=== PATIENT | male | born 1960 | race Two or more races ===

== ENCOUNTER → 2020-07-18 13:09 | Outpatient (BNVA) | payer MEDICARE, MEDICAID, SELFPAY | PROVIDERS: PCP Family Medicine; Visit Provider Urology | DX: N40.1 Benign prostatic hyperplasia with lower urinary tract symptoms (principal); R35.1 Nocturia | CPT/HCPCS: 99213 ==

== ENCOUNTER 2020-08-23 13:37 | Outpatient (REF) | payer MEDICARE, MEDICAID, SELFPAY ==
--- NOTE | 2020-08-23 13:38 | XR_ITS ---
EXAMINATION: XR WRIST, LEFT CLINICAL INFORMATION: Left wrist pain COMPARISON: None TECHNIQUE: PA, lateral, and oblique views of the left wrist. FINDINGS: An ovoid corticated density is seen distal to the ulnar styloid. The distal radius is intact. The carpal bones are normally aligned. Punctate radiopaque densities are seen along the volar aspect of the soft tissues superficial to the fifth metacarpal. XR/XR wrist LT min 3V IMPRESSION: 1. 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 No acute abnormality. 2. Probable tiny radiopaque foreign bodies in the volar soft tissues superficial to the fifth metacarpal.
== END 2020-08-23 13:38 | disposition home or self-care (01) ==
LOC: HO.HOSX 13:37
PROVIDERS: Visit Provider Orthopaedic Surgery
DX: M77.8 Other enthesopathies, not elsewhere classified (principal)
CPT/HCPCS: 20550; 73110; 99202; J1100

== ENCOUNTER 2020-08-28 09:41 | Outpatient (REF) | payer MEDICARE, MEDICAID, SELFPAY ==
--- NOTE | 2020-08-28 | PFT_ITS ---
FLOWS: FEV1 of 72% of predicted at 2.58 L. FVC 72% of predicted at 3.43 L. FEV1 to FVC ratio of 0.75. No bronchodilator response. LUNG VOLUMES: Total lung capacity 79% of predicted at 5.59 L. Residual volume 91% of predicted at 2.08 L. Slow vital capacity 74% of predicted at 3.51 L. Expiratory reserve volume 91% of predicted at 1.27 L. Diffusion capacity is mildly decreased, diffusion capacity adjust to normal after correction for alveolar ventilation. In comparison to pulmonary function test from November of 2015, FEV1 has been without significant changes; FVC has decreased by 0.35 L; total lung capacity has been without significant changes; residual volume has decreased by 0.5 L; slow vital capacity has decreased by 0.21 L; expiratory reserve volume has decreased by 0.23 L; diffusion capacity has increased by 0.76 mL per minute per mmHg. IMPRESSION: Mild restrictive ventilatory defect combined as reversible mild obstructive ventilatory defect with no bronchodilator response. MD EDGARDO Batista/MODL / [id number]
== END 2020-08-28 09:42 | disposition home or self-care (01) ==
LOC: HO.RESP 09:41
PROVIDERS: PCP Family Medicine; Visit Provider Family Medicine
DX: J44.9 Chronic obstructive pulmonary disease, unspecified (principal)
CPT/HCPCS: 94060; 94727; 94729

== ENCOUNTER 2020-11-20 13:41 | Emergency (ER) | payer MEDICARE, MEDICAID, SELFPAY ==
--- NOTE | 2020-11-20 | ECG_ITS ---
Test Reason : CHEST PAIN Blood Pressure : / mmHG Vent. Rate : 079 BPM Atrial Rate : 079 BPM P-R Int : 134 ms QRS Dur : 084 ms QT Int : 354 ms P-R-T Axes : 050 052 064 degrees QTc Int : 405 ms Normal sinus rhythm Normal ECG When compared with ECG of 20-APR-2020 12:15, No significant change was found Referred By: Lady Florentino Electronically Signed By:Levi Jett
--- NOTE | ~2020-11-20 | XR_ITS ---
EXAMINATION: XR CHEST CLINICAL INFORMATION: Chest pain COMPARISON: Previous chest x-ray April 2020 TECHNIQUE: Frontal view of the chest was obtained. FINDINGS: The cardiac and mediastinal contours are stable. There is elevation of the left hemidiaphragm that is stable. The lungs are clear. There is no pleural effusion or pneumothorax. Bony structures are unremarkable. XR/XR chest 1V IMPRESSION: No evidence for acute disease in the chest. Elevated left hemidiaphragm similar to previous exams.
[2020-11-20 14:31] VITALS: BP 129/71; PULSE 88; RESP 18; TEMP 36.6; O2SAT 98; BMI 25.1
--- NOTE | 2020-11-20 14:43 | ED_ITS ---
HPI - Chest Pain General Chief Complaint: Chest Pain Stated Complaint: CHEST PAIN LEG NUMBNESS Time Seen by Provider: 11/20/20 14:43 Source: patient Mode of arrival: ambulatory Limitations: no limitations History of Present Illness MD complaint: chest pain Pertinent past history: asthma Onset (ago): day(s) (1) Timing of current episode: constant Prior episodes: Yes Onset: during rest Pain location: substernal Pain radiation: none Severity: similar to previous episodes Quality: tightness Relieving factors: nothing Exacerbating factors: nothing Associated symptoms: dyspnea Treatment prior to arrival: none Related Data Home Medications Medication Instructions Recorded Confirmed albuterol sulfate 90 mcg/actuation 1 inh INHALATION QID 08/17/20 aerosol inhaler aspirin 81 mg tablet,delayed 81 mg PO DAILY 08/17/20 release atorvastatin 10 mg tablet 10 mg PO DAILY 08/17/20 meclizine 25 mg tablet 25 mg PO DAILY 08/17/20 oxybutynin chloride 5 mg tablet 5 mg PO DAILY 08/17/20 tamsulosin 0.4 mg capsule 0.4 mg PO DAILY 08/17/20 varicella-zoster glycoE [id number] IM 08/17/20 adj(PF) 50 mcg/0.5 mL IM susp, kit Previous Rx's Medication Instructions Recorded benzonatate [Tessalon Perles] 100 mg PO BID PRN #20 cap 11/20/20 doxycycline hyclate 100 mg PO BID 7 Days #14 cap 11/20/20 prednisone 40 mg PO DAILY 5 Days #10 tab 11/20/20 Allergies Allergy/AdvReac Type Severity Reaction Status Date / Time No Known Allergies Allergy Verified 08/23/20 13:59 Review of Systems Review of Systems: Constitutional : No Weight loss, No Fever, No Chills ENT/Mouth : No sore throat, No Rhinorrhea Eyes: No Eye Pain, No Swelling Cardiovascular : pos Chest Pain, pos SOB, no Dyspnea on Exertion, No Orthopnea, No Edema, No Palpitations Respiratory : No Cough, No Sputum Gastrointestinal : no Nausea, No Vomiting, No Diarrhea, No abdominal Pain, No Hematochezia, No Melena Genitourinary : No Dysuria, No Urinary Frequency Musculoskeletal : No joint pain, No Myalgias, No Joint Swelling Skin : pos Skin Lesions, No rash Neuro : No Weakness, No Numbness, No Dizziness, No Headache Psych : No Anxiety/Panic, No Depression Heme/Lymph: No Bruising, No Lymphadenopathy Endocrine : No Polyuria, No Polydipsia All other systems reviewed and are negative [facility], [facility] Past Medical History Attestation statement: The following information was validated with the patient. Medical History (Updated 11/20/20 @ 16:04 by Lady Florentino DO) Asthma Cervicalgia COPD (chronic obstructive pulmonary disease) Eczema HIV (human immunodeficiency virus infection) Social History Social History (Updated 08/23/20 @ 14:00 by Joann Gómez PA-C) Alcohol intake: never Smoking Status: Former smoker Advance Directives: No Advance Directives Information Provided: No Current occupational status: disabled Physical Exam Vital Signs: Vital Signs: Last Vital Signs Temp 98.3 F 11/20/20 14:56 Pulse 76 11/20/20 15:12 Resp 16 11/20/20 14:56 BP 133/75 11/20/20 14:56 Pulse Ox 97 11/20/20 14:56 Body Mass Index 25.1 Appearance: Alert. Oriented X3. No acute distress. Eyes: Pupils equal, round and reactive to light. ENT: Pharynx normal. Neck: Normal inspection. Neck supple. CVS: Normal heart rate and rhythm. Pulses normal. Respiratory: No respiratory distress. Breath sounds diminished throughout Abdomen: Soft and nontender. Back: in between scapula boil noted no sig overlyin erythema ?sebaceous cyst Skin: Skin warm and dry. Normal skin color. Normal skin turgor. Extremities: No lower extremity edema. No calf ttp boundin distal pulses Neuro: Oriented X 3. No motor deficit. No sensory deficit. Course Course Course Narrative: troponin and ddimer flat - EKG nonischemic, feels much better after neb and steroids - likely DC home + COVID no hypoxia, clear CXR for asthma/boil and COVID start on dexamethasone and doxy strict instructions to return Procedures Abscess I/D Site: back Sedation/analgesia: none Local Anesthetic: other anesthetic (LET) Technique: needle aspiration Amount of fluid expressed (mL): 5 Sent for culture/gram staining?: No Irrigation: No Packing used?: none MDM - Chest Pain MDM Narrative Medical decision making narrative: 60 yo male with hx of chest pain, asthma, PVD comes in with c/o chest tightness and body aches since yesterday with bouts of tingling in LE (has had episodes of same in past), also c/o boil on mid back at this time at this time will give neb, IV steroids has diminished lung sounds, CXR, ddimer, will aspirate boil on back has no overlying cellulitis at this time - doubt ACS/dissection, ddimer for low prob PE Lab Data Result diagrams: 11/20/20 15:01 11/20/20 15:01 Labs: Lab Results 11/20/20 11/20/20 11/20/20 Range/Units 15:01 15: 15:01 WBC 5.2 (4.8-10.8) X10*3/uL RBC 4.35 L (4.60-5.80) X10*6/uL Hgb 12.9 L (14.0-18.0) g/dl Hct 39.0 L (42-52) % MCV 89.7 (80-98) fL MCH 29.7 (27.0-33.0) pg MCHC 33.1 (31.0-36.0) g/dl RDW 13.2 (11.0-16.0) % Plt Count 219 (160-400) X10*3/uL MPV 9.3 L (9.4-12.4) fL Immature Gran % (Auto) 0.2 (0.0-0.4) % Neut % (Auto) 67.7 (45-73) % Lymph % (Auto) 14.7 L (20-40) % [place] % (Auto) 14.5 H (2-11) % Eos % (Auto) 2.3 (0-4) % Baso % (Auto) 0.6 (0-2) % Lymph # (Auto) 0.8 L (1.2-4.9) X10*3/uL [place] # (Auto) 0.8 (0.1-1.2) X10*3/uL Eos # (Auto) 0.1 (0.0-0.4) X10*3/uL Baso # (Auto) 0.0 (0.0-0.2) X10*3/uL Abs Immat Gran (auto) 0.01 (0.00-0.03) X10*3/uL Absolute Neuts (auto) 3.5 (2.0-8.3) X10*3/uL Absolute Nucleated RBC 0.000 (0.0-0.012) X10*3/uL Nucleated RBC % (auto) 0.0 (0.0-0.2) /100WBC D-Dimer < 200 NG/ML Sodium 139 (135-145) mmol/L Potassium 4.0 (3.3-5.1) mmol/L Chloride 104 (96-108) mmol/L Carbon Dioxide 29 (22-29) mmol/L Anion Gap 10 L (12-20) BUN 9 (9-16) mg/dL Creatinine 0.96 (0.5-1.4) mg/dL Estim Creat Clear Calc 79.7 Estimated GFR > 60 Random Glucose 112 (60-115) mg/dL Calcium 8.4 (8.4-10.2) mg/dL Magnesium 2.0 (1.6-2.6) mg/dL Total Bilirubin 0.5 (0.0-1.0) mg/dL Direct Bilirubin < 0.2 (0.0-0.5) mg/dL AST 14 (5-37) U/L ALT 10 (0-40) U/L Alkaline Phosphatase 59 (39-117) U/L Troponin I High Sens (<3.5-35.0) ng/L B-Natriuretic Peptide (<100) pg/mL Total Protein 6.6 (6.5-8.0) g/dL Albumin 4.2 (3.5-5.0) g/dL Lipase 32 (8-78) U/L / Range/Units 15:01 WBC (4.8-10.8) X10*3/uL RBC (4.60-5.80) X10*6/uL Hgb (14.0-18.0) g/dl Hct (42-52) % MCV (80-98) fL MCH (27.0-33.0) pg MCHC (31.0-36.0) g/dl RDW (11.0-16.0) % Plt Count (160-400) X10*3/uL MPV (9.4-12.4) fL Immature Gran % (Auto) (0.0-0.4) % Neut % (Auto) (45-73) % Lymph % (Auto) (20-40) % [place] % (Auto) (2-11) % Eos % (Auto) (0-4) % Baso % (Auto) (0-2) % Lymph # (Auto) (1.2-4.9) X10*3/uL [place] # (Auto) (0.1-1.2) X10*3/uL Eos # (Auto) (0.0-0.4) X10*3/uL Baso # (Auto) (0.0-0.2) X10*3/uL Abs Immat Gran (auto) (0.00-0.03) X10*3/uL Absolute Neuts (auto) (2.0-8.3) X10*3/uL Absolute Nucleated RBC (0.0-0.012) X10*3/uL Nucleated RBC % (auto) (0.0-0.2) /100WBC D-Dimer NG/ML Sodium (135-145) mmol/L Potassium (3.3-5.1) mmol/L Chloride (96-108) mmol/L Carbon Dioxide (22-29) mmol/L Anion Gap (12-20) BUN (9-16) mg/dL Creatinine (0.5-1.4) mg/dL Estim Creat Clear Calc Estimated GFR Random Glucose (60-115) mg/dL Calcium (8.4-10.2) mg/dL Magnesium (1.6-2.6) mg/dL Total Bilirubin (0.0-1.0) mg/dL Direct Bilirubin (0.0-0.5) mg/dL AST (5-37) U/L ALT (0-40) U/L Alkaline Phosphatase (39-117) U/L Troponin I High Sens < 3.5 (<3.5-35.0) ng/L B-Natriuretic Peptide 29 (<100) pg/mL Total Protein (6.5-8.0) g/dL Albumin (3.5-5.0) g/dL Lipase (8-78) U/L ECG Data ECG #1: Attestation: I personally reviewed and interpreted this ECG as follows: ECG interpretation date: 11/20/20 ECG interpretation time: 14:45 Interpretation: Rate: 79 Rhythm: NSR [place]: normal Normal P waves. Normal ZOILA. Normal QRS complex. ST T wave : normal no ARNOLD qTC: normal prior studies: no acute ischemia The study has been interpreted contemporaneously by me. . Discharge Plan Discharge Clinical Impression: Atypical chest pain, COVID-19, Infected sebaceous cyst Patient Disposition: Home, Self-Care Instructions: Chest Pain (ED), Cyst (ED), COVID-19 (Coronavirus Disease 2019) (ED) Additional Instructions: return to ED for any worsening symptoms or concerns if you are so short of breath you cannot walk to your bathroom please come back as soon as possible Prescriptions: New doxycycline hyclate 100 mg capsule 100 mg PO BID 7 Days Qty: 14 RF: 0 prednisone 20 mg tablet 40 mg PO DAILY 5 Days Qty: 10 RF: 0 benzonatate [Tessalon Perles] 100 mg capsule 100 mg PO BID PRN (Reason: cough) Qty: 20 RF: 0
[2020-11-20 14:56] VITALS: BP 133/75; PULSE 91; RESP 16; TEMP 36.8; O2SAT 97
[2020-11-20 15:12] VITALS: PULSE 76; O2SAT 98
[2020-11-20] MEDS: Albuterol Sulfate (0.083%) 2.5 MG/3 ML VIAL.NEB INHALE (15:12)
[2020-11-20 15:13] LABS: MANUAL DIFF FLAG NO
[2020-11-20] MEDS: methylPREDNISolone Sod Succ/PF 125 MG/2 ML VIAL 60 MG IVPUSH (15:14)
[2020-11-20] MEDS: Lidocaine/Epineph/Tetracaine 3 ML GEL.PF.APP TOPICAL (15:16)
[2020-11-20 15:19] LABS: Basophils Percent Auto 0.6 % (0-2); Eosinophils Absolute Auto 0.1 X10*3/uL (0.0-0.4); Eosinophils Percent Auto 2.3 % (0-4); Hemoglobin 12.9 g/dl (14.0-18.0); Imm Gran Abs Auto 0.01 X10*3/uL (0.00-0.03); Imm Gran Pct Auto 0.2 % (0.0-0.4); Lymphocytes Absolute Auto 0.8 X10*3/uL (1.2-4.9); Lymphocytes Percent Auto 14.7 % (20-40); Mean Corpuscular HGB Conc 33.1 g/dl (31.0-36.0); Mean Corpuscular Hemoglobin 29.7 pg (27.0-33.0); Mean Corpuscular Volume 89.7 fL (80-98); Mean Platelet Volume 9.3 fL (9.4-12.4); Monocytes Absolute Auto 0.8 X10*3/uL (0.1-1.2); Monocytes Percent Auto 14.5 % (2-11); Neutrophils Absolute Auto 3.5 X10*3/uL (2.0-8.3); Neutrophils Percent Auto 67.7 % (45-73); Platelet Count 219 X10*3/uL (160-400); Red Blood Count 4.35 X10*6/uL (4.60-5.80); Red Cell Distribution Width 13.2 % (11.0-16.0); White Blood Count 5.2 X10*3/uL (4.8-10.8)
[2020-11-20 15:45] LABS: Alanine Aminotransferase 10 U/L (0-40); Albumin Level 4.2 g/dL (3.5-5.0); Alkaline Phosphatase 59 U/L (39-117); Anion Gap 10 (12-20); Aspartate Amino Transferase 14 U/L (5-37); Bilirubin Direct < 0.2 mg/dL (0.0-0.5); Bilirubin Total 0.5 mg/dL (0.0-1.0); Blood Urea Nitrogen 9 mg/dL (9-16); Calcium 8.4 mg/dL (8.4-10.2); Carbon Dioxide 29 mmol/L (22-29); Chloride 104 mmol/L (96-108); Creatinine Clr Calc Pharmacy 79.7; D Dimer < 200 NG/ML; Estimated Glomerular Filt Rate > 60; Glucose Random 112 mg/dL (60-115); Lipase 32 U/L (8-78); Sodium 139 mmol/L (135-145); Total Protein 6.6 g/dL (6.5-8.0)
[2020-11-20 15:49] LABS: B Type Natriuretic Peptide 29 pg/mL (<100); Troponin-I High Sensitivity < 3.5 ng/L (<3.5-35.0)
[2020-11-20 15:55] LABS: Influenza A PCR NEGATIVE (Negative); Influenza B PCR NEGATIVE (Negative); Resp Syncy Virus RNA Qual PCR NEGATIVE (Negative); SARS COV2 PCR INHOUSE POSITIVE (Negative)
== END 2020-11-20 16:28 | disposition home or self-care (01) ==
PROVIDERS: Emergency Provider Emergency Medicine; PCP Family Medicine
DX: U07.1 COVID-19 (principal); R07.89 Other chest pain; L72.3 Sebaceous cyst; B20 Human immunodeficiency virus [HIV] disease; J45.909 Unspecified asthma, uncomplicated
CPT/HCPCS: 0241U; 36415; 71045; 80048; 80076; 83690; 83735; 83880; 84484; 85025; 85379; 93005; 94640; 96374; 99283; 99284; J2930

== ENCOUNTER 2020-12-04 12:43 | Emergency (ER) | payer MEDICARE, MEDICAID, SELFPAY ==
--- NOTE | ~2020-12-04 | XR_ITS ---
EXAMINATION: XR CHEST CLINICAL INFORMATION: Chest pain COMPARISON: Previous chest x-ray November [address] scan October 2018 TECHNIQUE: 2 views of the chest were obtained. FINDINGS: The cardiac and mediastinal contours are stable. There is elevation of the left hemidiaphragm unchanged from previous exams. The lungs are clear. There is no pleural effusion or pneumothorax. There are small radiopaque soft tissue foreign bodies projecting over the left lung base. When compared with previous chest CT these are in the left chest wall. Bony structures are unremarkable. XR/XR chest 2V IMPRESSION: No evidence for acute disease in the chest. Stable elevation of the left hemidiaphragm.
[2020-12-04 13:55] VITALS: BP 111/70; PULSE 73; RESP 18; TEMP 37; O2SAT 99; BMI 25.1
--- NOTE | 2020-12-04 13:59 | ECG_ITS ---
Test Reason : CHEST PAIN Blood Pressure : / mmHG Vent. Rate : 070 BPM Atrial Rate : 070 BPM P-R Int : 126 ms QRS Dur : 086 ms QT Int : 358 ms P-R-T Axes : 045 058 068 degrees QTc Int : 386 ms Normal sinus rhythm Normal ECG When compared with ECG of 20-NOV-2020 14:42, No significant change was found Referred By: Generic ED Physician Electronically Signed By:JONI ELIZALDE
[2020-12-04 15:36] LABS: MANUAL DIFF FLAG NO
[2020-12-04 15:38] LABS: Basophils Percent Auto 0.2 % (0-2); Eosinophils Absolute Auto 0.2 X10*3/uL (0.0-0.4); Eosinophils Percent Auto 2.1 % (0-4); Hematocrit 37.6 % (42-52); Hemoglobin 12.5 g/dl (14.0-18.0); Imm Gran Abs Auto 0.03 X10*3/uL (0.00-0.03); Imm Gran Pct Auto 0.3 % (0.0-0.4); Lymphocytes Absolute Auto 1.9 X10*3/uL (1.2-4.9); Lymphocytes Percent Auto 20.9 % (20-40); Mean Corpuscular HGB Conc 33.2 g/dl (31.0-36.0); Mean Corpuscular Hemoglobin 29.6 pg (27.0-33.0); Mean Corpuscular Volume 88.9 fL (80-98); Mean Platelet Volume 8.8 fL (9.4-12.4); Monocytes Absolute Auto 0.8 X10*3/uL (0.1-1.2); Monocytes Percent Auto 8.4 % (2-11); Neutrophils Absolute Auto 6.2 X10*3/uL (2.0-8.3); Neutrophils Percent Auto 68.1 % (45-73); Platelet Count 323 X10*3/uL (160-400); Red Blood Count 4.23 X10*6/uL (4.60-5.80); Red Cell Distribution Width 12.9 % (11.0-16.0); White Blood Count 9.1 X10*3/uL (4.8-10.8)
[2020-12-04 16:03] LABS: Anion Gap 12 (12-20); Blood Urea Nitrogen 13 mg/dL (9-16); Calcium 8.4 mg/dL (8.4-10.2); Carbon Dioxide 30 mmol/L (22-29); Chloride 102 mmol/L (96-108); Creatinine Clr Calc Pharmacy 73.6; Estimated Glomerular Filt Rate > 60; Glucose Random 101 mg/dL (60-115); Potassium 4.1 mmol/L (3.3-5.1); Sodium 140 mmol/L (135-145)
[2020-12-04 16:09] LABS: Troponin-I High Sensitivity < 3.5 ng/L (<3.5-35.0)
--- NOTE | 2020-12-04 17:13 | ED_ITS ---
HPI - Chest Pain General Chief Complaint: Chest Pain Stated Complaint: chest pain Time Seen by Provider: 12/04/20 17:11 Source: patient Mode of arrival: ambulatory Limitations: no limitations History of Present Illness HPI narrative: 60-year-old male with past medical history of asthma, cervicalgia, eczema, COPD and HIV that tested positive for COVID-19 on 11/20/2020 presents with 2 weeks of nonproductive cough and intermittent chest pain. He does not report any fevers, chills, shortness of breath, shortness of breath on exertion, palpitations, pain on inspiration, edema, dizziness, weakness, loss of balance, abdominal pain, abdominal distention, dysuria, hematuria, melena, hematochezia, weight loss or abnormal bruising or bleeding. Related Data Home Medications Medication Instructions Recorded Confirmed albuterol sulfate 90 mcg/actuation 1 inh INHALATION QID 08/17/20 aerosol inhaler aspirin 81 mg tablet,delayed 81 mg PO DAILY 08/17/20 release atorvastatin 10 mg tablet 10 mg PO DAILY 08/17/20 meclizine 25 mg tablet 25 mg PO DAILY 08/17/20 oxybutynin chloride 5 mg tablet 5 mg PO DAILY 08/17/20 tamsulosin 0.4 mg capsule 0.4 mg PO DAILY 08/17/20 varicella-zoster glycoE [id number] IM 08/17/20 adj(PF) 50 mcg/0.5 mL IM susp, kit Previous Rx's Medication Instructions Recorded benzonatate [Tessalon Perles] 100 mg PO BID PRN #20 cap 11/20/20 doxycycline hyclate 100 mg PO BID 7 Days #14 cap 11/20/20 prednisone 40 mg PO DAILY 5 Days #10 tab 11/20/20 benzonatate [Tessalon Perles] 100 mg PO TID PRN #30 cap 12/04/20 Allergies Allergy/AdvReac Type Severity Reaction Status Date / Time No Known Allergies Allergy Verified 12/04/20 13:55 Review of Systems Review of Systems: Constitutional: No Fever, no Chills, no fatigue, no Malaise ENT/Mouth: No sore throat, no runny nose Eyes: No Discharge Cardiovascular: Positive intermittent Chest Pain, No SOB Respiratory: Positive Cough, No Sputum, No Wheezing, No Smoke Exposure, No Dyspnea Gastrointestinal: No Nausea, No Vomiting, No Diarrhea Genitourinary: no irregular bleeding, No Dysuria, No Urinary Frequency, No Hematuria, No Urinary Incontinence, No Urgency, No Flank Pain, Musculoskeletal: positive Myalgia Skin: No rash Neuro: No Headache Yes all other systems are reviewed and are negative [facility] Past Medical History Attestation statement: The following information was validated with the patient. Source: old records reviewed Medical History Asthma Cervicalgia COPD (chronic obstructive pulmonary disease) Eczema HIV (human immunodeficiency virus infection) Social History Social History Alcohol intake: never Smoking Status: Former smoker Advance Directives: No Advance Directives Information Provided: Yes Current occupational status: disabled Physical Exam Vital Signs: Vital Signs: Last Vital Signs Temp 97.5 F 12/04/20 18:07 Pulse 72 12/04/20 18:07 Resp 16 12/04/20 18:07 BP 125/68 12/04/20 18:07 Pulse Ox 96 12/04/20 18:07 Body Mass Index 25.1 Appearance: Alert. Oriented X3. No acute distress. Eyes: Pupils equal, round and reactive to light. EOMI, sclera nonicteric ENT: Pharynx normal. Moist mucous membranes, uvula midline Neck: Normal inspection. Neck supple. No JVD CVS: Normal heart rate and rhythm. Pulses normal. Respiratory: No respiratory distress. Lung sounds clear to auscultation all lobes, even unlabored respirations Abdomen: Soft and nontender. Skin: Skin warm and dry. Normal skin color. Normal skin turgor. Extremities: No lower extremity edema. Neuro: No motor deficit. No sensory deficit. Cranial nerves 2-12 intact, gait well balanced well coordinated Course Course Course Narrative: 60-year-old male with past medical history of asthma, eczema, COPD, cervicalgia, HIV, tested positive for COVID-19 11/20/2020 presents with in termittent chest pain and dry cough. At the time of my exam, patient does not report any chest pain and states that the pain occurs when he is coughing. He does not report any pain on inspiration, has no reproducible chest pain on palpation, lung sounds clear to auscultation all lobes, no hypoxia O2 sat 99% on room air, respiration rate is 17, heart rate is 73 no tachycardia on EKG. EKG is normal sinus, troponin is 0. H&H 12.5/37.6 which is consistent with his prior values on 11/20/2020, and has had values of 12.9/39 dating back to 2019. He does not describe any melena or hematochezia, no abnormal bruising or bleeding. Wells PE score 0. Well DVT score -2. Highly unlikely that this is ACS or PE. Most likely COVID-19 related symptoms. Plan of care is to discharge home with Florencio Hall, will refill albuterol inhaler. Patient verbalized understanding of and agrees to plan of care discharge home. MDM - Chest Pain Differential Diagnosis Differential diagnosis: Likely fracture of rib, pneumothorax, atypical chest pain, st elevation myocardial infarction, costochondritis and chest pain Medical Records Data Attestation: I reviewed the patient's medical records. Lab Data Attestation: I reviewed the patient's lab results. Result diagrams: 12/04/20 15:30 12/04/20 15:30 Labs: Lab Results 12/04/20 12/04/20 12/04/20 Range/Units 15:30 15:30 15:30 WBC 9.1 (4.8-10.8) X10*3/uL RBC 4.23 L (4.60-5.80) X10*6/uL Hgb 12.5 L (14.0-18.0) g/dl Hct 37.6 L (42-52) % MCV 88.9 (80-98) fL MCH 29.6 (27.0-33.0) pg MCHC 33.2 (31.0-36.0) g/dl RDW 12.9 (11.0-16.0) % Plt Count 323 D (160-400) X10*3/uL MPV 8.8 L (9.4-12.4) fL Immature Gran % (Auto) 0.3 (0.0-0.4) % Neut % (Auto) 68.1 (45-73) % Lymph % (Auto) 20.9 (20-40) % [place] % (Auto) 8.4 (2-11) % Eos % (Auto) 2.1 (0-4) % Baso % (Auto) 0.2 (0-2) % Lymph # (Auto) 1.9 (1.2-4.9) X10*3/uL [place] # (Auto) 0.8 (0.1-1.2) X10*3/uL Eos # (Auto) 0.2 (0.0-0.4) X10*3/uL Baso # (Auto) 0.0 (0.0-0.2) X10*3/uL Abs Immat Gran (auto) 0.03 (0.00-0.03) X10*3/uL Absolute Neuts (auto) 6.2 (2.0-8.3) X10*3/uL Absolute Nucleated RBC 0.000 (0.0-0.012) X10*3/uL Nucleated RBC % (auto) 0.0 (0.0-0.2) /100WBC Hold Blue Top SEE NOTE Sodium 140 (135-145) mmol/L Potassium 4.1 (3.3-5.1) mmol/L Chloride 102 (96-108) mmol/L Carbon Dioxide 30 H (22-29) mmol/L Anion Gap 12 (12-20) BUN 13 (9-16) mg/dL Creatinine 1.04 (0.5-1.4) mg/dL Estim Creat Clear Calc 73.6 Estimated GFR > 60 Random Glucose 101 (60-115) mg/dL Calcium 8.4 (8.4-10.2) mg/dL Troponin I High Sens (<3.5-35.0) ng/L 12/04/20 Range/Units 15:30 WBC (4.8-10.8) X10*3/uL RBC (4.60-5.80) X10*6/uL Hgb (14.0-18.0) g/dl Hct (42-52) % MCV (80-98) fL MCH (27.0-33.0) pg MCHC (31.0-36.0) g/dl RDW (11.0-16.0) % Plt Count (160-400) X10*3/uL MPV (9.4-12.4) fL Immature Gran % (Auto) (0.0-0.4) % Neut % (Auto) (45-73) % Lymph % (Auto) (20-40) % [place] % (Auto) (2-11) % Eos % (Auto) (0-4) % Baso % (Auto) (0-2) % Lymph # (Auto) (1.2-4.9) X10*3/uL [place] # (Auto) (0.1-1.2) X10*3/uL Eos # (Auto) (0.0-0.4) X10*3/uL Baso # (Auto) (0.0-0.2) X10*3/uL Abs Immat Gran (auto) (0.00-0.03) X10*3/uL Absolute Neuts (auto) (2.0-8.3) X10*3/uL Absolute Nucleated RBC (0.0-0.012) X10*3/uL Nucleated RBC % (auto) (0.0-0.2) /100WBC Hold Blue Top Sodium (135-145) mmol/L Potassium (3.3-5.1) mmol/L Chloride (96-108) mmol/L Carbon Dioxide (22-29) mmol/L Anion Gap (12-20) BUN (9-16) mg/dL Creatinine (0.5-1.4) mg/dL Estim Creat Clear Calc Estimated GFR Random Glucose (60-115) mg/dL Calcium (8.4-10.2) mg/dL Troponin I High Sens < 3.5 (<3.5-35.0) ng/L Imaging Data Chest x-ray: Attestation: I personally reviewed and interpreted this imaging study as follows: Radiologist's impression: EXAMINATION: XR CHEST CLINICAL INFORMATION: Chest pain COMPARISON: Previous chest x-ray November [address] scan October 2018 TECHNIQUE: 2 views of the chest were obtained. FINDINGS: The cardiac and mediastinal contours are stable. There is elevation of the left hemidiaphragm unchanged from previous exams. The lungs are clear. There is no pleural effusion or pneumothorax. There are small radiopaque soft tissue foreign bodies projecting over the left lung base. When compared with previous chest CT these are in the left chest wall. Bony structures are unremarkable. XR/XR chest 2V IMPRESSION: No evidence for acute disease in the chest. Stable elevation of the left hemidiaphragm. ECG Data ECG #1: Attestation: I personally reviewed and interpreted this ECG as follows: ECG interpretation date: 12/04/20 ECG interpretation time: 14:02 Prior ECG tracings: available for review Interpretation: Vent. rate 70 BPM [place] interval 126 ms QRS duration 86 ms QT/QTc 358/386 ms P-R-T axes 45 58 68 Normal sinus rhythm Normal ECG When compared with ECG of 20-NOV-2020 14:42, No significant change was found Scores Heart Score History: -1- moderately suspicious ECG: -0- normal Age: -1- >45 - <65 Risk factory: -1- 1 or 2 risk factors Troponin: -0- < or = normal limit Score: 3 Risk: 1.7% Wells DVT Alternative Dx as likely as or more likely than DVT: -2 Score: -2 2-tier Risk: unlikely risk (5%) 3-tier Risk: low risk (3%) Discharge Plan Discharge Clinical Impression: COVID-19, Atypical chest pain, Costalchondritis Patient Disposition: Home, Self-Care Instructions: Costochondritis (ED), Noncardiac Chest Pain (ED), COVID-19 (Coronavirus Disease 2019) (ED) Additional Instructions: Te evaluaron para detectar dolor tor?cico asociado con jose a tos seca. El electrocardiograma es el ritmo sinusal normal, las troponinas son negativas, la frecuencia card?ye 73, ninguna indicaci?n de taquicardia o dificultad para respirar. Las radiograf?as de t?rax son negativas para los hallazgos agudos que requieren jose a intervenci?n emergente. [place] es m?s probable que est? relacionado con liu prueba positiva COVID-19 en 11/20/2020. Por favor, tome Tesal?n Perles para ayudar a aliviar la tos. Siga las instrucciones al nahum josie medicamento. Por favor, tommy un seguimiento del m?dico de atenci?n primaria en la pr?xima semana o 2 o seg?n sea necesario. Taya por elegir josie departamento de emergencias para liu evaluaci?n. Por favor, tommy un seguimiento con el m?dico de atenci?n primaria seg?n sea necesario. Regrese al servicio de emergencias para cualquier s?ntoma nuevo, preocupante o que empeore. You were evaluated for chest pain associated with a dry cough. EKG is normal sinus rhythm, troponins are negative, heart rate 73, no indication of tachycardia or shortness of breath. Chest x-rays are negative for acute findings requiring emergent intervention. This is most likely to be related to your positive COVID-19 test on 11/20/2020. Please take Tessalon Perles to help alleviate cough. Follow the directions when taking this medication. Please follow-up the primary care physician in the next week or 2 or as needed. Thank you for choosing this emergency department for evaluation. Please follow-up with primary care physician as needed. Return to the emergency department for any new, concerning, or worsening symptoms. Prescriptions: New benzonatate [Tessalon Perles] 100 mg capsule 100 mg PO TID PRN (Reason: cough) Qty: 30 RF: 0 No Action doxycycline hyclate 100 mg capsule 100 mg PO BID 7 Days Qty: 14 RF: 0 prednisone 20 mg tablet 40 mg PO DAILY 5 Days Qty: 10 RF: 0 benzonatate [Tessalon Perles] 100 mg capsule 100 mg PO BID PRN (Reason: cough) Qty: 20 RF: 0 Interventions: ED Discharge Assessment Last Done: 12/04/20 18:08
[2020-12-04 18:07] VITALS: BP 125/68; PULSE 72; RESP 16; TEMP 36.4; O2SAT 96
== END 2020-12-04 18:16 | disposition home or self-care (01) ==
PROVIDERS: Emergency Provider Emergency Medicine; PCP Family Medicine
DX: R07.89 Other chest pain (principal); M94.0 Chondrocostal junction syndrome [Tietze]; Z86.16 Personal history of COVID-19; J45.909 Unspecified asthma, uncomplicated; J44.9 Chronic obstructive pulmonary disease, unspecified; B20 Human immunodeficiency virus [HIV] disease
CPT/HCPCS: 36415; 71046; 80048; 84484; 85025; 93005; 99283

== ENCOUNTER → 2020-12-27 09:04 | Outpatient (REF) | payer MEDICARE, MEDICAID, SELFPAY ==
--- NOTE | 2020-12-27 09:30 | CA_ITS ---
Transthoracic Echocardiogram Patient (Last, First, Middle): Mervin Ramirez, Gender: Male Date of : 1960 Age: 60 Procedure Date: 12/27/2020 Procedure Type: Transthoracic Echocardiogram Location: OP Height: 177.8 cm Weight: 77.11 kg BSA: 1.95 m2 Heart Rate: bpm BP: 132 / 90 mmHg Social Work Job Titles: AI Murdock MD: Luis SHERWOOD Symptoms: I65.29 CAROTID STENOSIS Study Quality: Fair/Contrast ECG Rhythm: Sinus Conclusions: - The left ventricular systolic function is low normal. The visually estimated ejection fraction is between 50-55%. The calculated ejection fraction is 54% by biplane method. Findings Left Ventricle Normal left ventricular cavity size. The left ventricular systolic function is low normal. The visually estimated ejection fraction is between 50-55%. The calculated ejection fraction is 54% by biplane method. There is no evidence of regional wall motion abnormalities. Prior Study Comparison No prior study available for comparison. Measurements 2D Systolic Function EF 4C: 58.90 >55% EF 2C: 51.90 >55% EF BiP: 54.30 >55% Updated in Other Vendor System with Status of Final Kris Osborn MD electronically signed on 12/29/2020 12:33:01 PM with status of Final
== END ==
LOC: HO.CARD 09:04
PROVIDERS: PCP Family Medicine; Visit Provider Physician Assistant Medical
DX: I65.29 Occlusion and stenosis of unspecified carotid artery (principal)
CPT/HCPCS: 93308; Q9957

== ENCOUNTER 2021-03-07 07:55 | Emergency (ER) | payer MEDICARE, MEDICAID, SELFPAY ==
--- NOTE | ~2021-03-07 | XR_ITS ---
EXAMINATION: XR CHEST CLINICAL INFORMATION: Chest pain COMPARISON: Chest radiographs 12/04/2020, 11/20/2020, 04/20/2020, CT abdomen 11/04/2019 TECHNIQUE: Portable upright AP x2 views of the chest was obtained. FINDINGS: There is chronic elevation left diaphragm similar to prior studies. Some gritty shrapnel is again seen overlying the upper left flank, in the extrathoracic soft tissues on CT 2019. There is no pneumothorax, airspace consolidation, or groundglass opacity. The visualized cardiac and hilar and mediastinal contours and bony structures are stable. XR/XR chest 1V IMPRESSION: No acute intrathoracic disease.
[2021-03-07 08:11] VITALS: BP 124/62; PULSE 77; RESP 13; TEMP 36.8; O2SAT 98; BMI 24.4
--- NOTE | 2021-03-07 08:34 | ECG_ITS ---
Test Reason : CP Blood Pressure : / mmHG Vent. Rate : 075 BPM Atrial Rate : 075 BPM P-R Int : 130 ms QRS Dur : 088 ms QT Int : 358 ms P-R-T Axes : 055 049 058 degrees QTc Int : 399 ms Normal sinus rhythm Normal ECG When compared with ECG of 04-DEC-2020 14:02, No significant change was found Referred By: Teresa Cali Electronically Signed By:Levi Jett
[2021-03-07 08:41] LABS: MANUAL DIFF FLAG NO
[2021-03-07 08:45] LABS: Basophils Percent Auto 0.5 % (0-2); Eosinophils Absolute Auto 0.1 X10*3/uL (0.0-0.4); Eosinophils Percent Auto 1.4 % (0-4); Imm Gran Abs Auto 0.01 X10*3/uL (0.00-0.03); Imm Gran Pct Auto 0.2 % (0.0-0.4); Lymphocytes Absolute Auto 1.5 X10*3/uL (1.2-4.9); Lymphocytes Percent Auto 23.2 % (20-40); Mean Corpuscular HGB Conc 33.3 g/dl (31.0-36.0); Mean Corpuscular Hemoglobin 29.9 pg (27.0-33.0); Mean Corpuscular Volume 89.7 fL (80-98); Mean Platelet Volume 9.4 fL (9.4-12.4); Monocytes Absolute Auto 0.5 X10*3/uL (0.1-1.2); Monocytes Percent Auto 8.6 % (2-11); Neutrophils Absolute Auto 4.2 X10*3/uL (2.0-8.3); Neutrophils Percent Auto 66.1 % (45-73); Platelet Count 250 X10*3/uL (160-400); Red Blood Count 4.35 X10*6/uL (4.60-5.80); Red Cell Distribution Width 13.1 % (11.0-16.0); White Blood Count 6.3 X10*3/uL (4.8-10.8)
[2021-03-07 09:17] LABS: Alanine Aminotransferase 10 U/L (0-40); Albumin Level 4.2 g/dL (3.5-5.0); Alkaline Phosphatase 55 U/L (39-117); Anion Gap 11 (12-20); Aspartate Amino Transferase 16 U/L (5-37); Bilirubin Direct 0.2 mg/dL (0.0-0.5); Bilirubin Total 0.5 mg/dL (0.0-1.0); Blood Urea Nitrogen 14 mg/dL (9-16); Calcium 9.4 mg/dL (8.4-10.2); Carbon Dioxide 26 mmol/L (22-29); Chloride 107 mmol/L (96-108); Creatinine Clr Calc Pharmacy 85.9; Estimated Glomerular Filt Rate > 60; Glucose Random 104 mg/dL (60-115); Potassium 3.9 mmol/L (3.3-5.1); Sodium 140 mmol/L (135-145); Total Protein 6.5 g/dL (6.5-8.0)
[2021-03-07 09:19] LABS: B Type Natriuretic Peptide 33 pg/mL (<100); Troponin-I High Sensitivity < 3.5 ng/L (<3.5-35.0)
--- NOTE | 2021-03-07 09:23 | ED_ITS ---
HPI - Chest Pain General Chief Complaint: Chest Pain Stated Complaint: chest pain Time Seen by Provider: 03/07/21 08:06 Source: patient Mode of arrival: ambulatory History of Present Illness HPI narrative: 60-year-old male with a past medical history of asthma, COPD, eczema, HIV, COVID-19 in November presenting to the ED complaining of int ermittent chest tightness x 3-4 days with associated SOB. Admits to similar symptoms in the past in which he was evaluated in our emergency department for. Also reports dry cough. Denies fever, chills, LE edema, recent travel, sick contacts, history of blood clots, calf pain MD complaint: chest pain Related Data Home Medications Medication Instructions Recorded Confirmed albuterol sulfate 90 mcg/actuation 1 inh INHALATION QID 08/17/20 03/07/21 aerosol inhaler aspirin 81 mg tablet,delayed 81 mg PO DAILY 08/17/20 03/07/21 release atorvastatin 10 mg tablet 10 mg PO DAILY 08/17/20 03/07/21 meclizine 25 mg tablet 25 mg PO DAILY 08/17/20 03/07/21 oxybutynin chloride 5 mg tablet 5 mg PO DAILY 08/17/20 03/07/21 tamsulosin 0.4 mg capsule 0.4 mg PO DAILY 08/17/20 varicella-zoster glycoE [id number] IM 08/17/20 adj(PF) 50 mcg/0.5 mL IM susp, kit Previous Rx's Medication Instructions Recorded prednisone 40 mg PO DAILY 5 Days #10 tab 11/20/20 tamsulosin 0.4 mg capsule 0.4 mg PO DAILY 90 Days #90 cap 12/25/20 Allergies Allergy/AdvReac Type Severity Reaction Status Date / Time No Known Allergies Allergy Verified 12/04/20 13:55 Review of Systems Review of Systems: Constitutional: No Fever, No Chills, No Fatigue, No Malaise Cardiovascular: + Chest Pain, + SOB, No Dyspnea on Exertion, No Orthopnea, No Edema, No Palpitations Respiratory: + Cough, No Sputum, No Wheezing Gastrointestinal: No Nausea, No Vomiting, No Diarrhea, No Constipation, No Abdominal pain Genitourinary: No Dysuria, No Urinary Frequency, No Hematuria, No Flank Pain Musculoskeletal: No joint pain, No Myalgias Skin: No Skin Lesions, No rash Neuro: No Weakness, No Numbness, No Dizziness, No Headache Yes all other systems are reviewed and are negative [facility] Past Medical History Attestation statement: The following information was validated with the patient. Medical History Asthma Cervicalgia COPD (chronic obstructive pulmonary disease) Eczema HIV (human immunodeficiency virus infection) Social History Social History Alcohol intake: never Patient Tobacco Use Status: Former Tobacco user Smoked in Last 30 Days: No Use of substances other than those prescribed or required for medical reasons: No Advance Directives: Yes Advance Directives Information Provided: Yes Advance Directives on File: No Current occupational status: disabled Physical Exam Vital Signs: Vital Signs: Last Vital Signs Temp 98.2 F 03/07/21 08:11 Pulse 77 03/07/21 08:11 Resp 13 03/07/21 08:11 BP 124/62 03/07/21 08:11 Pulse Ox 98 03/07/21 08:11 Body Mass Index 24.4 Const: General: cooperative, healthy appearing and no acute distress Martin entation/consciousness: patient oriented x3 Limitations: no limitations HENMT: Head: Yes normal to inspection Ears: hearing grossly normal bilaterally General nose exam: Normal external nose present Face and sinus: Yes normal facial exam Eyes: General: appearance normal, both eyes and all related structures EOM: EOMs intact bilaterally Neck: Neck: Yes normal visual inspection and Yes no meningeal signs Chest: Chest palpation & inspection: tenderness sternum Resp: Effort & Inspection: normal respiratory effort Auscultation: no rales, no rhonchi and no wheezes Cardio: Rate: regular rate Heart sounds: S1 normal heart sound present and S2 normal heart sound present GI: Inspection: Yes normal to inspection Palpation (GI): Soft to palpation, nontender, no guarding and not rigid Skin: Rashes: no rashes Wounds: no wounds Neuro: General: patient oriented x3 and no meningeal signs Gait exam (Neuro): Normal gait present Extrem: General: Yes normal to inspection, Yes no pedal edema and Yes no calf tenderness Course Course Course Narrative: -no leukocytosis, H&H stable, troponin negative, labs otherwise unremarkable XR chest 1V IMPRESSION: No acute intrathoracic disease. > results discussed with patient including worrisome signs and symptoms and strict return precautions. He verbalized understanding feel safe for discharge home MDM - Chest Pain MDM Narrative Medical decision making narrative: 60-year-old male with a past medical history of asthma, COPD, eczema, HIV, COVID-19 in November presenting to the ED complaining of intermittent chest tightness x 3-4 days with associated SOB. On exam vital signs stable, NAD, nontoxic appearing, lungs CTA, no pedal edema no calf tenderness. Symptoms atypical for ACS or PE. Unlikely pneumonia/CHF. Plan: EKG, labs, CXR, reassess Medical Records Data Attestation: I reviewed the patient's medical records. Lab Data Attestation: I reviewed the patient's lab results. Result diagrams: 03/07/21 08:37 03/07/21 08:37 Labs: Lab Results 03/07/21 03/07/21 03/07/21 Range/Units 08:37 08:37 08:37 WBC 6.3 (4.8-10.8) X10*3/uL RBC 4.35 L (4.60-5.80) X10*6/uL Hgb 13.0 L (14.0-18.0) g/dl Hct 39.0 L (42-52) % MCV 89.7 (80-98) fL MCH 29.9 (27.0-33.0) pg MCHC 33.3 (31.0-36.0) g/dl RDW 13.1 (11.0-16.0) % Plt Count 250 (160-400) X10*3/uL MPV 9.4 (9.4-12.4) fL Immature Gran % (Auto) 0.2 (0.0-0.4) % Neut % (Auto) 66.1 (45-73) % Lymph % (Auto) 23.2 (20-40) % [place] % (Auto) 8.6 (2-11) % Eos % (Auto) 1.4 (0-4) % Baso % (Auto) 0.5 (0-2) % Lymph # (Auto) 1.5 (1.2-4.9) X10*3/uL [place] # (Auto) 0.5 (0.1-1.2) X10*3/uL Eos # (Auto) 0.1 (0.0-0.4) X10*3/uL Baso # (Auto) 0.0 (0.0-0.2) X10*3/uL Abs Immat Gran (auto) 0.01 (0.00-0.03) X10*3/uL Absolute Neuts (auto) 4.2 (2.0-8.3) X10*3/uL Absolute Nucleated RBC 0.000 (0.0-0.012) X10*3/uL Nucleated RBC % (auto) 0.0 (0.0-0.2) /100WBC Sodium 140 (135-145) mmol/L Potassium 3.9 (3.3-5.1) mmol/L Chloride 107 (96-108) mmol/L Carbon Dioxide 26 (22-29) mmol/L Anion Gap 11 L (12-20) BUN 14 (9-16) mg/dL Creatinine 0.92 (0.5-1.4) mg/dL Estim Creat Clear Calc 85.9 Estimated GFR > 60 Random Glucose 104 (60-115) mg/dL Calcium 9.4 D (8.4-10.2) mg/dL Magnesium 2.0 (1.6-2.6) mg/dL Total Bilirubin 0.5 (0.0-1.0) mg/dL Direct Bilirubin 0.2 (0.0-0.5) mg/dL AST 16 (5-37) U/L ALT 10 (0-40) U/L Alkaline Phosphatase 55 (39-117) U/L Troponin I High Sens < 3.5 (<3.5-35.0) ng/L B-Natriuretic Peptide 33 (<100) pg/mL Total Protein 6.5 (6.5-8.0) g/dL Albumin 4.2 (3.5-5.0) g/dL ECG Data ECG #1: Attestation: I personally reviewed and interpreted this ECG as follows: ECG interpretation date: 03/07/21 ECG interpretation time: 08:02 Interpretation: EKG normal sinus rhythm with a rate of 75. Nonischemic/no STEMI. Discharge Plan Discharge Clinical Impression: Atypical chest pain Patient Disposition: Home, Self-Care Instructions: Chest Pain (ED) Additional Instructions: Your blood work and chest x-ray were reassuring today in the ED It is important for you to follow-up with a human resource professional If her symptoms persist or worsen, become more constant, have shortness of breath, weakness, fever or chills return to the ED Follow-up with her doctor Prescriptions: No Action tamsulosin 0.4 mg capsule 0.4 mg PO DAILY 90 Days Qty: 90 RF: 2 prednisone 20 mg tablet 40 mg PO DAILY 5 Days Qty: 10 RF: 0 Referrals: Sofia Monroe MD [Primary Care Provider] - 2 days Levi Jett MD [Physician] - 1 week
[2021-03-07 09:30] VITALS: BP 116/79; PULSE 59; RESP 18; O2SAT 95
--- NOTE | 2021-03-07 10:31 | PC.NURSE ---
Patient is alert and in no distress. Discharge instructions given to pt who verbalized understanding and denies any questions. Peripheral iv removed and pressure bandage applied. pt is amb to exit.
== END 2021-03-07 10:18 | disposition home or self-care (01) ==
PROVIDERS: Physician Assistant; Emergency Provider Emergency Medicine; PCP Family Medicine
DX: R07.89 Other chest pain (principal); J44.9 Chronic obstructive pulmonary disease, unspecified; B20 Human immunodeficiency virus [HIV] disease; Z86.16 Personal history of COVID-19; Z87.891 Personal history of nicotine dependence
CPT/HCPCS: 36415; 71045; 80048; 80076; 83735; 83880; 84484; 85025; 93005; 99285

== ENCOUNTER 2021-04-20 08:57 | Outpatient (REF) | payer MEDICARE, MEDICAID, SELFPAY ==
--- NOTE | ~2021-04-20 | CT_ITS ---
EXAMINATION: CT CHEST WITHOUT CONTRAST CLINICAL INFORMATION: COPD COMPARISON: Previous chest x-rays most recent March [address] October 2018 TECHNIQUE: Multidetector volumetric CT imaging of the chest was done. Axial MIP volume rendering provided. Sagittal and coronal reformatted images were obtained. This CT examination was performed using dose optimization techniques as appropriate, variously including the following: *Automated exposure control *Adjustment of mA and/or kV according to patient size (this includes techniques or standardized protocols for targeted exams where dose is matched to indication/reason for exam; i.e. extremities or head) *Use of iterative reconstruction technique DLP: 292 mGy-cm FINDINGS: LUNGS: There is mild paraseptal emphysema. There is mild biapical pleural parenchymal scarring and there is elevation of the left hemidiaphragm. There is minimal subsegmental atelectasis at the left lung base adjacent to the left hemidiaphragm. The lungs are otherwise clear. MEDIASTINUM: There is mild coronary artery calcification. The heart does not appear enlarged. There is no pericardial effusion. There are no enlarged hilar or mediastinal nodes PLEURA: There is no pleural effusion. No pleural mass or thickening. There is elevation of the left hemidiaphragm. There also appears to be a small left posterior diaphragmatic hernia containing fat. AXILLA: No chest wall mass or enlarged axillary lymph nodes are seen. No radiopaque soft tissue foreign bodies in the left posterior lateral chest adjacent to left ninth and 10th rib suggestive of old trauma. No rib fracture or bone lesion is seen UPPER ABDOMEN: Markedly elevated left hemidiaphragm with stomach and splenic flexure the pancreas in the left chest. OSSEOUS STRUCTURES: Unremarkable. CT/CT chest wo con IMPRESSION: Marked elevation of the left hemidiaphragm. There is also a posterior diaphragmatic hernia containing fat. There is evidence of old trauma to the left posterior lateral chest wall with soft tissue radiopaque bodies. Mild emphysema. Biapical pleural parenchymal scarring.
== END 2021-04-20 08:58 | disposition home or self-care (01) ==
LOC: HO.CT 08:57
PROVIDERS: PCP Family Medicine; Visit Provider Family Medicine
DX: R07.9 Chest pain, unspecified (principal); J44.9 Chronic obstructive pulmonary disease, unspecified; R06.00 Dyspnea, unspecified; Z87.891 Personal history of nicotine dependence; B20 Human immunodeficiency virus [HIV] disease
CPT/HCPCS: 71250

== ENCOUNTER → 2021-05-31 12:37 | Outpatient (BNVA) | payer MEDICARE, MEDICAID, SELFPAY | PROVIDERS: PCP Family Medicine; Visit Provider Urology | DX: N40.1 Benign prostatic hyperplasia with lower urinary tract symptoms (principal); R35.1 Nocturia | CPT/HCPCS: 51798; 99212 ==

== ENCOUNTER 2021-07-02 12:21 | Outpatient (REF) | payer MEDICARE, MEDICAID, SELFPAY ==
--- NOTE | ~2021-07-02 | US_ITS ---
EXAMINATION: US PELVIS LIMITED (BLADDER) CLINICAL INFORMATION: Poor urinary stream. COMPARISON: CT abdomen and pelvis 11/04/2019 TECHNIQUE: Real-time imaging of the bladder. FINDINGS: BLADDER: Well distended and normal. Bilateral ureteral jets are demonstrated. Prevoid bladder volume is 226 mL. Postvoid bladder volume is 28.0 mL. Prostate volume 20.7 mL. US/US bladder IMPRESSION: Small postvoid residual bladder volume. Normal bilateral ureteral jets seen.
== END 2021-07-02 12:22 | disposition home or self-care (01) ==
LOC: HO.US 12:21
PROVIDERS: Visit Provider Urology
DX: R39.12 Poor urinary stream (principal); R35.1 Nocturia
CPT/HCPCS: 76857

== ENCOUNTER 2021-07-05 12:48 | Emergency (ER) | payer MEDICARE, MEDICAID, SELFPAY ==
--- NOTE | 2021-07-05 | ECG_ITS ---
Test Reason : CHEST PAIN Blood Pressure : / mmHG Vent. Rate : 066 BPM Atrial Rate : 066 BPM P-R Int : 132 ms QRS Dur : 086 ms QT Int : 378 ms P-R-T Axes : 048 057 067 degrees QTc Int : 396 ms Normal sinus rhythm Normal ECG When compared with ECG of 07-MAR-2021 08:02, No significant change was found Referred By: Generic ED Physician Electronically Signed By:SETH WILEY
--- NOTE | ~2021-07-05 | XR_ITS ---
EXAMINATION: XR CHEST CLINICAL INFORMATION: Intermittent chest pain COMPARISON: Previous chest x-ray most recent March [address] April 2021 TECHNIQUE: Frontal view of the chest was obtained. FINDINGS: The cardiac and mediastinal contours are stable. There is elevation of the left hemidiaphragm that appears unchanged. There is left apical pleural thickening that is unchanged. The lungs are otherwise clear. There is no pleural effusion or pneumonia thorax. Bony structures are unremarkable. XR/XR chest 1V IMPRESSION: Elevated left hemidiaphragm similar to previous exams. No evidence for acute disease in the chest.
[2021-07-05 12:51] VITALS: BP 106/71; PULSE 74; RESP 18; TEMP 36.8; O2SAT 98; BMI 24.3
--- NOTE | 2021-07-05 16:00 | ED_ITS ---
HPI - Chest Pain General Chief Complaint: Chest Pain Stated Complaint: CP Time Seen by Provider: 07/05/21 15:51 Source: patient Mode of arrival: ambulatory Limitations: no limitations History of Present Illness HPI narrative: Patient presents to ED for intermittent Right sided chest pain radiating to left chest pain for the past 3 days. Patient states chest pain now is a 2. Patient denies any shortness of breath, swelling of lower extremities, calf pain, coughing up blood, fever, or chills. Patient states history of COVID. Patient has not had COVID vaccine. Related Data Home Medications Medication Instructions Recorded Confirmed albuterol sulfate 90 mcg/actuation 1 inh INHALATION QID 08/17/20 03/07/21 aerosol inhaler aspirin 81 mg tablet,delayed 81 mg PO DAILY 08/17/20 03/07/21 release (Ecotrin Low Strength) atorvastatin 10 mg tablet 10 mg PO DAILY 08/17/20 03/07/21 meclizine 25 mg tablet 25 mg PO DAILY 08/17/20 03/07/21 oxybutynin chloride 5 mg tablet 5 mg PO DAILY 08/17/20 03/07/21 tamsulosin 0.4 mg capsule 0.4 mg PO DAILY 08/17/20 varicella-zoster glycoE [id number] IM 08/17/20 adj(PF) 50 mcg/0.5 mL IM susp, kit (Shingrix (PF)) Previous Rx's Medication Instructions Recorded prednisone 20 mg tablet 40 mg PO DAILY 5 Days #10 tab 11/20/20 tamsulosin 0.4 mg capsule 0.4 mg PO DAILY 90 Days #90 cap 12/25/20 alfuzosin 10 mg tablet,extended 10 mg PO .nightly 30 Days #30 tab 05/31/21 release 24 hr Allergies Allergy/AdvReac Type Severity Reaction Status Date / Time No Known Allergies Allergy Verified 07/05/21 12:51 Review of Systems Review of Systems: Yes all other systems are reviewed and are negative Constitutional: Constitutional: Reports as per HPI and Reports no additional constitutional complaints Eyes: Eyes: Reports as per HPI and Reports no additional eye complaints ENT: Reports system reviewed and no additional complaints, except as documented and Reports as per HPI Cardiovascular: Cardiovascular: Reports as per HPI, Reports no additional cardiovascular complaints and Reports chest pain (Only a 2.) Respiratory: Respiratory: Reports as per HPI and Reports no additional respiratory complaints Gastrointestinal: Gastrointestinal: Reports as per HPI and Reports no additional gastrointestinal complaints Genitourinary: Genitourinary: Reports no additional male genitourinary complaints and Reports as per HPI Musculoskeletal: Musculoskeletal: Reports no additional musculoskeletal complaints and Reports as per HPI Neurologic: Reports system reviewed and no additional complaints, except as documented and Reports as per HPI Psychiatric: Psychiatric: Reports no additional psychiatric complaints and Reports as per HPI [facility] Past Medical History Medical History Asthma Cervicalgia COPD (chronic obstructive pulmonary disease) Eczema HIV (human immunodeficiency virus infection) Social History Social History Alcohol intake: never Patient Tobacco Use Status: Former Tobacco user Use of substances other than those prescribed or required for medical reasons: No Advance Directives: No Advance Directives Information Provided: Yes Current occupational status: disabled Physical Exam Vital Signs: Vital Signs: Last Vital Signs Temp 97.7 F 07/05/21 19:20 Pulse 101 H 07/05/21 19:48 Resp 25 H 07/05/21 19:48 BP 138/62 07/05/21 19:48 Pulse Ox 94 07/05/21 19:48 Body Mass Index 24.3 Const: General: cooperative, healthy appearing, comfortable, no acute distress, well developed, alert, awake and Physically active Orientation/consciousness: patient oriented x3 HENMT: Head: Yes normal to inspection, Yes No palpable skull fracture present, Yes normocephalic and No atraumatic Eyes: General: appearance normal, both eyes and all related structures Neck: Neck: Yes normal visual inspection, Yes full ROM, Yes no lymphadenopathy, Yes no meningeal signs, Yes trachea midline, Yes supple and No tender Chest: Chest palpation & inspection: normal inspection of the chest and normal palpation of entire chest wall Resp: Effort & Inspection: normal respiratory effort and able to speak in complete sentences Auscultation: clear to auscultation bilaterally Cardio: Jugular venous distension: no JVD Heart sounds: S1 normal heart sound present and S2 normal heart sound present GI: Inspection: Yes normal to inspection and No abdominal wall ecchymosis Palpation (GI): Soft to palpation, not firm, nontender, no guarding and not rigid : General: No CVA tenderness and Yes no CVA tenderness Back/Spine/Pelvis: Back: no CVA tenderness, No CVA tenderness and No back tenderness Skin: General skin exam: no rashes or lesions noted and elasticity normal Neuro: General: patient oriented x3, gait normal, no meningeal signs and CN's II-XI intact bilaterally Cranial nerves: Yes CN's II-XII intact bilaterally Extrem: Other: Lower extremities negative for swelling, pitting edema, calf tenderness. General: Yes normal to inspection and Yes full ROM Psych: Appearance: grossly normal, well kempt and not disheveled Course Course Course Narrative: Patient not in any distress. Patient was consolidation. Will will do cardiac evaluation Reevaluation(s) Reevaluation #1: Two troponins negative. EKG negative STEMI. D-dimer negative. Wells score criteria is 0. Patient had recent normal transecho. Patient will follow-up with PCP. Time: 19:53 MDM - Chest Pain MDM Narrative Medical decision making narrative: Atypical chest Lab Data Result diagrams: 07/05/21 16:15 07/05/21 16:15 Labs: Lab Results 07/05/21 07/05/21 07/05/21 Range/Units 16:08 16:15 16:15 WBC 6.0 (4.8-10.8) X10*3/uL RBC 4.29 L (4.60-5.80) X10*6/uL Hgb 12.9 L (14.0-18.0) g/dl Hct 38.6 L (42-52) % MCV 90.0 (80-98) fL MCH 30.1 (27.0-33.0) pg MCHC 33.4 (31.0-36.0) g/dl RDW 13.2 (11.0-16.0) % Plt Count 235 (160-400) X10*3/uL MPV 9.2 L (9.4-12.4) fL Immature Gran % (Auto) 0.2 (0.0-0.4) % Neut % (Auto) 58.9 (45-73) % Lymph % (Auto) 30.6 (20-40) % [place] % (Auto) 8.1 (2-11) % Eos % (Auto) 1.7 (0-4) % Baso % (Auto) 0.5 (0-2) % Lymph # (Auto) 1.9 (1.2-4.9) X10*3/uL [place] # (Auto) 0.5 (0.1-1.2) X10*3/uL Eos # (Auto) 0.1 (0.0-0.4) X10*3/uL Baso # (Auto) 0.0 (0.0-0.2) X10*3/uL Abs Immat Gran (auto) 0.01 (0.00-0.03) X10*3/uL Absolute Neuts (auto) 3.6 (2.0-8.3) X10*3/uL Absolute Nucleated RBC 0.000 (0.0-0.012) X10*3/uL Nucleated RBC % (auto) 0.0 (0.0-0.2) /100WBC PT (9.9-13.0) SEC INR (0.9-1.1) APTT (24.1-38.0) SEC D-Dimer NG/ML Sodium 139 (135-145) mmol/L Potassium 4.4 (3.3-5.1) mmol/L Chloride 107 (96-108) mmol/L Carbon Dioxide 24 (22-29) mmol/L Anion Gap 12 (12-20) BUN 12 (9-16) mg/dL Creatinine 0.97 (0.5-1.4) mg/dL Estim Creat Clear Calc 81.5 Estimated GFR > 60 Random Glucose 101 (60-115) mg/dL Calcium 9.0 (8.4-10.2) mg/dL Total Bilirubin 0.4 (0.0-1.0) mg/dL AST 18 (5-37) U/L ALT 13 (0-40) U/L Alkaline Phosphatase 54 (39-117) U/L Troponin I High Sens (<3.5-35.0) ng/L B-Natriuretic Peptide (<100) pg/mL Total Protein 6.8 (6.5-8.0) g/dL Albumin 4.3 (3.5-5.0) g/dL COVID-19 ([facility]OBBY) Negative (Negative) COVID-19 Clin Com See Note 07/05/21 07/05/21 07/05/21 Range/Units 16:15 16:15 16:16 WBC (4.8-10.8) X10*3/uL RBC (4.60-5.80) X10*6/uL Hgb (14.0-18.0) g/dl Hct (42-52) % MCV (80-98) fL MCH (27.0-33.0) pg MCHC (31.0-36.0) g/dl RDW (11.0-16.0) % Plt Count (160-400) X10*3/uL MPV (9.4-12.4) fL Immature Gran % (Auto) (0.0-0.4) % Neut % (Auto) (45-73) % Lymph % (Auto) (20-40) % [place] % (Auto) (2-11) % Eos % (Auto) (0-4) % Baso % (Auto) (0-2) % Lymph # (Auto) (1.2-4.9) X10*3/uL [place] # (Auto) (0.1-1.2) X10*3/uL Eos # (Auto) (0.0-0.4) X10*3/uL Baso # (Auto) (0.0-0.2) X10*3/uL Abs Immat Gran (auto) (0.00-0.03) X10*3/uL Absolute Neuts (auto) (2.0-8.3) X10*3/uL Absolute Nucleated RBC (0.0-0.012) X10*3/uL Nucleated RBC % (auto) (0.0-0.2) /100WBC PT 11.1 (9.9-13.0) SEC INR 1.0 (0.9-1.1) APTT 37.5 (24.1-38.0) SEC D-Dimer < 200 NG/ML Sodium (135-145) mmol/L Potassium (3.3-5.1) mmol/L Chloride (96-108) mmol/L Carbon Dioxide (22-29) mmol/L Anion Gap (12-20) BUN (9-16) mg/dL Creatinine (0.5-1.4) mg/dL Estim Creat Clear Calc Estimated GFR Random Glucose (60-115) mg/dL Calcium (8.4-10.2) mg/dL Total Bilirubin (0.0-1.0) mg/dL AST (5-37) U/L ALT (0-40) U/L Alkaline Phosphatase (39-117) U/L Troponin I High Sens < 3.5 < 3.5 (<3.5-35.0) ng/L B-Natriuretic Peptide 41 (<100) pg/mL Total Protein (6.5-8.0) g/dL Albumin (3.5-5.0) g/dL COVID-19 (BOBBY) (Negative) COVID-19 Clin Com ECG Data ECG #1: Interpretation: Normal sinus rhythm. Normal EKG particular rate 66. Peer interval 132. QRS 86. QTC 396. Negative STEMI Discharge Plan Discharge Clinical Impression: Atypical chest pain Patient Disposition: Home, Self-Care Instructions: Chest Pain (ED) Additional Instructions: Return to the ED immediately for worsening chest pain, shortness of breath, swelling of lower extremities, calf pain, coughing up blood, weakness, fever, chills, dizziness, or any other concerning symptoms. Please follow-up with the automotive sales associate and PCP Prescriptions: No Action tamsulosin 0.4 mg capsule 0.4 mg PO DAILY 90 Days Qty: 90 RF: 2 prednisone 20 mg tablet 40 mg PO DAILY 5 Days Qty: 10 RF: 0 alfuzosin 10 mg tablet extended release 24 hr 10 mg PO .nightly 30 Days Qty: 30 RF: 1 Stand Alone Forms: Work/School Release Print Language: Indian
[2021-07-05 16:04] VITALS: BP 133/76; PULSE 61; RESP 16; O2SAT 99
[2021-07-05 16:23] LABS: MANUAL DIFF FLAG NO
[2021-07-05 16:26] LABS: Basophils Percent Auto 0.5 % (0-2); Eosinophils Absolute Auto 0.1 X10*3/uL (0.0-0.4); Eosinophils Percent Auto 1.7 % (0-4); Hematocrit 38.6 % (42-52); Hemoglobin 12.9 g/dl (14.0-18.0); Imm Gran Abs Auto 0.01 X10*3/uL (0.00-0.03); Imm Gran Pct Auto 0.2 % (0.0-0.4); Lymphocytes Absolute Auto 1.9 X10*3/uL (1.2-4.9); Lymphocytes Percent Auto 30.6 % (20-40); Mean Corpuscular HGB Conc 33.4 g/dl (31.0-36.0); Mean Corpuscular Hemoglobin 30.1 pg (27.0-33.0); Mean Platelet Volume 9.2 fL (9.4-12.4); Monocytes Absolute Auto 0.5 X10*3/uL (0.1-1.2); Monocytes Percent Auto 8.1 % (2-11); Neutrophils Absolute Auto 3.6 X10*3/uL (2.0-8.3); Neutrophils Percent Auto 58.9 % (45-73); Platelet Count 235 X10*3/uL (160-400); Red Blood Count 4.29 X10*6/uL (4.60-5.80); Red Cell Distribution Width 13.2 % (11.0-16.0)
[2021-07-05 16:38] LABS: Prothrombin Time 11.1 SEC (9.9-13.0)
[2021-07-05 16:41] LABS: Partial Thromboplastin Time 37.5 SEC (24.1-38.0)
[2021-07-05 16:41] LABS: COVID-19 Test Negative (Negative)
[2021-07-05 16:42] LABS: Alanine Aminotransferase 13 U/L (0-40); Albumin Level 4.3 g/dL (3.5-5.0); Alkaline Phosphatase 54 U/L (39-117); Anion Gap 12 (12-20); Aspartate Amino Transferase 18 U/L (5-37); Bilirubin Total 0.4 mg/dL (0.0-1.0); Blood Urea Nitrogen 12 mg/dL (9-16); Carbon Dioxide 24 mmol/L (22-29); Chloride 107 mmol/L (96-108); Creatinine Clr Calc Pharmacy 81.5; Estimated Glomerular Filt Rate > 60; Glucose Random 101 mg/dL (60-115); Potassium 4.4 mmol/L (3.3-5.1); Sodium 139 mmol/L (135-145); Total Protein 6.8 g/dL (6.5-8.0)
[2021-07-05 16:44] LABS: D Dimer < 200 NG/ML
[2021-07-05 16:46] LABS: Troponin-I High Sensitivity < 3.5 ng/L (<3.5-35.0)
[2021-07-05 18:40] LABS: B Type Natriuretic Peptide 41 pg/mL (<100); Troponin-I High Sensitivity < 3.5 ng/L (<3.5-35.0)
[2021-07-05 19:20] VITALS: BP 141/81; PULSE 60; RESP 15; TEMP 36.5; O2SAT 96
--- NOTE | 2021-07-05 19:47 | PC.NURSE ---
PT STORMED OUT OF YANDY, HEADED TO BATHROOM. MD AWARE PATIENT WANTS TO BE DISCHARGED.
[2021-07-05 19:48] VITALS: BP 138/62; PULSE 101; RESP 25; O2SAT 94
--- NOTE | 2021-07-05 19:50 | PC.NURSE ---
PT REMOVED HIS IV, AWAITING PT TO WAKE, WILL TRY AND CONTACT [facility].
== END 2021-07-05 20:10 | disposition home or self-care (01) ==
PROVIDERS: Physician Assistant; Emergency Provider Internal Medicine; PCP Family Medicine
DX: R07.89 Other chest pain (principal); R06.02 Shortness of breath; Z20.822 Contact with and (suspected) exposure to COVID-19; Z79.899 Other long term (current) drug therapy; Z87.891 Personal history of nicotine dependence
CPT/HCPCS: 36415; 71045; 80053; 83880; 84484; 85025; 85379; 85610; 85730; 87635; 93005; 99283; 99284

== ENCOUNTER 2021-07-11 12:58 | Outpatient (REF) | payer MEDICARE, MEDICAID, SELFPAY ==
--- NOTE | ~2021-07-11 | XR_ITS ---
EXAMINATION: XR HIP, RIGHT CLINICAL INFORMATION: Pain in right hip. COMPARISON: None TECHNIQUE: AP and frog-lateral projections of the right hip. FINDINGS: There is no fracture or dislocation. Borderline narrowing superior medial hip joint is present without subchondral sclerosis or erosive change or chondrocalcinosis. Soft tissue planes appear normal. There is no bony destructive process. No spurring trochanters. No diastases, SI joints or pubis. XR/XR hip RT min 2V IMPRESSION: Borderline narrowing superior medial hip joint. Otherwise normal.
== END 2021-07-11 12:59 | disposition home or self-care (01) ==
LOC: HO.XRAY 12:58
PROVIDERS: PCP Family Medicine; Visit Provider Family Medicine
DX: M25.551 Pain in right hip (principal)
CPT/HCPCS: 73502

== ENCOUNTER → 2021-07-12 08:43 | Outpatient (BNVA) | payer MEDICARE, MEDICAID, SELFPAY | PROVIDERS: Visit Provider Urology | DX: Z13.89 Encounter for screening for other disorder (principal) | CPT/HCPCS: Q3014 ==

== ENCOUNTER 2021-08-31 12:13 | Outpatient (REF) | payer MEDICARE, MEDICAID, SELFPAY | END 2021-08-31 12:14 | disposition home or self-care (01) | LOC: HO.LAB 12:13 | PROVIDERS: PCP Family Medicine; Visit Provider Internal Medicine | DX: Z20.822 Contact with and (suspected) exposure to COVID-19 (principal) | CPT/HCPCS: C9803; U0003; U0005 ==

== ENCOUNTER 2022-01-08 10:38 | Outpatient (REF) | payer MEDICARE, MEDICAID, SELFPAY ==
[2022-01-08 12:44] LABS: Prostate Specific Antigen 0.71 ng/mL (<0.05-4.0)
== END 2022-01-08 10:39 | disposition home or self-care (01) ==
LOC: HO.LAB 10:38
PROVIDERS: PCP Family Medicine; Visit Provider Urology
DX: Z12.5 Encounter for screening for malignant neoplasm of prostate (principal); N40.0 Benign prostatic hyperplasia without lower urinary tract symptoms
CPT/HCPCS: 36415; 84153

== ENCOUNTER → 2022-01-10 08:31 | Outpatient (BNVA) | payer MEDICARE, MEDICAID, SELFPAY | PROVIDERS: PCP Family Medicine; Visit Provider Urology | DX: R35.1 Nocturia (principal); N40.1 Benign prostatic hyperplasia with lower urinary tract symptoms; N13.8 Other obstructive and reflux uropathy; B20 Human immunodeficiency virus [HIV] disease; Z87.891 Personal history of nicotine dependence | CPT/HCPCS: 99212 ==

== ENCOUNTER 2022-01-25 07:50 | Emergency (ER) | payer MEDICARE, MEDICAID, SELFPAY ==
--- NOTE | ~2022-01-25 | XR_ITS ---
EXAMINATION: XR CHEST CLINICAL INFORMATION: Shoulder pain. COMPARISON: Chest done on 07/05/2021. TECHNIQUE: Frontal view of the chest was obtained. FINDINGS: Persistent stable asymmetric elevated left hemidiaphragm and prominent gas containing bowel loops underneath the left hemidiaphragm. Multiple radiopaque foreign bodies are identified at left upper quadrant of the abdomen, similar to prior study. Aerated lung marroquin bilaterally appear clear. The cardiomediastinal silhouette is within normal limit. Visualized part of both shoulders appear symmetric and are unremarkable. Overall, no significant change. XR/XR chest 1V IMPRESSION: Persistent stable asymmetric elevated left hemidiaphragm, indeterminate etiology. Bilateral clear lungs.
[2022-01-25 07:56] VITALS: BP 139/73; PULSE 74; RESP 17; TEMP 36.6; O2SAT 98; BMI 24.3
--- NOTE | 2022-01-25 08:02 | ECG_ITS ---
Test Reason : lt arm pain Blood Pressure : / mmHG Vent. Rate : 069 BPM Atrial Rate : 069 BPM P-R Int : 094 ms QRS Dur : 086 ms QT Int : 376 ms P-R-T Axes : -27 053 064 degrees QTc Int : 402 ms Sinus rhythm with short MA Otherwise normal ECG When compared with ECG of 05-JUL-2021 13:03, No significant change was found Referred By: Generic ED Physician Electronically Signed By:ASIF CARVALHO MD
[2022-01-25 08:14] LABS: MANUAL DIFF FLAG NO
[2022-01-25 08:25] LABS: Basophils Percent Auto 0.3 % (0-2); Eosinophils Absolute Auto 0.1 X10*3/uL (0.0-0.4); Eosinophils Percent Auto 1.4 % (0-4); Hematocrit 37.5 % (42.0-52.0); Hemoglobin 12.4 g/dl (14.0-18.0); Imm Gran Abs Auto 0.03 X10*3/uL (0.00-0.03); Imm Gran Pct Auto 0.5 % (0.0-0.4); Lymphocytes Absolute Auto 1.4 X10*3/uL (1.2-4.9); Lymphocytes Percent Auto 21.9 % (20-40); Mean Corpuscular HGB Conc 33.1 g/dl (31.0-36.0); Mean Corpuscular Hemoglobin 29.6 pg (27.0-33.0); Mean Corpuscular Volume 89.5 fL (80.0-98.0); Mean Platelet Volume 9.2 fL (9.4-12.4); Monocytes Absolute Auto 0.5 X10*3/uL (0.1-1.2); Monocytes Percent Auto 8.5 % (2-11); Neutrophils Absolute Auto 4.3 x10*3/uL (2.0-8.3); Neutrophils Percent Auto 67.4 % (45-73); Platelet Count 237 X10*3/uL (160-400); Red Blood Count 4.19 X10*6/uL (4.60-5.80); White Blood Count 6.4 X10*3/uL (4.8-10.8)
[2022-01-25 08:37] LABS: Troponin-I High Sensitivity < 3.5 ng/L (<3.5-35.0)
[2022-01-25 08:43] VITALS: BP 123/63; PULSE 66; RESP 15; TEMP 36.8; O2SAT 96
[2022-01-25 09:17] LABS: Anion Gap 8 (12-20); Blood Urea Nitrogen 14 mg/dL (9-16); Carbon Dioxide 29 mmol/L (22-29); Chloride 106 mmol/L (96-108); Creatinine Clr Calc Pharmacy 74.3; Estimated Glomerular Filt Rate > 60; Glucose Random 118 mg/dL (60-115); Potassium 3.9 mmol/L (3.3-5.1); Sodium 139 mmol/L (135-145)
--- NOTE | 2022-01-25 09:25 | ED_ITS ---
HPI - General Adult General Chief complaint: General Medical Stated complaint: Shoulder/neck pain Time Seen by Provider: 01/25/22 09:04 Source: patient Mode of arrival: ambulatory Limitations: no limitations History of Present Illness HPI narrative: 61-year-old male who presents emergency department for evaluation of left-sided neck and shoulder pain and right thigh pain. Patient states that he has had pains in these areas intermittently for the past 2 months. He states that over the past 1-2 days he has had increased pain in his right neck and shoulder blade area . He points to his right trapezius, right deltoid and right scapula when asked to localize the pain. He states the pain is intermittent. He states that it is a pressure-like sensation. The pain is worse with movement of the shoulder and neck. He states that this morning at 03:00 hours she woke up with this pain and it was 9/10. The pain is been waxing and waning in intensity he states that the pain is currently 2/10. He is also complaining of pain in his right thigh. He states that he had varicose veins in this area. He states that the pain is a mild pressure-like pain which is worse with walking. He denies any swelling of his right lower extremity. He states that he was seen by his PCP in October 2021 for this pain and was given a muscle relaxant which he never took. He denied fever, chills, rhinorrhea, sore throat, cough, chest pain, shortness of breath, dyspnea on exertion, nausea, vomiting, diarrhea. MD complaint: Left neck pain Onset (ago): hour(s) (6) Location: neck (Left) and upper extremity (Left deltoid and scapular region) Radiation: non-radiation Severity: severe Severity scale (1-10): 9 Quality: dull Related Data Home Medications Medication Instructions Recorded Confirmed albuterol sulfate 90 mcg/actuation 1 inh INHALATION QID 08/17/20 03/07/21 aerosol inhaler aspirin 81 mg tablet,delayed 81 mg PO DAILY 08/17/20 03/07/21 release (Ecotrin Low Strength) atorvastatin 10 mg tablet 10 mg PO DAILY 08/17/20 03/07/21 meclizine 25 mg tablet 25 mg PO DAILY 08/17/20 03/07/21 oxybutynin chloride 5 mg tablet 5 mg PO DAILY 08/17/20 03/07/21 tamsulosin 0.4 mg capsule 0.4 mg PO DAILY 08/17/20 varicella-zoster glycoE [id number] IM 08/17/20 adj(PF) 50 mcg/0.5 mL IM susp, kit (Shingrix (PF)) bictegravir 50 mg-emtricitabine 1 tab PO DAILY 07/12/21 200 mg-tenofovir alafenam 25 mg tablet (Biktarvy) ergocalciferol (vitamin D2) 1,250 1,250 mcg PO QWEEK 07/12/21 mcg (50,000 unit) capsule fluticasone propionate 110 1 puff PO BID 07/12/21 mcg/actuation HFA aerosol inhaler (Flovent HFA) cyclobenzaprine 10 mg tablet 10 mg PO BEDTIME PRN 01/10/22 ipratropium 20 mcg-albuterol 100 1 puff INHALATION QID 01/10/22 mcg/actuation mist for inhalation (Combivent Respimat) omeprazole 40 mg capsule,delayed 40 mg PO BEDTIME 01/10/22 release Previous Rx's Medication Instructions Recorded prednisone 20 mg tablet 40 mg PO DAILY 5 Days #10 tab 11/20/20 alfuzosin 10 mg tablet,extended 10 mg PO .nightly 90 Days #90 tab 01/10/22 release 24 hr Allergies Allergy/AdvReac Type Severity Reaction Status Date / Time No Known Allergies Allergy Verified 01/10/22 08:40 Review of Systems Review of Systems: Yes all other systems are reviewed and are negative [facility] Past Medical History [facility] Narrative: Social history: He states that he is a former smoker and quit 20 years prior. He states that he smoked for 20 years. He denies alcohol use. He denies drug use. Medical History Asthma Cervicalgia COPD (chronic obstructive pulmonary disease) Eczema HIV (human immunodeficiency virus infection) Social History Social History Alcohol intake: never Patient Tobacco Use Status: Former Tobacco user Advance Directives: No Current occupational status: disabled Physical Exam ED Vital Signs: Vital Signs - 24 hr 01/25/22 07:56 01/25/22 08:43 Temperature 97.8 F 98.2 F Pulse Rate 74 66 Respiratory Rate 17 15 Blood Pressure 139/73 123/63 Pulse Oximetry 98 96 BMI result Body Mass Index 24.3 Const General: cooperative and no acute distress Orientation/consciousness: oriented to person and oriented to place Limitations: no limitations HENMT Head: Yes normal to inspection, Yes normocephalic and Yes atraumatic Ears: external ears normal General nose exam: Normal external nose present Face and sinus: Yes normal facial exam Mouth: Normal oral and palatal mucosa present Throat: Yes posterior oropharynx normal Eyes General: appearance normal, both eyes and all related structures Pupils: Equal, round and reactive pupils present Neck Other: The moderate tenderness and spasm of the left trapezius Neck: Yes normal visual inspection, Yes no lymphadenopathy, Yes trachea midline and Yes supple Chest Chest palpation & inspection: normal inspection of the chest and normal palp ation of entire chest wall Resp Effort & Inspection: normal respiratory effort and able to speak in complete sentences Auscultation: clear to auscultation bilaterally Cardio Rate: regular rate Rhythm: regular rhythm Heart sounds: S1 normal heart sound present, S2 normal heart sound present and no murmurs GI Inspection: Yes normal to inspection Palpation (GI): Soft to palpation, nontender and no guarding Auscultation: normal bowel sounds General: Yes no CVA tenderness Back/Spine/Pelvis Back: no CVA tenderness Skin General skin exam: no rashes or lesions noted Neuro General: oriented to person and oriented to place Cranial nerves: Yes CN's II-XII intact bilaterally and Yes Equal, round and reactive pupils present Cognition (Neuro): normal cognition Motor exam (neuro): 5/5 motor strength present throughout Extrem Other: No tenderness palpation of the deltoid muscle but does have tenderness palpation of left scapular area. The patient's lower extremities appear to be symmetric in size, patient does have some small varicose veins which are not tender in the thighs bilaterally, extremities are neurovascular intact General: Yes normal to inspection Psych Appearance: grossly normal Speech and movement: Normal speech and movement present Affect: normal affect Attitude: cooperative Thought process: Normal thought process present Thought content: Normal thought content present Course Course Course Narrative: 61-year-old male who presents emergency department for evaluation of left shoulder and neck pain which she has had for several months which got worse this morning and came on at rest. He also complains of right thigh pain which again he has had for several months will work this morning. The patient's vital signs were normal. Patient does have tenderness palpation of his left trapezius muscle and left scapular area. The patient's lower extremities appear to be normal and symmetric. The patient had a normal CBC and CMP. Patient's high sensitivity troponin was below detectable limits. Chest x-ray and 12 EKG were unremarkable. Patient's presentation findings are consistent with musculoskeletal pain I did discuss this with him. He was advised to take Tylenol and ibuprofen for his pain. He does have a muscle walks at home the told that he can take as prescribed. Patient was given printed and verbal instructions and discharged home. Medical Decision Making Lab Data Lab results reviewed: Yes I reviewed the patient's lab results. Result diagrams: 01/25/22 08:08 01/25/22 08:08 Labs: Lab Results 01/25/22 01/25/22 01/25/22 Range/Units 08:08 08:08 08:08 WBC 6.4 (4.8-10.8) X10*3/uL RBC 4.19 L (4.60-5.80) X10*6/uL Hgb 12.4 L (14.0-18.0) g/dl Hct 37.5 L (42.0-52.0) % MCV 89.5 (80.0-98.0) fL MCH 29.6 (27.0-33.0) pg MCHC 33.1 (31.0-36.0) g/dl RDW 13.0 (11.0-16.0) % Plt Count 237 (160-400) X10*3/uL MPV 9.2 L (9.4-12.4) fL Immature Gran % (Auto) 0.5 H (0.0-0.4) % Neut % (Auto) 67.4 (45-73) % Lymph % (Auto) 21.9 (20-40) % [place] % (Auto) 8.5 (2-11) % Eos % (Auto) 1.4 (0-4) % Baso % (Auto) 0.3 (0-2) % Lymph # (Auto) 1.4 (1.2-4.9) X10*3/uL [place] # (Auto) 0.5 (0.1-1.2) X10*3/uL Eos # (Auto) 0.1 (0.0-0.4) X10*3/uL Baso # (Auto) 0.0 (0.0-0.2) X10*3/uL Abs Immat Gran (auto) 0.03 (0.00-0.03) X10*3/uL Absolute Neuts (auto) 4.3 (2.0-8.3) x10*3/uL Absolute Nucleated RBC 0.000 (0.0-0.012) X10*3/uL Nucleated RBC % (auto) 0.0 (0.0-0.2) /100WBC Sodium 139 (135-145) mmol/L Potassium 3.9 (3.3-5.1) mmol/L Chloride 106 (96-108) mmol/L Carbon Dioxide 29 (22-29) mmol/L Anion Gap 8 L (12-20) BUN 14 (9-16) mg/dL Creatinine 1.05 (0.5-1.4) mg/dL Estim Creat Clear Calc 74.3 Estimated GFR > 60 Random Glucose 118 H (60-115) mg/dL Calcium 9.0 (8.4-10.2) mg/dL Troponin I High Sens < 3.5 (<3.5-35.0) ng/L ECG Data Attestation: I personally reviewed and interpreted this ECG as follows: Interpretation: 0759: Normal sinus rhythm rate of 69, normal MI interval, QRS duration QTC interval, no ST segment elevation, no ST segment depression, no T-wave abnormalities, no PACs, no PVCs, this is a normal EKG. Discharge Plan Discharge Clinical Impression: Strain of left trapezius muscle Qualifiers: Encounter type: initial encounter Qualified Code(s): S46.812A - Strain of other muscles, fascia and tendons at shoulder and upper arm level, left arm, initial encounter Muscle strain of right thigh Qualifiers: Encounter type: initial encounter Qualified Code(s): S76.911A - Strain of unspecified muscles, fascia and tendons at thigh level, right thigh, initial encounter Patient Disposition: Home, Self-Care Instructions: Muscle Strain (ED), Cervical Strain (DC) Additional Instructions: Neck/thigh Pain Discharge Instructions: Take Motrin (ibuprofen) 200 mg pills, 3 pills every 6 hours as needed for pain. Take Tylenol (acetaminophen) 500 mg pills, 2 pills every 6 hours as needed for pain. Apply ice for 15 minutes to the area that hurts on your back, then apply a heating a pad on low for 15 minutes. Do this 4-6 times a day to help reduce the pain in your back. Continue with normal activities as tolerated since staying in bed and not moving around will make your pain worse. You can also try over the counter lidocaine patches as directed on the box to help with the pain. Please return to the Emergency Department or see your doctor immediately if yo ur symptoms get worse or if you develop any new symptoms that are concerning you. Follow up with your doctor in 2 day. Please read the other printed discharge instructions on cervical strain and mus el strain Prescriptions: No Action prednisone 20 mg tablet 40 mg PO DAILY 5 Days Qty: 10 0RF oxybutynin chloride 5 mg tablet 5 mg PO DAILY 0RF tamsulosin 0.4 mg capsule 0.4 mg PO DAILY 0RF Shingrix (PF) 50 mcg/0.5 mL suspension for reconstitution IM 0RF aspirin [Ecotrin Low Strength] 81 mg tablet,delayed release (DR/EC) 81 mg PO DAILY 0RF atorvastatin 10 mg tablet 10 mg PO DAILY 0RF meclizine 25 mg tablet 25 mg PO DAILY 0RF albuterol sulfate 90 mcg/actuation HFA aerosol inhaler 1 inh inhalation QID 0RF Biktarvy 50-200-25 mg tablet 1 tab PO DAILY 0RF Flovent HFA 110 mcg/actuation HFA aerosol inhaler 1 puff PO BID 0RF ergocalciferol (vitamin D2) 1,250 mcg (50,000 unit) capsule 1,250 mcg PO QWEEK 0RF Combivent Respimat 20-100 mcg/actuation mist 1 puff inhalation QID 0RF omeprazole 40 mg capsule,delayed release(DR/EC) 40 mg PO BEDTIME 0RF cyclobenzaprine 10 mg tablet 10 mg PO BEDTIME PRN0RF alfuzosin 10 mg tablet extended release 24 hr 10 mg PO .nightly 90 Days Qty: 90 3RF Rx Instructions: Take before bedtime
== END 2022-01-25 09:53 | disposition home or self-care (01) ==
PROVIDERS: Emergency Provider Emergency Medicine Emergency Medical Services; PCP Family Medicine
DX: S46.812A Strain of other muscles, fascia and tendons at shoulder and upper arm level, left arm, initial encounter (principal); S76.911A Strain of unspecified muscles, fascia and tendons at thigh level, right thigh, initial encounter; M25.512 Pain in left shoulder; M54.2 Cervicalgia; M79.604 Pain in right leg; X58.XXXA Exposure to other specified factors, initial encounter; Y93.9 Activity, unspecified; Y92.9 Unspecified place or not applicable; Y99.9 Unspecified external cause status; Z79.82 Long term (current) use of aspirin; Z79.899 Other long term (current) drug therapy; Z87.891 Personal history of nicotine dependence
CPT/HCPCS: 36415; 71045; 80048; 84484; 85025; 93005; 99283; 99284

== ENCOUNTER 2022-03-07 10:43 | Emergency (ER) | payer MEDICARE, MEDICAID, SELFPAY ==
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
[2022-03-07 11:03] VITALS: BP 137/60; PULSE 67; RESP 18; TEMP 36.6; O2SAT 97; BMI 24.7
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
== END 2022-03-07 12:42 | disposition home or self-care (01) ==
PROVIDERS: Emergency Provider Emergency Medicine; PCP Family Medicine
DX: S29.011A Strain of muscle and tendon of front wall of thorax, initial encounter (principal); J44.9 Chronic obstructive pulmonary disease, unspecified; Z21 Asymptomatic human immunodeficiency virus [HIV] infection status; X58.XXXA Exposure to other specified factors, initial encounter; Y93.9 Activity, unspecified; Y92.488 Other paved roadways as the place of occurrence of the external cause; Y99.9 Unspecified external cause status
CPT/HCPCS: 71101; 99283

== ENCOUNTER 2022-10-05 07:49 | Emergency (ER) | payer MEDICARE, MEDICAID, SELFPAY ==
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
[2022-10-05 07:51] VITALS: BP 134/75; PULSE 74; RESP 18; TEMP 36.2; O2SAT 99; BMI 24.7
[2022-10-05 08:11] LABS: IDNOW Serial# 6674DD1D; Strep A Nucleic Acid Negative (Negative)
--- NOTE | 2022-10-05 08:40 | ED_ITS ---
HPI - URI/Sore Throat General Chief Complaint: Upper Respiratory Symptoms Stated Complaint: sore throat Time Seen by Provider: 10/05/22 08:29 Source: patient Mode of arrival: ambulatory History of Present Illness HPI Narrative: 61-year-old male with a past medical history of asthma, COPD, eczema, HIV, presenting to the ED complaining of sore throat x couple days, dry cough and mild SOB last night. Denies difficulty/inability to swallow, SOB at present, CP, ear pain, abdominal pain, recent travel, sick contacts MD elicited complaint: cough and sore throat Pertinent past history: COPD and asthma Onset (ago): day(s) Related Data Home Medications Medication Instructions Recorded Confirmed albuterol sulfate 90 mcg/actuation 1 inh inhalation QID 08/17/20 03/07/21 aerosol inhaler aspirin 81 mg tablet,delayed 81 mg PO DAILY 08/17/20 03/07/21 release (Ecotrin Low Strength) atorvastatin 10 mg tablet 10 mg PO DAILY 08/17/20 03/07/21 meclizine 25 mg tablet 25 mg PO DAILY 08/17/20 03/07/21 oxybutynin chloride 5 mg tablet 5 mg PO DAILY 08/17/20 03/07/21 tamsulosin 0.4 mg capsule 0.4 mg PO DAILY 08/17/20 varicella-zoster glycoE [id number] IM 08/17/20 adj(PF) 50 mcg/0.5 mL IM susp, kit (Shingrix (PF)) bictegravir 50 mg-emtricitabine 1 tab PO DAILY 07/12/21 200 mg-tenofovir alafenam 25 mg tablet (Biktarvy) ergocalciferol (vitamin D2) 1,250 1,250 mcg PO QWEEK 07/12/21 mcg (50,000 unit) capsule fluticasone propionate 110 1 puff PO BID 07/12/21 mcg/actuation HFA aerosol inhaler (Flovent HFA) cyclobenzaprine 10 mg tablet 10 mg PO BEDTIME PRN 01/10/22 ipratropium 20 mcg-albuterol 100 1 puff inhalation QID 01/10/22 mcg/actuation mist for inhalation (Combivent Respimat) omeprazole 40 mg capsule,delayed 40 mg PO BEDTIME 01/10/22 release Previous Rx's Medication Instructions Recorded prednisone 20 mg tablet 40 mg PO DAILY 5 days #10 tabs 11/20/20 alfuzosin 10 mg tablet,extended 10 mg PO .nightly 90 days #90 tabs 01/10/22 release 24 hr cyclobenzaprine 10 mg tablet 10 mg PO Q8H PRN Muscle spasm #14 03/07/22 tabs naproxen 500 mg tablet 500 mg PO BID PRN pain #14 tabs 03/07/22 Allergies Allergy/AdvReac Type Severity Reaction Status Date / Time No Known Allergies Allergy Verified 10/17/22 19:23 Review of Systems Review of Systems: Constitutional: No Fever, No Chills ENT/Mouth: No Ear Pain, No Nasal Congestion, No Sinus Pain, No Hoarseness, + sore throat, No Rhinorrhea, No Swallowing Difficulty Cardiovascular: No Chest Pain, + SOB Respiratory: + Cough, No Sputum, No Wheezing Gastrointestinal: No Nausea, No Vomiting, No Diarrhea, No Constipation, No Abdominal pain Genitourinary: No Dysuria, No Urinary Frequency, No Hematuria, No Flank Pain Musculoskeletal: No joint pain, No Myalgias, No Joint Swelling Skin: No Skin Lesions, No rash Neuro: No Weakness, No Numbness, No Paresthesias Yes all other systems are reviewed and are negative Constitutional: Constitutional: Reports as per [facility] Past Medical History Attestation statement: The following information was validated with the patient. Medical History Asthma Cervicalgia COPD (chronic obstructive pulmonary disease) Eczema HIV (human immunodeficiency virus infection) Social History Social History Alcohol intake: never Patient Tobacco Use Status: Former Tobacco user Advance Directives: No Advance Directives Information Provided: No Current occupational status: disabled Physical Exam Vital Signs: Vital Signs: Last Vital Signs Temp 97.1 F 10/05/22 07:51 Pulse 74 10/05/22 07:51 Resp 18 10/05/22 07:51 BP 134/75 10/05/22 07:51 Pulse Ox 99 10/05/22 07:51 O2 Del Method 10/05/22 07:51 BMI result Body Mass Index 24.7 Const: General: cooperative, healthy appearing and no acute distress Orientation/consciousness: patient oriented x3 Limitations: no limitations HEENT: Head: Yes normal to inspection and Yes atraumatic Ears: hearing grossly normal bilaterally, TM's normal bilaterally and mastoids normal General nose exam: Normal external nose present Face and sinus: Yes normal facial exam Throat: Yes tonsils normal, Yes uvula midline, No peritonsillar mass, Yes posterior oropharynx abnormal (Erythematous), No tonsils absent and No uvula laterally displaced Eyes: General: appearance normal, both eyes and all related structures EOM: EOMs intact bilaterally Neck: Neck: Yes normal visual inspection, Yes full ROM, Yes no lymphadenopathy, Yes no meningeal signs, Yes supple and No anterior neck swelling Resp: Effort & Inspection: normal respiratory effort, no respiratory distress and no stridor Auscultation: clear to auscultation bilaterally, no crackles, no rales and no wheezes Cardio: Rate: regular rate Heart sounds: S1 normal heart sound present and S2 normal heart sound present Skin: Rashes: no rashes Wounds: no wounds Neuro: General: patient oriented x3, tone normal and no meningeal signs Gait exam (Neuro): Normal gait present Extrem: General: Yes normal to inspection Course Course Course Narrative: -COVID 19/influenza negative. Rapid strep negative. XR chest 1V IMPRESSION: No acute disease. Chronic elevation of the left hemidiaphragm. ? Results discussed with patient including worrisome signs and symptoms and strict return precautions, and when to return to the emergency department. They verbalized understanding and feel safe for discharge at this time. Medications Administered Discontinued Medications Generic Name Dose Route Start Last Admin Trade Name Freq PRN Reason Stop Dose Admin Lidocaine HCl 5 ml 10/05/22 08:48 10/05/22 09:02 Lidocaine Hcl Viscous 2 % 15 Ml Solution MUCOUS MEM 10/05/22 08:49 5 ml ONCE ONE Administration Medical Decision Making Medical Decision Making [facility] Narrative: 61-year-old male with a past medical history of asthma, COPD, eczema, HIV, presenting to the ED complaining of sore throat x couple days, dry cough and mild SOB last night. On exam vital signs stable, NAD, nontoxic appearing, posterior oropharyngeal erythema noted, no tonsillar swelling/exudates, lungs CTA, talking in complete sentences. Concern for viral illness vs pharyngitis. No evidence of [employer]. Low suspicion for mastoiditis or otitis Plan: COVID-19/influenza testing, rapid strep, CXR, viscous lidocaine Please refer to course for remaining clinical decision making, interpretation of labs/imaging results, and discussions with consultants and/or family members. Differential Diagnosis Differential Diagnoses: The differential diagnosis associated with the presentation includes As above Lab Data Labs: Lab Results 10/05/22 10/05/22 10/05/22 Range/Units 07:55 08:57 08:57 COVID-19 (BOBBY) Negative (Negative) COVID-19 Clin Com See Note Influenza Type A (BRIELLE) Negative (Negative) Influenza Type B (BRIELLE) Negative (Negative) Influenza A & B Note See Note S. pyogenes GrpA BRIELLE Negative (Negative) Discharge Plan Discharge Clinical Impression: Pharyngitis Patient Disposition: Home, Self-Care Instructions: Pharyngitis (ED) Additional Instructions: You tested negative for COVID-19, the flu, and strep throat. Her chest x-ray was unremarkable. You likely have a virus. Take Tylenol /Motrin as needed. Gargle with warm salt water. Follow up with her doctor. If symptoms persist or worsen return to the emergency department Prescriptions: No Action prednisone 20 mg tablet 40 mg PO DAILY 5 Days Qty: 10 0RF naproxen 500 mg tablet 500 mg PO BID PRN (Reason: pain) Qty: 14 0RF cyclobenzaprine 10 mg tablet 10 mg PO Q8H PRN (Reason: Muscle spasm) Qty: 14 0RF oxybutynin chloride 5 mg tablet 5 mg PO DAILY tamsulosin 0.4 mg capsule 0.4 mg PO DAILY Shingrix (PF) 50 mcg/0.5 mL suspension for reconstitution IM aspirin [Ecotrin Low Strength] 81 mg tablet,delayed release (DR/EC) 81 mg PO DAILY atorvastatin 10 mg tablet 10 mg PO DAILY meclizine 25 mg tablet 25 mg PO DAILY albuterol sulfate 90 mcg/actuation HFA aerosol inhaler 1 inh inhalation QID Biktarvy 50-200-25 mg tablet 1 tab PO DAILY Flovent HFA 110 mcg/actuation HFA aerosol inhaler 1 puff PO BID ergocalciferol (vitamin D2) 1,250 mcg (50,000 unit) capsule 1,250 mcg PO QWEEK Combivent Respimat 20-100 mcg/actuation mist 1 puff inhalation QID omeprazole 40 mg capsule,delayed release(DR/EC) 40 mg PO BEDTIME cyclobenzaprine 10 mg tablet 10 mg PO BEDTIME PRN alfuzosin 10 mg tablet extended release 24 hr 10 mg PO .nightly 90 Days Qty: 90 3RF Rx Instructions: Take before bedtime Referrals: Sofia Monroe MD [Primary Care Provider] - 1 week Interventions: ED Discharge Assessment Last Done: 10/05/22 10:19 Discharge Date/Time: 10/05/22 10:20
[2022-10-05] MEDS: Lidocaine HCl Viscous 2 % 15 ML SOLUTION 5 ML MUCOUS MEM (09:02)
[2022-10-05 09:15] LABS: COVID-19 Test Negative (Negative); IDNOW Serial# 16C4AD1C; IDNOW Serial# BCCEAD1C; Influenza A Negative (Negative); Influenza B2 Negative (Negative)
== END 2022-10-05 10:20 | disposition home or self-care (01) ==
PROVIDERS: Physician Assistant; Emergency Provider Emergency Medicine; PCP Family Medicine
DX: J02.9 Acute pharyngitis, unspecified (principal); Z20.822 Contact with and (suspected) exposure to COVID-19; B20 Human immunodeficiency virus [HIV] disease; Z79.82 Long term (current) use of aspirin; Z79.02 Long term (current) use of antithrombotics/antiplatelets; Z79.899 Other long term (current) drug therapy; Z87.891 Personal history of nicotine dependence
CPT/HCPCS: 36415; 71045; 87502; 87635; 87651; 99283

== ENCOUNTER 2022-10-17 19:15 | Emergency (ER) | payer MEDICARE, MEDICAID, SELFPAY ==
--- NOTE | ~2022-10-17 | XR_ITS ---
EXAMINATION: XR CHEST CLINICAL INFORMATION: Chest pain COMPARISON: Chest x-ray 10/05/2022 TECHNIQUE: 2 views of the chest were obtained. FINDINGS: Asymmetric elevation of left diaphragm above the right. This is unchanged since prior study. No acute abnormality. Lungs are normally aerated. No pleural effusion or pneumothorax. Cardiac mediastinal contours are unchanged. No pulmonary vascular congestion. Cluster of tiny dense opacities redemonstrated at the posterior left mid back. XR/XR chest 2V IMPRESSION: No acute abnormality of chest.
[2022-10-17 19:19] VITALS: BP 131/75; PULSE 69; RESP 18; TEMP 36.2; O2SAT 98; BMI 24.3
--- NOTE | 2022-10-17 19:20 | ED_ITS ---
HPI - Chest Pain General Chief Complaint: Chest Pain Stated Complaint: chest pain dizziness Time Seen by Provider: 10/17/22 21:12 Related Data Home Medications Medication Instructions Recorded Confirmed albuterol sulfate 90 mcg/actuation 1 inh inhalation QID 08/17/20 03/07/21 aerosol inhaler aspirin 81 mg tablet,delayed 81 mg PO DAILY 08/17/20 03/07/21 release (Ecotrin Low Strength) atorvastatin 10 mg tablet 10 mg PO DAILY 08/17/20 03/07/21 meclizine 25 mg tablet 25 mg PO DAILY 08/17/20 03/07/21 oxybutynin chloride 5 mg tablet 5 mg PO DAILY 08/17/20 03/07/21 tamsulosin 0.4 mg capsule 0.4 mg PO DAILY 08/17/20 varicella-zoster glycoE [id number] IM 08/17/20 adj(PF) 50 mcg/0.5 mL IM susp, kit (Shingrix (PF)) bictegravir 50 mg-emtricitabine 1 tab PO DAILY 07/12/21 200 mg-tenofovir alafenam 25 mg tablet (Biktarvy) ergocalciferol (vitamin D2) 1,250 1,250 mcg PO QWEEK 07/12/21 mcg (50,000 unit) capsule fluticasone propionate 110 1 puff PO BID 07/12/21 mcg/actuation HFA aerosol inhaler (Flovent HFA) cyclobenzaprine 10 mg tablet 10 mg PO BEDTIME PRN 01/10/22 ipratropium 20 mcg-albuterol 100 1 puff inhalation QID 01/10/22 mcg/actuation mist for inhalation (Combivent Respimat) omeprazole 40 mg capsule,delayed 40 mg PO BEDTIME 01/10/22 release Previous Rx's Medication Instructions Recorded prednisone 20 mg tablet 40 mg PO DAILY 5 days #10 tabs 11/20/20 alfuzosin 10 mg tablet,extended 10 mg PO .nightly 90 days #90 tabs 01/10/22 release 24 hr cyclobenzaprine 10 mg tablet 10 mg PO Q8H PRN Muscle spasm #14 03/07/22 tabs naproxen 500 mg tablet 500 mg PO BID PRN pain #14 tabs 03/07/22 Allergies Allergy/AdvReac Type Severity Reaction Status Date / Time No Known Allergies Allergy Verified 10/17/22 19:23 [facility] Past Medical History Medical History Asthma Cervicalgia COPD (chronic obstructive pulmonary disease) Eczema HIV (human immunodeficiency virus infection) Social History Social History Alcohol intake: never Patient Tobacco Use Status: Former Tobacco user Advance Directives: No Advance Directives Information Provided: No Current occupational status: disabled Physical Exam Vital Signs: Vital Signs: Last Vital Signs Temp 97.2 F 10/17/22 19:19 Pulse 62 10/17/22 23:14 Resp 18 10/17/22 23:14 BP 119/81 10/17/22 23:14 Pulse Ox 98 10/17/22 23:14 O2 Del Method 10/17/22 23:14 BMI result Body Mass Index 24.3 Course Course Course Narrative: This is a rapid medical exam. Deferred additional HPI, ROS, PE department provider. 61-year-old male w/ history of DVT on ASA only here with complaints of left sided CP which radiates to right neck and right head x 2 hrs, +CARRERO, +dizziness. VSS. Will check EKG, labs, chest x-ray, COVID screen Medical Decision Making Lab Data 10/17/22 19:34 10/17/22 19:34 Labs: Lab Results 10/17/22 10/17/22 10/17/22 Range/Units 19:34 19:34 19:34 WBC 7.2 (4.8-10.8) X10*3/uL RBC 4.03 L (4.60-5.80) X10*6/uL Hgb 12.1 L (14.0-18.0) g/dl Hct 36.4 L (42.0-52.0) % MCV 90.3 (80.0-98.0) fL MCH 30.0 (27.0-33.0) pg MCHC 33.2 (31.0-36.0) g/dl RDW 12.9 (11.0-16.0) % Plt Count 256 (160-400) X10*3/uL MPV 9.3 L (9.4-12.4) fL Immature Gran % (Auto) 0.3 (0.0-0.4) % Neut % (Auto) 56.1 (45-73) % Lymph % (Auto) 33.4 (20-40) % [place] % (Auto) 7.8 (2-11) % Eos % (Auto) 1.8 (0-4) % Baso % (Auto) 0.6 (0-2) % Lymph # (Auto) 2.4 (1.2-4.9) X10*3/uL [place] # (Auto) 0.6 (0.1-1.2) X10*3/uL Eos # (Auto) 0.1 (0.0-0.4) X10*3/uL Baso # (Auto) 0.0 (0.0-0.2) X10*3/uL Abs Immat Gran (auto) 0.02 (0.00-0.03) X10*3/uL Absolute Neuts (auto) 4.0 (2.0-8.3) x10*3/uL Absolute Nucleated RBC 0.000 (0.0-0.012) X10*3/uL Nucleated RBC % (auto) 0.0 (0.0-0.2) /100WBC PT (10.0-13.1) SEC INR (0.9-1.1) D-Dimer High Sensitivty NG/ML Sodium 138 (135-145) mmol/L Potassium 4.1 (3.3-5.1) mmol/L Chloride 105 (96-108) mmol/L Carbon Dioxide 26 (22-29) mmol/L Anion Gap 11 L (12-20) BUN 17 H (9-16) mg/dL Creatinine 1.07 (0.5-1.4) mg/dL Estim Creat Clear Calc 72.9 Estimated GFR > 60 Random Glucose 97 (60-115) mg/dL Calcium 9.0 (8.4-10.2) mg/dL Magnesium 2.0 (1.6-2.6) mg/dL Total Bilirubin 0.2 (0.0-1.0) mg/dL Direct Bilirubin < 0.2 (0.0-0.5) mg/dL AST 12 (5-37) U/L ALT 6 (0-40) U/L Alkaline Phosphatase 55 (39-117) U/L Troponin I High Sens (<3.5-35.0) ng/L Total Protein 6.4 L (6.5-8.0) g/dL Albumin 4.1 (3.5-5.0) g/dL COVID-19 (BOBBY) Negative (Negative) COVID-19 Clin Com See Note 10/17/22 10/17/22 10/17/22 Range/Units 19:34 19:34 21:51 WBC (4.8-10.8) X10*3/uL RBC (4.60-5.80) X10*6/uL Hgb (14.0-18.0) g/dl Hct (42.0-52.0) % MCV (80.0-98.0) fL MCH (27.0-33.0) pg MCHC (31.0-36.0) g/dl RDW (11.0-16.0) % Plt Count (160-400) X10*3/uL MPV (9.4-12.4) fL Immature Gran % (Auto) (0.0-0.4) % Neut % (Auto) (45-73) % Lymph % (Auto) (20-40) % [place] % (Auto) (2-11) % Eos % (Auto) (0-4) % Baso % (Auto) (0-2) % Lymph # (Auto) (1.2-4.9) X10*3/uL [place] # (Auto) (0.1-1.2) X10*3/uL Eos # (Auto) (0.0-0.4) X10*3/uL Baso # (Auto) (0.0-0.2) X10*3/uL Abs Immat Gran (auto) (0.00-0.03) X10*3/uL Absolute Neuts (auto) (2.0-8.3) x10*3/uL Absolute Nucleated RBC (0.0-0.012) X10*3/uL Nucleated RBC % (auto) (0.0-0.2) /100WBC PT 11.4 (10.0-13.1) SEC INR 1.0 (0.9-1.1) D-Dimer High Sensitivty < 150 NG/ML Sodium (135-145) mmol/L Potassium (3.3-5.1) mmol/L Chloride (96-108) mmol/L Carbon Dioxide (22-29) mmol/L Anion Gap (12-20) BUN (9-16) mg/dL Creatinine (0.5-1.4) mg/dL Estim Creat Clear Calc Estimated GFR Random Glucose (60-115) mg/dL Calcium (8.4-10.2) mg/dL Magnesium (1.6-2.6) mg/dL Total Bilirubin (0.0-1.0) mg/dL Direct Bilirubin (0.0-0.5) mg/dL AST (5-37) U/L ALT (0-40) U/L Alkaline Phosphatase (39-117) U/L Troponin I High Sens 3.5 (<3.5-35.0) ng/L Total Protein (6.5-8.0) g/dL Albumin (3.5-5.0) g/dL COVID-19 (BOBBY) (Negative) COVID-19 Clin Com 10/17/22 Range/Units 21:51 WBC (4.8-10.8) X10*3/uL RBC (4.60-5.80) X10*6/uL Hgb (14.0-18.0) g/dl Hct (42.0-52.0) % MCV (80.0-98.0) fL MCH (27.0-33.0) pg MCHC (31.0-36.0) g/dl RDW (11.0-16.0) % Plt Count (160-400) X10*3/uL MPV (9.4-12.4) fL Immature Gran % (Auto) (0.0-0.4) % Neut % (Auto) (45-73) % Lymph % (Auto) (20-40) % [place] % (Auto) (2-11) % Eos % (Auto) (0-4) % Baso % (Auto) (0-2) % Lymph # (Auto) (1.2-4.9) X10*3/uL [place] # (Auto) (0.1-1.2) X10*3/uL Eos # (Auto) (0.0-0.4) X10*3/uL Baso # (Auto) (0.0-0.2) X10*3/uL Abs Immat Gran (auto) (0.00-0.03) X10*3/uL Absolute Neuts (auto) (2.0-8.3) x10*3/uL Absolute Nucleated RBC (0.0-0.012) X10*3/uL Nucleated RBC % (auto) (0.0-0.2) /100WBC PT (10.0-13.1) SEC INR (0.9-1.1) D-Dimer High Sensitivty NG/ML Sodium (135-145) mmol/L Potassium (3.3-5.1) mmol/L Chloride (96-108) mmol/L Carbon Dioxide (22-29) mmol/L Anion Gap (12-20) BUN (9-16) mg/dL Creatinine (0.5-1.4) mg/dL Estim Creat Clear Calc Estimated GFR Random Glucose (60-115) mg/dL Calcium (8.4-10.2) mg/dL Magnesium (1.6-2.6) mg/dL Total Bilirubin (0.0-1.0) mg/dL Direct Bilirubin (0.0-0.5) mg/dL AST (5-37) U/L ALT (0-40) U/L Alkaline Phosphatase (39-117) U/L Troponin I High Sens < 3.5 (<3.5-35.0) ng/L Total Protein (6.5-8.0) g/dL Albumin (3.5-5.0) g/dL COVID-19 (BOBBY) (Negative) COVID-19 Clin Com Discharge Plan Discharge Clinical Impression: Chest pain Patient Disposition: Home, Self-Care Instructions: Chest Pain (ED) Prescriptions: No Action prednisone 20 mg tablet 40 mg PO DAILY 5 Days Qty: 10 0RF naproxen 500 mg tablet 500 mg PO BID PRN (Reason: pain) Qty: 14 0RF cyclobenzaprine 10 mg tablet 10 mg PO Q8H PRN (Reason: Muscle spasm) Qty: 14 0RF oxybutynin chloride 5 mg tablet 5 mg PO DAILY tamsulosin 0.4 mg capsule 0.4 mg PO DAILY Shingrix (PF) 50 mcg/0.5 mL suspension for reconstitution IM aspirin [Ecotrin Low Strength] 81 mg tablet,delayed release (DR/EC) 81 mg PO DAILY atorvastatin 10 mg tablet 10 mg PO DAILY meclizine 25 mg tablet 25 mg PO DAILY albuterol sulfate 90 mcg/actuation HFA aerosol inhaler 1 inh inhalation QID Biktarvy 50-200-25 mg tablet 1 tab PO DAILY Flovent HFA 110 mcg/actuation HFA aerosol inhaler 1 puff PO BID ergocalciferol (vitamin D2) 1,250 mcg (50,000 unit) capsule 1,250 mcg PO QWEEK Combivent Respimat 20-100 mcg/actuation mist 1 puff inhalation QID omeprazole 40 mg capsule,delayed release(DR/EC) 40 mg PO BEDTIME cyclobenzaprine 10 mg tablet 10 mg PO BEDTIME PRN alfuzosin 10 mg tablet extended release 24 hr 10 mg PO .nightly 90 Days Qty: 90 3RF Rx Instructions: Take before bedtime Referrals: Levi Jett MD [Physician] - Interventions: ED Discharge Assessment Last Done: 10/17/22 23:14 Discharge Date/Time: 10/17/22 23:15
--- NOTE | 2022-10-17 19:21 | ECG_ITS ---
Test Reason : CHEST PAIN Blood Pressure : / mmHG Vent. Rate : 067 BPM Atrial Rate : 067 BPM P-R Int : 122 ms QRS Dur : 084 ms QT Int : 374 ms P-R-T Axes : -20 051 057 degrees QTc Int : 395 ms Normal sinus rhythm Normal ECG When compared with ECG of 25-JAN-2022 07:59, No significant change was found Referred By: Jessica Venegas Electronically Signed By:Levi Jett
[2022-10-17 19:46] LABS: MANUAL DIFF FLAG NO
[2022-10-17 19:48] LABS: Basophils Percent Auto 0.6 % (0-2); Eosinophils Absolute Auto 0.1 X10*3/uL (0.0-0.4); Eosinophils Percent Auto 1.8 % (0-4); Hematocrit 36.4 % (42.0-52.0); Hemoglobin 12.1 g/dl (14.0-18.0); Imm Gran Abs Auto 0.02 X10*3/uL (0.00-0.03); Imm Gran Pct Auto 0.3 % (0.0-0.4); Lymphocytes Absolute Auto 2.4 X10*3/uL (1.2-4.9); Lymphocytes Percent Auto 33.4 % (20-40); Mean Corpuscular HGB Conc 33.2 g/dl (31.0-36.0); Mean Corpuscular Volume 90.3 fL (80.0-98.0); Mean Platelet Volume 9.3 fL (9.4-12.4); Monocytes Absolute Auto 0.6 X10*3/uL (0.1-1.2); Monocytes Percent Auto 7.8 % (2-11); Neutrophils Percent Auto 56.1 % (45-73); Platelet Count 256 X10*3/uL (160-400); Red Blood Count 4.03 X10*6/uL (4.60-5.80); Red Cell Distribution Width 12.9 % (11.0-16.0); White Blood Count 7.2 X10*3/uL (4.8-10.8)
[2022-10-17 19:55] LABS: Prothrombin Time 11.4 SEC (10.0-13.1)
[2022-10-17 20:03] LABS: Alanine Aminotransferase 6 U/L (0-40); Albumin Level 4.1 g/dL (3.5-5.0); Alkaline Phosphatase 55 U/L (39-117); Anion Gap 11 (12-20); Aspartate Amino Transferase 12 U/L (5-37); Bilirubin Direct < 0.2 mg/dL (0.0-0.5); Bilirubin Total 0.2 mg/dL (0.0-1.0); Blood Urea Nitrogen 17 mg/dL (9-16); Carbon Dioxide 26 mmol/L (22-29); Chloride 105 mmol/L (96-108); Creatinine Clr Calc Pharmacy 72.9; Estimated Glomerular Filt Rate > 60; Glucose Random 97 mg/dL (60-115); Potassium 4.1 mmol/L (3.3-5.1); Sodium 138 mmol/L (135-145); Total Protein 6.4 g/dL (6.5-8.0)
[2022-10-17 20:05] LABS: COVID-19 Test Negative (Negative); IDNOW Serial# 6674DD1D
[2022-10-17 20:10] LABS: Troponin-I High Sensitivity 3.5 ng/L (<3.5-35.0)
--- NOTE | 2022-10-17 21:29 | ED_ITS ---
HPI - Chest Pain General Chief Complaint: Chest Pain Stated Complaint: chest pain dizziness Time Seen by Provider: 10/17/22 21:12 History of Present Illness HPI narrative: Yes patient is a 61-year-old male presents today with having chest pain. The chest pain is on the right side. It is sharp. It goes to the neck. Patient was lifting a mattress at the time. It is worse with movement of the right arm. Patient claims the symptoms lasted for approximately 25 minutes. It is not as sociated with any shortness of breath not associated with any diaphoresis. His spontaneously resolved. Patient has his symptom happened approximately 19:30. Patient claims he had a stress test approximately 1 year ago was okay. No history of diabetes. Positive history of high cholesterol. No history of hypertension. No history of SD no family history of SD. No history of recreational drug use no history of smoking. Related Data Home Medications Medication Instructions Recorded Confirmed albuterol sulfate 90 mcg/actuation 1 inh inhalation QID 08/17/20 03/07/21 aerosol inhaler aspirin 81 mg tablet,delayed 81 mg PO DAILY 08/17/20 03/07/21 release (Ecotrin Low Strength) atorvastatin 10 mg tablet 10 mg PO DAILY 08/17/20 03/07/21 meclizine 25 mg tablet 25 mg PO DAILY 08/17/20 03/07/21 oxybutynin chloride 5 mg tablet 5 mg PO DAILY 08/17/20 03/07/21 tamsulosin 0.4 mg capsule 0.4 mg PO DAILY 08/17/20 varicella-zoster glycoE [id number] IM 08/17/20 adj(PF) 50 mcg/0.5 mL IM susp, kit (Shingrix (PF)) bictegravir 50 mg-emtricitabine 1 tab PO DAILY 07/12/21 200 mg-tenofovir alafenam 25 mg tablet (Biktarvy) ergocalciferol (vitamin D2) 1,250 1,250 mcg PO QWEEK 07/12/21 mcg (50,000 unit) capsule fluticasone propionate 110 1 puff PO BID 07/12/21 mcg/actuation HFA aerosol inhaler (Flovent HFA) cyclobenzaprine 10 mg tablet 10 mg PO BEDTIME PRN 01/10/22 ipratropium 20 mcg-albuterol 100 1 puff inhalation QID 01/10/22 mcg/actuation mist for inhalation (Combivent Respimat) omeprazole 40 mg capsule,delayed 40 mg PO BEDTIME 01/10/22 release Previous Rx's Medication Instructions Recorded prednisone 20 mg tablet 40 mg PO DAILY 5 days #10 tabs 11/20/20 alfuzosin 10 mg tablet,extended 10 mg PO .nightly 90 days #90 tabs 01/10/22 release 24 hr cyclobenzaprine 10 mg tablet 10 mg PO Q8H PRN Muscle spasm #14 03/07/22 tabs naproxen 500 mg tablet 500 mg PO BID PRN pain #14 tabs 03/07/22 Allergies Allergy/AdvReac Type Severity Reaction Status Date / Time No Known Allergies Allergy Verified 10/17/22 19:23 Review of Systems Review of Systems: Positive chest pain Yes all other systems are reviewed and are negative [facility] Past Medical History Attestation statement: The following information was validated with the patient. Medical History Asthma Cervicalgia COPD (chronic obstructive pulmonary disease) Eczema HIV (human immunodeficiency virus infection) Social History Social History Alcohol intake: never Patient Tobacco Use Status: Former Tobacco user Advance Directives: No Advance Directives Information Provided: No Current occupational status: disabled Physical Exam Vital Signs: Vital Signs: Last Vital Signs Temp 97.2 F 10/17/22 19:19 Pulse 69 10/17/22 19:19 Resp 18 10/17/22 19:19 BP 131/75 10/17/22 19:19 Pulse Ox 98 10/17/22 19:19 O2 Del Method 10/17/22 19:19 BMI result Body Mass Index 24.3 Appearance: Alert. Oriented X3. No acute distress. Eyes: Pupils equal, round and reactive to light. ENT: Pharynx normal. Neck: Normal inspection. Neck supple. No lymph nodes noted. No crepitus CVS: Normal heart rate and rhythm. Pulses normal. Normal S1 and S2 Respiratory: No respiratory distress. Breath sounds normal. No Wheezing. No rales Abdomen: Soft and nontender. No rigidity. No distention. good BS x4 Skin: Skin warm and dry. Normal skin color. Normal skin turgor. Extremities: No lower extremity edema. Neurovascular intact to all extremities. No Lacerations. No Rash Neuro: Oriented X 3. No motor deficit. No sensory deficit. Moving all extermities. No slurred speech Medical Decision Making Differential Diagnosis Differential Diagnoses: The differential diagnosis associated with the presentation includes Musculoskeletal chest pain, pulmonary emboli, pneumonia, rib fracture, ACS. Lance watkins's troponin 1st set was negative. Has a history of high cholesterol. Has a previous history of smoking. Patient's history not consistent with ACS. He is 61 years old. His heart score is 2. Less likely is secondary to ACS. Will have patient closely follow-up. Patient's chest x-ray was personally reviewed. No pneumonia. No pneumothorax noted. Pain consistent with musculoskeletal ches t pain. In a 2nd set of cardiac enzymes pending. Two sets of cardiac enzymes are negative. Patient D-dimer was negative. Making PE unlikely in the setting of low risk. Will discharge patient home after discussion with patient Admission/Observation Consideration of admission/observation: Escalation of care including admission/observation considered Discussed with patient about staying for chest pain observation versus close follow-up for chest pain Lab Data MDM Lab Attestation statement: I reviewed the patient's lab results. 10/17/22 19:34 10/17/22 19:34 Labs: Lab Results 10/17/22 10/17/22 10/17/22 Range/Units 19:34 19:34 19:34 WBC 7.2 (4.8-10.8) X10*3/uL RBC 4.03 L (4.60-5.80) X10*6/uL Hgb 12.1 L (14.0-18.0) g/dl Hct 36.4 L (42.0-52.0) % MCV 90.3 (80.0-98.0) fL MCH 30.0 (27.0-33.0) pg MCHC 33.2 (31.0-36.0) g/dl RDW 12.9 (11.0-16.0) % Plt Count 256 (160-400) X10*3/uL MPV 9.3 L (9.4-12.4) fL Immature Gran % (Auto) 0.3 (0.0-0.4) % Neut % (Auto) 56.1 (45-73) % Lymph % (Auto) 33.4 (20-40) % [place] % (Auto) 7.8 (2-11) % Eos % (Auto) 1.8 (0-4) % Baso % (Auto) 0.6 (0-2) % Lymph # (Auto) 2.4 (1.2-4.9) X10*3/uL [place] # (Auto) 0.6 (0.1-1.2) X10*3/uL Eos # (Auto) 0.1 (0.0-0.4) X10*3/uL Baso # (Auto) 0.0 (0.0-0.2) X10*3/uL Abs Immat Gran (auto) 0.02 (0.00-0.03) X10*3/uL Absolute Neuts (auto) 4.0 (2.0-8.3) x10*3/uL Absolute Nucleated RBC 0.000 (0.0-0.012) X10*3/uL Nucleated RBC % (auto) 0.0 (0.0-0.2) /100WBC PT (10.0-13.1) SEC INR (0.9-1.1) D-Dimer High Sensitivty NG/ML Sodium 138 (135-145) mmol/L Potassium 4.1 (3.3-5.1) mmol/L Chloride 105 (96-108) mmol/L Carbon Dioxide 26 (22-29) mmol/L Anion Gap 11 L (12-20) BUN 17 H (9-16) mg/dL Creatinine 1.07 (0.5-1.4) mg/dL Estim Creat Clear Calc 72.9 Estimated GFR > 60 Random Glucose 97 (60-115) mg/dL Calcium 9.0 (8.4-10.2) mg/dL Magnesium 2.0 (1.6-2.6) mg/dL Total Bilirubin 0.2 (0.0-1.0) mg/dL Direct Bilirubin < 0.2 (0.0-0.5) mg/dL AST 12 (5-37) U/L ALT 6 (0-40) U/L Alkaline Phosphatase 55 (39-117) U/L Troponin I High Sens (<3.5-35.0) ng/L Total Protein 6.4 L (6.5-8.0) g/dL Albumin 4.1 (3.5-5.0) g/dL COVID-19 ([facility]BY) Negative (Negative) COVID-19 Clin Com See Note 10/17/22 10/17/22 10/17/22 Range/Units 19:34 19:34 21:51 WBC (4.8-10.8) X10*3/uL RBC (4.60-5.80) X10*6/uL Hgb (14.0-18.0) g/dl Hct (42.0-52.0) % MCV (80.0-98.0) fL MCH (27.0-33.0) pg MCHC (31.0-36.0) g/dl RDW (11.0-16.0) % Plt Count (160-400) X10*3/uL MPV (9.4-12.4) fL Immature Gran % (Auto) (0.0-0.4) % Neut % (Auto) (45-73) % Lymph % (Auto) (20-40) % [place] % (Auto) (2-11) % Eos % (Auto) (0-4) % Baso % (Auto) (0-2) % Lymph # (Auto) (1.2-4.9) X10*3/uL [place] # (Auto) (0.1-1.2) X10*3/uL Eos # (Auto) (0.0-0.4) X10*3/uL Baso # (Auto) (0.0-0.2) X10*3/uL Abs Immat Gran (auto) (0.00-0.03) X10*3/uL Absolute Neuts (auto) (2.0-8.3) x10*3/uL Absolute Nucleated RBC (0.0-0.012) X10*3/uL Nucleated RBC % (auto) (0.0-0.2) /100WBC PT 11.4 (10.0-13.1) SEC INR 1.0 (0.9-1.1) D-Dimer High Sensitivty < 150 NG/ML Sodium (135-145) mmol/L Potassium (3.3-5.1) mmol/L Chloride (96-108) mmol/L Carbon Dioxide (22-29) mmol/L Anion Gap (12-20) BUN (9-16) mg/dL Creatinine (0.5-1.4) mg/dL Estim Creat Clear Calc Estimated GFR Random Glucose (60-115) mg/dL Calcium (8.4-10.2) mg/dL Magnesium (1.6-2.6) mg/dL Total Bilirubin (0.0-1.0) mg/dL Direct Bilirubin (0.0-0.5) mg/dL AST (5-37) U/L ALT (0-40) U/L Alkaline Phosphatase (39-117) U/L Troponin I High Sens 3.5 (<3.5-35.0) ng/L Total Protein (6.5-8.0) g/dL Albumin (3.5-5.0) g/dL COVID-19 ([facility]BY) (Negative) COVID-19 Clin Com 10/17/22 Range/Units 21:51 WBC (4.8-10.8) X10*3/uL RBC (4.60-5.80) X10*6/uL Hgb (14.0-18.0) g/dl Hct (42.0-52.0) % MCV (80.0-98.0) fL MCH (27.0-33.0) pg MCHC (31.0-36.0) g/dl RDW (11.0-16.0) % Plt Count (160-400) X10*3/uL MPV (9.4-12.4) fL Immature Gran % (Auto) (0.0-0.4) % Neut % (Auto) (45-73) % Lymph % (Auto) (20-40) % [place] % (Auto) (2-11) % Eos % (Auto) (0-4) % Baso % (Auto) (0-2) % Lymph # (Auto) (1.2-4.9) X10*3/uL [place] # (Auto) (0.1-1.2) X10*3/uL Eos # (Auto) (0.0-0.4) X10*3/uL Baso # (Auto) (0.0-0.2) X10*3/uL Abs Immat Gran (auto) (0.00-0.03) X10*3/uL Absolute Neuts (auto) (2.0-8.3) x10*3/uL Absolute Nucleated RBC (0.0-0.012) X10*3/uL Nucleated RBC % (auto) (0.0-0.2) /100WBC PT (10.0-13.1) SEC INR (0.9-1.1) D-Dimer High Sensitivty NG/ML Sodium (135-145) mmol/L Potassium (3.3-5.1) mmol/L Chloride (96-108) mmol/L Carbon Dioxide (22-29) mmol/L Anion Gap (12-20) BUN (9-16) mg/dL Creatinine (0.5-1.4) mg/dL Estim Creat Clear Calc Estimated GFR Random Glucose (60-115) mg/dL Calcium (8.4-10.2) mg/dL Magnesium (1.6-2.6) mg/dL Total Bilirubin (0.0-1.0) mg/dL Direct Bilirubin (0.0-0.5) mg/dL AST (5-37) U/L ALT (0-40) U/L Alkaline Phosphatase (39-117) U/L Troponin I High Sens < 3.5 (<3.5-35.0) ng/L Total Protein (6.5-8.0) g/dL Albumin (3.5-5.0) g/dL COVID-19 ([facility]) (Negative) COVID-19 Clin Com Independent Interpretation I performed an independent interpretation of an: EKG Interpretation: Sinus heart rate 60 SC QRS QTC within normal limits is no acute ST segment elevation Radiology Impression Discussion of test interpretation with radiology: I have reviewed the radiologist's reading. External Record Review External record reviewed: Inpatient record Chronic Conditions Patient?s care impacted by: Other (High cholesterol, previous smoking) Scores Heart Score History: -0- slightly suspicious ECG: -0- normal Age: -1- >45 - <65 Risk factory: -1- 1 or 2 risk factors Troponin: -0- < or = normal limit Score: 2 Risk: 1.7% Discharge Plan Discharge Clinical Impression: Chest pain Patient Disposition: Home, Self-Care Instructions: Chest Pain (ED) Prescriptions: No Action prednisone 20 mg tablet 40 mg PO DAILY 5 Days Qty: 10 0RF naproxen 500 mg tablet 500 mg PO BID PRN (Reason: pain) Qty: 14 0RF cyclobenzaprine 10 mg tablet 10 mg PO Q8H PRN (Reason: Muscle spasm) Qty: 14 0RF oxybutynin chloride 5 mg tablet 5 mg PO DAILY tamsulosin 0.4 mg capsule 0.4 mg PO DAILY Shingrix (PF) 50 mcg/0.5 mL suspension for reconstitution IM aspirin [Ecotrin Low Strength] 81 mg tablet,delayed release (DR/EC) 81 mg PO DAILY atorvastatin 10 mg tablet 10 mg PO DAILY meclizine 25 mg tablet 25 mg PO DAILY albuterol sulfate 90 mcg/actuation HFA aerosol inhaler 1 inh inhalation QID Biktarvy 50-200-25 mg tablet 1 tab PO DAILY Flovent HFA 110 mcg/actuation HFA aerosol inhaler 1 puff PO BID ergocalciferol (vitamin D2) 1,250 mcg (50,000 unit) capsule 1,250 mcg PO QWEEK Combivent Respimat 20-100 mcg/actuation mist 1 puff inhalation QID omeprazole 40 mg capsule,delayed release(DR/EC) 40 mg PO BEDTIME cyclobenzaprine 10 mg tablet 10 mg PO BEDTIME PRN alfuzosin 10 mg tablet extended release 24 hr 10 mg PO .nightly 90 Days Qty: 90 3RF Rx Instructions: Take before bedtime Referrals: Levi Jett MD [Physician] -
[2022-10-17 22:17] LABS: D Dimer High Sensitivity < 150 NG/ML
[2022-10-17 22:19] LABS: Troponin-I High Sensitivity < 3.5 ng/L (<3.5-35.0)
[2022-10-17 23:14] VITALS: BP 119/81; PULSE 62; RESP 18; O2SAT 98
== END 2022-10-17 23:15 | disposition home or self-care (01) ==
PROVIDERS: Nurse Practitioner Family; Emergency Provider Emergency Medicine Emergency Medical Services; PCP Family Medicine
DX: R07.9 Chest pain, unspecified (principal); E78.00 Pure hypercholesterolemia, unspecified; B20 Human immunodeficiency virus [HIV] disease; Z87.891 Personal history of nicotine dependence; Z20.822 Contact with and (suspected) exposure to COVID-19; Z79.82 Long term (current) use of aspirin; Z79.02 Long term (current) use of antithrombotics/antiplatelets; Z79.899 Other long term (current) drug therapy
CPT/HCPCS: 36415; 71046; 80048; 80076; 83735; 84484; 85025; 85379; 85610; 87635; 93005; 99283

== ENCOUNTER 2022-12-20 09:14 | Outpatient (REF) | payer MEDICARE, MEDICAID, SELFPAY ==
[2022-12-20 10:40] LABS: Prostate Specific Antigen 0.63 ng/mL (<0.05-4.0)
== END 2022-12-20 09:15 | disposition home or self-care (01) ==
LOC: HO.LAB 09:14
PROVIDERS: PCP Family Medicine; Visit Provider Urology
DX: Z12.5 Encounter for screening for malignant neoplasm of prostate (principal); N40.0 Benign prostatic hyperplasia without lower urinary tract symptoms
CPT/HCPCS: 36415; 84153

== ENCOUNTER → 2023-01-10 08:39 | Outpatient (BNVA) | payer MEDICARE, MEDICAID, SELFPAY | PROVIDERS: PCP Family Medicine; Visit Provider Urology | DX: R35.1 Nocturia (principal) | CPT/HCPCS: 51798; 99212 ==

== ENCOUNTER → 2023-03-14 09:27 | Outpatient (BNVA) | payer MEDICARE, MEDICAID, SELFPAY | PROVIDERS: PCP Family Medicine; Visit Provider Urology | DX: N40.1 Benign prostatic hyperplasia with lower urinary tract symptoms (principal); R35.1 Nocturia | CPT/HCPCS: Q3014 ==

== ENCOUNTER 2023-05-07 09:15 | Outpatient (REF) | payer MEDICARE, MEDICAID, SELFPAY ==
[2023-05-09 03:28] LABS: Lyme Abs Screen <0.90 index
== END 2023-05-07 09:16 | disposition home or self-care (01) ==
LOC: HO.HHCL 09:15
PROVIDERS: Visit Provider Family Medicine
DX: M54.2 Cervicalgia (principal)
CPT/HCPCS: 36415; 86617; 86618

== ENCOUNTER 2023-05-28 09:22 | Outpatient (REF) | payer MEDICARE, MEDICAID, SELFPAY ==
[2023-05-28 11:27] LABS: MANUAL DIFF FLAG NO
[2023-05-28 11:28] LABS: Appearance Urine Clear; Color Urine Yellow; Glucose Urine UA Negative (Negative); Leukocyte Esterase Urine Negative (Negative); Nitrite Urine Negative (Negative); PH 5.5 (5.0-9.0); Specific Gravity - Urine 1.015 (1.005-1.025); Urine Blood Negative (Negative); Urine Ketones Negative (Negative); Urine Protein Negative (Neg-Trace)
[2023-05-28 11:36] LABS: Bacteria Urine None Seen (None Seen); Hyaline Casts Urine 0-2 /LPF (0-2); RBC Urine 0-2 /HPF (0-2); Squamous Epithelial Cell Urine 0-2 /HPF (0-2); WBC Urine 0-5 /HPF (0-5)
[2023-05-28 11:41] LABS: Basophils Percent Auto 0.6 % (0-2); Eosinophils Absolute Auto 0.1 X10*3/uL (0.0-0.4); Eosinophils Percent Auto 1.4 % (0-4); Hematocrit 40.2 % (42.0-52.0); Hemoglobin 13.3 g/dl (14.0-18.0); Imm Gran Abs Auto 0.02 X10*3/uL (0.00-0.03); Imm Gran Pct Auto 0.3 % (0.0-0.4); Lymphocytes Absolute Auto 1.3 X10*3/uL (1.2-4.9); Mean Corpuscular HGB Conc 33.1 g/dl (31.0-36.0); Mean Corpuscular Hemoglobin 29.9 pg (27.0-33.0); Mean Corpuscular Volume 90.3 fL (80.0-98.0); Mean Platelet Volume 9.7 fL (9.4-12.4); Monocytes Absolute Auto 0.6 X10*3/uL (0.1-1.2); Monocytes Percent Auto 9.5 % (2-11); Neutrophils Absolute Auto 4.5 x10*3/uL (2.0-8.3); Neutrophils Percent Auto 68.2 % (45-73); Platelet Count 239 X10*3/uL (160-400); Red Blood Count 4.45 X10*6/uL (4.60-5.80); Red Cell Distribution Width 13.1 % (11.0-16.0); White Blood Count 6.7 X10*3/uL (4.8-10.8)
[2023-05-28 12:04] LABS: Alanine Aminotransferase 12 U/L (0-40); Albumin Level 4.2 g/dL (3.5-5.0); Alkaline Phosphatase 59 U/L (39-117); Anion Gap 11 (12-20); Aspartate Amino Transferase 16 U/L (5-37); Bilirubin Total 0.4 mg/dL (0.0-1.0); Blood Urea Nitrogen 15 mg/dL (9-16); Calcium 9.3 mg/dL (8.4-10.2); Carbon Dioxide 26 mmol/L (22-29); Chloride 105 mmol/L (96-108); Estimated Glomerular Filt Rate > 60; Glucose Random 111 mg/dL (60-115); Potassium 3.9 mmol/L (3.3-5.1); Sodium 138 mmol/L (135-145)
[2023-05-28 12:45] LABS: Syphilis Screen Nonreactive (Nonreactive)
[2023-05-29 15:07] LABS: HIV RNA PCR Qn Copies NOT DETECTED copies/mL (NOT DETECTED); HIV RNA PCR Qn Log Copies NOT DETECTED (NOT DETECTED)
[2023-05-30 10:28] LABS: Absolute CD3 Count 862 cells/uL (840-3060); Absolute CD4 Count 471 cells/uL (490-1740); Absolute CD8 Count 403 cells/uL (180-1170); Absolute Lymphocytes 1295 cells/uL (850-3900); CD4 CD8 Ratio 1.17 (0.86-5.00); Percent CD3 Cells 67 % (57-85); Percent CD4 Cells 36 % (30-61); Percent CD8 Cells 31 % (12-42)
[2023-05-31 00:13] LABS: TS Negative Control Passed; TS Panel A 0; TS Panel B 0; TS Positive Control Passed; TSpotTB Negative (Negative)
== END 2023-05-28 09:23 | disposition home or self-care (01) ==
LOC: HO.HHCL 09:22
PROVIDERS: Visit Provider Family Medicine
DX: B20 Human immunodeficiency virus [HIV] disease (principal); Z11.3 Encounter for screening for infections with a predominantly sexual mode of transmission
CPT/HCPCS: 36415; 80053; 81001; 85025; 86359; 86360; 86481; 86780; 87536

== ENCOUNTER 2023-07-03 14:39 | Emergency (ER) | payer MEDICARE, MEDICAID, SELFPAY ==
--- NOTE | 2023-07-03 | ECG_ITS ---
Test Reason : CHEST PAIN Blood Pressure : / mmHG Vent. Rate : 075 BPM Atrial Rate : 075 BPM P-R Int : 136 ms QRS Dur : 084 ms QT Int : 364 ms P-R-T Axes : 050 050 061 degrees QTc Int : 406 ms Normal sinus rhythm Normal ECG When compared with ECG of 17-OCT-2022 19:22, No significant change was found Referred By: Generic ED Physician Electronically Signed By:SETH WILEY
--- NOTE | ~2023-07-03 | XR_ITS ---
EXAMINATION: XR CHEST CLINICAL INFORMATION: Chest pain. COMPARISON: Chest radiograph 10/17/2022. TECHNIQUE: PA view of the chest was obtained. FINDINGS: Stable asymmetric elevation of the left hemidiaphragm. No new focal airspace density, pleural effusion or pneumothorax. Unchanged mild biapical subpleural thickening/scarring. Normal heart size. Stable group of calcifications projecting over the left upper quadrant. No acute osseous findings. XR/XR chest 1V IMPRESSION: No significant change compared to 10/17/2022.
[2023-07-03 15:52] VITALS: BP 127/65; PULSE 74; RESP 18; TEMP 36.4; O2SAT 97; BMI 24.6
--- NOTE | 2023-07-03 15:56 | ED_ITS ---
HPI - General Adult General Chief complaint: Chest Pain Stated complaint: chest pain Time Seen by Provider: 07/03/23 19:56 History of Present Illness HPI narrative: Seen by Dr. Guerin in the ED. Related Data Home Medications Medication Instructions Recorded Confirmed albuterol sulfate 90 mcg/actuation 1 inh inhalation QID 08/17/20 01/10/23 aerosol inhaler aspirin 81 mg tablet,delayed 81 mg PO DAILY 08/17/20 01/10/23 release (Ecotrin Low Strength) atorvastatin 10 mg tablet 10 mg PO DAILY 08/17/20 01/10/23 meclizine 25 mg tablet 25 mg PO DAILY 08/17/20 01/10/23 bictegravir 50 mg-emtricitabine 1 tab PO DAILY 07/12/21 01/10/23 200 mg-tenofovir alafenam 25 mg tablet (Biktarvy) ergocalciferol (vitamin D2) 1,250 1,250 mcg PO QWEEK 07/12/21 01/10/23 mcg (50,000 unit) capsule fluticasone propionate 110 1 puff PO BID 07/12/21 01/10/23 mcg/actuation HFA aerosol inhaler (Flovent HFA) cyclobenzaprine 10 mg tablet 10 mg PO BEDTIME PRN 01/10/22 01/10/23 ipratropium 20 mcg-albuterol 100 1 puff inhalation QID 01/10/22 01/10/23 mcg/actuation mist for inhalation (Combivent Respimat) omeprazole 40 mg capsule,delayed 40 mg PO BEDTIME 01/10/22 01/10/23 release Previous Rx's Medication Instructions Recorded cyclobenzaprine 10 mg tablet 10 mg PO Q8H PRN Muscle spasm #14 03/07/22 tabs naproxen 500 mg tablet 500 mg PO BID PRN pain #14 tabs 03/07/22 doxazosin 2 mg tablet 2 mg PO BEDTIME 30 days #30 tabs 03/17/23 Allergies Allergy/AdvReac Type Severity Reaction Status Date / Time No Known Allergies Allergy Verified 07/03/23 15:52 [facility] Past Medical History Medical History Asthma HIV (human immunodeficiency virus infection) COPD (chronic obstructive pulmonary disease) Eczema Cervicalgia Social History Social History Alcohol intake: never Patient Tobacco Use Status: Former Tobacco user Smoked in Last 30 Days: No Use of substances other than those prescribed or required for medical reasons: No Advance Directives: No Advance Directives Information Provided: No Current occupational status: disabled Physical Exam ED Vital Signs: Vital Signs - 24 hr 07/03/23 15:52 Temperature 97.6 F Pulse Rate 74 Respiratory Rate 18 Blood Pressure 127/65 Pulse Oximetry 97 Oxygen Delivery Method Room Air BMI result Body Mass Index 24.6 Course Course Course Narrative: RME: 62 yold female presents to the ED for chest pain and lower abdominal pain. Patietn states no shortness of breath. labs and EKG and chest xray ordered Medical Decision Making Lab Data 07/03/23 17:00 07/03/23 17:00 Labs: Lab Results 07/03/23 07/03/23 07/03/23 Range/Units 16:59 17:00 21:27 WBC 7.0 (4.8-10.8) X10*3/uL RBC 4.29 L (4.60-5.80) X10*6/uL Hgb 12.7 L (14.0-18.0) g/dl Hct 38.7 L (42.0-52.0) % MCV 90.2 (80.0-98.0) fL MCH 29.6 (27.0-33.0) pg MCHC 32.8 (31.0-36.0) g/dl RDW 13.1 (11.0-16.0) % Plt Count 234 (160-400) X10*3/uL MPV 9.2 L (9.4-12.4) fL Immature Gran % (Auto) 0.3 (0.0-0.4) % Neut % (Auto) 63.0 (45-73) % Lymph % (Auto) 26.0 (20-40) % [place] % (Auto) 8.3 (2-11) % Eos % (Auto) 2.0 (0-4) % Baso % (Auto) 0.4 (0-2) % Lymph # (Auto) 1.8 (1.2-4.9) X10*3/uL [place] # (Auto) 0.6 (0.1-1.2) X10*3/uL Eos # (Auto) 0.1 (0.0-0.4) X10*3/uL Baso # (Auto) 0.0 (0.0-0.2) X10*3/uL Abs Immat Gran (auto) 0.02 (0.00-0.03) X10*3/uL Absolute Neuts (auto) 4.4 (2.0-8.3) x10*3/uL Absolute Nucleated RBC 0.000 (0.0-0.012) X10*3/uL Nucleated RBC % (auto) 0.0 (0.0-0.2) /100WBC Hold Purple Top Cancelled D-Dimer High Sensitivty NG/ML Sodium 142 (135-145) mmol/L Potassium 3.8 (3.3-5.1) mmol/L Chloride 110 H (96-108) mmol/L Carbon Dioxide 24 (22-29) mmol/L Anion Gap 12 (12-20) BUN 19 H (9-16) mg/dL Creatinine 1.22 (0.5-1.4) mg/dL Estim Creat Clear Calc 63.1 Estimated GFR 60 Random Glucose 111 (60-115) mg/dL Calcium 9.0 (8.4-10.2) mg/dL Total Bilirubin 0.3 (0.0-1.0) mg/dL AST 15 (5-37) U/L ALT 9 (0-40) U/L Alkaline Phosphatase 56 (39-117) U/L Troponin I High Sens < 2.7 < 2.7 (<3.5-35.0) ng/L B-Natriuretic Peptide 46 (<100) pg/mL Total Protein 6.8 (6.5-8.0) g/dL Albumin 4.2 (3.5-5.0) g/dL Lipase 32 (8-78) U/L Influenza Type A (PCR) NEGATIVE (Negative) Influenza Type B (PCR) NEGATIVE (Negative) RSV RNA Qual (PCR) NEGATIVE (Negative) SARS-CoV-2 RNA (RT-PCR) NEGATIVE (Negative) 07/03/23 Range/Units 21:46 WBC (4.8-10.8) X10*3/uL RBC (4.60-5.80) X10*6/uL Hgb (14.0-18.0) g/dl Hct (42.0-52.0) % MCV (80.0-98.0) fL MCH (27.0-33.0) pg MCHC (31.0-36.0) g/dl RDW (11.0-16.0) % Plt Count (160-400) X10*3/uL MPV (9.4-12.4) fL Immature Gran % (Auto) (0.0-0.4) % Neut % (Auto) (45-73) % Lymph % (Auto) (20-40) % [place] % (Auto) (2-11) % Eos % (Auto) (0-4) % Baso % (Auto) (0-2) % Lymph # (Auto) (1.2-4.9) X10*3/uL [place] # (Auto) (0.1-1.2) X10*3/uL Eos # (Auto) (0.0-0.4) X10*3/uL Baso # (Auto) (0.0-0.2) X10*3/uL Abs Immat Gran (auto) (0.00-0.03) X10*3/uL Absolute Neuts (auto) (2.0-8.3) x10*3/uL Absolute Nucleated RBC (0.0-0.012) X10*3/uL Nucleated RBC % (auto) (0.0-0.2) /100WBC Hold Purple Top D-Dimer High Sensitivty < 150 NG/ML Sodium (135-145) mmol/L Potassium (3.3-5.1) mmol/L Chloride (96-108) mmol/L Carbon Dioxide (22-29) mmol/L Anion Gap (12-20) BUN (9-16) mg/dL Creatinine (0.5-1.4) mg/dL Estim Creat Clear Calc Estimated GFR Random Glucose (60-115) mg/dL Calcium (8.4-10.2) mg/dL Total Bilirubin (0.0-1.0) mg/dL AST (5-37) U/L ALT (0-40) U/L Alkaline Phosphatase (39-117) U/L Troponin I High Sens (<3.5-35.0) ng/L B-Natriuretic Peptide (<100) pg/mL Total Protein (6.5-8.0) g/dL Albumin (3.5-5.0) g/dL Lipase (8-78) U/L Influenza Type A (PCR) (Negative) Influenza Type B (PCR) (Negative) RSV RNA Qual (PCR) (Negative) SARS-CoV-2 RNA (RT-PCR) (Negative) Discharge Plan Discharge Clinical Impression: Chest pain Patient Disposition: Home, Self-Care Instructions: Chest Pain (ED) Prescriptions: No Action doxazosin 2 mg tablet 2 mg PO BEDTIME 30 Days Qty: 30 1RF naproxen 500 mg tablet 500 mg PO BID PRN (Reason: pain) Qty: 14 0RF cyclobenzaprine 10 mg tablet 10 mg PO Q8H PRN (Reason: Muscle spasm) Qty: 14 0RF aspirin [Ecotrin Low Strength] 81 mg tablet,delayed release (DR/EC) 81 mg PO DAILY atorvastatin 10 mg tablet 10 mg PO DAILY meclizine 25 mg tablet 25 mg PO DAILY albuterol sulfate 90 mcg/actuation HFA aerosol inhaler 1 inh inhalation QID Biktarvy 50-200-25 mg tablet 1 tab PO DAILY Flovent HFA 110 mcg/actuation HFA aerosol inhaler 1 puff PO BID ergocalciferol (vitamin D2) 1,250 mcg (50,000 unit) capsule 1,250 mcg PO QWEEK Combivent Respimat 20-100 mcg/actuation mist 1 puff inhalation QID omeprazole 40 mg capsule,delayed release(DR/EC) 40 mg PO BEDTIME cyclobenzaprine 10 mg tablet 10 mg PO BEDTIME PRN Referrals: Adam Granda MD [Physician] - 07/07/23 Interventions: ED Discharge Assessment Last Done: 07/03/23 22:22 Discharge Date/Time: 07/03/23 22:23
[2023-07-03 17:07] LABS: MANUAL DIFF FLAG NO
[2023-07-03 17:08] LABS: Basophils Percent Auto 0.4 % (0-2); Eosinophils Absolute Auto 0.1 X10*3/uL (0.0-0.4); Hematocrit 38.7 % (42.0-52.0); Hemoglobin 12.7 g/dl (14.0-18.0); Imm Gran Abs Auto 0.02 X10*3/uL (0.00-0.03); Imm Gran Pct Auto 0.3 % (0.0-0.4); Lymphocytes Absolute Auto 1.8 X10*3/uL (1.2-4.9); Mean Corpuscular HGB Conc 32.8 g/dl (31.0-36.0); Mean Corpuscular Hemoglobin 29.6 pg (27.0-33.0); Mean Corpuscular Volume 90.2 fL (80.0-98.0); Mean Platelet Volume 9.2 fL (9.4-12.4); Monocytes Absolute Auto 0.6 X10*3/uL (0.1-1.2); Monocytes Percent Auto 8.3 % (2-11); Neutrophils Absolute Auto 4.4 x10*3/uL (2.0-8.3); Platelet Count 234 X10*3/uL (160-400); Red Blood Count 4.29 X10*6/uL (4.60-5.80); Red Cell Distribution Width 13.1 % (11.0-16.0)
[2023-07-03 17:20] LABS: Lipase 32 U/L (8-78)
[2023-07-03 17:23] LABS: Alanine Aminotransferase 9 U/L (0-40); Albumin Level 4.2 g/dL (3.5-5.0); Alkaline Phosphatase 56 U/L (39-117); Anion Gap 12 (12-20); Aspartate Amino Transferase 15 U/L (5-37); Bilirubin Total 0.3 mg/dL (0.0-1.0); Blood Urea Nitrogen 19 mg/dL (9-16); Carbon Dioxide 24 mmol/L (22-29); Chloride 110 mmol/L (96-108); Creatinine Clr Calc Pharmacy 63.1; Estimated Glomerular Filt Rate 60; Glucose Random 111 mg/dL (60-115); Potassium 3.8 mmol/L (3.3-5.1); Sodium 142 mmol/L (135-145); Total Protein 6.8 g/dL (6.5-8.0)
[2023-07-03 17:29] LABS: B Type Natriuretic Peptide 46 pg/mL (<100)
[2023-07-03 17:35] LABS: Troponin-I High Sensitivity < 2.7 ng/L (<3.5-35.0)
[2023-07-03 17:53] LABS: Influenza A PCR NEGATIVE (Negative); Influenza B PCR NEGATIVE (Negative); Resp Syncy Virus RNA Qual PCR NEGATIVE (Negative); SARS COV2 PCR INHOUSE NEGATIVE (Negative)
[2023-07-03 19:29] VITALS: BP 126/76; PULSE 64; RESP 12; TEMP 36.8; O2SAT 97
--- NOTE | 2023-07-03 21:13 | ED_ITS ---
HPI - Chest Pain General Chief Complaint: Chest Pain Stated Complaint: chest pain Time Seen by Provider: 07/03/23 19:56 History of Present Illness HPI narrative: Patient is a 62-year-old male with a history of high cholesterol. History of smoking quit approximately 20 years ago. Presented today with having chest pain. The chest pain is on the left side. It is nonradiating. No diaphoresis. Patient is from home. The pain has been fairly constant all day. It is not associated with exertion. Patient denies any coughing congestion upper respiratory symptoms. Denies any change in bowel movement. Denies any abdominal pain. Denies any diaphoresis. Last echo was done approximately 2-3 years ago. At that time was grossly negative. Related Data Home Medications Medication Instructions Recorded Confirmed albuterol sulfate 90 mcg/actuation 1 inh inhalation QID 08/17/20 01/10/23 aerosol inhaler aspirin 81 mg tablet,delayed 81 mg PO DAILY 08/17/20 01/10/23 release (Ecotrin Low Strength) atorvastatin 10 mg tablet 10 mg PO DAILY 08/17/20 01/10/23 meclizine 25 mg tablet 25 mg PO DAILY 08/17/20 01/10/23 bictegravir 50 mg-emtricitabine 1 tab PO DAILY 07/12/21 01/10/23 200 mg-tenofovir alafenam 25 mg tablet (Biktarvy) ergocalciferol (vitamin D2) 1,250 1,250 mcg PO QWEEK 07/12/21 01/10/23 mcg (50,000 unit) capsule fluticasone propionate 110 1 puff PO BID 07/12/21 01/10/23 mcg/actuation HFA aerosol inhaler (Flovent HFA) cyclobenzaprine 10 mg tablet 10 mg PO BEDTIME PRN 01/10/22 01/10/23 ipratropium 20 mcg-albuterol 100 1 puff inhalation QID 01/10/22 01/10/23 mcg/actuation mist for inhalation (Combivent Respimat) omeprazole 40 mg capsule,delayed 40 mg PO BEDTIME 01/10/22 01/10/23 release Previous Rx's Medication Instructions Recorded cyclobenzaprine 10 mg tablet 10 mg PO Q8H PRN Muscle spasm #14 03/07/22 tabs naproxen 500 mg tablet 500 mg PO BID PRN pain #14 tabs 03/07/22 doxazosin 2 mg tablet 2 mg PO BEDTIME 30 days #30 tabs 03/17/23 Allergies Allergy/AdvReac Type Severity Reaction Status Date / Time No Known Allergies Allergy Verified 07/03/23 15:52 Review of Systems 2 Review of Systems: Positive chest pain Yes all other systems are reviewed and are negative [facility] Past Medical History Attestation statement: The following information was validated with the patient. Medical History Asthma HIV (human immunodeficiency virus infection) COPD (chronic obstructive pulmonary disease) Eczema Cervicalgia Social History Social History Alcohol intake: never Patient Tobacco Use Status: Former Tobacco user Smoked in Last 30 Days: No Use of substances other than those prescribed or required for medical reasons: No Advance Directives: No Advance Directives Information Provided: No Current occupational status: disabled Physical Exam 2 Vital Signs: Vital Signs: Last Vital Signs Temp 98.2 F 07/03/23 19:29 Pulse 64 07/03/23 19:29 Resp 12 07/03/23 19:29 BP 126/76 07/03/23 19:29 Pulse Ox 97 07/03/23 19:29 O2 Del Method Room Air 07/03/23 19:29 BMI result Body Mass Index 24.6 Appearance: Alert. Oriented X3. No acute distress. Eyes: Pupils equal, round and reactive to light. ENT: Pharynx normal. Neck: Normal inspection. Neck supple. No lymph nodes noted. No crepitus CVS: Normal heart rate and rhythm. Pulses normal. Normal S1 and S2 Respiratory: No respiratory distress. Breath sounds normal. No Wheezing. No rales Abdomen: Soft and nontender. No rigidity. No distention. good BS x4 Skin: Skin warm and dry. Normal skin color. Normal skin turgor. Extremities: No lower extremity edema. Neurovascular intact to all extremities. No Lacerations. No Rash Neuro: Oriented X 3. No motor deficit. No sensory deficit. Moving all extermities. No slurred speech Medical Decision Making Medical Decision Making MDM Narrative: 62-year-old male presents today with having chest pain. The chest pain is on the left side. It is sharp. There is no leg swelling there is no history of blood clots. Patient from home. Patient's chest pain has been fairly constant it is not associated with shortness of breath or diaphoresis. Two sets of cardiac enzymes were done. They were both negative. In the setting of atypical history. Patient's chest pain unlikely secondary to ACS. His heart score is less than 3 will require follow-up on an outpatient basis. My interpretation of his EKG showed a sinus rhythm heart rate is 75 MN QRS QTC within normal limits is no acute ST segment elevation. Patient well-appearing. My interpretation of his chest x-ray is grossly negative no pneumonia no pneumothorax. I reviewed radiology's reading of the x-ray. Patient's BMP is normal there is no evidence for congestive heart failure. Patient's history not consistent with PE. D-dimer is negative making PE/DVT unlikely. Differential Diagnosis Differential Diagnoses: The differential diagnosis associated with the presentation includes ACS, pneumonia, pneumothorax, musculoskeletal chest pain, GI related, rib fracture, dissection Lab Data MDM Lab Attestation statement: I reviewed the patient's lab results. 07/03/23 17:00 07/03/23 17:00 Labs: Lab Results 07/03/23 07/03/23 07/03/23 Range/Units 16:59 17:00 21:27 WBC 7.0 (4.8-10.8) X10*3/uL RBC 4.29 L (4.60-5.80) X10*6/uL Hgb 12.7 L (14.0-18.0) g/dl Hct 38.7 L (42.0-52.0) % MCV 90.2 (80.0-98.0) fL MCH 29.6 (27.0-33.0) pg MCHC 32.8 (31.0-36.0) g/dl RDW 13.1 (11.0-16.0) % Plt Count 234 (160-400) X10*3/uL MPV 9.2 L (9.4-12.4) fL Immature Gran % (Auto) 0.3 (0.0-0.4) % Neut % (Auto) 63.0 (45-73) % Lymph % (Auto) 26.0 (20-40) % [place] % (Auto) 8.3 (2-11) % Eos % (Auto) 2.0 (0-4) % Baso % (Auto) 0.4 (0-2) % Lymph # (Auto) 1.8 (1.2-4.9) X10*3/uL [place] # (Auto) 0.6 (0.1-1.2) X10*3/uL Eos # (Auto) 0.1 (0.0-0.4) X10*3/uL Baso # (Auto) 0.0 (0.0-0.2) X10*3/uL Abs Immat Gran (auto) 0.02 (0.00-0.03) X10*3/uL Absolute Neuts (auto) 4.4 (2.0-8.3) x10*3/uL Absolute Nucleated RBC 0.000 (0.0-0.012) X10*3/uL Nucleated RBC % (auto) 0.0 (0.0-0.2) /100WBC Hold Purple Top Cancelled D-Dimer High Sensitivty NG/ML Sodium 142 (135-145) mmol/L Potassium 3.8 (3.3-5.1) mmol/L Chloride 110 H (96-108) mmol/L Carbon Dioxide 24 (22-29) mmol/L Anion Gap 12 (12-20) BUN 19 H (9-16) mg/dL Creatinine 1.22 (0.5-1.4) mg/dL Estim Creat Clear Calc 63.1 Estimated GFR 60 Random Glucose 111 (60-115) mg/dL Calcium 9.0 (8.4-10.2) mg/dL Total Bilirubin 0.3 (0.0-1.0) mg/dL AST 15 (5-37) U/L ALT 9 (0-40) U/L Alkaline Phosphatase 56 (39-117) U/L Troponin I High Sens < 2.7 < 2.7 (<3.5-35.0) ng/L B-Natriuretic Peptide 46 (<100) pg/mL Total Protein 6.8 (6.5-8.0) g/dL Albumin 4.2 (3.5-5.0) g/dL Lipase 32 (8-78) U/L Influenza Type A (PCR) NEGATIVE (Negative) Influenza Type B (PCR) NEGATIVE (Negative) RSV RNA Qual (PCR) NEGATIVE (Negative) SARS-CoV-2 RNA (RT-PCR) NEGATIVE (Negative) 07/03/23 Range/Units 21:46 WBC (4.8-10.8) X10*3/uL RBC (4.60-5.80) X10*6/uL Hgb (14.0-18.0) g/dl Hct (42.0-52.0) % MCV (80.0-98.0) fL MCH (27.0-33.0) pg MCHC (31.0-36.0) g/dl RDW (11.0-16.0) % Plt Count (160-400) X10*3/uL MPV (9.4-12.4) fL Immature Gran % (Auto) (0.0-0.4) % Neut % (Auto) (45-73) % Lymph % (Auto) (20-40) % [place] % (Auto) (2-11) % Eos % (Auto) (0-4) % Baso % (Auto) (0-2) % Lymph # (Auto) (1.2-4.9) X10*3/uL [place] # (Auto) (0.1-1.2) X10*3/uL Eos # (Auto) (0.0-0.4) X10*3/uL Baso # (Auto) (0.0-0.2) X10*3/uL Abs Immat Gran (auto) (0.00-0.03) X10*3/uL Absolute Neuts (auto) (2.0-8.3) x10*3/uL Absolute Nucleated RBC (0.0-0.012) X10*3/uL Nucleated RBC % (auto) (0.0-0.2) /100WBC Hold Purple Top D-Dimer High Sensitivty < 150 NG/ML Sodium (135-145) mmol/L Potassium (3.3-5.1) mmol/L Chloride (96-108) mmol/L Carbon Dioxide (22-29) mmol/L Anion Gap (12-20) BUN (9-16) mg/dL Creatinine (0.5-1.4) mg/dL Estim Creat Clear Calc Estimated GFR Random Glucose (60-115) mg/dL Calcium (8.4-10.2) mg/dL Total Bilirubin (0.0-1.0) mg/dL AST (5-37) U/L ALT (0-40) U/L Alkaline Phosphatase (39-117) U/L Troponin I High Sens (<3.5-35.0) ng/L B-Natriuretic Peptide (<100) pg/mL Total Protein (6.5-8.0) g/dL Albumin (3.5-5.0) g/dL Lipase (8-78) U/L Influenza Type A (PCR) (Negative) Influenza Type B (PCR) (Negative) RSV RNA Qual (PCR) (Negative) SARS-CoV-2 RNA (RT-PCR) (Negative) Independent Interpretation I performed an independent interpretation of an: EKG (Stat rate is 75 MN QRS QTC within normal limits is no acute ST segment elevation noted.) and Plain X-Ray (Chest x-ray negative for pneumonia pneumothorax) Radiology Impression Discussion of test interpretation with radiology: I have reviewed the radiologist's reading. External Record Review External record reviewed: Office record Previous orthopedic hand record was reviewed Chronic Conditions Patient?s care impacted by: Hypertension Discharge Plan Discharge Clinical Impression: Chest pain Patient Disposition: Home, Self-Care Instructions: Chest Pain (ED) Prescriptions: No Action doxazosin 2 mg tablet 2 mg PO BEDTIME 30 Days Qty: 30 1RF naproxen 500 mg tablet 500 mg PO BID PRN (Reason: pain) Qty: 14 0RF cyclobenzaprine 10 mg tablet 10 mg PO Q8H PRN (Reason: Muscle spasm) Qty: 14 0RF aspirin [Ecotrin Low Strength] 81 mg tablet,delayed release (DR/EC) 81 mg PO DAILY atorvastatin 10 mg tablet 10 mg PO DAILY meclizine 25 mg tablet 25 mg PO DAILY albuterol sulfate 90 mcg/actuation HFA aerosol inhaler 1 inh inhalation QID Biktarvy 50-200-25 mg tablet 1 tab PO DAILY Flovent HFA 110 mcg/actuation HFA aerosol inhaler 1 puff PO BID ergocalciferol (vitamin D2) 1,250 mcg (50,000 unit) capsule 1,250 mcg PO QWEEK Combivent Respimat 20-100 mcg/actuation mist 1 puff inhalation QID omeprazole 40 mg capsule,delayed release(DR/EC) 40 mg PO BEDTIME cyclobenzaprine 10 mg tablet 10 mg PO BEDTIME PRN Referrals: Adam Granda MD [Physician] - 07/07/23
[2023-07-03 21:53] LABS: Troponin-I High Sensitivity < 2.7 ng/L (<3.5-35.0)
[2023-07-03 21:59] LABS: D Dimer High Sensitivity < 150 NG/ML
== END 2023-07-03 22:23 | disposition home or self-care (01) ==
PROVIDERS: Physician Assistant; Emergency Provider Emergency Medicine Emergency Medical Services; PCP Family Medicine
DX: R07.9 Chest pain, unspecified (principal); Z20.822 Contact with and (suspected) exposure to COVID-19; Z20.828 Contact with and (suspected) exposure to other viral communicable diseases; B20 Human immunodeficiency virus [HIV] disease; J44.9 Chronic obstructive pulmonary disease, unspecified; Z87.891 Personal history of nicotine dependence; Z79.899 Other long term (current) drug therapy; Z79.82 Long term (current) use of aspirin
CPT/HCPCS: 0241U; 36415; 71045; 80053; 83690; 83880; 84484; 85025; 85379; 93005; 99283; 99285

== ENCOUNTER 2023-07-22 12:09 | Outpatient (REF) | payer MEDICARE, MEDICAID, SELFPAY ==
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
== END 2023-07-22 12:10 | disposition home or self-care (01) ==
LOC: HO.XRAY 12:09
PROVIDERS: Visit Provider Internal Medicine
DX: R06.00 Dyspnea, unspecified (principal); R07.89 Other chest pain; J98.6 Disorders of diaphragm
CPT/HCPCS: 76000

== ENCOUNTER → 2023-07-22 12:14 | Outpatient (BNV) | payer MEDICARE, MEDICAID, SELFPAY | PROVIDERS: Visit Provider Radiology Diagnostic Radiology | DX: J98.6 Disorders of diaphragm (principal) | CPT/HCPCS: 76000 ==

== ENCOUNTER 2023-08-19 13:47 | Outpatient (AMB) | payer MEDICARE, MEDICAID, SELFPAY ==
--- NOTE | 2023-08-19 14:11 | A.OFFVIS_ITS ---
Intake Intake Visit Reasons: cysto Intake Note: Patient presents today for a CYSTOSCOPY Procedure: Meds: None Allergies to Antibiotic: No Known Allergies Blood Thinner: None Urinalysis test cleared for Cysto Disposable Uro-G Cystoscope Cannula: Lot: [id number] Exp: 02/12/2025 Cotton Inspector Required: No Accompanied by: Self / Same As Patient Allergies No Known Allergies Allergy (Verified 07/03/23 15:52) HPI HPI Comments History of Present Illness Details Mervin is a pleasant male. He is a patient of Dr. Mays. He is here for the following urologic conditions - lower urinary tract symptoms Here for check cystoscopy Normal Doxazosin 2 mg follow-up Still with persistent nocturia times 2-3 Recommend office cystoscopy for evaluation of OAB medications Lower urinary tract symptoms Current visit is for further evaluation of lower urinary tract symptoms Current therapy low-dose doxazosin Prior therapy tamsulosin with retrograde ejaculation, failed alfuzosin PSA 01/23 0.8, 01/25 0.7, 01/26 0.7 Therapeutic plan trial doxazosin PFSH Medical History Asthma HIV (human immunodeficiency virus infection) COPD (chronic obstructive pulmonary disease) Eczema Cervicalgia Social History Alcohol intake: never Patient Tobacco Use Status: Former Tobacco user Current occupational status: disabled Review of Systems Const Denies chills and Denies fever(s) Card Reports no additional complaints and Denies syncope Resp Denies cough GI Denies abdominal pain and Denies heartburn Reports as per HPI and Denies change in libido Neuro Denies syncope Psych Denies change in libido Endo Denies change in libido Physical Exam Const General: cooperative, healthy appearing, comfortable and no acute distress Orientation/consciousness: patient oriented x3 HEENT Face and sinus: Yes normal facial exam Mouth: moist mucous membranes Neck Neck: Yes normal visual inspection, Yes full ROM and Yes trachea midline Chest Chest palpation & inspection: normal inspection of the chest Resp Effort & Inspection: normal respiratory effort, able to speak in complete sentences and no respiratory distress GI Inspection: Yes normal to inspection Back/Spine/Pelvis Cervical Spine: normal cervical lordosis Thoracic/Lumbar Spine: thoracic and lumbar spine normal to inspection Skin General skin exam: no rashes or lesions noted Neuro General: patient oriented x3, gait normal, tone normal and moves all extremities Extrem General: Yes normal to inspection and Yes capillary refill normal Office Procedures Cystoscopy Consent Discussed risk and benefit or proposed procedure with the patient. Information consent for procedure given to the patient. Discussed technical aspects, risks, benefits and alternatives in full. Addressed all of the patient's questions and concerns regarding the procedure. The patient demonstrated knowledge and understanding. They wish to proceed with this procedure. Preparation The patient was prepped in the usual manner. A collar padder blindstitch was present and in the room. Genitalia was prepped with betadine solution in a sterile manner. Lidocaine Jelly 2% was placed into the urethra and 16Fr flexible Olympus cystoscope was inserted into the meatus after adequate lubrication. Procedure Meatus circumcised Urethra anterior posterior urethra normal Prostatic Urethra mild enlargement Bladder examination with retroflexion of cystoscope Bladder Orifices normal shape and position Bladder Capacity medium Trabeculations grade 1 Cellule Formation - Diverticulum Formation - Mucosal Erythema - Bladder Tumor - [id number] DISPOSABLE SCOPE URO-G FLEXIBLE SCOPE Procedure code (CPT) selection complete Office Meds lidocaine HCl 2 % mucosal jelly in applicator Performing Provider: Jag Abraham MD Performing Location: [facility] [place] [place] [facility] Administered by: Charisma Horan RN on 08/19/23 14:25 Dose Route Admin Location Dispensed Lot Number Expiration Date [facility] [place] Marketing Teacher 10 mL intra-urethral 10 mL nitrofurantoin monohydrate/macrocrystals 100 mg capsule Performing Provider: Jag Abraham MD Performing Location: [facility] [place] [place] [facility] Administered by: Charisma Horan RN on 08/19/23 14:25 Dose Route Admin Location Dispensed Lot Number Expiration Date [facility] [place] Marketing Teacher 100 mg PO 1 cap naproxen 500 mg tablet Performing Provider: Jag Abraham MD Performing Location: [facility] [place] [place] [facility] Administered by: Charisma Horan RN on 08/19/23 14:25 Dose Route Admin Location Dispensed Lot Number Expiration Date [employer] Teacher 500 mg PO 1 tab Results AMB Urinalysis, Automated UA Leukoctes 0 Mandeep/uL Last Edit by ANNIE Begum on 08/19/23 14:14 UA Nitrite Negative Last Edit by [facility] on 08/19/23 14:14 UA Urobilinogen 0.2 mg/dL Last Edit by Michele Avina Paul on 08/19/23 14:1 4 UA Protein 0 mg/dL Last Edit by [facility] on 08/19/23 14:14 UA pH 6.0 Last Edit by [facility] on 08/19/23 14:14 UA Blood 10 Sebastián/uL Last Edit by Michele Avina Paul on 08/19/23 14:14 UA Specific [place] 1.015 Last Edit by Michele Avina Paul on 08/19/23 14: 14 UA Ketone Negative Last Edit by [facility] on 08/19/23 14:14 UA Bilirubin 0 mg/dL Last Edit by [facility] on 08/19/23 14:14 UA Glucose 0 mg/dL Last Edit by [facility] on 08/19/23 14:14 Results Reviewed Results Reviewed: Laboratory Last Values Urine pH (Auto) 6.0 08/19/23 14:13 Specific [place] (Auto) 1.015 08/19/23 14:13 Urine Protein (Auto) 0 mg/dL 08/19/23 14:13 Glucose (UA)(Auto) 0 mg/dL 08/19/23 14:13 Urine Ketones (Auto) Negative 08/19/23 14:13 Urine Blood (Auto) 10 Sebastián/uL 08/19/23 14:13 Urine Nitrite (Auto) Negative 08/19/23 14:13 Urine Bilirubin (Auto) 0 mg/dL 08/19/23 14:13 Urine Urobilinogen (Auto) 0.2 mg/dL 08/19/23 14:13 Leukocyte Esterase (Auto) 0 Mandeep/uL 08/19/23 14:13 Assessment & Plan Assessment & Plan (1) BPH (benign prostatic hyperplasia): Code(s): N40.0 - Benign prostatic hyperplasia without lower urinary tract symptoms (2) Overactive bladder: Code(s): N32.81 - Overactive bladder Plan Trial doxazosin with oxybutynin Orders: Orders AMB Urinalysis Automated 08/19/23 Z13.9 - Encounter for screening, unspecified AMB Cystoscopy 08/19/23 N40.0 - Benign prostatic hyperplasia without lower urinary tract symptoms Medications: New oxybutynin chloride ER 5 mg PO DAILY 30 tabs 1RF 30 days N32.81 - Overactive bladder, R39.15 - Urgency of urination Changed From doxazosin 2 mg PO BEDTIME 30 days 30 tabs 1RF R35.1 - Nocturia To doxazosin 2 mg PO BEDTIME 90 tabs 1RF 90 days R35.1 - Nocturia Patient Instructions: Imaging studies, laboratory and physical exam results were discussed and reviewed in detail. No major barriers to patient understanding were identified. An opportunity to ask questions regarding the treatment plan was provided. All questions were answered. The patient expressed understanding and agreement with the above treatment plan. The patient is aware they should contact our office by phone for worsening of their current condition or the appearance of new urologic symptoms. Compliance is encouraged with any medications and followup testing that is ordered. It is a privilege to participate in the urologic care of your patient. If you have any questions or concerns regarding treatment for the above conditions, or other urologic issues, please do not hesitate to contact me. The office telephon e contact is [phone]. This note is constructed using voice recognition software. While every effort has been made to ensure accuracy manager business banking errors may have been included. Yours sincerely, Dr Jag Abraham MD, MARK [facility] - Urology Providers of Expert, Compassionate Care for the Genitourinary System Coding Level of Care Code Est Pt Level 4 (27119) Diagnoses BPH (benign prostatic hyperplasia) N40.0 Overactive bladder N32.81 CPT Codes Cystoscopy - CPT: 10506-[id number] ([id number])
== END 2023-08-19 14:40 | disposition home or self-care (01) ==
PROVIDERS: PCP Family Medicine; Visit Provider Urology
DX: N40.0 Benign prostatic hyperplasia without lower urinary tract symptoms (principal); N32.81 Overactive bladder
CPT/HCPCS: 52000; 99213

== ENCOUNTER → 2023-08-19 13:47 | Outpatient (BNVA) | payer MEDICARE, MEDICAID, SELFPAY | PROVIDERS: PCP Family Medicine; Visit Provider Urology | DX: N40.1 Benign prostatic hyperplasia with lower urinary tract symptoms (principal); N13.8 Other obstructive and reflux uropathy; R35.1 Nocturia; N32.81 Overactive bladder | CPT/HCPCS: 52000; 81003; 99212 ==

== ENCOUNTER 2023-09-04 08:00 | Outpatient (REF) | payer MEDICARE, MEDICAID, SELFPAY ==
--- NOTE | 2023-09-04 09:00 | PFT_ITS ---
Indication: dyspnea Spirometry [FEV1 to FVC 67%; FEV1 2.36 L which is 99% predicted; FVC 3.52 L which is 92% predicted. No significant response to bronchodilators noted. Maximum voluntary ventilation 60% predicted] Lung Volumes [Total lung capacity 75% predicted; expiratory reserve volume 82% predicted] Diffusion Capacity [DLCO 65% predicted] Comparisons none Interpretation [There is an obstructive ventilatory defect consistent mild COPD. No significant response to bronchodilators noted. The patient also has a restrictive ventilatory defect consistent mild restrictive lung disease. In addition to that, there is a mild diffusion impairment. Clinical correlation warranted.] MTDD
== END 2023-09-04 08:01 | disposition home or self-care (01) ==
LOC: HO.RESP 08:00
PROVIDERS: PCP Family Medicine; Visit Provider Internal Medicine
DX: R07.89 Other chest pain (principal); R06.00 Dyspnea, unspecified
CPT/HCPCS: 94010; 94727; 94729

== ENCOUNTER 2023-10-08 08:18 | Outpatient (REF) | payer MEDICARE, MEDICAID, SELFPAY ==
[2023-10-08 11:49] LABS: MANUAL DIFF FLAG NO
[2023-10-08 11:56] LABS: Basophils Percent Auto 0.6 % (0-2); Eosinophils Absolute Auto 0.1 X10*3/uL (0.0-0.4); Eosinophils Percent Auto 1.6 % (0-4); Hematocrit 41.6 % (42.0-52.0); Hemoglobin 13.5 g/dl (14.0-18.0); Imm Gran Abs Auto 0.01 X10*3/uL (0.00-0.03); Imm Gran Pct Auto 0.2 % (0.0-0.4); Lymphocytes Absolute Auto 1.5 X10*3/uL (1.2-4.9); Lymphocytes Percent Auto 28.8 % (20-40); Mean Corpuscular HGB Conc 32.5 g/dl (31.0-36.0); Mean Corpuscular Hemoglobin 29.4 pg (27.0-33.0); Mean Corpuscular Volume 90.6 fL (80.0-98.0); Monocytes Absolute Auto 0.5 X10*3/uL (0.1-1.2); Monocytes Percent Auto 9.9 % (2-11); Neutrophils Percent Auto 58.9 % (45-73); Platelet Count 262 X10*3/uL (160-400); Red Blood Count 4.59 X10*6/uL (4.60-5.80); Red Cell Distribution Width 12.9 % (11.0-16.0); White Blood Count 5.1 X10*3/uL (4.8-10.8)
[2023-10-08 12:19] LABS: Cholesterol 123 mg/dL (<200); HDL Cholesterol 39 mg/dL (>40); LDL Cholesterol Calculated 69 mg/dL (<100); Triglycerides 76 mg/dL (<150)
[2023-10-08 12:29] LABS: Estimated Average Glucose 126 mg/dL; Hemoglobin A1C 151.2416 umol/L
[2023-10-08 13:02] LABS: Alanine Aminotransferase 9 U/L (0-40); Albumin Level 4.3 g/dL (3.5-5.0); Alkaline Phosphatase 52 U/L (39-117); Anion Gap 9 (12-20); Aspartate Amino Transferase 14 U/L (5-37); Bilirubin Total 0.6 mg/dL (0.0-1.0); Blood Urea Nitrogen 13 mg/dL (9-16); Calcium 9.3 mg/dL (8.4-10.2); Carbon Dioxide 28 mmol/L (22-29); Chloride 108 mmol/L (96-108); Estimated Glomerular Filt Rate > 60; Glucose Random 98 mg/dL (60-115); Potassium 4.2 mmol/L (3.3-5.1); Sodium 141 mmol/L (135-145)
[2023-10-08 14:09] LABS: Reflex LDLD? No
[2023-10-10 10:59] LABS: Absolute CD3 Count 1130 cells/uL (840-3060); Absolute CD4 Count 589 cells/uL (490-1740); Absolute CD8 Count 546 cells/uL (180-1170); Absolute Lymphocytes 1603 cells/uL (850-3900); CD4 CD8 Ratio 1.08 (0.86-5.00); Percent CD3 Cells 70 % (57-85); Percent CD4 Cells 37 % (30-61); Percent CD8 Cells 34 % (12-42)
[2023-10-11 06:13] LABS: HIV RNA PCR Qn Copies 217 copies/mL (NOT DETECTED); HIV RNA PCR Qn Log Copies 2.34 (NOT DETECTED)
== END 2023-10-08 08:19 | disposition home or self-care (01) ==
LOC: HO.HHCL 08:18
PROVIDERS: Family Medicine; Visit Provider Student in an Organized Health Care Education/Training Program
DX: B20 Human immunodeficiency virus [HIV] disease (principal); R73.01 Impaired fasting glucose; E78.5 Hyperlipidemia, unspecified
CPT/HCPCS: 36415; 80053; 80061; 83036; 85025; 86359; 86360; 87536

== ENCOUNTER 2023-11-26 15:44 | Outpatient (REF) | payer MEDICARE, MEDICAID, SELFPAY ==
--- NOTE | ~2023-11-26 | XR_ITS ---
EXAMINATION: XR CHEST CLINICAL INFORMATION: Cough and difficulty breathing. COMPARISON: 06/25/2023. 10/17/2022. TECHNIQUE: 2 views of the chest were obtained. FINDINGS: Chronic elevation of the left hemidiaphragm. There is scarring in the apices. Lungs grossly clear. No pleural effusions. Heart and pulmonary vessels are normal. Cluster of tiny dense opacities are again redemonstrated at the posterior left mid back. XR/XR chest 2V IMPRESSION: No active disease.
== END 2023-11-26 15:45 | disposition home or self-care (01) ==
LOC: HO.HHCX 15:44
PROVIDERS: Visit Provider Internal Medicine
DX: J10.1 Influenza due to other identified influenza virus with other respiratory manifestations (principal); J40 Bronchitis, not specified as acute or chronic
CPT/HCPCS: 71046

== ENCOUNTER 2023-12-03 08:26 | Outpatient (REF) | payer MEDICARE, MEDICAID, SELFPAY ==
--- NOTE | ~2023-12-03 | US_ITS ---
EXAMINATION: US RETROPERITONEAL LIMITED (AORTA) CLINICAL INFORMATION: History of smoking. COMPARISON: CT chest 04/20/2021. TECHNIQUE: Main-scale, color Doppler and spectral Doppler evaluation of the abdominal aorta. FINDINGS: The aorta is normal. The measurements of the aorta in maximum AP and transverse dimensions respectively are as follows: Proximal: 2.8 x 2.9 cm. Mid: 2.4 x 2.7 cm. Distal: 1.7 x 2.1 cm. PSV: 102 cm/s. The measurements of the common iliac arteries in maximum AP and TRV dimensions are as follows: Right Common Iliac Artery: 1.2 x 1.4 cm. Left Common Iliac Artery: 1.3 x 1.6 cm. US/US aorta IMPRESSION: 1. There is ectasia of the proximal abdominal aorta and the right common iliac artery, without marito aneurysm formation. 2. The left common iliac artery is mildly aneurysmal.
== END 2023-12-03 08:27 | disposition home or self-care (01) ==
LOC: HO.US 08:26
PROVIDERS: PCP Family Medicine; Visit Provider Family Medicine
DX: Z12.6 Encounter for screening for malignant neoplasm of bladder (principal); Z13.6 Encounter for screening for cardiovascular disorders
CPT/HCPCS: 76775

== ENCOUNTER 2023-12-08 08:19 | Outpatient (REF) | payer MEDICARE, MEDICAID, SELFPAY ==
[2023-12-08 12:47] LABS: HBS Num1 11.21 mIU/mL (0-7.99); HBc Num1 0.07 S/CO (0.00-0.79); HBsAGNum1 0.39 S/CO (0.00-0.99); Hepatitis B Core Antibody Nonreactive (Nonreactive); Hepatitis B Surface Antigen Negative (Negative); ~Hepatitis C Antibody Nonreactive (Nonreactive)
[2023-12-08 14:17] LABS: HBS Num2 11.11 mIU/mL (0-7.99); HBS Num3 11.32 mIU/mL (0-7.99); ~Hepatitis B Surface Antibody GRAYZONE (Nonreactive)
[2023-12-09 16:23] LABS: HIV RNA PCR Qn Copies 45 copies/mL (NOT DETECTED); HIV RNA PCR Qn Log Copies 1.65 (NOT DETECTED)
[2023-12-09 19:48] LABS: Varicella IgG Antibody >4000.00 index
[2023-12-21 23:39] LABS: HIV 1 Integrase Proviral DNA DETECTED; HIV 1 PR RT Proviral DNA DETECTED
== END 2023-12-08 08:20 | disposition home or self-care (01) ==
LOC: HO.HHCL 08:19
PROVIDERS: Visit Provider Student in an Organized Health Care Education/Training Program
DX: B20 Human immunodeficiency virus [HIV] disease (principal); Z11.59 Encounter for screening for other viral diseases; Z72.89 Other problems related to lifestyle
CPT/HCPCS: 36415; 86704; 86706; 86735; 86762; 86765; 86787; 86803; 87340; 87536; 87900; 87901; 87906

== ENCOUNTER 2023-12-15 10:20 | Outpatient (REF) | payer MEDICARE, MEDICAID, SELFPAY | END 2023-12-15 10:21 | disposition home or self-care (01) | LOC: HO.HHCL 10:20 | PROVIDERS: Visit Provider Family Medicine | DX: Z13.89 Encounter for screening for other disorder (principal) ==

== ENCOUNTER 2023-12-26 09:58 | Outpatient (REF) | payer MEDICARE, MEDICAID, SELFPAY ==
--- NOTE | ~2023-12-26 | MM_ITS ---
EXAMINATION: BONE DENSITOMETRY CLINICAL INDICATION: Osteoporosis. COMPARISON: This is the patient's baseline examination. TECHNIQUE: Using a [employer] DXA System (software version: 13.1) manufactured by [employer], dual-energy x-ray absorptiometry was performed of the lumbar spine and left hip. The images are of good technical quality. Summary results are attached. FINDINGS: AP SPINE L1-L4: BMD 1.008 g/cm2, Z-score -1.3, T-score -1.8, osteopenia. LEFT FEMUR, NECK: BMD 0.819 g/cm2, Z-score -0.8, T-score -1.9, osteopenia. LEFT FEMUR, TOTAL: BMD 0.827 g/cm2, Z-score -1.3, T-score -1.9, osteopenia. IDENTIFIED RISK FACTORS: History of adult fracture. Rheumatoid arthritis. Osteoporosis. Recurrent falls. HISTORY OF FRACTURE: Other. MEDICATIONS: Vitamin D. MM/XR DEXA axial skeleton IMPRESSION: 1. DIAGNOSIS: Osteopenia based on the lowest T-score value of -1.9 in the femoral neck and total femur applying World Health Organization criteria. 2. 10-YEAR FRACTURE RISK PREDICTION, FRAX: Major osteoporotic fracture (clinical spine, forearm, hip or shoulder) 5.2%. Hip fracture 1.1%. 3. Treatment Recommendations: NOF guidelines recommend consideration for treatment in postmenopausal women and men age 50 and older presenting with the following: -A hip or vertebral (clinical or morphometric) fracture. -T-score less than or equal to -2.5 at the femoral neck or spine after appropriate evaluation to exclude secondary causes. -Low bone mass at the hip or spine and a 10-year fracture probability by FRAX of greater than or equal to 3% for hip fracture or greater than or equal to 20% for major osteoporotic fracture based on the [place] adapted WHO algorithm. 4. Other Recommendations: All treatment decisions require clinical judgment and consideration of individual patient factors, including patient preferences, comorbidities, previous drug use, risk factors not captured in the FRAX model (e.g. frailty, falls, vitamin D deficiency, increased bone turnover, interval significant decline in bone density) and possible under or overestimation of fracture risk by FRAX. Additional medical evaluation for secondary cause of low bone mineral density may be appropriate. FUTURE SCAN RECOMMENDATION: People with diagnosed cases of osteoporosis or at high risk for fracture should have regular bone mineral density tests. For patients eligible for Medicare, routine testing is allowed once every 2 years. The testing frequency can be increased to one year for patients who have rapidly progressing disease, those who are receiving or discontinuing medical therapy to restore bone mass, or have additional risk factors.
== END 2023-12-26 09:59 | disposition home or self-care (01) ==
LOC: HO.MAMMO 09:58
PROVIDERS: PCP Family Medicine; Visit Provider Student in an Organized Health Care Education/Training Program
DX: Z13.820 Encounter for screening for osteoporosis (principal); B20 Human immunodeficiency virus [HIV] disease; Z79.818 Long term (current) use of other agents affecting estrogen receptors and estrogen levels; M85.852 Other specified disorders of bone density and structure, left thigh
CPT/HCPCS: 77080

== ENCOUNTER 2023-12-31 14:06 | Emergency (ER) | payer MEDICARE, MEDICAID, SELFPAY ==
--- NOTE | ~2023-12-31 | XR_ITS ---
EXAMINATION: XR CHEST 2 VIEW CLINICAL INFORMATION: Chest pain COMPARISON: 11/26/2023 TECHNIQUE: PA and lateral views of the chest obtained. FINDINGS: There are stable elevation of the left hemidiaphragm. The lungs are clear. There are no pleural effusions. The cardiomediastinal silhouette is normal. XR/XR chest 2V IMPRESSION: No acute disease or interval change.
--- NOTE | 2023-12-31 14:13 | ECG_ITS ---
Test Reason : cp Blood Pressure : / mmHG Vent. Rate : 082 BPM Atrial Rate : 082 BPM P-R Int : 142 ms QRS Dur : 086 ms QT Int : 356 ms P-R-T Axes : 055 051 060 degrees QTc Int : 415 ms Sinus rhythm with Premature atrial complexes Otherwise normal ECG When compared with ECG of 03-JUL-2023 14:47, Premature atrial complexes are now Present Referred By: Danielle Brandon Electronically Signed By:Levi Jett
[2023-12-31 14:18] VITALS: BP 122/80; PULSE 80; RESP 18; TEMP 36.4; O2SAT 97; BMI 24.0
--- NOTE | 2023-12-31 14:18 | ED_ITS ---
HPI - Chest Pain General Chief Complaint: Chest Pain Stated Complaint: Chest Pain Radiating To Back Time Seen by Provider: 12/31/23 19:12 Source: patient Mode of arrival: ambulatory Limitations: no limitations History of Present Illness HPI narrative: 63 year old male PMH: high cholesterol, HIV, COPD, who presents emergency department with acute on chronic chest pain states he has had the chest pain for several months he is seen his doctor he denies any falls or injuries lifting he states he also has associated pain to his upper back along his scapula and into his neck and goes into his chest patient denies any shortness of breath. Patient denies any change in medications he has not taken anything for the pain. He has no cough fever or shortness breath Related Data Home Medications Medication Instructions Recorded Confirmed albuterol sulfate 90 mcg/actuation 1 inh inhalation QID 08/17/20 01/10/23 aerosol inhaler aspirin 81 mg tablet,delayed 81 mg PO DAILY 08/17/20 01/10/23 release (Ecotrin Low Strength) atorvastatin 10 mg tablet 10 mg PO DAILY 08/17/20 01/10/23 meclizine 25 mg tablet 25 mg PO DAILY 08/17/20 01/10/23 bictegravir 50 mg-emtricitabine 1 tab PO DAILY 07/12/21 01/10/23 200 mg-tenofovir alafenam 25 mg tablet (Biktarvy) ergocalciferol (vitamin D2) 1,250 1,250 mcg PO QWEEK 07/12/21 01/10/23 mcg (50,000 unit) capsule fluticasone propionate 110 1 puff PO BID 07/12/21 01/10/23 mcg/actuation HFA aerosol inhaler (Flovent HFA) cyclobenzaprine 10 mg tablet 10 mg PO BEDTIME PRN 01/10/22 01/10/23 ipratropium 20 mcg-albuterol 100 1 puff inhalation QID 01/10/22 01/10/23 mcg/actuation mist for inhalation (Combivent Respimat) omeprazole 40 mg capsule,delayed 40 mg PO BEDTIME 01/10/22 01/10/23 release Previous Rx's Medication Instructions Recorded cyclobenzaprine 10 mg tablet 10 mg PO Q8H PRN Muscle spasm #14 03/07/22 tabs naproxen 500 mg tablet 500 mg PO BID PRN pain #14 tabs 03/07/22 doxazosin 2 mg tablet 2 mg PO BEDTIME 90 days #90 tabs 08/19/23 oxybutynin chloride 5 mg 5 mg PO DAILY 30 days #30 tabs 08/19/23 tablet,extended release 24 hr Allergies Allergy/AdvReac Type Severity Reaction Status Date / Time No Known Allergies Allergy Verified 07/03/23 15:52 Review of Systems 2 Review of Systems: Review of systems: General: Patient denies any fever chills recent illness or falls Musculoskeletal: Denies back pain or body aches or other injuries HEENT: denies headache, runny nose, ear pain Respiratory: denies shortness of breath, cough Cardiovascular: no chest pain or palpitations : denies dysuria, frequency Abdomen: no nausea vomiting denies abdominal pain Extremities: no swelling, no pain Skin: no diaphoresis Yes all other systems are reviewed and are negative PMFSH Past Medical History Medical History Asthma HIV (human immunodeficiency virus infection) COPD (chronic obstructive pulmonary disease) Eczema Cervicalgia Social History Social History Alcohol intake: never Patient Tobacco Use Status: Former Tobacco user Current occupational status: disabled Physical Exam 2 Vital Signs: Vital Signs: Last Vital Signs Temp 97.6 F 12/31/23 14:18 Pulse 80 12/31/23 14:18 Resp 18 12/31/23 14:18 BP 122/80 12/31/23 14:18 Pulse Ox 97 12/31/23 14:18 O2 Del Method Room Air 12/31/23 14:18 BMI result Body Mass Index 24.0 General: Well-appearing well-nourished in no signs of distress HEENT: Normocephalic atraumatic Neck: No signs of JVD, no masses no tenderness or lymphadenopathy Cardiovascular: Regular rate and rhythm Respiratory: Clear to auscultation bilaterally Abdomen: Soft nontender no masses Extremities: Normal pedal pulses no signs of edema focused exam of bilateral shoulders patient is able to push and pull with normal strength patient is able to make the okay sign extend his wrist and separate his fingers patient is able to empty can open can test no tenderness to palpation there is no redness or injuries to the shoulder Skin: Dry warm no rashes Back: No tenderness full ROM Course Course Course Narrative: This is an RME: Additional HPI, ROS, PE not included below will be deferred to primary provider. This is a 63-year old male, with a history of high cholesterol, HIV, COPD, who presents to the ER with complaints of chest pain radiating into his back since yesterday. He was waiting for a bus and suddenly develop this pain. Patient blood pressure on both sides equal. He appears to be under no acute distress. Plan: CXR, labs, EKG Procedures Procedure Narrative Procedure Narrative: Osteopathic medicine lessen performed shoulder strain counter strain was performed with good release of tension to shoulder and scapular muscles. Patient tolerated the procedure well. Medical Decision Making Medical Decision Making MDM Narrative: 63-year-old history of HIV COPD presents with left shoulder pain pain is to his upper posterior back and is radiating towards his chest it reproducible examined appears to be musculoskeletal in origin Differential Diagnosis Differential Diagnoses: The differential diagnosis associated with the presentation includes Chest pain ACS shoulder pain shoulder strain musculoskeletal injury aortic aneurysm pneumonia and PE or on the differential patient is not hypoxic not ill looking this is 1st visit for this kind of pain his x-ray does not show a widened mediastinum I do not think he is having dissection or PE or needs further testing for either at this time. Admission/Observation Consideration of admission/observation: Escalation of care including admission/observation considered Lab Data [facility] Lab Attestation statement: I reviewed the patient's lab results. 12/31/23 14:28 12/31/23 14:28 Labs: Lab Results 12/31/23 Range/Units 14:28 WBC 7.1 (4.8-10.8) X10*3/uL RBC 4.14 L (4.60-5.80) X10*6/uL Hgb 12.3 L (14.0-18.0) g/dl Hct 36.9 L (42.0-52.0) % MCV 89.1 (80.0-98.0) fL MCH 29.7 (27.0-33.0) pg MCHC 33.3 (31.0-36.0) g/dl RDW 13.3 (11.0-16.0) % Plt Count 242 (160-400) X10*3/uL MPV 9.4 (9.4-12.4) fL Immature Gran % (Auto) 0.1 (0.0-0.4) % Neut % (Auto) 64.5 (45-73) % Lymph % (Auto) 25.8 (20-40) % [place] % (Auto) 7.9 (2-11) % Eos % (Auto) 1.4 (0-4) % Baso % (Auto) 0.3 (0-2) % Lymph # (Auto) 1.8 (1.2-4.9) X10*3/uL [place] # (Auto) 0.6 (0.1-1.2) X10*3/uL Eos # (Auto) 0.1 (0.0-0.4) X10*3/uL Baso # (Auto) 0.0 (0.0-0.2) X10*3/uL Abs Immat Gran (auto) 0.01 (0.00-0.03) X10*3/uL Absolute Neuts (auto) 4.5 (2.0-8.3) x10*3/uL Absolute Nucleated RBC 0.000 (0.0-0.012) X10*3/uL Nucleated RBC % (auto) 0.0 (0.0-0.2) /100WBC Sodium 142 (135-145) mmol/L Potassium 3.8 (3.3-5.1) mmol/L Chloride 108 (96-108) mmol/L Carbon Dioxide 27 (22-29) mmol/L Anion Gap 11 L (12-20) BUN 15 (9-16) mg/dL Creatinine 1.18 (0.5-1.4) mg/dL Estim Creat Clear Calc 64.4 Estimated GFR > 60 Random Glucose 116 H (60-115) mg/dL Calcium 9.2 (8.4-10.2) mg/dL Magnesium 2.1 (1.6-2.6) mg/dL Total Bilirubin 0.4 (0.0-1.0) mg/dL Direct Bilirubin 0.2 (0.0-0.5) mg/dL AST 15 (5-37) U/L ALT 8 (0-40) U/L Alkaline Phosphatase 61 (39-117) U/L Troponin I High Sens < 2.7 (<3.5-35.0) ng/L Total Protein 6.9 (6.5-8.0) g/dL Albumin 4.2 (3.5-5.0) g/dL Lipase 34 (8-78) U/L Independent Interpretation I performed an independent interpretation of an: EKG and Plain X-Ray Interpretation: EKG rate 82 normal sinus rhythm normal intervals no signs ischemia or change from previous interpreted by me Chest x-ray shows no acute intrathoracic process shoulder looks normal Discharge Plan Discharge Clinical Impression: Atypical chest pain, Acute upper back pain Patient Disposition: Home, Self-Care Instructions: Chest Pain (DC), Back Pain (ED), Heat Pack Application (ED) Additional Instructions: You were seen today for left upper back and chest pain. Had complete cardiac workup including troponins and x-ray and labs which were unremarkable. Please call follow up with her doctor if you have any further concerns please do not hesitate to come back to emergency department. Prescriptions: No Action naproxen 500 mg tablet 500 mg PO BID PRN (Reason: pain) Qty: 14 0RF cyclobenzaprine 10 mg tablet 10 mg PO Q8H PRN (Reason: Muscle spasm) Qty: 14 0RF aspirin [Ecotrin Low Strength] 81 mg tablet,delayed release (DR/EC) 81 mg PO DAILY atorvastatin 10 mg tablet 10 mg PO DAILY meclizine 25 mg tablet 25 mg PO DAILY albuterol sulfate 90 mcg/actuation HFA aerosol inhaler 1 inh inhalation QID Biktarvy 50-200-25 mg tablet 1 tab PO DAILY Flovent HFA 110 mcg/actuation HFA aerosol inhaler 1 puff PO BID ergocalciferol (vitamin D2) 1,250 mcg (50,000 unit) capsule 1,250 mcg PO QWEEK Combivent Respimat 20-100 mcg/actuation mist 1 puff inhalation QID omeprazole 40 mg capsule,delayed release(DR/EC) 40 mg PO BEDTIME cyclobenzaprine 10 mg tablet 10 mg PO BEDTIME PRN doxazosin 2 mg tablet 2 mg PO BEDTIME 90 Days Qty: 90 1RF oxybutynin chloride 5 mg tablet extended release 24hr 5 mg PO DAILY 30 Days Qty: 30 1RF
[2023-12-31 14:33] LABS: MANUAL DIFF FLAG NO
[2023-12-31 14:39] LABS: Basophils Percent Auto 0.3 % (0-2); Eosinophils Absolute Auto 0.1 X10*3/uL (0.0-0.4); Eosinophils Percent Auto 1.4 % (0-4); Hematocrit 36.9 % (42.0-52.0); Hemoglobin 12.3 g/dl (14.0-18.0); Imm Gran Abs Auto 0.01 X10*3/uL (0.00-0.03); Imm Gran Pct Auto 0.1 % (0.0-0.4); Lymphocytes Absolute Auto 1.8 X10*3/uL (1.2-4.9); Lymphocytes Percent Auto 25.8 % (20-40); Mean Corpuscular HGB Conc 33.3 g/dl (31.0-36.0); Mean Corpuscular Hemoglobin 29.7 pg (27.0-33.0); Mean Corpuscular Volume 89.1 fL (80.0-98.0); Mean Platelet Volume 9.4 fL (9.4-12.4); Monocytes Absolute Auto 0.6 X10*3/uL (0.1-1.2); Monocytes Percent Auto 7.9 % (2-11); Neutrophils Absolute Auto 4.5 x10*3/uL (2.0-8.3); Neutrophils Percent Auto 64.5 % (45-73); Platelet Count 242 X10*3/uL (160-400); Red Blood Count 4.14 X10*6/uL (4.60-5.80); Red Cell Distribution Width 13.3 % (11.0-16.0); White Blood Count 7.1 X10*3/uL (4.8-10.8)
[2023-12-31 14:54] LABS: Alanine Aminotransferase 8 U/L (0-40); Albumin Level 4.2 g/dL (3.5-5.0); Alkaline Phosphatase 61 U/L (39-117); Anion Gap 11 (12-20); Aspartate Amino Transferase 15 U/L (5-37); Bilirubin Direct 0.2 mg/dL (0.0-0.5); Bilirubin Total 0.4 mg/dL (0.0-1.0); Blood Urea Nitrogen 15 mg/dL (9-16); Calcium 9.2 mg/dL (8.4-10.2); Carbon Dioxide 27 mmol/L (22-29); Chloride 108 mmol/L (96-108); Creatinine Clr Calc Pharmacy 64.4; Estimated Glomerular Filt Rate > 60; Glucose Random 116 mg/dL (60-115); Lipase 34 U/L (8-78); Magnesium 2.1 mg/dL (1.6-2.6); Potassium 3.8 mmol/L (3.3-5.1); Sodium 142 mmol/L (135-145); Total Protein 6.9 g/dL (6.5-8.0)
[2023-12-31 15:02] LABS: Troponin-I High Sensitivity < 2.7 ng/L (<3.5-35.0)
[2023-12-31] MEDS: Acetaminophen 325 MG TABLET 650 MG PO (19:29)
[2023-12-31] MEDS: Ketorolac Tromethamine 30 MG/ML VIAL 15 MG IM (19:30)
== END 2023-12-31 19:36 | disposition home or self-care (01) ==
LOC: HO.ED 19:27
PROVIDERS: Physician Assistant Medical; Emergency Provider Student in an Organized Health Care Education/Training Program; PCP Family Medicine
DX: R07.89 Other chest pain (principal); M54.6 Pain in thoracic spine; J44.9 Chronic obstructive pulmonary disease, unspecified; B20 Human immunodeficiency virus [HIV] disease
CPT/HCPCS: 36415; 71046; 80048; 80076; 83690; 83735; 84484; 85025; 93005; 96372; 99283; 99284; J1885

== ENCOUNTER → 2023-12-31 14:13 | Outpatient (BNV) | payer MEDICARE, MEDICAID, SELFPAY | PROVIDERS: Emergency Provider Student in an Organized Health Care Education/Training Program; PCP Family Medicine; Visit Provider Internal Medicine Cardiovascular Disease | DX: I49.1 Atrial premature depolarization (principal) | CPT/HCPCS: 93010 ==

== ENCOUNTER 2024-01-16 06:58 | Day surgery (SDC) | payer MEDICARE, MEDICAID, SELFPAY ==
[2024-01-13 12:45] VITALS: BMI 24.3
--- NOTE | 2024-01-15 10:54 | P.CONAN_ITS ---
Documented by User: Violetta Saldivar NP 01/15/24 10:59 HPI - Anesthesia Eval Consult details Narrative: 63yo M for Upper Endoscopy and Colonoscopy [facility] [place] [facility] 12/2023 with back/chest pain You were seen today for left upper back and chest pain. Had complete cardiac workup including troponins and x-ray and labs which were unremarkable. PMFSH Active Problems Active Problems: All Active Problems Overactive bladder (Acute) Nocturia more than twice per night (Acute) COVID-19 (Acute) Left wrist tendinitis (Acute) Left wrist pain (Acute) BPH (benign prostatic hyperplasia) (Acute) Past Medical History Medical History (Updated 01/13/24 @ 12:44 by Lainey Emerson RN) PAD (peripheral artery disease) Elevated cholesterol Asthma with COPD Vertigo GERD (gastroesophageal reflux disease) Depression Polysubstance abuse BPH (benign prostatic hyperplasia) Asthma HIV (human immunodeficiency virus infection) COPD (chronic obstructive pulmonary disease) Eczema Cervicalgia Surgical History Surgical History (Updated 01/13/24 @ 12:42 by Lainey Emerson RN) History of esophagogastroduodenoscopy (EGD) H/O colonoscopy Social History Social History (Updated 01/13/24 @ 12:45 by Lainey Emerson RN) Alcohol intake: never Patient Tobacco Use Status: Former Tobacco user Quit Date: >10 years ago Tobacco use type: Cigarette Substance Use Type Other:: sober for 20years cocaine/heroin/alcohol Are you DNR?: No Advance Directives: No Advance Directives Information Provided: Yes Nutrition Risks: No Nutritional Risk Current occupational status: disabled Meds Allergies Allergy/AdvReac Type Severity Reaction Status Date / Time No Known Allergies Allergy Verified 07/03/23 15:52 Home Medications ?Medication ?Instructions ?Recorded ?Confirmed ?Last Taken ?Type albuterol sulfate 90 mcg/actuation 1 inh inhalation QID 08/17/20 01/13/24 11/10/23 History aerosol inhaler aspirin 81 mg tablet,delayed 81 mg PO DAILY 08/17/20 01/13/24 01/11/24 History release (Ecotrin Low Strength) atorvastatin 10 mg tablet 20 mg PO DAILY 08/17/20 01/13/24 01/15/24 History meclizine 25 mg tablet 25 mg PO DAILY 08/17/20 01/13/24 01/15/24 History bictegravir 50 mg-emtricitabine 1 tab PO DAILY 07/12/21 01/13/24 01/15/24 History 200 mg-tenofovir alafenam 25 mg tablet (Biktarvy) ergocalciferol (vitamin D2) 1,250 1,250 mcg PO QWEEK 07/12/21 01/13/24 01/11/24 History mcg (50,000 unit) capsule ipratropium 20 mcg-albuterol 100 1 puff inhalation QID 01/10/22 01/13/24 11/10/23 History mcg/actuation mist for inhalation (Combivent Respimat) omeprazole 40 mg capsule,delayed 40 mg PO BEDTIME 01/10/22 01/13/24 01/15/24 History release pentoxifylline 400 mg 400 mg PO BID 01/13/24 01/13/24 01/15/24 History tablet,extended release zolpidem 10 mg tablet 10 mg PO BEDTIME 01/13/24 01/13/24 01/13/24 History Exam Height,Weight and Vital Signs: Height 5 ft 9.5 in Weight 75.863 kg Pertinent Lab Results Pertinent Lab Results: Laboratory Tests 12/31/23 14:28 WBC 7.1 Hgb 12.3 L Hct 36.9 L Plt Count 242 Sodium 142 Potassium 3.8 Chloride 108 Carbon Dioxide 27 BUN 15 Creatinine 1.18 Narrative Narrative: EKG 12/2023 Vent. Rate : 082 BPM Atrial Rate : 082 BPM P-R Int : 142 ms QRS Dur : 086 ms QT Int : 356 ms P-R-T Axes : 055 051 060 degrees QTc Int : 415 ms Sinus rhythm with Premature atrial complexes Otherwise normal ECG When compared with ECG of 03-JUL-2023 14:47, Premature atrial complexes are now Present Assessment and Plan Assessment Anesthesia Assessment: Chart Reviewed Documented by User: Christ Cohen MD 01/16/24 08:14 [facility] Past Medical History Medical History (Updated 01/13/24 @ 12:44 by Lainey Emerson RN) PAD (peripheral artery disease) Elevated cholesterol Asthma with COPD Vertigo GERD (gastroesophageal reflux disease) Depression Polysubstance abuse BPH (benign prostatic hyperplasia) Asthma HIV (human immunodeficiency virus infection) COPD (chronic obstructive pulmonary disease) Eczema Cervicalgia Family History Family history of problems with anesthesia: No Surgical History Surgical History (Updated 01/13/24 @ 12:42 by Lainey Emerson RN) History of esophagogastroduodenoscopy (EGD) H/O colonoscopy History of Problems with Anesthesia: No Social History Social History (Updated 01/13/24 @ 12:45 by Lainey Emerson RN) Alcohol intake: never Patient Tobacco Use Status: Former Tobacco user Quit Date: >10 years ago Tobacco use type: Cigarette Substance Use Type Other:: sober for 20years cocaine/heroin/alcohol Are you DNR?: No Advance Directives: No Advance Directives Information Provided: Yes Nutrition Risks: No Nutritional Risk Current occupational status: disabled Meds Allergies Allergy/AdvReac Type Severity Reaction Status Date / Time No Known Allergies Allergy Verified 07/03/23 15:52 Home Medications ?Medication ?Instructions ?Recorded ?Confirmed ?Last Taken ?Type albuterol sulfate 90 mcg/actuation 1 inh inhalation QID 08/17/20 01/13/24 11/10/23 History aerosol inhaler aspirin 81 mg tablet,delayed 81 mg PO DAILY 08/17/20 01/13/24 01/11/24 History release (Ecotrin Low Strength) atorvastatin 10 mg tablet 20 mg PO DAILY 08/17/20 01/13/24 01/15/24 History meclizine 25 mg tablet 25 mg PO DAILY 08/17/20 01/13/24 01/15/24 History bictegravir 50 mg-emtricitabine 1 tab PO DAILY 07/12/21 01/13/24 01/15/24 History 200 mg-tenofovir alafenam 25 mg tablet (Biktarvy) ergocalciferol (vitamin D2) 1,250 1,250 mcg PO QWEEK 07/12/21 01/13/24 01/11/24 History mcg (50,000 unit) capsule ipratropium 20 mcg-albuterol 100 1 puff inhalation QID 01/10/22 01/13/24 11/10/23 History mcg/actuation mist for inhalation (Combivent Respimat) omeprazole 40 mg capsule,delayed 40 mg PO BEDTIME 01/10/22 01/13/24 01/15/24 History release pentoxifylline 400 mg 400 mg PO BID 01/13/24 01/13/24 01/15/24 History tablet,extended release zolpidem 10 mg tablet 10 mg PO BEDTIME 01/13/24 01/13/24 01/13/24 History Exam Airway Mallampati Class: II TM Dist: >3cm Neck ROM: Full Denture: Upper and Lower Loose/Missing/Broken Teeth: Yes (edentulous) and No Heart: rrr Lungs: cta Assessment and Plan Assessment Anesthesia Assessment: Anesthesia Plan Discussed Final Anesthetic Review Family History of Problems with Anesthesia: No History of Problems with Anesthesia: No NPO: Yes ASA Class: II Final Preanesthetic Review: No Changes in Pt Med Stat, Meds/Allgs Chart Reviewed, Consent Obtained/Reviewed and Anes Risks/Benef Reviewed Patient Risk: Intermediate Procedure Risk: Intermediate Anesthetic Plan Anesthetic Plan: MAC: Disposition: Standard PACU
--- OUTSIDE RECORDS SUMMARY | 2024-01-16 07:00 | XMS_ITS | Continuity of Care Document ---
Author Organization [facility] ter Address [address] [place] [id number]- Care Team Providers Care Roaster Helper Name Role Phone Fer MARTIN, Sofia Primary Care Physician [place] [facility] [place]): [place] 02/18/[address] [address]- Discharge Disposition: A-D/C Home Attending Physician: Emily Cleaning MD Admitting Physician: Emily lCeaning MD Referring Physician: Emily Cleaning MD Allergies, Adverse Reactions, Alerts No Known Allergies Medications aspirin 81 mg oral tablet 1 tablet = 81 mg, By Mouth, Daily, # 30 tablet, 0 Refills, Maintenance, 04/23/18 6:32:25 EDT, Tablet Start Date: 04/23/18 Status: Ordered atorvastatin 20 mg oral tablet 1 tablet = 20 mg, By Mouth, Daily, # 30 tablet, 0 Refills, Maintenance, 02/18/23 12:29:00 EDT, Tablet, Partial fill upon patient request if the prescription is for a schedule II opioid drug. Start Date: 02/18/23 Status: Ordered Biktarvy By Mouth, Daily, 0 Refills, Maintenance, 02/18/23 12:30:00 EDT, Partial fill upon patient request if the prescription is for a schedule II opioid drug. Start Date: 02/18/23 Status: Ordered doxazosin 2 mg oral tablet 2 mg, 1, tablet, By Mouth, Daily, # 30 tablet, Refills 0, Maintenance, 02/18/23 12:30:00 EDT, Partial fill upon patient request if the prescription is for a schedule II opioid drug. Start Date: 02/18/23 Status: Ordered omeprazole 20 mg oral delayed release tablet 1 tablet = 20 mg, By Mouth, Daily, # 30 tablet, 0 Refills, Maintenance, 02/18/23 12:30:00 EDT, CR Tablet, Partial fill upon patient request if the prescription is for a schedule II opioid drug. Start Date: 02/18/23 Status: Ordered Vital Signs Most recent to oldest [Reference Range]: 1 2 3 4 Height 178 cm (02/18/23 12:20 PM) 178 cm (02/13/23 2:07 PM) Weight 77.2 kg (02/18/23 12:20 PM) 77.2 kg (02/13/23 2:07 PM) Oxygen Saturation [94-100 %] 99 % (02/18/23 2:15 PM) 94 % (02/18/23 2:00 PM) 94 % (02/18/23 1:58 PM) Pulse Rate [55-90 bpm] 59 bpm (02/18/23 12:20 PM) Body Mass Index [18.5-24.99 kg/m2] 24.37 kg/m2 (02/18/23 12:20 PM) 24.37 kg/m2 (02/13/23 2:07 PM) Blood Pressure [90-138/55-84 mm Hg] 138/79mm Hg (02/18/23 2:15 PM) 121/66mm Hg (02/18/23 2:00 PM) 121/66mm Hg (02/18/23 1:58 PM) Respiratory Rate [16-30 br/min] 10 br/min *L* (02/18/23 2:15 PM) 25 br/min (02/18/23 2:00 PM) 20 br/min (02/18/23 1:58 PM) Temperature [96.8-100.4 DegF] 97.8 DegF (02/18/23 1:58 PM) 97.8 DegF (02/18/23 1:58 PM) 98.3 DegF (02/18/23 12:20 PM) Liters per Minute 2 L/min (02/18/23 12:55 PM) 2 L/min (02/18/23 12:50 PM) Mode of Delivery (Oxygen) Room air (02/18/23 2:15 PM) Room air (02/18/23 2:00 PM) Room air (02/18/23 1:58 PM) Room air (02/18/23 1:58 PM) Blood pressure sites Arm, right (02/18/23 2:15 PM) Arm, left (02/18/23 1:58 PM) Arm, right (02/18/23 1:58 PM) Temperature Route Temporal (02/18/23 1:58 PM) Temporal (02/18/23 1:58 PM) Temporal (02/18/23 12:20 PM) Dry Weight 74.5 kg (02/18/23 12:20 PM) 77.2 kg (02/13/23 2:07 PM) Weight Obtained Via Patient/family stated (02/13/23 2:07 PM) Dry Weight Obtained Via Standing scale (02/18/23 12:20 PM) Patient/family stated (02/13/23 2:07 PM) Note * Zach Eli RN: PERFORM Event Display: Discharge/Transfer Note Hospital Authored Date: [id number] Nursing Discharge Note Entered On: 02/18/2023 15:29 EDT Performed On: 02/18/2023 15:26 EDT by Zach Eli RN Nursing Discharge Note 2 Discharge Time : 02/18/2023 15:26 EDT Discharge Level of Care at Discharge : Home/Nursing Home/Foster Care Patient Left Unit Via : Wheelchair Patient Accompanied Off Unit with : Responsible adult DC Instructions Provided & Signed by Pt : Yes Patient Understands D/C Instructions : Yes Patient Instructions Discharge Signed : Yes Did Pt have Specialty Bed or Wound Vac : No Zach Eli RN - 02/18/2023 15:29 EDT * Zach Eli RN: PERFORM Event Display: Patient Education/Instruction Authored Date: [id number] Surgery Adult Discharge Instructions [place] [id number] Name: DIANA CABA : 1960?? Visit: 02/18/2023 09:41?? Current Date: 02/18/2023 15:14 ?? Account: [id number]?? Surgery Discharge Instructions We would like to thank you for allowing us to assist you with your healthcare needs. The following includes patient education materials and information regarding your injury/illness. Our entire staffstrives to provide an excellent experience for our patients and their families. PLEASE ENSURE YOU FOLLOW-UP PER THE INSTRUCTIONS BELOW! ?? YOUR OPINION IS IMPORTANT TO US! Please complete the survey you may receive by mail or email. Your feedback will be used to make improvements to the healthcare experiences of our patients and their families. Surveys are administered by [employer] ?? If further treatment with your primary care physician or another doctor is recommended, it is important for you to keep the appointment. Call your primary care physician or return to the Emergency Department immediately if your condition worsens, fails to improve, or new symptoms develop. If you need to find a doctor, you can call [facility] [employer] for a referral at [phone] or toll free at [phone]) or log in to [email or web address] ?? You can view and manage your care through the patient portal or by using a health care tyler of your choosing. [employer] is a website that allows you to securely view your medical information including your hospital discharge summary, office visit summaries, medications and follow-up visits. You can also request appointments, renew medications, and request access to your medical information using a health care tyler of your choosing, or just ask a question. You are entitled to know the individuals who participated in your treatment. This information is available within your medical record and will be provided upon your request. You can enroll at [email or web address] or register d uring your next office visit. You have been discharged from [facility], Patient Care Unit: [facility]??. If you have any questions regarding these instructions after you leave, please call us and we will be happy to assist you. [facility] Your Care Team Attending Physician Emily Cleaning MD?? Discharging Providers Emily Cleaning MD Reason for Admission [facility] Primary Care Provider Fer MARTIN , Sofia? Advance Directive Health Care Proxy on File No What to do next Instructions From Your Doctor ?? Orders?? Daystay Protocol, ??02/18/23 13:54:00 EDT?? Instructions from your Care Team ?? Eye shield and patch remain intact over. Food as tolerated. Bring the eye drops to office visit tomorrow. Follow up in office tomorrow. You Need to Schedule the Following Appointments Follow Up with??Emily Cleaning Where: [address], [address] [place] [address]- Business (1) Follow Up with??Sofia Monroe MD When:??In 0 days Where: [address] [place] [address]- Business (1) Discharge Medications DIANA CABA :1960 Visit Date:02/18/2023 Medications: Please continue your medications until treatment is completed or stopped by your provider. You may resume your daily prescription medications. Discuss any questions related to medications with your provider. What How Much When Instructions Next Dose Unchanged Aspirin (aspirin 81 mg oral tablet) 1 tab(s) Oral Daily Unchanged Atorvastatin (atorvastatin 20 mg oral tablet) 1 tab(s) Oral Daily Unchanged bictegravir/ emtricitabine/ tenofovir (Biktarvy) Oral Daily Unchanged Doxazosin (doxazosin 2 mg oral tablet) 1 tab(s) Oral Daily Unchanged Omeprazole (omeprazole 20 mg oral delayed release tablet) 1 tab(s) Oral Daily Allergies (NKA means No Known Allergies) NKA Education Materials Below is the list of Educational Leaflet Providered with your Discharge Instructions. Surgery Medical Daystay Surgical Overnight Discharge Instructions?? Valuables and Belongings I fully understand and agree that [facility] accepts no responsibility for all my personal property including clothing, toilet articles, radios, jewelry, dentures, hearing aids, rings, money, or any other property that is in my possession or is brought to me after admission. I understand certain valuables may be placed in a hospital safe for a short period of time. I understand that the hospital is not liable for loss or damage due to accident, fire, or other natural occurrence while said property is in the safe. I accept full responsibility for any personal property that I keep with me, and will not hold the hospital responsible in case of loss or disappearance. I acknowledge that i have been encouraged to send valuables and belongings home. ?? Date for Pt to Sign Valuables/Belongings: 02/18/23 12:20:00 ?? Valuables & Belongings ?? Clothes Electronic devices Jewelry Monetary Items Personal devices Miscellaneous Medications (Valuables) Valuables at Bedside Pants, Shirt, Shoes, Undergarments Cell phone ?? Money, Wallet Glasses ? Valuables Sent Home ? Valuables Sent to Security ? Other Discharge Information ? Pulmonary Rehab Status?? Pulmonary Rehab Discharge Status?? Respiratory Rate:??10 br/min??Low ? Common Emergency Awareness Tips IS IT A STROKE? Act FAST and Check for these signs: FACE Does the face look uneven? ARM Does one arm drift down? SPEECH Does their speech sound strange? TIME Call at any sign of stroke ?? Heart Attack Signs Chest discomfort: Most heart attacks involve discomfort in the center of the chest and lasts more than a few minutes, or goes away and comes back. It can feel like uncomfortable pressure, squeezing, fullness or pain. Discomfort in upper body: Symptoms can include pain or discomfort in one or both arms, back, neck, jaw or stomach. Shortness of breath: With or without discomfort. Other signs: Breaking out in a cold sweat, nausea, or lightheaded. Remember, MINUTES DO MATTER. If you experience any of these heart attack warning signs, call to get immediate medical attention! ?? Smoking can increase your chances of developing chronic health problems and can cause harmful effects to other family members in your house. If you smoke, you are strongly encouraged to quit. Please call [facility] [employer] at [phone] or [phone] ([phone]) or log in to [email or web address] for referrals to smoking cessation programs. ?? The National Suicide Prevention Hotline is available 28/04 if you or someone you know needs to find a reason to keep living. By calling 9-096-860-Luv [employer] (8211) you'll be connected to a skilled, trained counselor at a crisis center in your area. SURGERY DISCHARGE INSTRUCTIONS SIGNATURE DIANA FORDE Location:[facility] Registration Date and Time:02/18/2023 09:41 EDT Primary Care Physician: Sofia Monroe MD, Attending Physician: Emily Cleaning MD, DIANA FERNÁNDEZ, have received the above patient education materials/instructions and have verbalized understanding. If ambulance or transport services are being used I further acknowledge being given a choice of service. ?? If you need to contact me, please call me at this number: . Patient/Duct Layer Helper Name: Patient/Duct Layer Helper Signature: Relationship to Patient: Witness Name/Signature: Date: * Zach Eli RN: PERFORM Event Display: Patient Education/Instruction Authored Date: [id number] Surgery Adult Discharge Instructions [address] [address] Name: DIANA CABA : 1960?? Visit: 02/18/2023 09:41?? Current Date: 02/18/2023 14:57 ?? Account: [id number]?? Surgery Discharge Instructions We would like to thank you for allowing us to assist you with your healthcare needs. The following includes patient education materials and information regarding your injury/illness. Our entire staffstrives to provide an excellent experience for our patients and their families. PLEASE ENSURE YOU FOLLOW-UP PER THE INSTRUCTIONS BELOW! ?? YOUR OPINION IS IMPORTANT TO US! Please complete the survey you may receive by mail or email. Your feedback will be used to make improvements to the healthcare experiences of our patients and their families. Surveys are administered by [employer] ?? If further treatment with your primary care physician or another doctor is recommended, it is important for you to keep the appointment. Call your primary care physician or return to the Emergency Department immediately if your condition worsens, fails to improve, or new symptoms develop. If you need to find a doctor, you can call [facility] [employer] for a referral at [phone] or toll free at [phone]) or log in to [email or web address] ?? You can view and manage your care through the patient portal or by using a health care tyler of your choosing. [employer] is a website that allows you to securely view your medical information including your hospital discharge summary, office visit summaries, medications and follow-up visits. You can also request appointments, renew medications, and request access to your medical information using a health care tyler of your choosing, or just ask a question. You are entitled to know the individuals who participated in your treatment. This information is available within your medical record and will be provided upon your request. You can enroll at [email or web address] or register d uring your next office visit. You have been discharged from [facility], Patient Care Unit: [facility]??. If you have any questions regarding these instructions after you leave, please call us and we will be happy to assist you. [facility] Your Care Team Attending Physician Emily Cleaning MD?? Discharging Providers Emliy Cleaning MD Reason for Admission [facility] Primary Care Provider Sofia Monroe MD? Advance Directive Health Care Proxy on File No What to do next Instructions From Your Doctor ?? Orders?? Daystay Protocol, ??02/18/23 13:54:00 EDT?? You Need to Schedule the Following Appointments Follow Up with??Emily Cleanign Where: [address], [address] [place] [address]- Business (1) Follow Up with??Sofia Monroe MD When:??In 0 days Where: [address] [place] [address]- Business (1) Discharge Medications DIANA CABA :1960 Visit Date:02/18/2023 Medications: Please continue your medications until treatment is completed or stopped by your provider. You may resume your daily prescription medications. Discuss any questions related to medications with your provider. What How Much When Instructions Next Dose Unchanged Aspirin (aspirin 81 mg oral tablet) 1 tab(s) Oral Daily Unchanged Atorvastatin (atorvastatin 20 mg oral tablet) 1 tab(s) Oral Daily Unchanged bictegravir/ emtricitabine/ tenofovir (Biktarvy) Oral Daily Unchanged Doxazosin (doxazosin 2 mg oral tablet) 1 tab(s) Oral Daily Unchanged Omeprazole (omeprazole 20 mg oral delayed release tablet) 1 tab(s) Oral Daily Allergies (NKA means No Known Allergies) NKA Education Materials Below is the list of Educational Leaflet Providered with your Discharge Instructions. Surgery Medical Daystay Surgical Overnight Discharge Instructions?? Valuables and Belongings I fully understand and agree that [facility] accepts no responsibility for all my personal property including clothing, toilet articles, radios, jewelry, dentures, hearing aids, rings, money, or any other property that is in my possession or is brought to me after admission. I understand certain valuables may be placed in a hospital safe for a short period of time. I understand that the hospital is not liable for loss or damage due to accident, fire, or other natural occurrence while said property is in the safe. I accept full responsibility for any personal property that I keep with me, and will not hold the hospital responsible in case of loss or disappearance. I acknowledge that i have been encouraged to send valuables and belongings home. ?? Date for Pt to Sign Valuables/Belongings: 02/18/23 12:20:00 ?? Valuables & Belongings ?? Clothes Electronic devices Jewelry Monetary Items Personal devices Miscellaneous Medications (Valuables) Valuables at Bedside Pants, Shirt, Shoes, Undergarments Cell phone ?? Money, Wallet Glasses ? Valuables Sent Home ? Valuables Sent to Security ? Other Discharge Information ? Pulmonary Rehab Status?? Pulmonary Rehab Discharge Status?? Respiratory Rate:??10 br/min??Low ? Common Emergency Awareness Tips IS IT A STROKE? Act FAST and Check for these signs: FACE Does the face look uneven? ARM Does one arm drift down? SPEECH Does their speech sound strange? TIME Call at any sign of stroke ?? Heart Attack Signs Chest discomfort: Most heart attacks involve discomfort in the center of the chest and lasts more than a few minutes, or goes away and comes back. It can feel like uncomfortable pressure, squeezing, fullness or pain. Discomfort in upper body: Symptoms can include pain or discomfort in one or both arms, back, neck, jaw or stomach. Shortness of breath: With or without discomfort. Other signs: Breaking out in a cold sweat, nausea, or lightheaded. Remember, MINUTES DO MATTER. If you experience any of these heart attack warning signs, call to get immediate medical attention! ?? Smoking can increase your chances of developing chronic health problems and can cause harmful effects to other family members in your house. If you smoke, you are strongly encouraged to quit. Please call [employer] [facility] at [phone] or [phone] ([phone]) or log in to [email or web address] for referrals to smoking cessation programs. ?? The National Suicide Prevention Hotline is available 28/04 if you or someone you know needs to find a reason to keep living. By calling 1-536-003-talk (1613) you'll be connected to a skilled, trained counselor at a crisis center in your area. SURGERY DISCHARGE INSTRUCTIONS SIGNATURE DIANA FORDE Location:[facility] Registration Date and Time:02/18/2023 09:41 EDT Primary Care Physician: Sofia Monroe MD, Attending Physician: Emily Cleaning MD, DIANA FERNÁNDEZ, have received the above patient education materials/instructions and have verbalized understanding. If ambulance or transport services are being used I further acknowledge being given a choice of service. ?? If you need to contact me, please call me at this number: . Patient/Duct Layer Helper Name: Patient/Duct Layer Helper Signature: Relationship to Patient: Witness Name/Signature: Date: * Zach Eli RN: PERFORM, SIGN, VERIFY Event Display: Patient Education Handout Authored Date: [id number] * Zach Eli RN: PERFORM Event Display: Patient Education Leaflets Authored Date: [id number] Surgery Medical Daystay Surgical Overnight Discharge Instructions ?? 295 Medical Daystay/Surgical Overnight Discharge Instructions ? Since your coordination and judgment may be altered by medication and/or anesthesia, a responsible adult must drive you home from the hospital. ? If you have received medication for pain or sedation while under our care, you should not drive, operate machinery, drink alcohol, or sign any legal documents for 24 hours.?? You should have someone with you at home tonight. ? Remain at home the day of discharge.?? You may be up and about unless otherwise instructed by your physician. ? You may resume your daily prescription medication schedule.?? Any depressant medication should be avoided for 24 hours unless otherwise instructed by your surgeon or anesthesiologist. ? Call your physician for a follow-up appointment.? If you experience unusual or severe pain not relied by your pain medication, excessive bleedingor drainage, persistent nausea and vomiting, excessive swelling or redness, foul odor from incisionsite or fever over 100.6F, you need to call your physician. ? A follow-up phone call by a nurse will be made the day after your procedure.?? If you have stayed with us over night, you will not be receiving a follow-up phone call. ? Nausea and vomiting are a common side effect of prescription pain medication.?? We recommend that pills are not taken on an empty stomach.?? While taking any prescription pain medication you should not drive or drink alcohol. ? Patient Care team information Care Team Personnel Name: Fer MARTIN , Sofia Position: [facility] Outreach Member Role: PCP Address: Address: [address] [place] [address]- Care Team Related Persons Name: ABEL COATES Address: home [address] [place] [address]
[2024-01-16 07:37] VITALS: BP 116/62; PULSE 74; RESP 18; TEMP 36.1; O2SAT 98; BMI 24.5
[2024-01-16] MEDS: Lactated Ringers 1,000 ML 100 ML IVCONT (07:59)
--- NOTE | 2024-01-16 09:20 | MHC.SHP ---
Pre-Procedural Eval Section A - 24 Hr Update-Section A only Date of Service: 01/16/24 Section B - Complete if H&P > 30 days Chief Complaint: Generalized abdominal pain,gerd Details of Present Illness: see H&P no changes Relevant Family History (Specify if Yes): No Relevant Social History: None Present Medications: see Short Stay Collaborative assessment Medical History: No relevant PMH Allergies: Allergies Allergy/AdvReac Type Severity Reaction Status Date / Time No Known Allergies Allergy Verified 07/03/23 15:52 Review of Systems Sugical H&P ROS: Negative: Constitution, Cardiovascular, Respiratory, Neurological, Psychiatric, Hem-Onc, Allergic/Immunologic, Gastrointestinal, Genitourinary, Musculoskeletal, Integumentary, Endocrine and Eyes/Ears/Nose/Throat Exam Surgical H&P Exam: Normal: HEENT, Normal: Heart, Normal: Lungs, Normal: Extremities, Normal: Abdomen, Normal: Skin and Normal: Neurological Plan Diagnosis/Plan: Unchanged I have reviewed the history and physical and performed a pertinent physical examination on my patient. No changes have occurred unless specified. Time Spent With Patient Time: Total time managing care of this patient today ____ minutes.
[2024-01-16 10:10] VITALS: BP 108/66; PULSE 78; RESP 17; TEMP 36.8; O2SAT 98
[2024-01-16 10:25] VITALS: BP 125/79; PULSE 68; RESP 17; TEMP 36.8; O2SAT 99
--- NOTE | 2024-01-16 12:10 | OP_ITS ---
DATE OF SERVICE: 01/16/2024 SURGEON: Kurt Correia MD INDICATIONS: 1. Generalized abdominal pain. 2. Gastroesophageal reflux disease. 3. Intermittent constipation. PREOPERATIVE DIAGNOSIS: POSTOPERATIVE DIAGNOSIS: PROCEDURE PERFORMED: Upper endoscopy with biopsy, colonoscopy to the terminal ileum with biopsy. ESTIMATED BLOOD LOSS: COMPLICATIONS: ANESTHESIA: Monitored anesthesia care. ASSISTANTS: SPECIMENS: DESCRIPTION OF PROCEDURE: A history and physical was performed. The risks and benefits of the procedure were explained to the patient. Informed consent was obtained. The patient was placed in a left lateral decubitus position. The Olympus video gastroscope was introduced into the esophagus, stomach, and duodenum. Examination was performed. The scope was removed. He was repositioned for colonoscopy. A digital rectal exam was performed and was found to be normal. The Olympus pediatric video colonoscope was introduced into the rectum and advanced to the cecum. The cecum was identified by transillumination, palpation, and identification of ileocecal valve. Examination was performed. The scope was removed. He tolerated both procedures well and was returned to the recovery area in stable condition. FINDINGS: Upper Endoscopy: 1. Esophagus: The esophagus showed a slightly irregular EG junction. There was no esophagitis. Biopsies were obtained from the EG junction. 2. Stomach: The stomach showed no evidence of masses, ulcers, or polyps. Antral biopsies were obtained to evaluate for H pylori. The stomach was J-shaped and mostly intrathoracic, but no definite hiatal hernia was identified. Entering the duodenum was challenging. 3. Duodenum: The bulb and second portion were otherwise normal. Biopsies were obtained from the second portion. Colonoscopy: The terminal ileum was examined and appeared normal. The visualized colonic mucosa was normal. The quality of the prep was good. No polyps were identified. There was no evidence of colitis. Retroflexed examination showed some moderate-sized internal hemorrhoids. Random biopsies were obtained from the sigmoid for further evaluation. IMPRESSION: 1. Gastroesophageal reflux disease. 2. Normal colonoscopy. RECOMMENDATIONS: 1. Follow up the biopsy results. 2. Repeat colonoscopy is recommended in 10 years for average risk individuals. MD CORRINE Thomas/JORJE / [id number]
== END 2024-01-16 10:55 | disposition home or self-care (01) ==
PROVIDERS: PCP Family Medicine; Visit Provider Internal Medicine Gastroenterology
PROC: (CPT 45380; principal; 2024-01-16 09:00)
DX: R10.84 Generalized abdominal pain (principal); K64.8 Other hemorrhoids; K59.09 Other constipation; K29.50 Unspecified chronic gastritis without bleeding; K21.9 Gastro-esophageal reflux disease without esophagitis; Z86.19 Personal history of other infectious and parasitic diseases; B20 Human immunodeficiency virus [HIV] disease; E78.5 Hyperlipidemia, unspecified; J44.9 Chronic obstructive pulmonary disease, unspecified; Z87.828 Personal history of other (healed) physical injury and trauma; R42 Dizziness and giddiness; F32.A Depression, unspecified; I73.9 Peripheral vascular disease, unspecified; Z79.899 Other long term (current) drug therapy; F10.11 Alcohol abuse, in remission; F19.11 Other psychoactive substance abuse, in remission; Z87.891 Personal history of nicotine dependence
CPT/HCPCS: 45380; 43239; 88305; 88313; 88342

== ENCOUNTER 2024-01-23 14:39 | Outpatient (AMB) | payer MEDICARE, MEDICAID, SELFPAY ==
--- NOTE | 2024-01-23 14:46 | MHC.OFFVIS ---
Intake Visit Reasons: 2 mth,f/u,PVR Intake Note: Patient is Present for Follow Up Urology Medication: Doxazosin, Oxybutynin Antibiotic Allergies: None Blood Thinners:Aspirin PVR: 0 Allergies No Known Allergies Allergy (Verified 01/23/24 14:48) Medication List - Last Reconciled 01/23/24 by Jag Abraham MD albuterol sulfate 90 mcg/actuation 1 inh inhalation QID aspirin (Ecotrin Low Strength) 81 mg PO DAILY atorvastatin 20 mg PO DAILY ebhkyzqmg-yzyhnznv-axspxlc ala 50-200-25 mg (Biktarvy) 1 tab PO DAILY doxazosin 2 mg PO BEDTIME 90 days ergocalciferol (vitamin D2) 1,250 mcg PO QWEEK ipratropium-albuterol 20-100 mcg/actuation (Combivent Respimat) 1 puff inhalation QID meclizine 25 mg PO DAILY naproxen 500 mg PO BID PRN omeprazole 40 mg PO BEDTIME oxybutynin chloride ER 5 mg PO DAILY 90 days pentoxifylline ER 400 mg PO BID zolpidem 10 mg PO BEDTIME HPI Comments Details: Mervin is a pleasant male. He is a patient of Dr. Mays. He is here for the following urologic conditions - lower urinary tract symptoms Follow-up trial oxybutynin with doxazosin PVR 0 cc Continue current medications Lower urinary tract symptoms Current visit is for further evaluation of lower urinary tract symptoms Current therapy low-dose doxazosin Prior therapy tamsulosin with retrograde ejaculation, failed alfuzosin PSA 01/23 0.8, 01/25 0.7, 01/26 0.7 Cystoscopy 08/28 normal Therapeutic plan trial doxazosin [facility] Medical History PAD (peripheral artery disease) Elevated cholesterol Asthma with COPD Vertigo GERD (gastroesophageal reflux disease) Depression Polysubstance abuse BPH (benign prostatic hyperplasia) Asthma HIV (human immunodeficiency virus infection) COPD (chronic obstructive pulmonary disease) Eczema Cervicalgia Surgical History History of esophagogastroduodenoscopy (EGD) H/O colonoscopy Social History Alcohol intake: never Patient Tobacco Use Status: Former Tobacco user Tobacco use type: Cigarette Current occupational status: disabled Review of Systems Const Denies chills and Denies fever(s) Card Reports no additional complaints and Denies syncope Resp Denies cough GI Denies abdominal pain and Denies heartburn Reports as per HPI and Denies change in libido Neuro Denies syncope Psych Denies change in libido Endo Denies change in libido Physical Exam Const General: cooperative, healthy appearing, comfortable and no acute distress Orientation/consciousness: patient oriented x3 HEENT Face and sinus: Yes normal facial exam Mouth: moist mucous membranes Neck Neck: Yes normal visual inspection, Yes full ROM and Yes trachea midline Chest Chest palpation & inspection: normal inspection of the chest Resp Effort & Inspection: normal respiratory effort, able to speak in complete sentences and no respiratory distress GI Inspection: Yes normal to inspection Back/Spine/Pelvis Cervical Spine: normal cervical lordosis Thoracic/Lumbar Spine: thoracic and lumbar spine normal to inspection Skin General skin exam: no rashes or lesions noted Neuro General: patient oriented x3, gait normal, tone normal and moves all extremities Extrem General: Yes normal to inspection and Yes capillary refill normal Office Procedures Post Void Residual Post Residual Void Post Void Residual (PVR): 0 [id number] Void Residual by ultrasound Assessment & Plan Assessment & Plan (1) Overactive bladder: Code(s): N32.81 - Overactive bladder Category: Medical (2) Nocturia more than twice per night: Code(s): R35.1 - Nocturia Category: Medical (3) BPH (benign prostatic hyperplasia): Code(s): N40.0 - Benign prostatic hyperplasia without lower urinary tract symptoms Category: Medical Plan Six-month follow-up Orders: Orders AMB Post Void Residual by ultrasound 01/23/24 N32.81 - Overactive bladder Patient Instructions: Imaging studies, laboratory and physical exam results were discussed and reviewed in detail. No major barriers to patient understanding were identified. An opportunity to ask questions regarding the treatment plan was provided. All questions were answered. The patient expressed understanding and agreement with the above treatment plan. The patient is aware they should contact our office by phone for worsening of their current condition or the appearance of new urologic symptoms. Compliance is encouraged with any medications and followup testing that is ordered. It is a privilege to participate in the urologic care of your patient. If you have any questions or concerns regarding treatment for the above conditions, or other urologic issues, please do not hesitate to contact me. The office telephone contact is [phone]. This note is constructed using voice recognition software. While every effort has been made to ensure accuracy vulnerability assessment analyst errors may have been included. Yours sincerely, Dr Jag Abraham MD, [facility] - Urology Providers of Expert, Compassionate Care for the Genitourinary System Coding Level of Care Code Est Pt Level 3 (14443) Diagnoses Overactive bladder N32.81 Nocturia more than twice per night R35.1 BPH (benign prostatic hyperplasia) N40.0 CPT Codes Post Residual Void - PVR CPT Code: 11485-Sfbi Void Residual by ultrasound ([id number])
== END 2024-01-23 15:06 | disposition home or self-care (01) ==
LOC: HO.HUSH 14:39
PROVIDERS: PCP Family Medicine; Visit Provider Urology
DX: N32.81 Overactive bladder (principal); R35.1 Nocturia; N40.0 Benign prostatic hyperplasia without lower urinary tract symptoms
CPT/HCPCS: 99213

== ENCOUNTER → 2024-01-23 14:39 | Outpatient (BNVA) | payer MEDICARE, MEDICAID, SELFPAY | PROVIDERS: PCP Family Medicine; Visit Provider Urology | DX: N40.1 Benign prostatic hyperplasia with lower urinary tract symptoms (principal); R35.1 Nocturia; N32.81 Overactive bladder | CPT/HCPCS: 51798; 99212 ==

== ENCOUNTER 2024-03-03 08:02 | Outpatient (REF) | payer MEDICARE, MEDICAID, SELFPAY ==
[2024-03-03 12:01] LABS: Estimated Average Glucose 120 mg/dL; Hemoglobin A1c % 5.8 % (<6.0)
[2024-03-03 12:08] LABS: Cholesterol 158 mg/dL (<200); HDL Cholesterol 39 mg/dL (>40); LDL Cholesterol Calculated 103 mg/dL (<100); Triglycerides 81 mg/dL (<150)
[2024-03-03 12:47] LABS: Reflex LDLD? No
== END 2024-03-03 08:03 | disposition home or self-care (01) ==
LOC: HO.HHCL 08:02
PROVIDERS: Visit Provider Family Medicine
DX: R73.01 Impaired fasting glucose (principal); E78.5 Hyperlipidemia, unspecified; B20 Human immunodeficiency virus [HIV] disease; Z11.3 Encounter for screening for infections with a predominantly sexual mode of transmission
CPT/HCPCS: 36415; 80061; 83036

== ENCOUNTER 2024-05-25 13:32 | Outpatient (REF) | payer MEDICARE, MEDICAID, SELFPAY ==
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
== END 2024-05-25 13:33 | disposition home or self-care (01) ==
LOC: HO.HHCX 13:32
PROVIDERS: Visit Provider Family Medicine
DX: M25.562 Pain in left knee (principal)
CPT/HCPCS: 73564

== ENCOUNTER → 2024-05-25 13:35 | Outpatient (BNV) | payer MEDICARE, MEDICAID, SELFPAY | PROVIDERS: Visit Provider Radiology Diagnostic Radiology | DX: M25.562 Pain in left knee (principal) | CPT/HCPCS: 73564 ==

== ENCOUNTER 2024-06-01 08:37 | Outpatient (REF) | payer MEDICARE, MEDICAID, SELFPAY ==
[2024-06-01 11:47] LABS: Estimated Average Glucose 123 mg/dL; Hemoglobin A1C 149.3952 umol/L; Hemoglobin A1c % 5.9 % (<6.0)
[2024-06-01 11:50] LABS: Glucose Random 112 mg/dL (60-115)
== END 2024-06-01 08:38 | disposition home or self-care (01) ==
LOC: HO.HHCL 08:37
PROVIDERS: Visit Provider Family Medicine
DX: R73.9 Hyperglycemia, unspecified (principal)
CPT/HCPCS: 36415; 82947; 83036

== ENCOUNTER 2024-06-07 14:23 | Emergency (ER) | payer MEDICARE, MEDICAID, SELFPAY ==
--- NOTE | ~2024-06-07 | XR_ITS ---
EXAMINATION: XR CHEST CLINICAL INFORMATION: Chest pain and difficulty breathing COMPARISON: Chest x-ray on 12/31/2023 TECHNIQUE: 2 views of the chest were obtained. FINDINGS: No significant abnormality is noted involving the heart, lungs, mediastinum, bony thorax or soft tissues. Chronic elevation of the left hemidiaphragm. XR/XR chest 2V IMPRESSION: No acute disease. Electronically signed by: Lorrie Sabillon MD 06/07/2024 03:44 PM EDT
--- NOTE | 2024-06-07 14:24 | ECG_ITS ---
Test Reason : CHEST PAIN Blood Pressure : / mmHG Vent. Rate : 078 BPM Atrial Rate : 078 BPM P-R Int : 136 ms QRS Dur : 080 ms QT Int : 360 ms P-R-T Axes : 058 055 059 degrees QTc Int : 410 ms Normal sinus rhythm Normal ECG When compared with ECG of 31-DEC-2023 14:14, Premature atrial complexes are no longer Present Referred By: Kari Su Electronically Signed By:SETH WILEY
[2024-06-07 14:34] VITALS: BP 133/64; PULSE 79; RESP 18; TEMP 36.8; O2SAT 98; BMI 24.7
--- NOTE | 2024-06-07 14:37 | ED.GENADULT ---
HPI - General Adult General Chief complaint: Upper Respiratory Symptoms Stated complaint: Chest pain/Diff breathing Time Seen by Provider: 06/07/24 18:49 History of Present Illness ED Provider: Virgie MENDIETA narrative: The patient is a 63-year-old male with a history of HIV. He has a smoking history but has not smoked in about 20 years. He has a nebulizer machine at home. He says that over the last 4 or 5 days he has had increased cough and a sense of pressure on his chest. He uses nebulizer machine today and it helped him but he thought that he ought to come to the hospital to get checked. No definite fever. No pain or swelling in his calves. No nausea or vomiting. Related Data Home Medications ?Medication ?Instructions ?Recorded ?Confirmed albuterol sulfate 90 mcg/actuation 1 inh inhalation QID 08/17/20 01/23/24 aerosol inhaler aspirin 81 mg tablet,delayed 81 mg PO DAILY 08/17/20 01/23/24 release (Ecotrin Low Strength) atorvastatin 10 mg tablet 20 mg PO DAILY 08/17/20 01/23/24 meclizine 25 mg tablet 25 mg PO DAILY 08/17/20 01/23/24 bictegravir 50 mg-emtricitabine 1 tab PO DAILY 07/12/21 01/23/24 200 mg-tenofovir alafenam 25 mg tablet (Biktarvy) ergocalciferol (vitamin D2) 1,250 1,250 mcg PO QWEEK 07/12/21 01/23/24 mcg (50,000 unit) capsule ipratropium 20 mcg-albuterol 100 1 puff inhalation QID 01/10/22 01/23/24 mcg/actuation mist for inhalation (Combivent Respimat) omeprazole 40 mg capsule,delayed 40 mg PO BEDTIME 01/10/22 01/23/24 release pentoxifylline 400 mg 400 mg PO BID 01/13/24 01/23/24 tablet,extended release zolpidem 10 mg tablet 10 mg PO BEDTIME 01/13/24 01/23/24 Previous Rx's ?Medication ?Instructions ?Recorded naproxen 500 mg tablet 500 mg PO BID PRN pain #14 tabs 03/07/22 doxazosin 2 mg tablet 2 mg PO BEDTIME 90 days #90 tabs 04/19/24 oxybutynin chloride 5 mg 5 mg PO DAILY 90 days #90 tabs 01/23/24 tablet,extended release 24 hr prednisone 20 mg tablet 40 mg (2 x 20 mg) PO DAILY 3 days 06/07/24 #6 tabs Allergies Allergy/AdvReac Type Severity Reaction Status Date / Time No Known Allergies Allergy Verified 06/07/24 14:35 Review of Systems Review of Systems: Yes all other systems are reviewed and are negative [facility] Past Medical History Medical History PAD (peripheral artery disease) Elevated cholesterol Asthma with COPD Vertigo GERD (gastroesophageal reflux disease) Depression Polysubstance abuse BPH (benign prostatic hyperplasia) Asthma HIV (human immunodeficiency virus infection) COPD (chronic obstructive pulmonary disease) Eczema Cervicalgia Surgical History History of esophagogastroduodenoscopy (EGD) H/O colonoscopy Social History Social History Alcohol intake: never Patient Tobacco Use Status: Former Tobacco user Tobacco use type: Cigarette Advance Directives: No Advance Directives Information Provided: Yes Do you have a plan to hurt others: No Plan Current occupational status: disabled Physical Exam ED Vital Signs: Vital Signs - 24 hr 06/07/24 14:34 Temperature 98.2 F Pulse Rate 79 Respiratory Rate 18 Blood Pressure 133/64 Pulse Oximetry 98 Oxygen Delivery Method Room Air BMI result Body Mass Index 24.7 Const Other: The patient is awake, alert, pleasant, cooperative. He does not appear in any distress. Well-groomed HENMT Other: Face is symmetrical. Mucous membranes moist. The posterior pharynx is unremarkable. Eyes General: appearance normal, both eyes and all related structures Neck Other: No cervical adenopathy Resp Other: Possibly some minimal wheezes but for the most part air entry was quite good. No increased work of breathing. No crackles. Cardio Rate: regular rate Rhythm: regular rhythm Heart sounds: S1 normal heart sound present and S2 normal heart sound present Skin Other: Skin is dry and unremarkable Neuro Other: The patient is awake and alert with a normal mental status. Cranial nerves grossly intact. Normal gait. Grossly neurologically intact. Extrem Other: No calf swelling or tenderness, no edema, no asymmetry Course Course Course Narrative: This is a Rapid Medical Examination (RME) performed by Herminia Su PA-C in triage. Full HPI, ROS, assessment and treatment plan per primary provider in the Main ED. 63 yo male here for eval of chest pain/ tightness and difficulty breathing, cough, and nasal congestion x3 days. saw PCP with negative work up. here w/ continued symptoms. hx of asthma, using nebulizer however I feel the same . last used neb WARDROBE STYLIST in ED. +lungs clear. No increased effort of breathing Plan: ekg, labs, viral swabs, cxr Medical Decision Making Medical Decision Making MDM Narrative: The patient is a 63-year-old male. He has a history of HIV for which he is on treatment. He has a remote smoking history but I suspect he has some history of asthma or COPD as he has a nebulizer machine at home. He has had some chest tightness and a cough and runny nose for about 4 or 5 days. His workup in the emergency room today is quite unremarkable. Clinically he does not look obviously unwell in any way. There was no pneumonia on his chest x-ray. EKG is normal. Troponin is normal. I suspect he has some degree of a bronchitis. He will be put on 4 days of prednisone. Lab Data 06/07/24 15:23 06/07/24 15:23 Labs: Lab Results 06/07/24 06/07/24 Range/Units 15:22 15:23 WBC 6.6 (4.8-10.8) X10*3/uL RBC 4.21 L (4.60-5.80) X10*6/uL Hgb 12.6 L (14.0-18.0) g/dl Hct 37.6 L (42.0-52.0) % MCV 89.3 (80.0-98.0) fL MCH 29.9 (27.0-33.0) pg MCHC 33.5 (31.0-36.0) g/dl RDW 13.2 (11.0-16.0) % Plt Count 237 (160-400) X10*3/uL MPV 9.0 L (9.4-12.4) fL Immature Gran % (Auto) 0.2 (0.0-0.4) % Neut % (Auto) 69.1 (45-73) % Lymph % (Auto) 20.6 (20-40) % Cherry % (Auto) 9.0 (2-11) % Eos % (Auto) 0.8 (0-4) % Baso % (Auto) 0.3 (0-2) % Lymph # (Auto) 1.4 (1.2-4.9) X10*3/uL Cherry # (Auto) 0.6 (0.1-1.2) X10*3/uL Eos # (Auto) 0.1 (0.0-0.4) X10*3/uL Baso # (Auto) 0.0 (0.0-0.2) X10*3/uL Abs Immat Gran (auto) 0.01 (0.00-0.03) X10*3/uL Absolute Neuts (auto) 4.6 (2.0-8.3) x10*3/uL Absolute Nucleated RBC 0.000 (0.0-0.012) X10*3/uL Nucleated RBC % (auto) 0.0 (0.0-0.2) /100WBC Sodium 140 (135-145) mmol/L Potassium 4.0 (3.3-5.1) mmol/L Chloride 107 (96-108) mmol/L Carbon Dioxide 25 (22-29) mmol/L Anion Gap 12 (12-20) BUN 15 (9-16) mg/dL Creatinine 1.16 (0.5-1.4) mg/dL Estim Creat Clear Calc 65.5 Estimated GFR > 60 Random Glucose 120 H (60-115) mg/dL Calcium 9.5 (8.4-10.2) mg/dL Magnesium 2.3 (1.6-2.6) mg/dL Total Bilirubin 0.3 (0.0-1.0) mg/dL AST 13 (5-37) U/L ALT 11 (0-40) U/L Alkaline Phosphatase 52 (39-117) U/L Troponin I High Sens < 2.7 (<3.5-35.0) ng/L Total Protein 6.9 (6.5-8.0) g/dL Albumin 4.3 (3.5-5.0) g/dL Influenza Type A (PCR) NEGATIVE (Negative) Influenza Type B (PCR) NEGATIVE (Negative) RSV RNA Qual (PCR) NEGATIVE (Negative) SARS-CoV-2 RNA (RT-PCR) NEGATIVE (Negative) Independent Interpretation I performed an independent interpretation of an: EKG Interpretation: Sinus rhythm at 78 beats per minute. It is a normal EKG. Discharge Plan Discharge Clinical Impression: Acute bronchitis Patient Disposition: Home, Self-Care Additional Instructions: Your testing in the emergency room today is reassuring. There is no sign of a heart attack. There is no sign of pneumonia. Your COVID is negative. I think you may be having a mild case of bronchitis exacerbating some degree of asthma. You have been started on a short course of prednisone. Please take this once a day for the next 3 days. Please continue your your other medications and use your nebulizer machine at home. Please follow up with your regular doctor if not improving. Return to the emergency room if worse. Prescriptions: New prednisone 20 mg tablet 40 mg PO DAILY 3 Days Qty: 6 0RF No Action naproxen 500 mg tablet 500 mg PO BID PRN (Reason: pain) Qty: 14 0RF pentoxifylline [Trental] 400 mg Tablet Extended Release 400 mg PO BID Rx Instructions: must administer with a meal/food zolpidem 10 mg Tablet 10 mg PO BEDTIME aspirin [Ecotrin Low Strength] 81 mg tablet,delayed release (DR/EC) 81 mg PO DAILY atorvastatin 10 mg tablet 20 mg PO DAILY meclizine 25 mg tablet 25 mg PO DAILY albuterol sulfate 90 mcg/actuation HFA aerosol inhaler 1 inh inhalation QID Biktarvy 50-200-25 mg tablet 1 tab PO DAILY ergocalciferol (vitamin D2) 1,250 mcg (50,000 unit) capsule 1,250 mcg PO QWEEK Combivent Respimat 20-100 mcg/actuation mist 1 puff inhalation QID omeprazole 40 mg capsule,delayed release(DR/EC) 40 mg PO BEDTIME doxazosin 2 mg tablet 2 mg PO BEDTIME 90 Days Qty: 90 1RF oxybutynin chloride 5 mg tablet extended release 24hr 5 mg PO DAILY 90 Days Qty: 90 1RF Referrals: Sofia Monroe MD [Primary Care Provider] - Print Language: Norwegian
[2024-06-07 15:31] LABS: Basophils Percent Auto 0.3 % (0-2); Eosinophils Absolute Auto 0.1 X10*3/uL (0.0-0.4); Eosinophils Percent Auto 0.8 % (0-4); Hematocrit 37.6 % (42.0-52.0); Hemoglobin 12.6 g/dl (14.0-18.0); Imm Gran Abs Auto 0.01 X10*3/uL (0.00-0.03); Imm Gran Pct Auto 0.2 % (0.0-0.4); Lymphocytes Absolute Auto 1.4 X10*3/uL (1.2-4.9); Lymphocytes Percent Auto 20.6 % (20-40); MANUAL DIFF FLAG NO; Mean Corpuscular HGB Conc 33.5 g/dl (31.0-36.0); Mean Corpuscular Hemoglobin 29.9 pg (27.0-33.0); Mean Corpuscular Volume 89.3 fL (80.0-98.0); Monocytes Absolute Auto 0.6 X10*3/uL (0.1-1.2); Neutrophils Absolute Auto 4.6 x10*3/uL (2.0-8.3); Neutrophils Percent Auto 69.1 % (45-73); Platelet Count 237 X10*3/uL (160-400); Red Blood Count 4.21 X10*6/uL (4.60-5.80); Red Cell Distribution Width 13.2 % (11.0-16.0); White Blood Count 6.6 X10*3/uL (4.8-10.8)
[2024-06-07 16:00] LABS: Alanine Aminotransferase 11 U/L (0-40); Albumin Level 4.3 g/dL (3.5-5.0); Alkaline Phosphatase 52 U/L (39-117); Anion Gap 12 (12-20); Aspartate Amino Transferase 13 U/L (5-37); Bilirubin Total 0.3 mg/dL (0.0-1.0); Blood Urea Nitrogen 15 mg/dL (9-16); Calcium 9.5 mg/dL (8.4-10.2); Carbon Dioxide 25 mmol/L (22-29); Chloride 107 mmol/L (96-108); Creatinine Clr Calc Pharmacy 65.5; Estimated Glomerular Filt Rate > 60; Glucose Random 120 mg/dL (60-115); Magnesium 2.3 mg/dL (1.6-2.6); Sodium 140 mmol/L (135-145); Total Protein 6.9 g/dL (6.5-8.0)
[2024-06-07 16:11] LABS: Influenza A PCR NEGATIVE (Negative); Influenza B PCR NEGATIVE (Negative); Resp Syncy Virus RNA Qual PCR NEGATIVE (Negative); SARS COV2 PCR INHOUSE NEGATIVE (Negative)
[2024-06-07 16:19] LABS: Troponin-I High Sensitivity < 2.7 ng/L (<3.5-35.0)
--- OUTSIDE RECORDS SUMMARY | 2024-06-07 18:35 | XMS_ITS ---
Author Organization [facility] Address [address] [place] [address] Care Team Providers Care Licensed Staff Mft Name Role Phone Fer MARTIN, Sofia Primary Care Provider Kurt Yeh Jr REASON FOR VISIT pathology/10 yr colon recall please Encounters Encounter Location Date Provider Diagnosis [facility] [address] [place] [address] 01/29/2024 Kurt Correia Jr PLAN OF TREATMENT No Information
--- OUTSIDE RECORDS SUMMARY | 2024-06-07 18:35 | XMS_ITS ---
Author Organization [facility] Address [address] [place] [address] Care Team Providers Care Life Insurance Salesperson Name Role Phone Fer MARTIN, Sofia Primary Care Provider Nadia Correia Jr, Kurt Unavailable [phone] PROBLEMS Problem Type ICD Code Onset Dates Problem Status W/U Status Risk SNOMED Code Notes Problem Chronic GERD (K21.9) Active confirmed Gastroesophagea l reflux disease (916421182) Encounters Encounter Location Date Provider Diagnosis [facility] Outpatient [address] [place] [phone] 01/16/2024 Kurt Correia Jr Other constipation K59.09 ; Abdominal pain, generalized R10.84 and Chronic GERD K21.9 ASSESSMENTS Encounter Date Diagnosis Assessment Notes Treatment Notes Treatment Clinical Notes 01/16/2024 Other constipation (ICD-10 - K59.09) 01/16/2024 Abdominal pain, generalized (ICD-10 - R10.84) 01/16/2024 Chronic GERD (ICD-10 - K21.9) PLAN OF TREATMENT No Information
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
--- OUTSIDE RECORDS SUMMARY | 2024-06-07 18:35 | XMS_ITS | Continuity of Care Document ---
Author Organization [facility] ter Address [address] [place] [id number]- Care Team Providers Care Technical Service Specialist Name Role Phone Sofia Monroe MD Primary Care Physician Encounter [facility] Date(s): 04/29/24 - 04/29/[address] [address]- Discharge Disposition: A-D/C Home Attending Physician: Alecia Gupta MD Admitting Physician: Alecia Gupta MD Referring Physician: Not on Staff, Referring MD Allergies, Adverse Reactions, Alerts No Known [...] opioid drug. Start Date: 02/18/23 Status: Ordered Results Radiology Reports * Exam Date Time Procedure Performing Provider Status 04/29/24 3:41 PM Chest 2 Views Frontal and Lat Cornelio Herzog; Nani (Verified) Notes: (Chest 2 Views Frontal and Lat) Reason For Exam: chest pain;Other: RESULT: Chest 2 Views Frontal and Lat Chest 2 Views Frontal and Lat Hx of Present Illness: From c o CP, started around 0900 today, given aspirin. Provider sts pthas EKG changes, nonspecific what changes are seen. Pt not c o of pain at this time. Reason: Chest pain. Clinical Question(s): Pneumonia. COMPARISON: None. FINDINGS: LINES AND TUBES: None. LUNGS AND PLEURA: Moderate elevation of the left hemidiaphragm with adjacent atelectasis at the left lung base. Otherwise, the lungs are clear. Normal pulmonary vascularity. No focal consolidation. No pleural effusion. No pneumothorax. HEART, MEDIASTINUM AND OMAYRA: Heart is normal in size. Normal mediastinal and hilar contour. BONES AND SOFT TISSUES: No acute abnormality. IMPRESSION: No evidence of acute abnormality. I have personally reviewed the images and I agree with this report. WSN: [id number] Ordering Physician: Alecia Gupta Dictated By: Chris Greenberg MD Dictated Date/Time: 04/29/24 3:45 pm Reviewed By: Dallas Masterson MD, V Signed By: Dallas Masterson MD, V Signed Date/Time: 04/29/24 3:50 pm Transcribed By: JASON Transcribed Date/Time: 04/29/24 3:43 pm Vital Signs Most recent to oldest [Reference Range]: 1 2 Height 178 cm (04/29/24 4:12 PM) 178 cm (04/29/24 1:12 PM) Weight 79 kg (04/29/24 4:12 PM) 79 kg (04/29/24 1:12 PM) Oxygen Saturation [94-100 %] 98 % (04/29/24 4:12 PM) 98 % (04/29/24 1:00 PM) Pulse Rate [55-90 bpm] 84 bpm (04/29/24 4:12 PM) 78 bpm (04/29/24 1:00 PM) Body Mass Index [18.5-24.99 kg/m2] 24.93 kg/m2 (04/29/24 4:12 PM) Blood Pressure [90-138/55-84 mm Hg] 139/ 83mm Hg *H* (04/29/24 4:12 PM) 132/92mm Hg (04/29/24 1:00 PM) Respiratory Rate [16-30 br/min] 19 br/mi n (04/29/24 4:12 PM) 19 br/min (04/29/24 1:00 PM) Temperature [96.8-100.4 DegF] 97.7 DegF (04/29/24 4:12 PM) 97.8 DegF (04/29/24 1:00 PM) Mode of Delivery (Oxygen) Room air (04/29/24 4:12 PM) Room air (04/29/24 1:00 PM) Temperature Route Oral (04/29/24 4:12 PM) Oral (04/29/24 1:00 PM) Dry Weight 79 kg (04/29/24 4:12 PM) 79 kg (04/29/24 1:12 PM) Weight Obtained Via Patient/family state d (04/29/24 1:12 PM) Dry Weight Obtained Via Patient/family s tated (04/29/24 1:12 PM) EKG study * Event Display: ECG 12-Lead Authored Date: Please click on pdf link to open report * Event Display: ECG 12-Lead Authored Date: Ventricular Rate: 55 BPM Atrial Rate: 55 BPM P-R Interval: 154 ms QRS Duration: 82 ms Q-T Interval: 416 ms QTC Calculation(Bazett): 397 ms P [place]: 58 degrees R [place]: 49 degrees T [place]: 63 degrees Sinus bradycardia Otherwise normal ECG When compared with ECG of 23-APR-2018 08:03, Minimal criteria for Septal infarct are no longer Present Confirmed by Ibrahima Saez ([id number]) on 04/29/2024 2:39:55 PM [place]: Ibrahima Saez Note * Alecia Gupta MD: PERFORM, SIGN, VERIFY Event Display: Patient Education Handout Authored Date: [id number] Patient Care team information Care Team Personnel Name: Sofia Monroe MD Position: S Outreach Member Role: PCP Address: Address: [address] [place] [address]- Care Team Related Persons Name: ABEL COATES Address: [address] [place] [address]
--- OUTSIDE RECORDS SUMMARY | 2024-06-07 18:35 | XMS_ITS ---
Author Organization [facility] Address [address] [place] [address] Care Team Providers Care Drafter Civil (Cad) Name Role Phone Fer MARTIN, Sofia Primary Care Provider Kurt Yeh Jr Unavailable ALLERGIES No Known Allergies REASON FOR VISIT Patient presents today for abdominal pain MEDICATIONS Medication SIG (Take, Route, Frequency, Duration) [...] 30 day(s) 01/13/2019 Active Vitamin D (Ergocalciferol) 19196 UNIT 1 capsule Orally once a week Active Atorvastatin Calcium 40 MG 1 tablet Oral ly Once a day for 30 day(s) Active IMMUNIZATIONS Vaccine Route Administration Date Status Comme nts Influenza Unknown 12/01/2023 Refused PROBLEMS Problem Type ICD Code Onset Dates Problem Status W/U Status Risk SNOMED Code Notes Problem Generalized abdominal pain (R10.84) Active confirmed 715079380 Problem Encounter for current fdc use of antiplatelet drug (Z79.02) Active confirmed 534415593286500 Problem Intermittent constipation (K59.09) Active confirmed 38648052 VITAL SIGNS BMI 24.34 kg/m2 12/01/2023 Blood pressure systolic 000 mm Hg 12/01/19 24 Blood pressure diastolic 00 mm Hg 024 Height 69.5 in 12/01/2023 Temperature 98.7 degrees Fahrenheit 02/26/20 24 Weight 167 lb 4 oz lbs 12/01/2023 Encounters Encounter Location Date Provider Diagnosis [facility] [address] [place] [address] 12/01/2023 Kurt Correia Jr Generalized abdominal pain R10.84 ; Gastroesophageal reflux disease without esophagitis K21.9 ; Encounter for current fdc use of antiplatelet drug Z79.02 and Intermittent constipation K59.09 ASSESSMENTS Encounter Date Diagnosis Assessment Notes Treatment Notes Treatment Clinical Notes 12/01/2023 Generalized abdomina l pain (ICD-10 - R10.84) Endoscopy material was printed 12/01/2023 Gastroesophageal ref lux disease without esophagitis (ICD-10 - K21.9) 12/01/2023 Encounter for curren t fdc use of antiplatelet drug (ICD-10 - Z79.02) 12/01/2023 Intermittent constipation (ICD-10 - K59.09) PLAN OF TREATMENT Treatment Notes Assessment Notes Generalized abdominal pain Endoscopy mat erial was printed Future Test Test Name Order Date UPPER GI ENDOSCOPY 12/01/2023 COLONOSCOPY 12/01/2023 Next Appt Details Follow Up: 1 Year, Reason: Progress Notes * Examination Category Sub-Category Detail Notes General Examination GENERAL APPEARANCE: in no ac denise distress HEAD: normocephalic EYES: sclera non-icteric NECK/THYROID: no lymphadenopathy HEART: S1, S2 normal, no mu rmurs CHEST: normal shape and exp ansion LUNGS: clear to auscultatio n bilaterally ABDOMEN: soft, nontender, non distended, bowel sounds present, no organomegaly SKIN: anicteric EXTREMITIES: no clubbing, cyanosi s, or edema PSYCH: cognitive function i ntact ORAL CAVITY: mucosa moist
[2024-06-07] MEDS: predniSONE 20 MG TABLET 60 MG PO (19:20)
[2024-06-07 19:26] VITALS: BP 148/79; PULSE 62; RESP 14; TEMP 36.8; O2SAT 99
[2024-06-07 19:27] VITALS: BP 148/79; PULSE 62; RESP 14; TEMP 36.8; O2SAT 99
== END 2024-06-07 19:27 | disposition home or self-care (01) ==
PROVIDERS: Physician Assistant Medical; Emergency Provider Emergency Medicine; PCP Family Medicine
DX: J40 Bronchitis, not specified as acute or chronic (principal); R05.9 Cough, unspecified; B20 Human immunodeficiency virus [HIV] disease; Z79.899 Other long term (current) drug therapy; Z03.818 Encounter for observation for suspected exposure to other biological agents ruled out
CPT/HCPCS: 0241U; 36415; 71046; 80053; 83735; 84484; 85025; 93005; 99283; 99284

== ENCOUNTER 2024-06-29 08:51 | Outpatient (REF) | payer MEDICARE, MEDICAID, SELFPAY ==
[2024-06-29 11:29] LABS: MANUAL DIFF FLAG NO
[2024-06-29 11:32] LABS: Basophils Percent Auto 0.5 % (0-2); Eosinophils Absolute Auto 0.1 X10*3/uL (0.0-0.4); Eosinophils Percent Auto 0.9 % (0-4); Hemoglobin 13.3 g/dl (14.0-18.0); Imm Gran Abs Auto 0.02 X10*3/uL (0.00-0.03); Imm Gran Pct Auto 0.4 % (0.0-0.4); Lymphocytes Absolute Auto 0.9 X10*3/uL (1.2-4.9); Mean Corpuscular HGB Conc 33.3 g/dl (31.0-36.0); Mean Corpuscular Hemoglobin 29.8 pg (27.0-33.0); Mean Corpuscular Volume 89.7 fL (80.0-98.0); Mean Platelet Volume 9.7 fL (9.4-12.4); Monocytes Absolute Auto 0.4 X10*3/uL (0.1-1.2); Monocytes Percent Auto 7.3 % (2-11); Neutrophils Percent Auto 73.9 % (45-73); Platelet Count 267 X10*3/uL (160-400); Red Blood Count 4.46 X10*6/uL (4.60-5.80); Red Cell Distribution Width 13.2 % (11.0-16.0); White Blood Count 5.5 X10*3/uL (4.8-10.8)
[2024-06-29 11:58] LABS: Alanine Aminotransferase 8 U/L (0-40); Albumin Level 4.3 g/dL (3.5-5.0); Alkaline Phosphatase 55 U/L (39-117); Anion Gap 10 (12-20); Aspartate Amino Transferase 16 U/L (5-37); Bilirubin Total 0.5 mg/dL (0.0-1.0); Blood Urea Nitrogen 16 mg/dL (9-16); Calcium 9.3 mg/dL (8.4-10.2); Carbon Dioxide 28 mmol/L (22-29); Chloride 105 mmol/L (96-108); Estimated Glomerular Filt Rate > 60; Glucose Random 120 mg/dL (60-115); Potassium 4.2 mmol/L (3.3-5.1); Sodium 139 mmol/L (135-145); Total Protein 6.9 g/dL (6.5-8.0)
[2024-07-01 16:53] LABS: HIV RNA PCR Qn Copies 54 copies/mL (NOT DETECTED); HIV RNA PCR Qn Log Copies 1.73 (NOT DETECTED)
[2024-07-03 16:43] LABS: Absolute CD3 Count 600 cells/uL (840-3060); Absolute CD4 Count 349 cells/uL (490-1740); Absolute CD8 Count 257 cells/uL (180-1170); Absolute Lymphocytes 851 cells/uL (850-3900); CD4 CD8 Ratio 1.36 (0.86-5.00); Percent CD3 Cells 70 % (57-85); Percent CD4 Cells 41 % (30-61); Percent CD8 Cells 30 % (12-42)
== END 2024-06-29 08:52 | disposition home or self-care (01) ==
LOC: HO.HHCL 08:51
PROVIDERS: Visit Provider Student in an Organized Health Care Education/Training Program
DX: B20 Human immunodeficiency virus [HIV] disease (principal)
CPT/HCPCS: 36415; 80053; 85025; 86359; 86360; 87536

== ENCOUNTER 2024-07-26 06:29 | Day surgery (SDC) | payer MEDICARE, MEDICAID, SELFPAY ==
[2024-07-22 10:42] VITALS: BMI 24.4
--- NOTE | 2024-07-22 13:52 | HO.ANESPROP2 ---
Documented by User: Violetta Saldivar NP 07/22/24 13:53 HPI - Anesthesia Eval Consult details Narrative: 63yo M for Left Cataract Extraction IOL Insertion No previous cataract on record. Medically managed CAD PMFSH Active Problems Active Problems: All Active Problems Overactive bladder (Acute) Nocturia more than twice per night (Acute) COVID-19 (Acute) Left wrist tendinitis (Acute) Left wrist pain (Acute) BPH (benign prostatic hyperplasia) (Acute) Past Medical History Medical History Cataract Bronchitis (06/07/24) Hx of pneumothorax (~1976) PAD (peripheral artery disease) Elevated cholesterol Asthma with COPD Vertigo GERD (gastroesophageal reflux disease) Depression Polysubstance abuse BPH (benign prostatic hyperplasia) Asthma HIV (human immunodeficiency virus infection) COPD (chronic obstructive pulmonary disease) Eczema Cervicalgia Family History Family history of problems with anesthesia: No Surgical History Surgical History Hx of surgical procedure (04/23/18) Hx of eye surgery (02/18/23) Hx of chest tube placement (~1976) History of esophagogastroduodenoscopy (EGD) (01/16/24) H/O colonoscopy (01/16/24) History of Problems with Anesthesia: No Social History Social History Household Members: None Housing: Apartment Are you a primary foster care social worker to a significant other at home: No Do you presently have visiting nurse or other home services: No Alcohol intake: never Patient Tobacco Use Status: Former Tobacco user Tobacco use type: Cigarette Smoked in Last 30 Days: No Have you been hit, kicked, punched, or otherwise hurt by someone within the past year? If so, by whom?: No Are you DNR?: No Advance Directives: No Advance Directives Information Provided: Yes Advance Directives on File: No Recently lost weight without trying: No Nutrition Risks: No Nutritional Risk Current occupational status: disabled Meds Allergies Allergy/AdvReac Type Severity Reaction Status Date / Time No Known Allergies Allergy Verified 06/07/24 14:35 Home Medications ?Medication ?Instructions ?Recorded ?Confirmed ?Last Taken ?Type albuterol sulfate 90 mcg/actuation 1 inh inhalation QID PRN Shortness 08/17/20 07/22/24 11/10/23 History aerosol inhaler Of Breath Or Wheezing aspirin 81 mg tablet,delayed 81 mg PO DAILY 08/17/20 07/22/24 01/11/24 History release (Ecotrin Low Strength) bictegravir 50 mg-emtricitabine 1 tab PO DAILY 07/12/21 07/22/24 01/15/24 History 200 mg-tenofovir alafenam 25 mg tablet (Biktarvy) ergocalciferol (vitamin D2) 1,250 1,250 mcg PO QWEEK 07/12/21 07/22/24 01/11/24 History mcg (50,000 unit) capsule ipratropium 20 mcg-albuterol 100 1 puff inhalation QID 01/10/22 07/22/24 11/10/23 History mcg/actuation mist for inhalation (Combivent Respimat) omeprazole 40 mg capsule,delayed 40 mg PO BEDTIME 01/10/22 07/22/24 01/15/24 History release amlodipine 5 mg tablet 5 mg PO DAILY 07/22/24 07/22/24 Unknown History atorvastatin 20 mg tablet 20 mg PO DAILY 07/22/24 07/22/24 Unknown History calcium carbonate 600 mg-vitamin 1 tab PO QAM 07/22/24 07/22/24 Unknown History D3 20 mcg (800 unit) tablet fluticasone propionate 50 1 spray intranasal QAM 07/22/24 07/22/24 Unknown History mcg/actuation nasal spray,suspension Exam Height,Weight and Vital Signs: Height 5 ft 10 in Weight 77.111 kg Assessment and Plan Assessment Anesthesia Assessment: Chart Reviewed Final Anesthetic Review Family History of Problems with Anesthesia: No History of Problems with Anesthesia: No Documented by User: Joann Garay MD 07/26/24 08:12 [facility] Past Medical History Medical History Cataract Bronchitis (06/07/24) Hx of pneumothorax (~1976) PAD (peripheral artery disease) Elevated cholesterol Asthma with COPD Vertigo GERD (gastroesophageal reflux disease) Depression Polysubstance abuse BPH (benign prostatic hyperplasia) Asthma HIV (human immunodeficiency virus infection) COPD (chronic obstructive pulmonary disease) Eczema Cervicalgia Surgical History Surgical History Hx of surgical procedure (04/23/18) Hx of eye surgery (02/18/23) Hx of chest tube placement (~1976) History of esophagogastroduodenoscopy (EGD) (01/16/24) H/O colonoscopy (01/16/24) Social History Social History Household Members: None Housing: Apartment Are you a primary foster care social worker to a significant other at home: No Do you presently have visiting nurse or other home services: No Alcohol intake: never Patient Tobacco Use Status: Former Tobacco user Tobacco use type: Cigarette Smoked in Last 30 Days: No Have you been hit, kicked, punched, or otherwise hurt by someone within the past year? If so, by whom?: No Are you DNR?: No Advance Directives: No Advance Directives Information Provided: Yes Advance Directives on File: No Recently lost weight without trying: No Nutrition Risks: No Nutritional Risk Current occupational status: disabled Meds Allergies Allergy/AdvReac Type Severity Reaction Status Date / Time No Known Allergies Allergy Verified 06/07/24 14:35 Home Medications ?Medication ?Instructions ?Recorded ?Confirmed ?Last Taken ?Type albuterol sulfate 90 mcg/actuation 1 inh inhalation QID PRN Shortness 08/17/20 07/22/24 11/10/23 History aerosol inhaler Of Breath Or Wheezing aspirin 81 mg tablet,delayed 81 mg PO DAILY 08/17/20 07/22/24 01/11/24 History release (Ecotrin Low Strength) bictegravir 50 mg-emtricitabine 1 tab PO DAILY 07/12/21 07/22/24 01/15/24 History 200 mg-tenofovir alafenam 25 mg tablet (Biktarvy) ergocalciferol (vitamin D2) 1,250 1,250 mcg PO QWEEK 07/12/21 07/22/24 01/11/24 History mcg (50,000 unit) capsule ipratropium 20 mcg-albuterol 100 1 puff inhalation QID 01/10/22 07/22/24 11/10/23 History mcg/actuation mist for inhalation (Combivent Respimat) omeprazole 40 mg capsule,delayed 40 mg PO BEDTIME 01/10/22 07/22/24 01/15/24 History release amlodipine 5 mg tablet 5 mg PO DAILY 07/22/24 07/22/24 Unknown History atorvastatin 20 mg tablet 20 mg PO DAILY 07/22/24 07/22/24 Unknown History calcium carbonate 600 mg-vitamin 1 tab PO QAM 07/22/24 07/22/24 Unknown History D3 20 mcg (800 unit) tablet fluticasone propionate 50 1 spray intranasal QAM 07/22/24 07/22/24 Unknown History mcg/actuation nasal spray,suspension Exam Airway Mallampati Class: II TM Dist: >3cm Neck ROM: Full Heart: rrr Lungs: cta Assessment and Plan Assessment Anesthesia Assessment: Anesthesia Plan Discussed Final Anesthetic Review NPO: Yes ASA Class: III Final Preanesthetic Review: No Changes in Pt Med Stat, Meds/Allgs Chart Reviewed, Consent Obtained/Reviewed and Anes Risks/Benef Reviewed Patient Risk: Intermediate Procedure Risk: Low Anesthetic Plan Anesthetic Plan: GA Disposition: Standard PACU
[2024-07-26] MEDS: Lactated Ringers 500 ML 50 ML IV (08:06)
[2024-07-26] MEDS: Tetracaine HCl/PF 0.5% Oph Sol 4 ML DROPS 1 DROP EYE-LEFT (08:07)
[2024-07-26] MEDS: Cyclopentolate 1 % Ophth Sol 2 ML DRPBTL 1 DROP EYE-LEFT ×3 (08:07→08:20)
[2024-07-26] MEDS: Tropicamide 1 % Ophth Sol 3 ML BTL 1 DROP EYE-LEFT ×3 (08:07→08:20)
[2024-07-26] MEDS: Ketorolac Tromethamine 0.5% Op 10 ML DROPS 1 DROP EYE-LEFT ×3 (08:07→08:20)
[2024-07-26] MEDS: Phenylephrine HCL 2.5% Oph SoL 2 ML BOTTLE 1 DROP EYE-LEFT ×3 (08:13→08:20)
[2024-07-26 08:27] VITALS: BP 126/66; PULSE 60; RESP 18; TEMP 36.7; O2SAT 98
--- NOTE | 2024-07-26 09:13 | MHC.SHP ---
Pre-Procedural Eval Section A - 24 Hr Update-Section A only Date of Service: 07/26/24 The patient is an INPATIENT: No Changes since office visit: No Cold of Flu in the past 2 weeks, No New Medical Problems, No Changes in Medication and No Patient answered all questions The patient has been examined within 24 hours of the surgical procedure. The History & Physical has been completed within 30 days and I have reviewed it.: Yes Section B - Complete if H&P > 30 days Chief Complaint: Age-related nuclear cataract, left eye Allergies: Allergies Allergy/AdvReac Type Severity Reaction Status Date / Time No Known Allergies Allergy Verified 07/26/24 08:28 Plan Diagnosis/Plan: Unchanged I have reviewed the history and physical and performed a pertinent physical examination on my patient. No changes have occurred unless specified. Time Spent With Patient Time: Total time managing care of this patient today ____ minutes.
--- NOTE | 2024-07-26 09:13 | HO.PNOPHT ---
Ophthalmology Procedure Procedure Date of Service: 07/26/24 Ophthalmology Viscoelastic: Healon Duet Dual Pack Pro Ophthalmology Lenses: IOL Acrysof MP - MA60AC (20.5) Procedure Notes: PREOPERATIVE DIAGNOSIS: Decreased visual acuity left eye secondary to cataract POSTOPERATIVE DIAGNOSIS: Same PROCEDURE: Left cataract extraction with intraocular lens insertion SURGEON: Michael Person M.D. ANESTHESIA: Topical/MAC ESTIMATED BLOOD LOSS: None COMPLICATIONS: loss of Zonular support After obtaining informed consent, the patient was brought to the operation room suite and placed in the supine position. After adequate sedation per anesthesia, topical drops of Tetracaine were given to the left eye. The eye was then prepped and draped in the usual sterile fashion. The operating room microscope was then positioned over the operative eye and a lid speculum placed. A paracentesis was created. Viscoelastic was then instilled into the anterior chamber. A three plane incision was then created temporally, utilizing a 2.85 mm keratome. Capsulotomy forceps were then utilized to create a circular tear capsulotomy. Hydrodissection and hydrodelineation were carried out until adequate mobilization of the nucleus occurred. Phacoemulsification was then utilized to remove the dense central nucleus followed by removal of the cortical material utilizing the automated aspiration irrigation unit. Loss of zonules was noted , a capsular ring was placed but I could not position it approately and it was removed. Ez PCIOL was placed in the sulcus.The wound was check and found to be watertight. The patient tolerated the procedure well and the lid speculum was removed. Intracameral injection of Vigamox 0.1 mL followed by a subtenon injection of Kenalog-40 0.2 mL were administered. The patient will be seen in the a.m.
[2024-07-26 09:59] VITALS: BP 101/64; PULSE 55; RESP 18; TEMP 36.2; O2SAT 96
[2024-07-26 10:08] VITALS: BP 125/71; RESP 18; O2SAT 98
== END 2024-07-26 10:25 | disposition home or self-care (01) ==
PROVIDERS: PCP Family Medicine; Visit Provider Ophthalmology
PROC: (CPT 66985; principal; 2024-07-26 09:30)
DX: H25.12 Age-related nuclear cataract, left eye (principal); H27.8 Other specified disorders of lens; H54.7 Unspecified visual loss; H26.8 Other specified cataract
CPT/HCPCS: 66982; J2003; J2250; J3010; J3301; V2630

== ENCOUNTER 2024-07-29 12:08 | Outpatient (AMB) | payer MEDICARE, MEDICAID, SELFPAY ==
--- NOTE | 2024-07-29 13:03 | MHC.OFFVIS ---
Intake Visit Reasons: 6M f/u PVR Intake Note: Patient is present for PVR Follow Up Urology Med: Oxybutynin, Doxazosin Antibiotic Allergy: None Blood Thinner: Aspirin Last PVR:0 Todays PVR: 0 Recent A1C- 05/2024 5.9 Last PSA: 2022 0.63 Allergies No Known Allergies Allergy (Verified 07/26/24 08:28) HPI Comments Details: Mervin is a pleasant male. He is a patient of Dr. Mays. He is here for the following urologic conditions - lower urinary tract symptoms Six-month follow-up Has been on oxybutynin with doxazosin PVR 40 cc Continue current medications 12 month Lower urinary tract symptoms Current visit is for further evaluation of lower urinary tract symptoms Current therapy low-dose doxazosin Prior therapy tamsulosin with retrograde ejaculation, failed alfuzosin PSA 01/23 0.8, 01/25 0.7, 01/26 0.7 Cystoscopy 08/28 normal Therapeutic plan trial doxazosin PFSH Medical History Cataract Bronchitis (06/07/24) Hx of pneumothorax (~1976) PAD (peripheral artery disease) Elevated cholesterol Asthma with COPD Vertigo GERD (gastroesophageal reflux disease) Depression Polysubstance abuse BPH (benign prostatic hyperplasia) Asthma HIV (human immunodeficiency virus infection) COPD (chronic obstructive pulmonary disease) Eczema Cervicalgia Surgical History Hx of surgical procedure (04/23/18) Hx of eye surgery (02/18/23) Hx of chest tube placement (~1976) History of esophagogastroduodenoscopy (EGD) (01/16/24) H/O colonoscopy (01/16/24) Social History Household Members: None Caregiver staying overnight: No Housing: Apartment Are you a primary patient care director to a significant other at home: No Do you presently have visiting nurse or other home services: No 75 years or older and lives alone: No Alcohol intake: never Patient Tobacco Use Status: Former Tobacco user Tobacco use type: Cigarette Use of substances other than those prescribed or required for medical reasons: No Advance Directives: No Advance Directives Information Provided: Yes Advance Directives on File: No Healthcare Proxy: No Current occupational status: disabled Review of Systems Const Denies chills and Denies fever(s) Card Reports no additional complaints and Denies syncope Resp Denies cough GI Denies abdominal pain and Denies heartburn Reports as per HPI and Denies change in libido Neuro Denies syncope Psych Denies change in libido Endo Denies change in libido Physical Exam Const General: cooperative, healthy appearing, comfortable and no acute distress Orientation/consciousness: patient oriented x3 HEENT Face and sinus: Yes normal facial exam Mouth: moist mucous membranes Neck Neck: Yes normal visual inspection, Yes full ROM and Yes trachea midline Chest Chest palpation & inspection: normal inspection of the chest Resp Effort & Inspection: normal respiratory effort, able to speak in complete sentences and no respiratory distress GI Inspection: Yes normal to inspection Back/Spine/Pelvis Cervical Spine: normal cervical lordosis Thoracic/Lumbar Spine: thoracic and lumbar spine normal to inspection Skin General skin exam: no rashes or lesions noted Neuro General: patient oriented x3, gait normal, tone normal and moves all extremities Extrem General: Yes normal to inspection and Yes capillary refill normal Office Procedures Post Void Residual Post Residual Void Post Void Residual (PVR): 0 [id number]-[id number] Void Residual by ultrasound Assessment & Plan Assessment & Plan (1) Nocturia more than twice per night: Code(s): R35.1 - Nocturia Category: Medical (2) BPH (benign prostatic hyperplasia): Code(s): N40.0 - Benign prostatic hyperplasia without lower urinary tract symptoms Category: Medical (3) Overactive bladder: Code(s): N32.81 - Overactive bladder Category: Medical Plan Twelve month follow-up Orders: Orders AMB Post Void Residual by ultrasound Today N32.81 - Overactive bladder Prostate Specific Antigen Today N32.81 - Overactive bladder Medications: Refilled oxybutynin chloride ER 5 mg PO DAILY 90 days 90 tabs 3RF N32.81 - Overactive bladder, R39.15 - Urgency of urination doxazosin 2 mg PO BEDTIME 90 days 90 tabs 3RF R35.1 - Nocturia Patient Instructions: Imaging studies, laboratory and physical exam results were discussed and reviewed in detail. No major barriers to patient understanding were identified. An opportunity to ask questions regarding the treatment plan was provided. All questions were answered. The patient expressed understanding and agreement with the above treatment plan. The patient is aware they should contact our office by phone for worsening of their current condition or the appearance of new urologic symptoms. Compliance is encouraged with any medications and followup testing that is ordered. It is a privilege to participate in the urologic care of your patient. If you have any questions or concerns regarding treatment for the above conditions, or other urologic issues, please do not hesitate to contact me. The office telephone contact is [phone]. This note is constructed using voice recognition software. While every effort has been made to ensure accuracy audio installer errors may have been included. Yours sincerely, Dr Jag Abraham MD, MARK [facility] - Urology Providers of Expert, Compassionate Care for the Genitourinary System Coding Level of Care Code Est Pt Level 3 (27573) Diagnoses Nocturia more than twice per night R35.1 BPH (benign prostatic hyperplasia) N40.0 Overactive bladder N32.81 CPT Codes Post Residual Void - PVR CPT Code: 43423-Mapo Void Residual by ultrasound ([id number])
== END 2024-07-29 13:22 | disposition home or self-care (01) ==
PROVIDERS: PCP Family Medicine; Visit Provider Urology
DX: R35.1 Nocturia (principal); N40.0 Benign prostatic hyperplasia without lower urinary tract symptoms; N32.81 Overactive bladder
CPT/HCPCS: 99213

== ENCOUNTER → 2024-07-29 12:08 | Outpatient (BNVA) | payer MEDICARE, MEDICAID, SELFPAY | PROVIDERS: PCP Family Medicine; Visit Provider Urology | DX: N40.1 Benign prostatic hyperplasia with lower urinary tract symptoms (principal); R35.1 Nocturia; N32.81 Overactive bladder; R39.15 Urgency of urination; Z79.899 Other long term (current) drug therapy | CPT/HCPCS: 51798; 99212 ==

== ENCOUNTER 2024-08-09 16:27 | Outpatient (REF) | payer MEDICARE, MEDICAID, SELFPAY ==
[2024-08-10 05:28] LABS: CT PCR NOT DETECTED (Not Detect.); NG PCR NOT DETECTED (Not Detect.)
== END 2024-08-09 16:28 | disposition home or self-care (01) ==
LOC: HO.HHCLNP 16:27
PROVIDERS: Visit Provider Student in an Organized Health Care Education/Training Program
DX: Z21 Asymptomatic human immunodeficiency virus [HIV] infection status (principal); Z11.3 Encounter for screening for infections with a predominantly sexual mode of transmission
CPT/HCPCS: 87491; 87591

== ENCOUNTER 2024-10-04 20:47 | Emergency (ER) | payer MEDICARE, MEDICAID, SELFPAY ==
--- NOTE | ~2024-10-04 | XR_ITS ---
CLINICAL HISTORY: pain 2 view chest x-ray Comparison: 06/07/2024 Findings: No consolidation or effusion. Heart size is normal. No acute fracture. IMPRESSION: 1. No acute findings. This document has been electronically signed by: Justin Wayne MD on 10/04/2024 21:51:51
--- NOTE | 2024-10-04 20:49 | ED.GENADULT ---
HPI - General Adult General Chief complaint: Chest Pain Stated complaint: chest ,arm pain Time Seen by Provider: 10/05/24 02:24 Source: patient Mode of arrival: ambulatory Limitations: no limitations History of Present Illness ED Provider: Dr. Zeke Goff HPI narrative: 63-year-old male with a history of COPD, HIV, PID, GERD, polysubstance use disorder, eczema who presents emergency department for evaluation of intermittent chest pain x3 days. The patient states that he has been experiencing 2-3 episodes of chest pain per day. He states that they come on at rest. The chest pain lasts for proximally 2-3 minutes. The chest pain is worse with movement and with breathing. The pain does occasionally radiate to his back into his shoulders bilaterally. Patient states he also feels short of breath when he gets the pain. Patient states he has had similar pain in the past but has not received a diagnosis. He denied fever, chills. He states that he has a chronic cough which is unchanged. Denied nausea, vomiting, diarrhea. Related Data Home Medications ?Medication ?Instructions ?Recorded ?Confirmed albuterol sulfate 90 mcg/actuation 1 inh inhalation QID PRN Shortness 08/17/20 07/29/24 aerosol inhaler Of Breath Or Wheezing aspirin 81 mg tablet,delayed 81 mg PO DAILY 08/17/20 07/29/24 release (Ecotrin Low Strength) bictegravir 50 mg-emtricitabine 1 tab PO DAILY 07/12/21 07/29/24 200 mg-tenofovir alafenam 25 mg tablet (Biktarvy) ergocalciferol (vitamin D2) 1,250 1,250 mcg PO QWEEK 07/12/21 07/29/24 mcg (50,000 unit) capsule ipratropium 20 mcg-albuterol 100 1 puff inhalation QID 01/10/22 07/29/24 mcg/actuation mist for inhalation (Combivent Respimat) omeprazole 40 mg capsule,delayed 40 mg PO BEDTIME 01/10/22 07/29/24 release amlodipine 5 mg tablet 5 mg PO DAILY 07/22/24 07/29/24 atorvastatin 20 mg tablet 20 mg PO DAILY 07/22/24 07/29/24 calcium 600 mg (as 1 tab PO QAM 07/22/24 07/29/24 carbonate)-vitamin D3 20 mcg (800 unit) tablet fluticasone propionate 50 1 spray intranasal QAM 07/22/24 07/29/24 mcg/actuation nasal spray,suspension Previous Rx's ?Medication ?Instructions ?Recorded doxazosin 2 mg tablet 2 mg PO BEDTIME 90 days #90 tabs 07/29/24 oxybutynin chloride 5 mg 5 mg PO DAILY 90 days #90 tabs 07/29/24 tablet,extended release 24 hr Allergies Allergy/AdvReac Type Severity Reaction Status Date / Time No Known Allergies Allergy Verified 10/04/24 21:15 Review of Systems Review of Systems: Yes all other systems are reviewed and are negative [facility] Past Medical History Medical History Cataract Bronchitis (06/07/24) Hx of pneumothorax (~1976) PAD (peripheral artery disease) Elevated cholesterol Asthma with COPD Vertigo GERD (gastroesophageal reflux disease) Depression Polysubstance abuse BPH (benign prostatic hyperplasia) Asthma HIV (human immunodeficiency virus infection) COPD (chronic obstructive pulmonary disease) Eczema Cervicalgia Surgical History Hx of surgical procedure (04/23/18) Hx of eye surgery (02/18/23) Hx of chest tube placement (~1976) History of esophagogastroduodenoscopy (EGD) (01/16/24) H/O colonoscopy (01/16/24) Social History Social History Household Members: None Housing: Apartment Are you a primary life care planner to a significant other at home: No Do you presently have visiting nurse or other home services: No Alcohol intake: never Patient Tobacco Use Status: Former Tobacco user Tobacco use type: Cigarette Current occupational status: disabled Physical Exam ED Vital Signs: Vital Signs - 24 hr 10/04/24 21:14 10/05/24 02:00 Temperature 97.9 F 97.7 F Pulse Rate 68 52 Respiratory Rate 18 16 Blood Pressure 142/82 H 114/72 Pulse Oximetry 97 97 Oxygen Delivery Method Room Air Room Air BMI result Body Mass Index 26.6 Vital signs revealed an elevated blood pressure of 142/82 otherwise unremarkable Exam: General: Awake, alert in no distress Head: Normocephalic, atraumatic EENT: PERRL, Lids normal, sclera normal, conjunctiva normal, nose normal , ears normal, throat without erythema or exudates Neck: Supple, no adenopathy Lung: breath sounds symmetric, no wheezing, rales or rhonchi Chest: symmetric movement, moderate tenderness palpation over the costochondral joints of the anterior chest Heart: regular rate and rhythm, normal S1, S2 no murmurs or rubs Abdomen: soft, non-tender, nondistended, normal bowel sounds Back: no vertebral tenderness, no CVAT Extremities: no deformities, moves all extremities symmetrically Neuro: Awake, alert, oriented, normal speech, cranial nerves intact, moves all extremities symmetrically Psych: Pleasant, cooperative Medical Decision Making Medical Decision Making MDM Narrative: 63-year-old male with a history of COPD, HIV, PID, GERD, polysubstance use disorder, eczema who presents emergency department for evaluation of intermittent chest pain x3 days. The he patient has proximally 2-3 episodes per day for the past 3 days, episodes last 2-3 minutes, sometimes associated with bilateral shoulder and back pain as well as shortness of breath. Pain is worse with breathing. Pain comes on at rest and does not come on with exertion. Patient has had similar pain in the past. Vital signs revealed an elevated blood pressure. Physical examination did reveal tenderness palpation of the costochondral joints in the anterior chest. Differential diagnosis: ?Includes but is not limited to myocardial infarction, myocardial ischemia, pneumonia, COPD exacerbation, musculoskeletal pain costochondritis, pleurisy Course: 02:50 The patient was laboratory evaluation did not reveal any significant abnormalities. Patient's chest x-ray did reveal an elevated left hemidiaphragm which was present on a previous chest x-ray on 06/29/2024, chest x-ray was otherwise was unremarkable. Twelve EKG was unremarkable. The patient's chest pain is very atypical for cardiac pain in his more consistent with musculoskeletal/costochondritis and I did discuss this with the patient. Patient was advised to continue taking Tylenol for pain. He was also advised to take ibuprofen 400 mg every 6 hours as needed for pain. He was given printed and verbal instructions and discharged home. Admission/Observation Consideration of admission/observation: Escalation of care including admission/observation considered (Yes) Lab Data [facility] Lab Attestation statement: I reviewed the patient's lab results. My interpretation the patient's laboratory evaluation is as follows: Normocytic anemia with an H&H of 12 and 36.9. Elevated glucose 135. LFTs were normal. Troponin was below detectable limits. COVID-19, influenza and RSV were negative. 10/04/24 21:01 10/04/24 21:01 Labs: Lab Results 10/04/24 10/04/24 Range/Units 21:01 21:02 WBC 6.4 (4.8-10.8) X10*3/uL RBC 4.16 L (4.60-5.80) X10*6/uL Hgb 12.5 L (14.0-18.0) g/dl Hct 36.9 L (42.0-52.0) % MCV 88.7 (80.0-98.0) fL MCH 30.0 (27.0-33.0) pg MCHC 33.9 (31.0-36.0) g/dl RDW 13.1 (11.0-16.0) % Plt Count 210 (160-400) X10*3/uL MPV 9.2 L (9.4-12.4) fL Immature Gran % (Auto) 0.2 (0.0-0.4) % Neut % (Auto) 55.0 (45-73) % Lymph % (Auto) 33.5 (20-40) % [place] % (Auto) 8.5 (2-11) % Eos % (Auto) 2.2 (0-4) % Baso % (Auto) 0.6 (0-2) % Lymph # (Auto) 2.2 (1.2-4.9) X10*3/uL [place] # (Auto) 0.6 (0.1-1.2) X10*3/uL Eos # (Auto) 0.1 (0.0-0.4) X10*3/uL Baso # (Auto) 0.0 (0.0-0.2) X10*3/uL Abs Immat Gran (auto) 0.01 (0.00-0.03) X10*3/uL Absolute Neuts (auto) 3.5 (2.0-8.3) x10*3/uL Absolute Nucleated RBC 0.000 (0.0-0.012) X10*3/uL Nucleated RBC % (auto) 0.0 (0.0-0.2) /100WBC PT 11.7 (10.9-12.4) SEC INR 1.0 (0.9-1.1) Sodium 141 (135-145) mmol/L Potassium 3.7 (3.3-5.1) mmol/L Chloride 111 H (96-108) mmol/L Carbon Dioxide 23 (22-29) mmol/L Anion Gap 11 L (12-20) BUN 15 (9-16) mg/dL Creatinine 0.94 (0.5-1.4) mg/dL Estim Creat Clear Calc 75.7 Estimated GFR > 60 Random Glucose 135 H (60-115) mg/dL Calcium 8.7 D (8.4-10.2) mg/dL Total Bilirubin 0.3 (0.0-1.0) mg/dL AST 18 (5-37) U/L ALT 13 (0-40) U/L Alkaline Phosphatase 50 (39-117) U/L Troponin I High Sens < 2.7 (<3.5-35.0) ng/L Total Protein 6.7 (6.5-8.0) g/dL Albumin 4.2 (3.5-5.0) g/dL Lipase 38 (8-78) U/L Influenza Type A (PCR) NEGATIVE (Negative) Influenza Type B (PCR) NEGATIVE (Negative) RSV RNA Qual (PCR) NEGATIVE (Negative) SARS-CoV-2 RNA (RT-PCR) NEGATIVE (Negative) Independent Interpretation I performed an independent interpretation of an: EKG Interpretation: My independent interpretation of the patient's 12 EKG done at 20:56 hours is as follows: Normal sinus rhythm with a rate of 70, normal WA interval, QRS duration QTC interval, no ST segment elevation, no ST segment depression, no significant T-wave abnormalities, no PACs, no PVCs, poor R-wave progression V1 to V2. Compared to EKG dated 06/07/2024 poor R-wave progression was not present, today's finding is most likely caused by lead placement. My independent interpretation of the patient's two view chest x-ray is as follows: No acute infiltrates, elevated left hemidiaphragm present on previous x-ray. Radiology Impression Discussion of test interpretation with radiology: I have reviewed the radiologist's reading. Radiologist Impression: 2 view chest x-ray Comparison: 06/07/2024 Findings: No consolidation or effusion. Heart size is normal. No acute fracture. IMPRESSION: 1. No acute findings. This document has been electronically signed by: Justin Wayne MD on 10/04/2024 21:51:51 Chronic Conditions Patient?s care impacted by: Other (HIV disease, COPD) Discharge Plan Discharge Clinical Impression: Acute costochondritis Patient Disposition: Home, Self-Care Instructions: Costochondritis (ED) Additional Instructions: Your blood work was normal which is reassuring. Your EKG was normal as well. Your COVID, influenza and RSV tests were negative. Your chest x-ray revealed no signs of pneumonia or infection. At this time, I believe that your pain is caused by inflammation of the joints of your chest (costochondritis) Take ibuprofen 200 mg pills, 2 pills every 6 hours as needed for pain. Take Tylenol (acetaminophen) 500 mg pills, 2 pills every 6 hours as needed for pain or fever. Follow-up with your doctor in 2 days. Please return to the emergency department if your symptoms get worse or if you develop any symptoms that are concerning to you. Prescriptions: No Action atorvastatin 20 mg tablet 20 mg PO DAILY amlodipine 5 mg tablet 5 mg PO DAILY fluticasone propionate 50 mcg/actuation spray,suspension 1 spray intranasal QAM calcium carbonate-vitamin D3 600 mg-20 mcg (800 unit) tablet 1 tab PO QAM aspirin [Ecotrin Low Strength] 81 mg tablet,delayed release (DR/EC) 81 mg PO DAILY albuterol sulfate 90 mcg/actuation HFA aerosol inhaler 1 inh inhalation QID PRN (Reason: Shortness Of Breath Or Wheezing) Biktarvy 50-200-25 mg tablet 1 tab PO DAILY ergocalciferol (vitamin D2) 1,250 mcg (50,000 unit) capsule 1,250 mcg PO QWEEK Combivent Respimat 20-100 mcg/actuation mist 1 puff inhalation QID omeprazole 40 mg capsule,delayed release(DR/EC) 40 mg PO BEDTIME oxybutynin chloride 5 mg tablet extended release 24hr 5 mg PO DAILY 90 Days Qty: 90 3RF doxazosin 2 mg tablet 2 mg PO BEDTIME 90 Days Qty: 90 3RF Print Language: Syriac
--- NOTE | 2024-10-04 20:50 | ECG_ITS ---
Test Reason : CP Blood Pressure : / mmHG Vent. Rate : 070 BPM Atrial Rate : 070 BPM P-R Int : 138 ms QRS Dur : 086 ms QT Int : 380 ms P-R-T Axes : 009 052 061 degrees QTc Int : 410 ms Normal sinus rhythm Septal infarct , age undetermined Abnormal ECG When compared with ECG of 07-JUN-2024 14:23, No significant change was found Referred By: Jim Castillo Electronically Signed By:ASIF CARVALHO MD
--- OUTSIDE RECORDS SUMMARY | 2024-10-04 20:50 | XMS_ITS ---
Author Organization [facility] Address [address] [place] [address] Care Team Providers Care Functional Tester Typewriters Name Role Phone Fer MARTIN, Sofia Primary Care Provider Kurt Yeh Jr Unavailable PROBLEMS Problem Type ICD Code Onset Dates Problem Status W/U Status Risk SNOMED Code Notes Problem Chronic GERD (K21.9) Active confirmed Gastroesophagea l reflux disease (disorder) (505420459) Encounters Encounter Location Date Provider Diagnosis [facility] Outpatient [address] [place] [address] [phone] 01/16/2024 Kurt Correia Jr Other constipation K59.09 ; Abdominal pain, generalized R10.84 and Chronic GERD K21.9 ASSESSMENTS Encounter Date Diagnosis Assessment Notes Treatment Notes Treatment Clinical Notes 01/16/2024 Other constipation (ICD-10 - K59.09) 01/16/2024 Abdominal pain, generalized (ICD-10 - R10.84) 01/16/2024 Chronic GERD (ICD-10 - K21.9) PLAN OF TREATMENT No Information
--- OUTSIDE RECORDS SUMMARY | 2024-10-04 20:50 | XMS_ITS ---
Author Organization [facility] Address [address] [place] [address] Care Team Providers Care Document Photographer Name Role Phone Fer MARTIN, Sofia Primary [...] 30 day(s) 01/13/2019 Active Vitamin D (Ergocalciferol) 35332 UNIT 1 capsule Orally once a week Active Atorvastatin Calcium 40 MG 1 tablet Oral ly Once a day for 30 day(s) Active IMMUNIZATIONS Vaccine Route Administration Date Status Comme nts Influenza Unknown 12/01/2023 Refused PROBLEMS Problem Type ICD Code Onset Dates Problem Status W/U Status Risk SNOMED Code Notes Problem Generalized abdominal pain (R10.84) Active confirmed 031873529 Problem Encounter for current skilled nursing use of antiplatelet drug (Z79.02) Active confirmed 360092557529492 Problem Intermittent constipation (K59.09) Active confirmed 08691075 VITAL SIGNS BMI 24.34 kg/m2 12/01/2023 Blood pressure systolic 000 mm Hg 12/01/19 24 Blood pressure diastolic 00 mm Hg 024 Height 69.5 in 12/01/2023 Temperature 98.7 degrees Fahrenheit 02/26/20 24 Weight 167 lb 4 oz lbs 12/01/2023 Encounters Encounter Location Date Provider Diagnosis [facility] [address] [place] [address] 12/01/2023 Kurt Correia Jr Generalized abdominal pain R10.84 ; Gastroesophageal reflux disease without esophagitis K21.9 ; Encounter for current skilled nursing use of antiplatelet drug Z79.02 and Intermittent constipation K59.09 ASSESSMENTS Encounter Date Diagnosis Assessment Notes Treatment Notes Treatment Clinical Notes 12/01/2023 Generalized abdomina l pain (ICD-10 - R10.84) Endoscopy material was printed 12/01/2023 Gastroesophageal ref lux disease without esophagitis (ICD-10 - K21.9) 12/01/2023 Encounter for curren t skilled nursing use of antiplatelet drug (ICD-10 - Z79.02) [...]
--- OUTSIDE RECORDS SUMMARY | 2024-10-04 20:50 | XMS_ITS | Patient Health Record ---
Author Organization [facility] Address [address] [place] [address] Care Team Providers Care Pump And Blower Operator Name Role Phone Fer MARTIN, Sofia Primary Care Provider Kurt Yeh Jr Unavailable ALLERGIES No Known Allergies RESULTS Component Value Reference Range Notes Pathology Reviewed date:01/29/2024 09:48:04 AM Interpretation: Performing Lab:[facility], [address] [place] [address] Notes/Report: REASON FOR REFERRAL No Information MEDICATIONS [...] 30 day(s) 01/13/2019 Active Vitamin D (Ergocalciferol) 04934 UNIT 1 capsule Orally once a week [...] Problem Colon cancer screening (Z12.11) Active confirmed 902511232 Problem Epigastric pain (R10.13) Active confirmed 78096578 Problem Slow transit constipation (K59.01) Active confirmed 26413998 Problem Generalized abdominal pain (R10.84) Active confirmed 872913420 Problem [facility] (current) use of aspirin (Z79.82) Active confirmed 688993447 Problem Gastroesophageal reflux disease without esophagitis (K21.9) Active confirmed 755702660 Problem 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 of antiplatelet drug (Z79.02) Active confirmed 045306842384706 Problem Chronic GERD (K21.9) Active confirmed Gastroesophagea l reflux disease (disorder) (183407610) Problem Intermittent constipation (K59.09) Active confirmed 71972095 VITAL SIGNS Temperature 98.7 degrees Fahrenheit 12/01/2023 Blood pressure diastolic 00 mm Hg 12/01/2023 Height 69.5 in 12/01/2023 Blood pressure systolic 000 mm Hg 12/01/2023 Weight 167 lb 4 oz lbs 12/01/2023 BMI 24.34 kg/m2 12/01/2023 Encounters Encounter Location Date Provider Diagnosis [facility] Outpatient [address] [place] [phone] 01/16/2024 Kurt Correia Jr Other constipation K59.09 ; Abdominal pain, generalized R10.84 and Chronic GERD K21.9 [facility] [address] [place] [phone] 12/01/2023 Kurt Correia Jr Generalized abdominal pain R10.84 ; Gastroesophageal reflux disease without esophagitis K21.9 ; 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 of antiplatelet drug Z79.02 and Intermittent constipation K59.09 [facility] [address] [place] [phone] 01/29/2024 Kurt Correia Jr ASSESSMENTS Encounter Date Diagnosis Assessment Notes Treatment Notes Treatment Clinical Notes 01/16/2024 Other constipation (ICD-10 - K59.09) 01/16/2024 Abdominal pain, generalized (ICD-10 - R10.84) 12/01/2023 Generalized abdomina l pain (ICD-10 - R10.84) Endoscopy material was printed 12/01/2023 Gastroesophageal ref lux disease without esophagitis (ICD-10 - K21.9) 01/16/2024 Chronic GERD (ICD-10 - K21.9) 12/01/2023 Encounter for curren t terminal 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 of antiplatelet drug (ICD-10 - Z79.02) [...] Date MEDICARE OF [place] [address] [place] [address] [id number] ROSALES DIANA Self - patient is the insured MEDICAID [facility] [address] [facility] [place] [address] [id number] ROSALESENDERDIANA Self - patient is the insured MEDICAL [...]
[2024-10-04 21:09] LABS: Basophils Percent Auto 0.6 % (0-2); Eosinophils Absolute Auto 0.1 X10*3/uL (0.0-0.4); Eosinophils Percent Auto 2.2 % (0-4); Hematocrit 36.9 % (42.0-52.0); Hemoglobin 12.5 g/dl (14.0-18.0); Imm Gran Abs Auto 0.01 X10*3/uL (0.00-0.03); Imm Gran Pct Auto 0.2 % (0.0-0.4); Lymphocytes Absolute Auto 2.2 X10*3/uL (1.2-4.9); Lymphocytes Percent Auto 33.5 % (20-40); MANUAL DIFF FLAG NO; Mean Corpuscular HGB Conc 33.9 g/dl (31.0-36.0); Mean Corpuscular Volume 88.7 fL (80.0-98.0); Mean Platelet Volume 9.2 fL (9.4-12.4); Monocytes Absolute Auto 0.6 X10*3/uL (0.1-1.2); Monocytes Percent Auto 8.5 % (2-11); Neutrophils Absolute Auto 3.5 x10*3/uL (2.0-8.3); Platelet Count 210 X10*3/uL (160-400); Red Blood Count 4.16 X10*6/uL (4.60-5.80); Red Cell Distribution Width 13.1 % (11.0-16.0); White Blood Count 6.4 X10*3/uL (4.8-10.8)
[2024-10-04 21:14] VITALS: BP 142/82; PULSE 68; RESP 18; TEMP 36.6; O2SAT 97; BMI 26.6
[2024-10-04 21:14] LABS: Prothrombin Time 11.7 SEC (10.9-12.4)
[2024-10-04 21:23] LABS: Alanine Aminotransferase 13 U/L (0-40); Albumin Level 4.2 g/dL (3.5-5.0); Alkaline Phosphatase 50 U/L (39-117); Anion Gap 11 (12-20); Aspartate Amino Transferase 18 U/L (5-37); Bilirubin Total 0.3 mg/dL (0.0-1.0); Blood Urea Nitrogen 15 mg/dL (9-16); Calcium 8.7 mg/dL (8.4-10.2); Carbon Dioxide 23 mmol/L (22-29); Chloride 111 mmol/L (96-108); Creatinine Clr Calc Pharmacy 75.7; Estimated Glomerular Filt Rate > 60; Glucose Random 135 mg/dL (60-115); Lipase 38 U/L (8-78); Potassium 3.7 mmol/L (3.3-5.1); Sodium 141 mmol/L (135-145); Total Protein 6.7 g/dL (6.5-8.0)
[2024-10-04 21:30] LABS: Troponin-I High Sensitivity < 2.7 ng/L (<3.5-35.0)
[2024-10-04 21:46] LABS: Influenza A PCR NEGATIVE (Negative); Influenza B PCR NEGATIVE (Negative); Resp Syncy Virus RNA Qual PCR NEGATIVE (Negative); SARS COV2 PCR INHOUSE NEGATIVE (Negative)
[2024-10-05 02:00] VITALS: BP 114/72; PULSE 52; RESP 16; TEMP 36.5; O2SAT 97
[2024-10-05 02:49] VITALS: BP 0/0; PULSE 0; RESP 0; TEMP -17.7; TEMP 0; O2SAT 0
--- OUTSIDE RECORDS SUMMARY | 2024-10-05 02:56 | XMS_ITS ---
Author Organization [facility] Address [address] [place] [address] Care Team Providers Care Armature Winder Repairer Name Role Phone Fer MARTIN, Sofia Primary Care Provider Kurt Yeh Jr Unavailable [phone] ALLERGIES No Known Allergies REASON FOR VISIT [...] 30 day(s) 01/13/2019 Active Vitamin D (Ergocalciferol) 14839 UNIT 1 capsule Orally once a week Active Atorvastatin Calcium 40 MG 1 tablet Oral ly Once a day for 30 day(s) Active IMMUNIZATIONS Vaccine Route Administration Date Status Comme nts Influenza Unknown 12/01/2023 Refused PROBLEMS Problem Type ICD Code Onset Dates Problem Status W/U Status Risk SNOMED Code Notes Problem Generalized abdominal pain (R10.84) Active confirmed 648831359 Problem Encounter for current care home use of antiplatelet drug (Z79.02) Active confirmed 356659644715035 Problem Intermittent constipation (K59.09) Active confirmed 86422853 VITAL SIGNS BMI 24.34 kg/m2 12/01/2023 Blood pressure systolic 000 mm Hg 12/01/19 24 Blood pressure diastolic 00 mm Hg 024 Height 69.5 in 12/01/2023 Temperature 98.7 degrees Fahrenheit 02/26/20 24 Weight 167 lb 4 oz lbs 12/01/2023 Encounters Encounter Location Date Provider Diagnosis [facility] [address] [place] [address] 12/01/2023 Kurt Correia Jr Generalized abdominal pain R10.84 ; Gastroesophageal reflux disease without esophagitis K21.9 ; Encounter for current care home use of antiplatelet drug Z79.02 and Intermittent constipation K59.09 ASSESSMENTS Encounter Date Diagnosis Assessment Notes Treatment Notes Treatment Clinical Notes 12/01/2023 Generalized abdomina l pain (ICD-10 - R10.84) Endoscopy material was printed 12/01/2023 Gastroesophageal ref lux disease without esophagitis (ICD-10 - K21.9) 12/01/2023 Encounter for curren t care home use of antiplatelet drug (ICD-10 - Z79.02) [...]
--- OUTSIDE RECORDS SUMMARY | 2024-10-05 02:56 | XMS_ITS ---
Author Organization [facility] Address [address] [place] [address] Care Team Providers Care Marketing Lead Name Role Phone Fer MARTIN, Sofia Primary Care Provider Kurt Yeh Jr Unavailable [phone] PROBLEMS Problem Type ICD Code Onset Dates Problem Status W/U Status Risk SNOMED Code Notes Problem Chronic GERD (K21.9) Active confirmed Gastroesophagea l reflux disease (disorder) (783806080) Encounters Encounter Location Date Provider Diagnosis [facility] [place] [place] Outpatient [address] [place] [phone] 01/16/2024 Kurt Correia Jr Other constipation K59.09 ; Abdominal pain, generalized R10.84 and Chronic GERD K21.9 ASSESSMENTS Encounter Date Diagnosis Assessment Notes Treatment Notes Treatment Clinical Notes 01/16/2024 Other constipation (ICD-10 - K59.09) 01/16/2024 Abdominal pain, generalized (ICD-10 - R10.84) 01/16/2024 Chronic GERD (ICD-10 - K21.9) PLAN OF TREATMENT No Information
--- OUTSIDE RECORDS SUMMARY | 2024-10-05 02:56 | XMS_ITS ---
Author Organization [facility] Address [address] [place] [address] Care Team Providers Care Orthotics Prosthetics Assistant Name Role Phone Fer MARTIN, Sofia Primary Care Provider Kurt Yeh Jr REASON FOR VISIT pathology/10 yr colon recall please Encounters Encounter Location Date Provider Diagnosis [facility] [address] [place] [address] 01/29/2024 Kurt Correia Jr PLAN OF TREATMENT No Information
--- OUTSIDE RECORDS SUMMARY | 2024-10-05 02:56 | XMS_ITS | Patient Health Record ---
Author Organization [facility] Address [address] [place] [address] Care Team Providers Care Basket Braider Name Role Phone Fer MARTIN, Sofia Primary Care Provider Kurt Yeh Jr Unavailable [phone] ALLERGIES No Known Allergies RESULTS Component Value Reference Range Notes Pathology Reviewed date:01/29/2024 09:48:04 AM Interpretation: Performing Lab:[facility], [address] [place] [address] Notes/Report: REASON FOR REFERRAL No Information MEDICATIONS [...] 30 day(s) 01/13/2019 Active Vitamin D (Ergocalciferol) 84262 UNIT 1 capsule Orally once a week [...] Problem Colon cancer screening (Z12.11) Active confirmed 100602971 Problem Epigastric pain (R10.13) Active confirmed 41786570 Problem Slow transit constipation (K59.01) Active confirmed 73534311 Problem Generalized abdominal pain (R10.84) Active confirmed 488876316 Problem FPC (current) use of aspirin (Z79.82) Active confirmed 190428375 Problem Gastroesophageal reflux disease without esophagitis (K21.9) Active confirmed 633129982 Problem Encounter for current termination clerk use of antiplatelet drug (Z79.02) Active confirmed 786829925736475 Problem Chronic GERD (K21.9) Active confirmed Gastroesophagea l reflux disease (disorder) (794439107) Problem Intermittent constipation (K59.09) Active confirmed 25562527 VITAL SIGNS Temperature 98.7 degrees Fahrenheit 12/01/2023 Blood pressure diastolic 00 mm Hg 12/01/2023 Height 69.5 in 12/01/2023 Blood pressure systolic 000 mm Hg 12/01/2023 Weight 167 lb 4 oz lbs 12/01/2023 BMI 24.34 kg/m2 12/01/2023 Encounters Encounter Location Date Provider Diagnosis [facility] Out[facility] [address] [place] [phone] 01/16/2024 Kurt Correia Jr Other constipation K59.09 ; Abdominal pain, generalized R10.84 and Chronic GERD K21.9 [facility] [address] [place] [phone] 12/01/2023 Kurt Correia Jr Generalized abdominal pain R10.84 ; Gastroesophageal reflux disease without esophagitis K21.9 ; Encounter for current termination clerk use of antiplatelet drug Z79.02 and Intermittent constipation K59.09 [facility] [address] [place] [address] 01/29/2024 Kurt Correia Jr ASSESSMENTS Encounter Date Diagnosis Assessment Notes Treatment Notes Treatment Clinical Notes 01/16/2024 Other constipation (ICD-10 - K59.09) 01/16/2024 Abdominal pain, generalized (ICD-10 - R10.84) 12/01/2023 Generalized abdomina l pain (ICD-10 - R10.84) Endoscopy material was printed 12/01/2023 Gastroesophageal ref lux disease without esophagitis (ICD-10 - K21.9) 01/16/2024 Chronic GERD (ICD-10 - K21.9) 12/01/2023 Encounter for curren t termination clerk use of antiplatelet drug (ICD-10 - Z79.02) [...] [place] [address] [place] [address] [id number] ROSALES DIANA Self - patient is the insured MEDICAID OF [facility] [address] [place] [address] [id number] ROSALESENDERDIANA Self - patient is the insured [...]
== END 2024-10-05 02:57 | disposition home or self-care (01) ==
LOC: HO.ED 10-05 02:54
PROVIDERS: Physician Assistant; Emergency Provider Emergency Medicine Emergency Medical Services; PCP Family Medicine
DX: M94.0 Chondrocostal junction syndrome [Tietze] (principal); R07.89 Other chest pain; M54.50 Low back pain, unspecified; M25.512 Pain in left shoulder; M25.511 Pain in right shoulder; Z87.891 Personal history of nicotine dependence; Z03.818 Encounter for observation for suspected exposure to other biological agents ruled out; Z79.899 Other long term (current) drug therapy
CPT/HCPCS: 0241U; 36415; 71046; 80053; 83690; 84484; 85025; 85610; 93005; 99283; 99284

== ENCOUNTER → 2024-10-04 20:50 | Outpatient (BNV) | payer MEDICARE, MEDICAID, SELFPAY | PROVIDERS: Emergency Provider Emergency Medicine Emergency Medical Services; PCP Family Medicine; Visit Provider Internal Medicine Cardiovascular Disease | DX: R94.31 Abnormal electrocardiogram [ECG] [EKG] (principal) | CPT/HCPCS: 93010 ==

== ENCOUNTER → 2024-10-04 20:50 | Outpatient (BNV) | payer MEDICARE, MEDICAID, SELFPAY | PROVIDERS: PCP Family Medicine; Visit Provider Specialist | DX: R07.9 Chest pain, unspecified (principal) | CPT/HCPCS: 71046 ==

== ENCOUNTER 2024-10-29 08:10 | Outpatient (REF) | payer MEDICARE, MEDICAID, SELFPAY ==
[2024-10-29 11:45] LABS: MANUAL DIFF FLAG NO
[2024-10-29 12:05] LABS: Basophils Percent Auto 0.6 % (0-2); Eosinophils Absolute Auto 0.1 X10*3/uL (0.0-0.4); Eosinophils Percent Auto 1.2 % (0-4); Hematocrit 40.3 % (42.0-52.0); Hemoglobin 13.2 g/dl (14.0-18.0); Imm Gran Abs Auto 0.01 X10*3/uL (0.00-0.03); Imm Gran Pct Auto 0.2 % (0.0-0.4); Lymphocytes Percent Auto 19.5 % (20-40); Mean Corpuscular HGB Conc 32.8 g/dl (31.0-36.0); Mean Corpuscular Hemoglobin 29.9 pg (27.0-33.0); Mean Corpuscular Volume 91.2 fL (80.0-98.0); Mean Platelet Volume 9.7 fL (9.4-12.4); Monocytes Absolute Auto 0.4 X10*3/uL (0.1-1.2); Monocytes Percent Auto 7.7 % (2-11); Neutrophils Absolute Auto 3.7 x10*3/uL (2.0-8.3); Neutrophils Percent Auto 70.8 % (45-73); Platelet Count 236 X10*3/uL (160-400); Red Blood Count 4.42 X10*6/uL (4.60-5.80); Red Cell Distribution Width 13.2 % (11.0-16.0); White Blood Count 5.2 X10*3/uL (4.8-10.8)
[2024-10-29 13:08] LABS: Estimated Average Glucose 126 mg/dL; Hemoglobin A1C 145.9031 umol/L; Total Hemoglobin (HGBA1C) 3455.3643 umol/L
[2024-10-29 13:51] LABS: Alanine Aminotransferase 11 U/L (0-40); Albumin Level 4.3 g/dL (3.5-5.0); Anion Gap 10 (12-20); Aspartate Amino Transferase 21 U/L (5-37); Bilirubin Total 0.5 mg/dL (0.0-1.0); Blood Urea Nitrogen 19 mg/dL (9-16); Carbon Dioxide 27 mmol/L (22-29); Chloride 108 mmol/L (96-108); Cholesterol 132 mg/dL (<200); Estimated Glomerular Filt Rate > 60; Glucose Random 106 mg/dL (60-115); HDL Cholesterol 40 mg/dL (>40); LDL Cholesterol Calculated 78 mg/dL (<100); Sodium 141 mmol/L (135-145); Total Protein 7.1 g/dL (6.5-8.0); Triglycerides 72 mg/dL (<150)
[2024-10-29 14:18] LABS: Alkaline Phosphatase 49 U/L (39-117)
[2024-10-29 14:32] LABS: Reflex LDLD? No
[2024-10-29 15:47] LABS: CT PCR NOT DETECTED (Not Detect.); NG PCR NOT DETECTED (Not Detect.)
[2024-10-30 07:49] LABS: Syphilis Screen Nonreactive (Nonreactive)
[2024-10-30 07:58] LABS: HBc Num1 0.08 S/CO (0.00-0.79); Hepatitis B Core Antibody Nonreactive (Nonreactive); ~HepC Num1 0.06 S/CO (0.00-0.79); ~Hepatitis C Antibody Nonreactive (Nonreactive)
[2024-10-30 08:03] LABS: Hepatitis A Antibody IgG REACTIVE (Nonreactive); ~Hepatitis A Antibody IgG 11.07 S/CO (0.00-0.99)
[2024-10-31 17:03] LABS: RPR Rapid Plasma Reagin NON-REACTIVE (NON-REACTIVE)
[2024-11-02 15:52] LABS: Absolute CD3 Count 747 cells/uL (840-3060); Absolute CD4 Count 422 cells/uL (490-1740); Absolute CD8 Count 333 cells/uL (180-1170); Absolute Lymphocytes 979 cells/uL (850-3900); CD4 CD8 Ratio 1.27 (0.86-5.00); Percent CD3 Cells 76 % (57-85); Percent CD4 Cells 43 % (30-61); Percent CD8 Cells 34 % (12-42)
[2024-11-02 18:04] LABS: HIV RNA PCR Qn Copies <20 DETECTED copies/mL (NOT DETECTED); HIV RNA PCR Qn Log Copies <1.30 DETECTED (NOT DETECTED)
== END 2024-10-29 08:11 | disposition home or self-care (01) ==
LOC: HO.HHCL 08:10
PROVIDERS: Visit Provider Internal Medicine
DX: Z21 Asymptomatic human immunodeficiency virus [HIV] infection status (principal); Z11.3 Encounter for screening for infections with a predominantly sexual mode of transmission; Z13.6 Encounter for screening for cardiovascular disorders; Z11.59 Encounter for screening for other viral diseases; Z13.1 Encounter for screening for diabetes mellitus; Z72.89 Other problems related to lifestyle
CPT/HCPCS: 80053; 80061; 83036; 85025; 86359; 86360; 86592; 86704; 86708; 86780; 86803; 87491; 87536; 87591

== ENCOUNTER 2024-12-10 06:48 | Outpatient (REF) | payer MEDICARE, MEDICAID, SELFPAY ==
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
== END 2024-12-10 06:49 | disposition home or self-care (01) ==
LOC: HO.CT 06:48
PROVIDERS: PCP Family Medicine; Visit Provider Family Medicine
DX: R07.9 Chest pain, unspecified (principal); R06.00 Dyspnea, unspecified
CPT/HCPCS: 71250

== ENCOUNTER → 2024-12-10 06:51 | Outpatient (BNV) | payer MEDICARE, MEDICAID, SELFPAY | PROVIDERS: PCP Family Medicine; Visit Provider Radiology Diagnostic Radiology | DX: M54.2 Cervicalgia (principal) | CPT/HCPCS: 71250 ==

== ENCOUNTER 2024-12-20 13:43 | Outpatient (REF) | payer MEDICARE, MEDICAID, SELFPAY ==
--- NOTE | ~2024-12-20 | XR_ITS ---
CLINICAL HISTORY: bilateral hip pain 2 views left hip Comparison: None Findings: No fractures or dislocations. No significant arthritic change. No radiopaque foreign body. Impression: 1. Normal left hip This document has been electronically signed by: Rusty Sutton MD on 12/20/2024 16:59:20
--- NOTE | ~2024-12-20 | XR_ITS ---
CLINICAL HISTORY: cervicalgia, sondylosis, worsening 5-view cervical spine Comparison: None Findings: No fractures or dislocations. Normal vertebral body alignment. There is moderate degenerative narrowing of C6-7 disc space with small anterior disc margin bone spurs. There is mild facet hypertrophy with mild foraminal stenosis at C2-3 and C3-4 on the left No significant arthritic change. No neural foraminal stenosis. Lung apices unremarkable Impression: Degenerative narrowing of the C6-7 disc space without foraminal stenosis, otherwise unremarkable cervical spine. This document has been electronically signed by: Rusty Sutton MD on 12/20/2024 17:02:31
--- NOTE | ~2024-12-20 | XR_ITS ---
CLINICAL HISTORY: bilateral hip pain 2 views right hip Comparison: None Findings: No fractures or dislocations. No significant arthritic change. No radiopaque foreign body. Impression: 1. Normal right hip This document has been electronically signed by: Rusty Sutton MD on 12/20/2024 16:58:53
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
--- OUTSIDE RECORDS SUMMARY | 2024-12-20 16:02 | XMS_ITS ---
Author Organization [facility] Address [address] [place] [address] Care Team Providers Care Content Strategist Name Role Phone Fer MARTIN, Sofia Primary Care Provider Nadia Correia Jr, Kurt Unavailable Problems Problem Type SNOMED Code ICD Code Onset Dates Problem Status W/U Status Risk Notes Problem Gastroesophageal reflux disease (disorder) (824578127) Chronic GERD (K21.9) Active confirmed Encounters Encounter Location Date Provider Diagnosis [facility] Outpatient [address] [place] [phone] 01/16/2024 Krut Correia Jr Other constipation K59.09 ; Abdominal pain, generalized R10.84 and Chronic GERD K21.9 Assessments Encounter Date Diagnosis (ICD Code) Assessment Notes Treatment Notes Treatment Clinical Notes Section Notes 01/16/2024 Other constipation (ICD-10 - K59.09) 01/16/2024 Abdominal pain, generalized (ICD-10 - R10.84) 01/16/2024 Chronic GERD (ICD-10 - K21.9) Plan Of Treatment No Information Progress Notes * YUMIKO CABACATHYOB: [birth year] (64 yo M)Acc No.[id number]:01/16/2024 EGD and COL/MAC Patient:?DIANA CABA Provider:?Kurt Correia MD :1960???Age:63 Y???Sex:Male Ramirez e:01/16/2024 Address:[address] [place] [address] [place], [place] [id number] Pcp:Sofia Monroe MD Subjective: * Chief Complaints: * ??? * Medical History:? Objective: * Vitals:? Assessment: * Assessment: 1.?Other constipation - K59. 09 (Primary)???2.?Abdominal pain, generalized - R10.84???3.?Chronic GERD - K21.9??? Plan: * Treatment: * Procedure Codes:?03960 COLON OSCOPY AND BIOPSY, 37189 UPPER GI ENDOSCOPY, BIOPSY, 0529F INTRVL 3+YRS PTS CLNSCP DOCD * * The named appointment provid er may or may not be the originator of this progress note, and it is not deemed complete until electronically signed by the appointment provider. Sign off status: Pending * Provider:?Kurt Correia MD Date:?0 01/16/2024 Generated for Sofya szymanski/Liv/Rysmitting on:?12/20/2024 04:01 PM EDT
--- OUTSIDE RECORDS SUMMARY | 2024-12-20 16:02 | XMS_ITS ---
Author Organization [facility] Address [address] [place] [address] Care Team Providers Care Wic Site Coordinator Name Role Phone Fer MARTIN, Sofia Primary Care Provider Nadia Correia Jr, Kurt Cervantes [phone] REASON FOR VISIT pathology/10 yr colon recall please Encounters Encounter Location Date Provider Diagnosis [facility] [address] [place] [address] 01/29/2024 Kurt Correia Jr Plan Of Treatment No Information Progress Notes * ANDREW CABAOB: [birth year] (63 yo M)Acc No.[id number]:01/29/2024 Patient:?DIANA CABA :1960???Age:63 Y???Sex:Male Address:[address], [place] [address] * true * Date:? Generated for Sofya szymanski/Liv/eTransmitting on:?12/20/2024 04:02 PM EDT
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
[2024-12-20 16:54] LABS: C Reactive Protein < 0.04 mg/dL (< or = 0.50)
[2024-12-20 16:56] LABS: Rheumatoid Factor < 13.0 IU/mL (<15.0)
[2024-12-20 17:14] LABS: Prostate Specific Antigen 0.63 ng/mL (<0.05-4.0)
[2024-12-20 17:29] LABS: Erythrocyte Sedimentation Rate 5 MM/HR (0-15)
== END 2024-12-20 13:44 | disposition home or self-care (01) ==
LOC: HO.HHCX 13:43
PROVIDERS: Urology; Visit Provider Family Medicine
DX: M25.552 Pain in left hip (principal); M25.551 Pain in right hip; M54.2 Cervicalgia; G89.29 Other chronic pain; M47.812 Spondylosis without myelopathy or radiculopathy, cervical region; N32.81 Overactive bladder; M79.10 Myalgia, unspecified site; Z12.5 Encounter for screening for malignant neoplasm of prostate
CPT/HCPCS: 36415; 72050; 73502; 84153; 85652; 86038; 86140; 86200; 86431

== ENCOUNTER → 2024-12-20 13:44 | Outpatient (BNV) | payer MEDICARE, MEDICAID, SELFPAY | PROVIDERS: Visit Provider Radiology Diagnostic Radiology | DX: M50.323 Other cervical disc degeneration at C6-C7 level (principal); M25.551 Pain in right hip; M25.552 Pain in left hip | CPT/HCPCS: 72050; 73502 ==

== ENCOUNTER 2024-12-20 14:11 | Outpatient (REF) | payer MEDICARE, MEDICAID, SELFPAY | END 2024-12-20 14:12 | disposition home or self-care (01) | LOC: HO.HHCL 14:11 | PROVIDERS: Visit Provider Family Medicine | DX: Z13.89 Encounter for screening for other disorder (principal) ==

== ENCOUNTER 2025-02-14 07:57 | Emergency (ER) | payer MEDICARE, MEDICAID, SELFPAY ==
--- NOTE | 2025-02-14 | ECG_ITS ---
Test Reason : cp Blood Pressure : */* mmHG Vent. Rate : 72 BPM Atrial Rate : 72 BPM P-R Int : 138 ms QRS Dur : 80 ms QT Int : 358 ms P-R-T Axes : 53 49 56 degrees QTcB Int : 392 ms Normal sinus rhythm Septal infarct (cited on or before 04-Oct-2024) Abnormal ECG When compared with ECG of 04-Oct-2024 20:56, No significant change was found Referred By: Generic ED Physician Electronically Signed By: ASIF CARVALHO MD
--- NOTE | ~2025-02-14 | XR_ITS ---
EXAMINATION: XR CHEST CLINICAL INFORMATION: cp COMPARISON: None available. TECHNIQUE: Frontal view of the chest was obtained. FINDINGS: Chronically Eventrated/elevated left hemidiaphragm again noted. The cardiac, hilar, and mediastinal contours are normal. The lungs are clear bilaterally. No pneumothorax or effusion. No focal osseous or soft tissue abnormality. XR/XR chest 1V IMPRESSION: 1. Chronically alignment/eventrated left hemidiaphragm. 2. No active pulmonary disease. Electronically signed by: Roland Rae MD 02/14/2025 10:16 AM EDT
[2025-02-14 08:03] VITALS: BP 134/59; PULSE 72; RESP 18; TEMP 36.4; O2SAT 98; BMI 24.5
[2025-02-14 08:19] LABS: MANUAL DIFF FLAG NO
[2025-02-14 08:22] LABS: Basophils Percent Auto 0.6 % (0-2); Eosinophils Absolute Auto 0.1 X10*3/uL (0.0-0.4); Eosinophils Percent Auto 1.5 % (0-4); Hematocrit 39.7 % (42.0-52.0); Hemoglobin 13.2 g/dl (14.0-18.0); Imm Gran Abs Auto 0.01 X10*3/uL (0.00-0.03); Imm Gran Pct Auto 0.2 % (0.0-0.4); Lymphocytes Absolute Auto 1.2 X10*3/uL (1.2-4.9); Lymphocytes Percent Auto 22.7 % (20-40); Mean Corpuscular HGB Conc 33.2 g/dl (31.0-36.0); Mean Corpuscular Hemoglobin 29.9 pg (27.0-33.0); Mean Corpuscular Volume 89.8 fL (80.0-98.0); Monocytes Absolute Auto 0.5 X10*3/uL (0.1-1.2); Monocytes Percent Auto 8.7 % (2-11); Neutrophils Absolute Auto 3.5 x10*3/uL (2.0-8.3); Neutrophils Percent Auto 66.3 % (45-73); Platelet Count 226 X10*3/uL (160-400); Red Blood Count 4.42 X10*6/uL (4.60-5.80); White Blood Count 5.2 X10*3/uL (4.8-10.8)
[2025-02-14 08:32] LABS: Anion Gap 11 (12-20); Blood Urea Nitrogen 15 mg/dL (9-16); Carbon Dioxide 23 mmol/L (22-29); Chloride 110 mmol/L (96-108); Creatinine Clr Calc Pharmacy 87.2; Estimated Glomerular Filt Rate > 60; Glucose Random 137 mg/dL (60-115); Potassium 4.1 mmol/L (3.3-5.1); Sodium 140 mmol/L (135-145)
[2025-02-14 08:47] LABS: Troponin-I High Sensitivity < 2.7 ng/L (<3.5-35.0)
--- NOTE | 2025-02-14 09:37 | ED_ITS ---
HPI - Chest Pain General Chief Complaint: Chest Pain Stated Complaint: Chest Pain Time Seen by Provider: 02/14/25 08:46 History of Present Illness HPI narrative: Patient is a 64-year-old male presented today with having chest pain since approximately 03:00. Patient's chest pain is on the left side. There is no shortness of breath there is no nausea. Patient claims the pain is worse with deep breath worse with movement of the left arm. Patient has no history diabetes, high cholesterol, smoking, mi. from home. History of HIV history of hypertension. Already on antiviral and has been compliant. History of being on amlodipine. Took some aspirin prior to arrival. Had a stress test done in [place] last year which was okay. Has been compliant with his medication. Related Data Home Medications ?Medication ?Instructions ?Recorded ?Confirmed albuterol sulfate 90 mcg/actuation 1 inh inhalation QID PRN Shortness 08/17/20 07/29/24 aerosol inhaler Of Breath Or Wheezing aspirin 81 mg tablet,delayed 81 mg PO DAILY 08/17/20 07/29/24 release (Ecotrin Low Strength) bictegravir 50 mg-emtricitabine 1 tab PO DAILY 07/12/21 07/29/24 200 mg-tenofovir alafenam 25 mg tablet (Biktarvy) ergocalciferol (vitamin D2) 1,250 1,250 mcg PO QWEEK 07/12/21 07/29/24 mcg (50,000 unit) capsule ipratropium 20 mcg-albuterol 100 1 puff inhalation QID 01/10/22 07/29/24 mcg/actuation mist for inhalation (Combivent Respimat) omeprazole 40 mg capsule,delayed 40 mg PO BEDTIME 01/10/22 07/29/24 release amlodipine 5 mg tablet 5 mg PO DAILY 07/22/24 07/29/24 atorvastatin 20 mg tablet 20 mg PO DAILY 07/22/24 07/29/24 calcium 600 mg (as 1 tab PO QAM 07/22/24 07/29/24 carbonate)-vitamin D3 20 mcg (800 unit) tablet fluticasone propionate 50 1 spray intranasal QAM 07/22/24 07/29/24 mcg/actuation nasal spray,suspension Previous Rx's ?Medication ?Instructions ?Recorded oxybutynin chloride 5 mg 5 mg PO DAILY 90 days #90 tabs 01/17/25 tablet,extended release 24 hr doxazosin 4 mg tablet 4 mg PO BEDTIME 90 days #90 tabs 01/19/25 Allergies Allergy/AdvReac Type Severity Reaction Status Date / Time No Known Allergies Allergy Verified 02/14/25 08:06 Review of Systems 2 Review of Systems: Positive chest pain on the left side Yes all other systems are reviewed and are negative [facility] Past Medical History Attestation statement: The following information was validated with the patient. Medical History Cataract Bronchitis (06/07/24) Hx of pneumothorax (~1976) PAD (peripheral artery disease) Elevated cholesterol Asthma with COPD Vertigo GERD (gastroesophageal reflux disease) Depression Polysubstance abuse BPH (benign prostatic hyperplasia) Asthma HIV (human immunodeficiency virus infection) COPD (chronic obstructive pulmonary disease) Eczema Cervicalgia Surgical History Hx of surgical procedure (04/23/18) Hx of eye surgery (02/18/23) Hx of chest tube placement (~1976) History of esophagogastroduodenoscopy (EGD) (01/16/24) H/O colonoscopy (01/16/24) Social History Social History Household Members: None Housing: Apartment Are you a primary primary care pediatrician to a significant other at home: No Do you presently have visiting nurse or other home services: No Alcohol intake: never Patient Tobacco Use Status: Former Tobacco user Tobacco use type: Cigarette Smoked in Last 30 Days: No Use of substances other than those prescribed or required for medical reasons: No Advance Directives: No Do you have a plan to hurt others: No Plan Current occupational status: disabled Physical Exam 2 Vital Signs: Vital Signs: Last Vital Signs Temp 98.2 F 02/14/25 09:51 Pulse 58 02/14/25 09:51 Resp 14 02/14/25 09:51 BP 132/65 02/14/25 09:51 Pulse Ox 99 02/14/25 09:51 O2 Del Method Room Air 02/14/25 09:51 BMI result Body Mass Index 24.5 Appearance: Alert. Oriented X3. No acute distress. Eyes: Pupils equal, round and reactive to light. ENT: Pharynx normal. Neck: Normal inspection. Neck supple. No lymph nodes noted. No crepitus CVS: Normal heart rate and rhythm. Pulses normal. Normal S1 and S2 Respiratory: No respiratory distress. Breath sounds normal. No Wheezing. No rales Abdomen: Soft and nontender. No rigidity. No distention. good BS x4 Skin: Skin warm and dry. Normal skin color. Normal skin turgor. Extremities: No lower extremity edema. Neurovascular intact to all extremities. No Lacerations. No Rash Neuro: Oriented X 3. No motor deficit. No sensory deficit. Moving all extermities. No slurred speech Medical Decision Making Medical Decision Making MDM Narrative: My interpretation of patient's EKG showed a sinus rhythm heart rate is 70 OK QRS QTC normal no acute ST segment elevation noted patient's chest pain atypical for ACS Patient's chest pain atypical. No significant risk for PE but did have chest pain that is worse with movement worse with deep breath. Patient's D-dimer is negative in the setting of low risk unlikely to be PE. Patient's chest x-ray by my interpretation showed no evidence of pneumonia pneumothorax. Patient's troponin is negative in the setting of atypical history normal EKG unlikely secondary to ACS patient's heart score is less than 3 will discharge patient home close follow-up on an outpatient basis. In stable condition. Differential Diagnosis Differential Diagnoses: The differential diagnosis associated with the presentation includes Chest pain, musculoskeletal chest pain, ACS, pneumonia, pneumothorax Admission/Observation Consideration of admission/observation: Escalation of care including admission/observation considered Consult Healthcare Provider Management of the patient was discussed with: Hospitalist Lab Data [facility] Lab Attestation statement: I reviewed the patient's lab results. 02/14/25 08:14 02/14/25 08:14 Labs: Lab Results 02/14/25 02/14/25 Range/Units 08:14 09:50 WBC 5.2 (4.8-10.8) X10*3/uL RBC 4.42 L (4.60-5.80) X10*6/uL Hgb 13.2 L (14.0-18.0) g/dl Hct 39.7 L (42.0-52.0) % MCV 89.8 (80.0-98.0) fL MCH 29.9 (27.0-33.0) pg MCHC 33.2 (31.0-36.0) g/dl RDW 13.0 (11.0-16.0) % Plt Count 226 (160-400) X10*3/uL MPV 9.0 L (9.4-12.4) fL Immature Gran % (Auto) 0.2 (0.0-0.4) % Neut % (Auto) 66.3 (45-73) % Lymph % (Auto) 22.7 (20-40) % [place] % (Auto) 8.7 (2-11) % Eos % (Auto) 1.5 (0-4) % Baso % (Auto) 0.6 (0-2) % Lymph # (Auto) 1.2 (1.2-4.9) X10*3/uL [place] # (Auto) 0.5 (0.1-1.2) X10*3/uL Eos # (Auto) 0.1 (0.0-0.4) X10*3/uL Baso # (Auto) 0.0 (0.0-0.2) X10*3/uL Abs Immat Gran (auto) 0.01 (0.00-0.03) X10*3/uL Absolute Neuts (auto) 3.5 (2.0-8.3) x10*3/uL Absolute Nucleated RBC 0.000 (0.0-0.012) X10*3/uL Nucleated RBC % (auto) 0.0 (0.0-0.2) /100WBC D-Dimer High Sensitivty < 150 NG/ML Sodium 140 (135-145) mmol/L Potassium 4.1 (3.3-5.1) mmol/L Chloride 110 H (96-108) mmol/L Carbon Dioxide 23 (22-29) mmol/L Anion Gap 11 L (12-20) BUN 15 (9-16) mg/dL Creatinine 0.86 (0.5-1.4) mg/dL Estim Creat Clear Calc 87.2 Estimated GFR > 60 Random Glucose 137 H (60-115) mg/dL Calcium 9.0 (8.4-10.2) mg/dL Troponin I High Sens < 2.7 < 2.7 (<3.5-35.0) ng/L Independent Interpretation I performed an independent interpretation of an: EKG (As above) and Plain X-Ray (Chest x-ray negative) Radiology Impression Discussion of test interpretation with radiology: I have reviewed the radiologist's reading. External Record Review External record reviewed: Inpatient record Chronic Conditions Patient?s care impacted by: Hypertension HIV Social Determinants Patient?s care significantly limited by Social Determinants of Health including: Problems related to primary support group Discharge Plan Discharge Clinical Impression: Atypical chest pain Patient Disposition: Home, Self-Care Instructions: Chest Pain (ED) Prescriptions: No Action oxybutynin chloride 5 mg tablet extended release 24hr 5 mg PO DAILY 90 Days Qty: 90 1RF doxazosin 4 mg tablet 4 mg PO BEDTIME 90 Days Qty: 90 1RF atorvastatin 20 mg tablet 20 mg PO DAILY amlodipine 5 mg tablet 5 mg PO DAILY fluticasone propionate 50 mcg/actuation spray,suspension 1 spray intranasal QAM calcium carbonate-vitamin D3 600 mg-20 mcg (800 unit) tablet 1 tab PO QAM aspirin [Ecotrin Low Strength] 81 mg tablet,delayed release (DR/EC) 81 mg PO DAILY albuterol sulfate 90 mcg/actuation HFA aerosol inhaler 1 inh inhalation QID PRN (Reason: Shortness Of Breath Or Wheezing) Biktarvy 50-200-25 mg tablet 1 tab PO DAILY ergocalciferol (vitamin D2) 1,250 mcg (50,000 unit) capsule 1,250 mcg PO QWEEK Combivent Respimat 20-100 mcg/actuation mist 1 puff inhalation QID omeprazole 40 mg capsule,delayed release(DR/EC) 40 mg PO BEDTIME Referrals: Sofia Monroe MD [Primary Care Provider] - 02/16/25 Print Language: Sinhala
[2025-02-14 09:51] VITALS: BP 132/65; PULSE 58; RESP 14; TEMP 36.8; O2SAT 99
[2025-02-14 10:01] VITALS: PULSE 68
[2025-02-14 10:14] LABS: D Dimer High Sensitivity < 150 NG/ML
[2025-02-14 10:31] LABS: Troponin-I High Sensitivity < 2.7 ng/L (<3.5-35.0)
[2025-02-14 12:01] VITALS: BP 132/65; PULSE 58; RESP 14; TEMP 36.8; O2SAT 99
== END 2025-02-14 12:02 | disposition home or self-care (01) ==
PROVIDERS: Emergency Provider Emergency Medicine Emergency Medical Services; PCP Family Medicine
DX: R07.89 Other chest pain (principal); J45.909 Unspecified asthma, uncomplicated; Z79.899 Other long term (current) drug therapy
CPT/HCPCS: 36415; 71045; 80048; 84484; 85025; 85379; 93005; 99283; 99285

== ENCOUNTER → 2025-02-14 07:58 | Outpatient (BNV) | payer MEDICARE, MEDICAID, SELFPAY | PROVIDERS: Emergency Provider Emergency Medicine Emergency Medical Services; PCP Family Medicine; Visit Provider Internal Medicine Cardiovascular Disease | DX: I25.2 Old myocardial infarction (principal) | CPT/HCPCS: 93010 ==

== ENCOUNTER → 2025-02-14 09:35 | Outpatient (BNV) | payer MEDICARE, MEDICAID, SELFPAY | PROVIDERS: Emergency Provider Emergency Medicine Emergency Medical Services; PCP Family Medicine; Visit Provider Radiology Diagnostic Radiology | DX: R07.9 Chest pain, unspecified (principal) | CPT/HCPCS: 71045 ==

== ENCOUNTER 2025-04-22 08:09 | Outpatient (REF) | payer MEDICARE, MEDICAID, SELFPAY ==
[2025-04-22 11:22] LABS: MANUAL DIFF FLAG NO
[2025-04-22 11:36] LABS: Hematocrit 39.1 % (42.0-52.0); Hemoglobin 13.0 g/dl (14.0-18.0); Imm Gran Abs Auto 0.04 X10*3/uL (0.00-0.03); Imm Gran Pct Auto 0.3 % (0.0-0.4); Lymphocytes Absolute Auto 0.9 X10*3/uL (1.2-4.9); Mean Corpuscular HGB Conc 33.2 g/dl (31.0-36.0); Mean Corpuscular Hemoglobin 30.0 pg (27.0-33.0); Mean Corpuscular Volume 90.1 fL (80.0-98.0); NRBC Abs Auto 0.000 X10*3/uL (0.0-0.012); NRBC Pct Auto 0.0 /100WBC (0.0-0.2); Platelet Count 199 X10*3/uL (160-400); Red Blood Count 4.34 X10*6/uL (4.60-5.80); White Blood Count 12.1 X10*3/uL (4.8-10.8)
[2025-04-22 12:02] LABS: Alanine Aminotransferase 11 U/L (0-40); Albumin Level 4.3 g/dL (3.5-5.0); Alkaline Phosphatase 59 U/L (39-117); Anion Gap 11 (12-20); Aspartate Amino Transferase 16 U/L (5-37); Blood Urea Nitrogen 13 mg/dL (9-16); Calcium 8.9 mg/dL (8.4-10.2); Carbon Dioxide 27 mmol/L (22-29); Chloride 104 mmol/L (96-108); Estimated Glomerular Filt Rate > 60; Potassium 4.5 mmol/L (3.3-5.1); Sodium 137 mmol/L (135-145); Total Protein 6.9 g/dL (6.5-8.0)
[2025-04-22 12:08] LABS: Cholesterol 113 mg/dL (<200); HDL Cholesterol 39 mg/dL (>40); Triglycerides 64 mg/dL (<150)
[2025-04-22 12:11] LABS: Reflex LDLD? No
[2025-04-22 12:12] LABS: Hemoglobin A1C 229.2727 umol/L; Total Hemoglobin (HGBA1C) 5329.4663 umol/L
[2025-04-25 17:39] LABS: HIV RNA PCR Qn Copies 73 copies/mL (NOT DETECTED); HIV RNA PCR Qn Log Copies 1.86 (NOT DETECTED)
[2025-04-27 23:07] LABS: Absolute CD3 Count 637 cells/uL (840-3060); Absolute CD8 Count 288 cells/uL (180-1170); Percent CD3 Cells 74 % (57-85); Percent CD8 Cells 34 % (12-42)
== END 2025-04-22 08:10 | disposition home or self-care (01) ==
LOC: HO.HHCL 08:09
PROVIDERS: Student in an Organized Health Care Education/Training Program; PCP Family Medicine; Visit Provider Family Medicine
DX: Z21 Asymptomatic human immunodeficiency virus [HIV] infection status (principal); E78.5 Hyperlipidemia, unspecified; R73.03 Prediabetes
CPT/HCPCS: 36415; 80053; 80061; 83036; 85025; 86359; 86360; 87536

== ENCOUNTER 2025-04-23 09:09 | Emergency (ER) | payer MEDICARE, MEDICAID, SELFPAY ==
--- NOTE | ~2025-04-23 | XR_ITS ---
CLINICAL HISTORY: weakness 2 view chest x-ray. Comparison: CR/SR - XR CHEST 1 VIEW - 02/14/25 10:02 EDT Findings: T elevation of the left hemidiaphragm with mild left-sided volume loss. No focal consolidation. No effusion or pneumothorax. Cardiac and mediastinal contours are within normal limits. No acute osseous abnormality Impression: No acute process. This document has been electronically signed by: Sergio Velarde MD on 04/23/2025 10:18:19
[2025-04-23 09:13] VITALS: BP 142/69; PULSE 78; RESP 18; TEMP 36.4; O2SAT 99; BMI 24.7
--- NOTE | 2025-04-23 09:26 | ED.GENADULT ---
HPI - General Adult General Chief complaint: General Medical Stated complaint: weak Time Seen by Provider: 04/23/25 09:26 Source: patient Mode of arrival: ambulatory Limitations: no limitations History of Present Illness ED Provider: Vaishali Irvin PA-C HPI narrative: Patient is a 64 year old assigned male at with a history of BPH presenting to the emergency department today with weakness and dysuria. Patient states that he feels more weak lately and it has been painful to him to urinate but he does feel like he is urinating completely when he does go. Patient denies any dizziness, lightheadedness, abdominal pain, nausea, vomiting, fever, chills, blurry vision, double vision, loss of vision, chest pain, difficulty breathing, shortness of breath, back pain, night sweats, increased urinary frequency, increased urinary urgency, blood in his urine or stool, syncope or a near syncopal episode, recent trauma or falls, bowel incontinence, bladder incontinence, or any other complaints at this time. Relieving factors: none Exacerbating factors: none Associated symptoms: weakness Treatments prior to arrival: none Related Data Home Medications ?Medication ?Instructions ?Recorded ?Confirmed albuterol sulfate 90 mcg/actuation 1 inh inhalation QID PRN Shortness 08/17/20 07/29/24 aerosol inhaler Of Breath Or Wheezing aspirin 81 mg tablet,delayed 81 mg PO DAILY 08/17/20 07/29/24 release (Ecotrin Low Strength) bictegravir 50 mg-emtricitabine 1 tab PO DAILY 07/12/21 07/29/24 200 mg-tenofovir alafenam 25 mg tablet (Biktarvy) ergocalciferol (vitamin D2) 1,250 1,250 mcg PO QWEEK 07/12/21 07/29/24 mcg (50,000 unit) capsule ipratropium 20 mcg-albuterol 100 1 puff inhalation QID 01/10/22 07/29/24 mcg/actuation mist for inhalation (Combivent Respimat) omeprazole 40 mg capsule,delayed 40 mg PO BEDTIME 01/10/22 07/29/24 release amlodipine 5 mg tablet 5 mg PO DAILY 07/22/24 07/29/24 atorvastatin 20 mg tablet 20 mg PO DAILY 07/22/24 07/29/24 calcium 600 mg (as 1 tab PO QAM 07/22/24 07/29/24 carbonate)-vitamin D3 20 mcg (800 unit) tablet fluticasone propionate 50 1 spray intranasal QAM 07/22/24 07/29/24 mcg/actuation nasal spray,suspension Previous Rx's ?Medication ?Instructions ?Recorded oxybutynin chloride 5 mg 5 mg PO DAILY 90 days #90 tabs 01/17/25 tablet,extended release 24 hr doxazosin 4 mg tablet 4 mg PO BEDTIME 90 days #90 tabs 01/19/25 cefuroxime axetil 500 mg tablet 500 mg PO BID 10 days #20 tabs 04/23/25 cefuroxime axetil 500 mg tablet 500 mg PO BID 7 days #14 tabs 04/23/25 Allergies Allergy/AdvReac Type Severity Reaction Status Date / Time No Known Allergies Allergy Verified 04/23/25 09:14 Review of Systems Constitutional: Constitutional: Reports no additional constitutional complaints, Denies chills, Denies fever(s), Denies night sweats and Reports weakness Eyes: Eyes: Reports no additional eye complaints, Denies blurry vision, Denies change in vision, Denies diplopia, Denies eye discharge, Denies loss of vision and Denies eye pain ENT: Denies dizziness Cardiovascular: Cardiovascular: Reports no additional cardiovascular complaints, Denies chest pain, Denies lightheadedness, Denies Loss of Consciousness and Denies dyspnea Respiratory: Respiratory: Reports no additional respiratory complaints and Denies dyspnea Gastrointestinal: Gastrointestinal: Reports no additional gastrointestinal complaints, Denies abdominal pain, Denies melena, Denies hematochezia, Denies change in bowel habits and Denies change in stool character Genitourinary: Genitourinary: Reports no additional male genitourinary complaints, Denies hematuria, Denies oliguria, Denies difficulty urinating, Reports dysuria, Denies urinary frequency, Denies urinary hesitancy, Denies urinary incontinence and Denies urinary urgency Musculoskeletal: Musculoskeletal: Reports no additional musculoskeletal complaints, Denies numbness and Denies tingling Neurologic: Denies dizziness, Denies loss of vision, Denies numbness, Denies tingling and Reports weakness Psychiatric: Psychiatric: Reports no additional psychiatric complaints Endocrine: Endocrine: Reports no additional endocrine complaints Hematologic/Lymphatic: Hematologic/Lymphatic: Reports no additional hematologic/lymphatic complaints Allergic/Immunologic: Allergic/Immunologic: Reports no additional allergic/immunologic complaints PMFSH Past Medical History Attestation statement: The following information was validated with the patient. Source: old records reviewed and nursing notes reviewed Medical History Cataract Bronchitis (06/07/24) Hx of pneumothorax (~1976) PAD (peripheral artery disease) Elevated cholesterol Asthma with COPD Vertigo GERD (gastroesophageal reflux disease) Depression Polysubstance abuse BPH (benign prostatic hyperplasia) Asthma HIV (human immunodeficiency virus infection) COPD (chronic obstructive pulmonary disease) Eczema Cervicalgia Surgical History Hx of surgical procedure (04/23/18) Hx of eye surgery (02/18/23) Hx of chest tube placement (~1976) History of esophagogastroduodenoscopy (EGD) (01/16/24) H/O colonoscopy (01/16/24) Social History Social History Household Members: None Caregiver staying overnight: No Housing: Apartment Are you a primary childcare teacher to a significant other at home: No Do you presently have visiting nurse or other home services: No 75 years or older and lives alone: No Alcohol intake: never Patient Tobacco Use Status: Former Tobacco user Tobacco use type: Cigarette Current occupational status: disabled Physical Exam ED Vital Signs: Vital Signs - 24 hr 04/23/25 09:13 04/23/25 09:33 04/23/25 11:45 Temperature 97.5 F 98.2 F 97.3 F Pulse Rate 78 70 63 Respiratory Rate 18 16 14 Blood Pressure 142/69 H 126/86 111/62 Pulse Oximetry 99 97 98 Oxygen Delivery Method Room Air Room Air Room Air BMI result Body Mass Index 24.7 Const General: cooperative, no acute distress, alert and awake Nutritional Appearance: well nourished Orientation/consciousness: patient oriented x3 HENMT Head: Yes normal to inspection and Yes atraumatic Ears: hearing grossly normal bilaterally and external ears normal General nose exam: Normal external nose present, no nasal discharge noted and no epistaxis Face and sinus: Yes normal facial exam, No abrasion and No laceration Mouth: Normal oral and palatal mucosa present, no drooling and no muffled voice Eyes General: appearance normal, both eyes and all related structures Periorbital: periorbital findings normal Eyelids: Yes eyelids normal Conjunctivae: conjunctivae normal Pupils: Equal, round and reactive pupils present EOM: EOMs intact bilaterally Neck Neck: Yes normal visual inspection, Yes full ROM and Yes no lymphadenopathy Resp Effort & Inspection: normal respiratory effort and able to speak in complete sentences Neuro General: patient oriented x3, moves all extremities and CN's II-XI intact bilaterally Cranial nerves: Yes Equal, round and reactive pupils present Cognition (Neuro): normal cognition Extrem General: Yes normal to inspection, Yes full ROM and Yes capillary refill normal Psych Appearance: grossly normal Mental Status: mental status grossly normal Affect: normal affect Attitude: cooperative Thought process: Normal thought process present Thought content: Normal thought content present Insight: Good insight present (Psych) Medical Decision Making Medical Decision Making [facility] Narrative: Patient is a 64 year old assigned male at with a history of BPH presenting to the emergency department today with weakness and dysuria. Patient's physical exam was unremarkable. Patient's urine showed evidence of infection. Patient's EKG was unremarkable. Patient's chest x-ray showed no acute process. I explained my physical exam findings as well as all test results to the patient. I answered all questions asked by the patient. Patient's weakness is likely secondary to his urinary tract infeciton, will treat with ABX. I stressed the importance of the patient taking his medication as directed (either prescribed or as the over the counter packaging recommends). I stressed the importance of the patient following up with his primary care provider. I stressed the importance of the patient returning to the emergency department immediately if his symptoms were to worsen or if he were to develop any dizziness, shortness of breath, difficulty breathing, chest pain, blurry vision, loss of vision, nausea, vomiting, abdominal pain, fever, chills, back pain, or any other complaints. Patient verbalized agreement and understanding with this treatment plan and discharge. Differential Diagnosis Differential Diagnoses: The differential diagnosis associated with the presentation includes Weakness UTI Admission/Observation Consideration of admission/observation: Escalation of care including admission/observation considered Patient would have been admitted to the hospital had his work up had any findings where hospital admission was appropriate and his clinical presentation warranted hospital admission. Lab Data [facility] Lab Attestation statement: I reviewed the patient's lab results. My interpretation of these results are in the [facility] Rationale portion of this note. 04/23/25 09:47 04/23/25 09:47 Labs: Lab Results 04/23/25 04/23/25 Range/Units 09:47 10:01 WBC 8.6 (4.8-10.8) X10*3/uL RBC 4.12 L (4.60-5.80) X10*6/uL Hgb 12.1 L (14.0-18.0) g/dl Hct 37.0 L (42.0-52.0) % MCV 89.8 (80.0-98.0) fL MCH 29.4 (27.0-33.0) pg MCHC 32.7 (31.0-36.0) g/dl RDW 13.0 (11.0-16.0) % Plt Count 201 (160-400) X10*3/uL MPV 9.6 (9.4-12.4) fL Immature Gran % (Auto) 0.5 H (0.0-0.4) % Neut % (Auto) 75.9 H (45-73) % Lymph % (Auto) 13.1 L (20-40) % [place] % (Auto) 9.6 (2-11) % Eos % (Auto) 0.7 (0-4) % Baso % (Auto) 0.2 (0-2) % Lymph # (Auto) 1.1 L (1.2-4.9) X10*3/uL [place] # (Auto) 0.8 (0.1-1.2) X10*3/uL Eos # (Auto) 0.1 (0.0-0.4) X10*3/uL Baso # (Auto) 0.0 (0.0-0.2) X10*3/uL Abs Immat Gran (auto) 0.04 H (0.00-0.03) X10*3/uL Absolute Neuts (auto) 6.6 (2.0-8.3) x10*3/uL Absolute Nucleated RBC 0.000 (0.0-0.012) X10*3/uL Nucleated RBC % (auto) 0.0 (0.0-0.2) /100WBC Sodium 140 (135-145) mmol/L Potassium 4.0 (3.3-5.1) mmol/L Chloride 106 (96-108) mmol/L Carbon Dioxide 26 (22-29) mmol/L Anion Gap 12 (12-20) BUN 15 (9-16) mg/dL Creatinine 1.02 (0.5-1.4) mg/dL Estim Creat Clear Calc 73.5 Estimated GFR > 60 Random Glucose 106 (60-115) mg/dL Calcium 8.8 (8.4-10.2) mg/dL Magnesium 2.2 (1.6-2.6) mg/dL Total Bilirubin 0.4 (0.0-1.0) mg/dL AST 19 (5-37) U/L ALT 8 (0-40) U/L Alkaline Phosphatase 59 (39-117) U/L Troponin I High Sens < 2.7 (<3.5-35.0) ng/L Total Protein 6.6 (6.5-8.0) g/dL Albumin 4.0 (3.5-5.0) g/dL Urine Color Yellow Urine Appearance Cloudy Urine pH 5.0 (5.0-9.0) Ur Specific [place] 1.025 (1.005-1.025) Urine Protein 30 (1+) H (Neg-Trace) mg/dL Urine Glucose (UA) Negative (Negative) mg/dL Urine Ketones Trace (Negative) mg/dL Urine Blood Moderate (2+) H (Negative) Urine Nitrite Positive H (Negative) Ur Leukocyte Esterase Moderate (2+) H (Negative) Urine RBC 3-5 H (0-2) /HPF Urine WBC 21-50 (0-5) /HPF Ur Squamous Epith Cells 0-2 (0-2) /HPF Urine Bacteria 2+ (None Seen) Hyaline Casts 0-2 (0-2) /LPF Influenza Type A (PCR) NEGATIVE (Negative) Influenza Type B (PCR) NEGATIVE (Negative) RSV RNA Qual (PCR) NEGATIVE (Negative) SARS-CoV-2 RNA (RT-PCR) NEGATIVE (Negative) Independent Interpretation I performed an independent interpretation of an: EKG and Plain X-Ray Interpretation: My interpretation is in agreement with the radiologist's impression of this imaging study. CLINICAL HISTORY: weakness 2 view chest x-ray. Comparison: CR/SR - XR CHEST 1 VIEW - 02/14/25 10:02 EDT Findings: T elevation of the left hemidiaphragm with mild left-sided volume loss. No focal consolidation. No effusion or pneumothorax. Cardiac and mediastinal contours are within normal limits. No acute osseous abnormality Impression: No acute process. This document has been electronically signed by: Sergio Velarde MD on 04/23/2025 10:18:19 Dictated By: Sergio Velarde MD Signed By: Electronically signed by Sergio Velarde MD 04/23/25 [id number] I independently interpreted this EKG and am in agreement with the below findings: Vent. Rate: 63 BPM Atrial Rate: 63 BPM P-R Int: 124 ms QRS Dur: 80 ms QT Int: 386 ms P-R-T Axes: -16 54 68 degrees QTcB Int: 395 ms Normal sinus rhythm Normal ECG When compared with ECG of 14-Feb-2025 07:58, Criteria for Septal infarct are no longer Present DD/ [id number] Radiology Impression Discussion of test interpretation with radiology: I have reviewed the radiologist's reading. Prescription Management I considered prescription management with: Antibiotic (patient prescribed an antibiotic for UTI) Discharge Plan Discharge Clinical Impression: Acute UTI Patient Disposition: Home, Self-Care Instructions: Urinary Tract Infection in Men (DC) Additional Instructions: Your urine showed evidence of infection - take your antibiotic as prescribed. Thomason orina mostr? evidencia de infecci?n: tome thomason antibi?tevin seg?n lo prescrito. Follow up with your primary care provider. Return to the emergency department immediately if your symptoms worsen or if you develop any dizziness, shortness of breath, difficulty breathing, chest pain, blurry vision, loss of vision, nausea, vomiting, abdominal pain, fever, chills, back pain, or any other complaints. Lisbet?seguimiento?con thomason m?dico de atenci?n primaria. Acuda inmediatamente al servicio de urgencias si nancy s?ntomas empeoran o si presenta falta de aliento, dificultad para respirar, dolor tor?cico, mareos, aturdimiento, dolor de espalda, dolor abdominal, fiebre, escalofr?os o cualquier otro s?ntoma. Please see the information below about our Patient Portal. If you are not yet enrolled in the [facility] Patient Portal, you will receive an enrollment email invitation following your visit to any [facility] [place] [place] care setting. You may also self-enroll in the Patient Portal by visiting our website: [email or web address] The following information is required to access the Patient Portal: - Your [facility] [place] [place] Medical Record Number - Your personal home email address (must match what is in your electronic medical record, Registration staff can assist with this) - Name - Date of Capabilities of the Patient Portal: - Message some providers - View upcoming appointments - Access your health summary, medical history, and visit history - View current conditions and allergies - View procedure and lab results - View your medications, including guidelines, side effects, and precautions - Complete pre-appointment questionnaires requested by your provider - Ready summary reports of your office visits and procedures To access the Patient Portal Mobile [employer], follow these directions: - Search [employer] in the [employer] Store or [employer] Store - Download the [employer] - Search for [facility] - Enter your login/password Portal del paciente Si usted no esta inscrito en el portal de pacientes de [facility] y [facility], recibira jose a invitacion de inscripcion despues de thomason visita al [facility] [place] o al [facility] via correo electronico. Tambien puede inscribirse voluntariamente en el portal de pacientes visitando nuestra pagina web: [email or web address] La siguiente informacion sera requerida para acceder al portal: - Thomason julio cesar de historia medica de [facility] [place] - Thomason direccion de correo electronico personal - Nombre - Fecha de nacimiento Capacidades: Las siguientes capacidades estan disponibles en el portal de pacientes: - Enviar mensajes a algunos doctores - Verificar proximas citas - Acceso a thomason historial de isael, registro medico e historial de visitas - Yanelis las condiciones actuales y alergias yanelis procedimientos y resultados del laboratorio - Yanelis nancy medicamentos, incluyendo las pautas - Efectos secundarios y precauciones - Completar o llenar formularios / cuestionarios de - Citas solicitadas por thomason doctor - Leer los resumenes de reportes medicos de nancy visitas y procedimientos Zoraida acceder a la aplicacion movil: - [facility] reKode [employer] [facility] en la [employer] Store o [employer] Streamline Store - Descargue la aplicacion - [facility] - Ingrese thomason nombre de usuario / Contrasena Prescriptions: New cefuroxime axetil 500 mg tablet 500 mg PO BID 7 Days Qty: 14 0RF cefuroxime axetil 500 mg tablet 500 mg PO BID 10 Days Qty: 20 0RF No Action oxybutynin chloride 5 mg tablet extended release 24hr 5 mg PO DAILY 90 Days Qty: 90 1RF doxazosin 4 mg tablet 4 mg PO BEDTIME 90 Days Qty: 90 1RF atorvastatin 20 mg tablet 20 mg PO DAILY amlodipine 5 mg tablet 5 mg PO DAILY fluticasone propionate 50 mcg/actuation spray,suspension 1 spray intranasal QAM calcium carbonate-vitamin D3 600 mg-20 mcg (800 unit) tablet 1 tab PO QAM aspirin [Ecotrin Low Strength] 81 mg tablet,delayed release (DR/EC) 81 mg PO DAILY albuterol sulfate 90 mcg/actuation HFA aerosol inhaler 1 inh inhalation QID PRN (Reason: Shortness Of Breath Or Wheezing) Biktarvy 50-200-25 mg tablet 1 tab PO DAILY ergocalciferol (vitamin D2) 1,250 mcg (50,000 unit) capsule 1,250 mcg PO QWEEK Combivent Respimat 20-100 mcg/actuation mist 1 puff inhalation QID omeprazole 40 mg capsule,delayed release(DR/EC) 40 mg PO BEDTIME Referrals: Sofia Monroe MD [Primary Care Provider, Internal Medicine] Interventions: ED Discharge Assessment Last Done: 04/23/25 11:45 Discharge Date/Time: 04/23/25 11:46 Print Language: Scottish
[2025-04-23 09:33] VITALS: BP 126/86; PULSE 70; RESP 16; TEMP 36.8; O2SAT 97
--- NOTE | 2025-04-23 09:34 | ECG_ITS ---
Test Reason : WEAK Blood Pressure : */* mmHG Vent. Rate : 63 BPM Atrial Rate : 63 BPM P-R Int : 124 ms QRS Dur : 80 ms QT Int : 386 ms P-R-T Axes : -16 54 68 degrees QTcB Int : 395 ms Normal sinus rhythm Normal ECG When compared with ECG of 14-Feb-2025 07:58, Criteria for Septal infarct are no longer Present Referred By: Vaishali Irvin Electronically Signed By: JONI ELIZALDE
--- NOTE | 2025-04-23 09:48 | PC.NURSE ---
Patient presents to ED c/o weakness. Weakness started on Friday and hasnt subsided. Patient reports being lightheaded but not dizzy. Patient reports poor inatke over the last couples days r/t n/v. Denies pain, SOB, sick contacts, and n/v at this time. Blood collected/sent. VSS and up to date. Patient on monitor tech NSR. 20G LAC. Provider in to see patient. Patient headed to xray at this time, awaiting results. Plan of care on going
[2025-04-23 09:56] LABS: MANUAL DIFF FLAG NO
[2025-04-23 10:10] LABS: Alanine Aminotransferase 8 U/L (0-40); Albumin Level 4.0 g/dL (3.5-5.0); Alkaline Phosphatase 59 U/L (39-117); Anion Gap 12 (12-20); Aspartate Amino Transferase 19 U/L (5-37); Blood Urea Nitrogen 15 mg/dL (9-16); Calcium 8.8 mg/dL (8.4-10.2); Carbon Dioxide 26 mmol/L (22-29); Chloride 106 mmol/L (96-108); Creatinine Clr Calc Pharmacy 73.5; Estimated Glomerular Filt Rate > 60; Magnesium 2.2 mg/dL (1.6-2.6); Potassium 4.0 mmol/L (3.3-5.1); Sodium 140 mmol/L (135-145); Total Protein 6.6 g/dL (6.5-8.0)
[2025-04-23 10:11] LABS: Hematocrit 37.0 % (42.0-52.0); Hemoglobin 12.1 g/dl (14.0-18.0); Imm Gran Abs Auto 0.04 X10*3/uL (0.00-0.03); Imm Gran Pct Auto 0.5 % (0.0-0.4); Lymphocytes Absolute Auto 1.1 X10*3/uL (1.2-4.9); Mean Corpuscular HGB Conc 32.7 g/dl (31.0-36.0); Mean Corpuscular Hemoglobin 29.4 pg (27.0-33.0); Mean Corpuscular Volume 89.8 fL (80.0-98.0); NRBC Abs Auto 0.000 X10*3/uL (0.0-0.012); NRBC Pct Auto 0.0 /100WBC (0.0-0.2); Platelet Count 201 X10*3/uL (160-400); Red Blood Count 4.12 X10*6/uL (4.60-5.80); White Blood Count 8.6 X10*3/uL (4.8-10.8)
[2025-04-23 10:19] LABS: Appearance Urine Cloudy; Glucose Urine UA Negative (Negative); PH 5.0 (5.0-9.0); Specific Gravity - Urine 1.025 (1.005-1.025); UMIC TRIGGER UACC YES
[2025-04-23 10:20] LABS: Troponin-I High Sensitivity < 2.7 ng/L (<3.5-35.0)
[2025-04-23 10:32] LABS: UACC Culture Trigger YES
[2025-04-23 11:45] VITALS: BP 111/62; PULSE 63; RESP 14; TEMP 36.3; O2SAT 98
[2025-04-23 12:53] LABS: Resp Syncy Virus RNA Qual PCR NEGATIVE (Negative); SARS COV2 PCR INHOUSE NEGATIVE (Negative)
== END 2025-04-23 11:46 | disposition home or self-care (01) ==
PROVIDERS: Physician Assistant Medical; Emergency Provider Emergency Medicine; PCP Family Medicine
DX: N39.0 Urinary tract infection, site not specified (principal); R53.1 Weakness; Z03.818 Encounter for observation for suspected exposure to other biological agents ruled out; J45.909 Unspecified asthma, uncomplicated
CPT/HCPCS: 51798; 71046; 80053; 81001; 83735; 84484; 85025; 87086; 87088; 87186; 87637; 93005; 99283; 99285

== ENCOUNTER → 2025-04-23 09:34 | Outpatient (BNV) | payer MEDICARE, MEDICAID, SELFPAY | PROVIDERS: Emergency Provider Emergency Medicine; PCP Family Medicine; Visit Provider Internal Medicine | DX: R53.1 Weakness (principal) | CPT/HCPCS: 93010 ==

== ENCOUNTER → 2025-04-23 09:37 | Outpatient (BNV) | payer MEDICARE, MEDICAID, SELFPAY | PROVIDERS: Emergency Provider Emergency Medicine; PCP Family Medicine; Visit Provider Radiology Vascular & Interventional Radiology | DX: R53.1 Weakness (principal) | CPT/HCPCS: 71046 ==

== ENCOUNTER 2025-07-26 07:54 | Emergency (ER) | payer OTHER, SELFPAY ==
--- NOTE | ~2025-07-26 | XR_ITS ---
EXAMINATION: XR HIP, LEFT CLINICAL INFORMATION: Left hip pain COMPARISON: 12/20/2024 TECHNIQUE: AP pelvis, and 2 views of the left hip. FINDINGS: No fracture, dislocation, or suspicious bone lesion. There is normal alignment. There is minimal osteoarthrosis of the left hip joint with subtle superolateral acetabular spurring. Similar findings are seen in the right hip. Normal acetabular coverage. Normal femoral head contour without evidence of AVN. The SI joints appear normal. The pelvis is intact. Soft tissues demonstrate subtle vascular calcifications. XR/XR hip LT w PEL1V IMPRESSION: No acute bony or soft tissue abnormality. Subtle degenerative arthritis left hip joint. Electronically signed by: Roland Rae MD 07/26/2025 01:53 PM EDT
[2025-07-26 08:04] VITALS: BP 145/73; PULSE 66; RESP 16; O2SAT 97; BMI 24.4
[2025-07-26 08:43] LABS: MANUAL DIFF FLAG NO
[2025-07-26 08:45] LABS: Appearance Urine Clear; Glucose Urine UA Negative (Negative); Hematocrit 40.8 % (42.0-52.0); Hemoglobin 13.5 g/dl (14.0-18.0); Imm Gran Abs Auto 0.01 X10*3/uL (0.00-0.03); Imm Gran Pct Auto 0.2 % (0.0-0.4); Lymphocytes Absolute Auto 1.4 X10*3/uL (1.2-4.9); Mean Corpuscular HGB Conc 33.1 g/dl (31.0-36.0); Mean Corpuscular Hemoglobin 29.5 pg (27.0-33.0); Mean Corpuscular Volume 89.3 fL (80.0-98.0); NRBC Abs Auto 0.000 X10*3/uL (0.0-0.012); NRBC Pct Auto 0.0 /100WBC (0.0-0.2); PH 5.0 (5.0-9.0); Platelet Count 234 X10*3/uL (160-400); Red Blood Count 4.57 X10*6/uL (4.60-5.80); Specific Gravity - Urine 1.020 (1.005-1.025); White Blood Count 5.3 X10*3/uL (4.8-10.8)
[2025-07-26 09:05] LABS: Anion Gap 12 (12-20); Blood Urea Nitrogen 14 mg/dL (9-16); Calcium 9.6 mg/dL (8.4-10.2); Carbon Dioxide 26 mmol/L (22-29); Chloride 107 mmol/L (96-108); Creatinine Clr Calc Pharmacy 75.0; Estimated Glomerular Filt Rate > 60; Potassium 4.3 mmol/L (3.3-5.1); Sodium 141 mmol/L (135-145)
--- NOTE | 2025-07-26 13:37 | ED.GENADULT ---
HPI - General Adult General Chief complaint: Abdominal Pain Stated complaint: L hip pain Time Seen by Provider: 07/26/25 13:31 Source: patient Mode of arrival: ambulatory Limitations: no limitations History of Present Illness ED Provider: DR. Olivo HPI narrative: 64-year-old male came in for evaluation of left hip pain X 1 month, declined any fall or injury to the left hip, pain is localized to the left hip more with movement and ambulating. No fever, no chills, no hematuria, no frequency urination, no scrotal pain or swelling. Related Data Home Medications ?Medication ?Instructions ?Recorded ?Confirmed albuterol sulfate 90 mcg/actuation 1 inh inhalation QID PRN Shortness 08/17/20 07/29/24 aerosol inhaler Of Breath Or Wheezing aspirin 81 mg tablet,delayed 81 mg PO DAILY 08/17/20 07/29/24 release (Ecotrin Low Strength) bictegravir 50 mg-emtricitabine 1 tab PO DAILY 07/12/21 07/29/24 200 mg-tenofovir alafenam 25 mg tablet (Biktarvy) ergocalciferol (vitamin D2) 1,250 1,250 mcg PO QWEEK 07/12/21 07/29/24 mcg (50,000 unit) capsule ipratropium 20 mcg-albuterol 100 1 puff inhalation QID 01/10/22 07/29/24 mcg/actuation mist for inhalation (Combivent Respimat) omeprazole 40 mg capsule,delayed 40 mg PO BEDTIME 01/10/22 07/29/24 release amlodipine 5 mg tablet 5 mg PO DAILY 07/22/24 07/29/24 atorvastatin 20 mg tablet 20 mg PO DAILY 07/22/24 07/29/24 calcium 600 mg (as 1 tab PO QAM 07/22/24 07/29/24 carbonate)-vitamin D3 20 mcg (800 unit) tablet fluticasone propionate 50 1 spray intranasal QAM 07/22/24 07/29/24 mcg/actuation nasal spray,suspension Previous Rx's ?Medication ?Instructions ?Recorded oxybutynin chloride 5 mg 5 mg PO DAILY 90 days #90 tabs 01/17/25 tablet,extended release 24 hr cefuroxime axetil 500 mg tablet 500 mg PO BID 10 days #20 tabs 04/23/25 cefuroxime axetil 500 mg tablet 500 mg PO BID 7 days #14 tabs 04/23/25 doxazosin 4 mg tablet 4 mg PO BEDTIME 90 days #90 tabs 07/19/25 Allergies Allergy/AdvReac Type Severity Reaction Status Date / Time No Known Allergies Allergy Verified 07/26/25 08:05 Review of Systems Review of Systems: All other systems are reviewed and are negative Constitutional: Reports as per HPI and Reports no additional constitutional complaints Eyes: Reports as per HPI and Reports no additional eye complaints Reports system reviewed and no additional complaints, except as documented Cardiovascular: Reports as per HPI and Reports no additional cardiovascular complaints Respiratory: Reports as per HPI and Reports no additional respiratory complaints Gastrointestinal: Reports as per HPI and Reports no additional gastrointestinal complaints Genitourinary: Reports no additional female genitourinary complaints Musculoskeletal: Reports no additional musculoskeletal complaints Skin/Breast: Reports system reviewed and no additional complaints, except as docu Psychiatric: Reports no additional psychiatric complaints Endocrine: Reports no additional endocrine complaints Hematologic/Lymphatic: Reports no additional hematologic/lymphatic complaints Allergic/Immunologic: Reports no additional allergic/immunologic complaints Reports system reviewed and no additional complaints, except as documented and Reports Abnormal speech present [facility] Past Medical History Medical History Cataract Bronchitis (06/07/24) Hx of pneumothorax (~1976) PAD (peripheral artery disease) Elevated cholesterol Asthma with COPD Vertigo GERD (gastroesophageal reflux disease) Depression Polysubstance abuse BPH (benign prostatic hyperplasia) Asthma HIV (human immunodeficiency virus infection) COPD (chronic obstructive pulmonary disease) Eczema Cervicalgia Surgical History Hx of surgical procedure (04/23/18) Hx of eye surgery (02/18/23) Hx of chest tube placement (~1976) History of esophagogastroduodenoscopy (EGD) (01/16/24) H/O colonoscopy (01/16/24) Social History Social History Household Members: None Housing: Apartment Are you a primary pediatric acute care unit nurse to a significant other at home: No Do you presently have visiting nurse or other home services: No Alcohol intake: never Patient Tobacco Use Status: Former Tobacco user Tobacco use type: Cigarette Advance Directives: No Advance Directives Information Provided: Yes Current occupational status: disabled Physical Exam ED Vital Signs: Vital Signs - 24 hr 07/26/25 08:04 07/26/25 14:13 Temperature 97.8 F Pulse Rate 66 62 Respiratory Rate 16 15 Blood Pressure 145/73 H 111/76 Pulse Oximetry 97 98 Oxygen Delivery Method Room Air Room Air BMI result Body Mass Index 24.4 Vital signs have been reviewed and appear to be correct. Blood pressure elevated. Heart rate normal. Respiratory rate normal. Temperature normal. Oxygen saturation normal. Appearance: Alert. Oriented X3. No acute distress. Head: Normal external exam. Normocephalic. Atraumatic. No Power signs noted. No raccoon eyes noted Eyes: PERRLA. EOMI. Conjunctiva and sclera normal. Eyelids normal. ENT: TM's Normal. Pharynx normal. Uvula midline. Moist mucous membranes. No trismus noted. No drooling noted. No muffled voice noted. Neck: Normal inspection. Neck supple. FROM. No adenopathy. Thyroid Normal. No meningeal signs. No neck mass noted. CVS: Normal heart rate and rhythm. Heart sound normal. No murmurs noted. Pulses normal throughout. Respiratory: No respiratory distress. Painless inspiration. Breath sounds normal. No wheezes/rales/rhonchi noted. Chest nontender. No accessory muscle usage noted or decreased air movement noted. Abdomen: Soft and nontender. Bowel sounds normal in all 4 quadrants. No distention noted. No organomegaly noted. No visible injury noted. exam: Circumcised, normal inspection, no redness, hotness, +cremasteric reflex bilateral Back: No CVA tenderness. Full range of motion noted. Skin: Skin warm and dry. Normal skin color. Normal skin turgor. No rashes/lesions/lacerations noted. Extremities: No lower extremity edema. Extremities exhibit normal range of motion. Extremities nontender. Neuro: Oriented X 3. Cranial nerve exam: II-XII are grossly intact No motor deficit. No sensory deficit. Reflexes normal. Course Reevaluation(s) Reevaluation #1: 64-year-old male came in for evaluation of left hip pain, no history of trauma or fall, x-ray reveal mild arthritic changes, labs are unremarkable, UA is unremarkable, exam is unremarkable. Will reassure the patient have him follow with orthopedic as an outpatient. Time: 15:00 Medical Decision Making Differential Diagnosis Differential Diagnoses: The differential diagnosis associated with the presentation includes (Left hip fracture, arthritis, kidney stone, UTI electrolyte derangement, severe anemia.) Admission/Observation Consideration of admission/observation: Escalation of care including admission/observation considered Lab Data MDM Lab Attestation statement: I reviewed the patient's lab results. 07/26/25 08:28 07/26/25 08:28 Labs: Lab Results 07/26/25 Range/Units 08:28 WBC 5.3 (4.8-10.8) X10*3/uL RBC 4.57 L (4.60-5.80) X10*6/uL Hgb 13.5 L (14.0-18.0) g/dl Hct 40.8 L (42.0-52.0) % MCV 89.3 (80.0-98.0) fL MCH 29.5 (27.0-33.0) pg MCHC 33.1 (31.0-36.0) g/dl RDW 13.2 (11.0-16.0) % Plt Count 234 (160-400) X10*3/uL MPV 9.4 (9.4-12.4) fL Immature Gran % (Auto) 0.2 (0.0-0.4) % Neut % (Auto) 60.0 (45-73) % Lymph % (Auto) 26.9 (20-40) % [place] % (Auto) 10.6 (2-11) % Eos % (Auto) 1.9 (0-4) % Baso % (Auto) 0.4 (0-2) % Lymph # (Auto) 1.4 (1.2-4.9) X10*3/uL [place] # (Auto) 0.6 (0.1-1.2) X10*3/uL Eos # (Auto) 0.1 (0.0-0.4) X10*3/uL Baso # (Auto) 0.0 (0.0-0.2) X10*3/uL Abs Immat Gran (auto) 0.01 (0.00-0.03) X10*3/uL Absolute Neuts (auto) 3.2 (2.0-8.3) x10*3/uL Absolute Nucleated RBC 0.000 (0.0-0.012) X10*3/uL Nucleated RBC % (auto) 0.0 (0.0-0.2) /100WBC Sodium 141 (135-145) mmol/L Potassium 4.3 (3.3-5.1) mmol/L Chloride 107 (96-108) mmol/L Carbon Dioxide 26 (22-29) mmol/L Anion Gap 12 (12-20) BUN 14 (9-16) mg/dL Creatinine 1.00 (0.5-1.4) mg/dL Estim Creat Clear Calc 75.0 Estimated GFR > 60 Random Glucose 93 (60-115) mg/dL Calcium 9.6 D (8.4-10.2) mg/dL Urine Color Yellow Urine Appearance Clear Urine pH 5.0 (5.0-9.0) Ur Specific [place] 1.020 (1.005-1.025) Urine Protein Negative (Neg-Trace) mg/dL Urine Glucose (UA) Negative (Negative) mg/dL Urine Ketones Negative (Negative) mg/dL Urine Blood Negative (Negative) Urine Nitrite Negative (Negative) Ur Leukocyte Esterase Negative (Negative) Independent Interpretation I performed an independent interpretation of an: Plain X-Ray (Left hip: No fracture, no dislocation.) Radiology Impression Discussion of test interpretation with radiology: I have reviewed the radiologist's reading. Discharge Plan Discharge Clinical Impression: Arthralgia of left hip Patient Disposition: Home, Self-Care Instructions: Arthralgia (ED) Prescriptions: No Action oxybutynin chloride 5 mg tablet extended release 24hr 5 mg PO DAILY 90 Days Qty: 90 1RF doxazosin 4 mg tablet 4 mg PO BEDTIME 90 Days Qty: 90 1RF atorvastatin 20 mg tablet 20 mg PO DAILY amlodipine 5 mg tablet 5 mg PO DAILY fluticasone propionate 50 mcg/actuation spray,suspension 1 spray intranasal QAM calcium carbonate-vitamin D3 600 mg-20 mcg (800 unit) tablet 1 tab PO QAM cefuroxime axetil 500 mg tablet 500 mg PO BID 7 Days Qty: 14 0RF cefuroxime axetil 500 mg tablet 500 mg PO BID 10 Days Qty: 20 0RF aspirin [Ecotrin Low Strength] 81 mg tablet,delayed release (DR/EC) 81 mg PO DAILY albuterol sulfate 90 mcg/actuation HFA aerosol inhaler 1 inh inhalation QID PRN (Reason: Shortness Of Breath Or Wheezing) Biktarvy 50-200-25 mg tablet 1 tab PO DAILY ergocalciferol (vitamin D2) 1,250 mcg (50,000 unit) capsule 1,250 mcg PO QWEEK Combivent Respimat 20-100 mcg/actuation mist 1 puff inhalation QID omeprazole 40 mg capsule,delayed release(DR/EC) 40 mg PO BEDTIME Referrals: Rodolfo Forrester MD [Physician, Orthopedics] Sofia Monroe MD [Primary Care Provider, Internal Medicine] Print Language: Malawian
[2025-07-26 14:13] VITALS: BP 111/76; PULSE 62; RESP 15; TEMP 36.6; O2SAT 98
[2025-07-26 15:28] VITALS: BP 111/76; PULSE 62; RESP 15; TEMP 36.6; O2SAT 98
== END 2025-07-26 15:28 | disposition home or self-care (01) ==
PROVIDERS: Emergency Provider Emergency Medicine; PCP Family Medicine
DX: M25.552 Pain in left hip (principal); Z79.899 Other long term (current) drug therapy
CPT/HCPCS: 36415; 73502; 80048; 81003; 85025; 99283

== ENCOUNTER → 2025-07-26 13:36 | Outpatient (BNV) | payer MEDICARE, MEDICAID, SELFPAY | PROVIDERS: Emergency Provider Emergency Medicine; PCP Family Medicine; Visit Provider Radiology Diagnostic Radiology | DX: M16.12 Unilateral primary osteoarthritis, left hip (principal) | CPT/HCPCS: 73502 ==

== ENCOUNTER 2025-08-03 08:44 | Outpatient (REF) | payer OTHER, SELFPAY ==
[2025-08-03 10:09] LABS: Prostate Specific Antigen 1.72 ng/mL (<0.05-4.0)
== END 2025-08-03 08:45 | disposition home or self-care (01) ==
LOC: HO.LAB 08:44
PROVIDERS: PCP Family Medicine; Visit Provider Urology
DX: Z12.5 Encounter for screening for malignant neoplasm of prostate (principal); N40.0 Benign prostatic hyperplasia without lower urinary tract symptoms
CPT/HCPCS: 36415; 84153

== ENCOUNTER 2025-08-16 08:49 | Outpatient (AMB) | payer MEDICARE, SELFPAY ==
--- NOTE | 2025-08-16 09:06 | A.OFFVIS_ITS ---
Intake Visit Reasons: 1y/PSA/PVR Intake Note: Patient is present for 1 yr follow up Urology Med: Oxybutynin, Doxazosin Antibiotic Allergy: None Blood Thinner: Aspirin Labs done : PSA 1.72 Todays PVR: 3 mls Oyster Unloader Required: No Accompanied by: Self / Same As Patient Allergies No Known Allergies Allergy (Verified 08/16/25 09:07) HPI Comments Details: Mervin is a pleasant male. He is a patient of Dr. Mays. He is here for the following urologic conditions - lower urinary tract symptoms Yearly follow-up Control during the day is fine Nighttime waking 4 times Discussed reducing coffee intake and fluid intake in the evening Follow-up in six-month Has been on oxybutynin with doxazosin PVR 40 cc Bladder remained stable Lower urinary tract symptoms Current visit is for further evaluation of lower urinary tract symptoms Current therapy low-dose doxazosin Prior therapy tamsulosin with retrograde ejaculation, failed alfuzosin PSA 01/23 0.8, 01/25 0.7, 01/26 0.7, 07/30 1.7 Cystoscopy 08/28 normal Therapeutic plan trial doxazosin PFSH Medical History Cataract Bronchitis (06/07/24) Hx of pneumothorax (~1976) PAD (peripheral artery disease) Elevated cholesterol Asthma with COPD Vertigo GERD (gastroesophageal reflux disease) Depression Polysubstance abuse BPH (benign prostatic hyperplasia) Asthma HIV (human immunodeficiency virus infection) COPD (chronic obstructive pulmonary disease) Eczema Cervicalgia Surgical History Hx of surgical procedure (04/23/18) Hx of eye surgery (02/18/23) Hx of chest tube placement (~1976) History of esophagogastroduodenoscopy (EGD) (01/16/24) H/O colonoscopy (01/16/24) Social History Household Members: None Caregiver staying overnight: No Housing: Apartment Are you a primary medical care administrator to a significant other at home: No Do you presently have visiting nurse or other home services: No 75 years or older and lives alone: No Alcohol intake: never Patient Tobacco Use Status: Former Tobacco user Tobacco use type: Cigarette Current occupational status: disabled Review of Systems Const Denies chills and Denies fever(s) Card Reports no additional complaints and Denies syncope Resp Denies cough GI Denies abdominal pain and Denies heartburn Reports as per HPI and Denies change in libido Neuro Denies syncope Psych Denies change in libido Endo Denies change in libido Physical Exam Const General: cooperative, healthy appearing, comfortable and no acute distress Orientation/consciousness: patient oriented x3 HEENT Face and sinus: Yes normal facial exam Mouth: moist mucous membranes Neck Neck: Yes normal visual inspection, Yes full ROM and Yes trachea midline Chest Chest palpation & inspection: normal inspection of the chest Resp Effort & Inspection: normal respiratory effort, able to speak in complete sentences and no respiratory distress GI Inspection: Yes normal to inspection Back/Spine/Pelvis Cervical Spine: normal cervical lordosis Thoracic/Lumbar Spine: thoracic and lumbar spine normal to inspection Skin General skin exam: no rashes or lesions noted Neuro General: patient oriented x3, gait normal, tone normal and moves all extremities Extrem General: Yes normal to inspection and Yes capillary refill normal Office Procedures Post Void Residual Post Residual Void Post Void Residual (PVR): 3 [id number] Void Residual by ultrasound Results AMB Urinalysis, Automated UA Leukoctes 0 Mandeep/uL Last Edit by Ana Melton CCM on 08/16/25 09:41 UA Nitrite Negative Last Edit by Ana Melton [facility] on 08/16/25 09:41 UA Urobilinogen 0.2 mg/dL Last Edit by Ana Melton [facility] on 08/16/25 09:41 UA Protein 0 mg/dL Last Edit by Ana Melton [facility] on 08/16/25 09:41 UA pH 6.0 Last Edit by Ana Melton [facility] on 08/16/25 09:41 UA Blood 10 Sebastián/uL Last Edit by Ana Melton [facility] on 08/16/25 09:41 UA Specific [place] 1.015 Last Edit by Ana Melton [facility] on 08/16/25 09:4 1 UA Ketone Negative Last Edit by Ana Melton [facility] on 08/16/25 09:41 UA Bilirubin 0 mg/dL Last Edit by Ana Melton [facility] on 08/16/25 09:41 UA Glucose 0 mg/dL Last Edit by NIRMALA Alfaro on 08/16/25 09:41 Results Reviewed Results Reviewed: Laboratory Last Values Urine pH (Auto) 6.0 08/16/25 09:40 Specific [place] (Auto) 1.015 08/16/25 09:40 Urine Protein (Auto) 0 mg/dL 08/16/25 09:40 Glucose (UA)(Auto) 0 mg/dL 08/16/25 09:40 Urine Ketones (Auto) Negative 08/16/25 09:40 Urine Blood (Auto) 10 Sebastián/uL 08/16/25 09:40 Urine Nitrite (Auto) Negative 08/16/25 09:40 Urine Bilirubin (Auto) 0 mg/dL 08/16/25 09:40 Urine Urobilinogen (Auto) 0.2 mg/dL 08/16/25 09:40 Leukocyte Esterase (Auto) 0 Mandeep/uL 08/16/25 09:40 Assessment & Plan Assessment & Plan (1) Overactive bladder: Code(s): N32.81 - Overactive bladder Category: Medical (2) BPH (benign prostatic hyperplasia): Code(s): N40.0 - Benign prostatic hyperplasia without lower urinary tract symptoms Category: Medical (3) Nocturia more than twice per night: Code(s): R35.1 - Nocturia Category: Medical Plan Six-month follow-up office Medications: Refilled oxybutynin chloride ER 5 mg PO DAILY 90 tabs 1RF 90 days N32.81 - Overactive bladder, R39.15 - Urgency of urination Patient Instructions: This note is constructed using voice recognition software. While every effort has been made to ensure accuracy automotive engineer errors may have been included. Imaging studies, laboratory and physical exam results were discussed and reviewed in detail. No major barriers to patient understanding were identified. An opportunity to ask questions regarding the treatment plan was provided. All questions were answered. The patient expressed understanding and agreement with the above treatment plan. The patient is aware they should contact our office by phone for worsening of their current condition or the appearance of new urologic symptoms. Compliance is encouraged with any medications and followup testing that is ordered. It is a privilege to participate in the urologic care of your patient. If you have any questions or concerns regarding treatment for the above conditions, or other urologic issues, please do not hesitate to contact me. The office telephone contact is [phone]. Sincerely, Dr Jag Abraham MD, MARK [facility] - Urology Compassionate Specialist Care for the Genitourinary System Coding Level of Care Code Est Pt Level 4 (35538) Complex EM visit Add On G2211 Diagnoses Overactive bladder N32.81 BPH (benign prostatic hyperplasia) N40.0 Nocturia more than twice per night R35.1 CPT Codes Post Residual Void - PVR CPT Code: 86396-Dmim Void Residual by ultrasound ([id number])
== END 2025-08-16 09:52 | disposition home or self-care (01) ==
LOC: HO.HUSH 08:49
PROVIDERS: PCP Family Medicine; Visit Provider Urology
DX: N32.81 Overactive bladder (principal); N40.0 Benign prostatic hyperplasia without lower urinary tract symptoms; R35.1 Nocturia
CPT/HCPCS: 99214; G2211

== ENCOUNTER → 2025-08-16 08:49 | Outpatient (BNVA) | payer OTHER, SELFPAY | PROVIDERS: PCP Family Medicine; Visit Provider Urology | DX: N32.81 Overactive bladder (principal); N40.0 Benign prostatic hyperplasia without lower urinary tract symptoms; R35.1 Nocturia | CPT/HCPCS: 51798; 99212 ==

== ENCOUNTER 2025-09-20 13:30 | Outpatient (REF) | payer OTHER, SELFPAY ==
[2025-09-20 16:11] LABS: MANUAL DIFF FLAG NO
[2025-09-20 16:15] LABS: Hematocrit 39.7 % (42.0-52.0); Hemoglobin 12.9 g/dl (14.0-18.0); Imm Gran Abs Auto 0.02 X10*3/uL (0.00-0.03); Imm Gran Pct Auto 0.3 % (0.0-0.4); Lymphocytes Absolute Auto 1.7 X10*3/uL (1.2-4.9); Mean Corpuscular HGB Conc 32.5 g/dl (31.0-36.0); Mean Corpuscular Hemoglobin 29.7 pg (27.0-33.0); Mean Corpuscular Volume 91.5 fL (80.0-98.0); NRBC Abs Auto 0.000 X10*3/uL (0.0-0.012); NRBC Pct Auto 0.0 /100WBC (0.0-0.2); Platelet Count 245 X10*3/uL (160-400); Red Blood Count 4.34 X10*6/uL (4.60-5.80); White Blood Count 7.5 X10*3/uL (4.8-10.8)
[2025-09-20 16:45] LABS: Appearance Urine Turbid; Glucose Urine UA Negative (Negative); PH 5.0 (5.0-9.0); Specific Gravity - Urine 1.025 (1.005-1.025)
[2025-09-20 16:53] LABS: Alanine Aminotransferase 18 U/L (0-40); Albumin Level 4.8 g/dL (3.5-5.0); Alkaline Phosphatase 54 U/L (39-117); Anion Gap 8 (12-20); Aspartate Amino Transferase 21 U/L (5-37); Blood Urea Nitrogen 18 mg/dL (9-16); Calcium 9.3 mg/dL (8.4-10.2); Carbon Dioxide 30 mmol/L (22-29); Chloride 107 mmol/L (96-108); Cholesterol 107 mg/dL (<200); Estimated Glomerular Filt Rate > 60; HDL Cholesterol 33 mg/dL (>40); Potassium 4.1 mmol/L (3.3-5.1); Sodium 141 mmol/L (135-145); Total Protein 7.1 g/dL (6.5-8.0); Triglycerides 96 mg/dL (<150)
[2025-09-20 18:17] LABS: CT PCR Urine NOT DETECTED (Not Detect.); NG PCR Urine NOT DETECTED (Not Detect.)
[2025-09-21 04:46] LABS: HBS Num1 > 1000.00 mIU/mL (0-7.99); HBc Num1 0.19 S/CO (0.00-0.79); ~HepC Num1 0.09 S/CO (0.00-0.79); ~Hepatitis B Surface Antibody REACTIVE (Nonreactive); ~Hepatitis C Antibody Nonreactive (Nonreactive)
[2025-09-22 07:08] LABS: HIV RNA PCR Qn Copies 179 copies/mL (NOT DETECTED); HIV RNA PCR Qn Log Copies 2.25 (NOT DETECTED)
[2025-09-22 13:20] LABS: HBsAGNum1 0.32 S/CO (0.00-0.99); Hepatitis B Surface Antigen Negative (Negative)
== END 2025-09-20 13:31 | disposition home or self-care (01) ==
LOC: HO.HHCL 13:30
PROVIDERS: PCP Family Medicine; Visit Provider Student in an Organized Health Care Education/Training Program
DX: Z21 Asymptomatic human immunodeficiency virus [HIV] infection status (principal); Z13.6 Encounter for screening for cardiovascular disorders
CPT/HCPCS: 80053; 80061; 81003; 85025; 86359; 86360; 86481; 86592; 86704; 86706; 86803; 87340; 87491; 87536; 87591

== ENCOUNTER 2025-10-03 08:37 | Outpatient (REF) | payer OTHER, SELFPAY | END 2025-10-03 08:38 | LOC: HO.HHCL 08:37 | PROVIDERS: PCP Family Medicine; Visit Provider Family Medicine | DX: Z13.1 Encounter for screening for diabetes mellitus (principal) | CPT/HCPCS: 36415; 83036 ==